=== PATIENT | male | born 1990 | race Caucasian/White ===

== ENCOUNTER → 2018-08-01 | Emergency (ER) | payer SELFPAY ==
[~2018-08-01] VITALS: Ht 182.9 cm; Wt 108.9 kg
[~2018-08-01] MED LIST: CEFD300C3 PO; FLUT9.9S NS; ONDA4TAB11 PO
--- OUTSIDE RECORDS SUMMARY | 2018-08-01 21:35 | XMS REPORT | Clinical Summary ---
Author Author Admin, COURTNEY Organization [employer] Address Unknown Phone Unavailable Allergies, Adverse Reactions, Alerts Allergy Name Reaction Description Start Date Severity Status Provider DILANTIN Moderate Active Sary Roland MD PHENOBARBITAL Critical Active Sary Roland MD AUGMENTIN Moderate Active Sary Roland MD TOPAMAX Critical Active Berta Sweeney ROSENDO Conditions or Problems Problem Name Problem Code Onset Date Status Entry Date Provider Comment Standard Description Annotate SEIZURE DISORDER 780.39 Resolved Nick Quiroz MD Other convulsions SEIZURES, HX OF V12.49 Resolved Nick Quiroz MD Personal history of other disorders of nervous system and sense organs FH SEIZURES V17.2 Resolved Nick Quiroz MD Family history of other neurological diseases SEIZURE DISORDER 780.39 Resolved Nick Quiroz MD Other convulsions GASTROENTERITIS, ACUTE 558.9 Resolved Nick Quiroz MD Other and unspecified noninfectious gastroenteritis and colitis DEHYDRATION 276.51 Resolved Nick Quiroz MD Dehydration SEIZURE DISORDER 780.39 Active Desmond Montgomery DO Other convulsions U R I 465.9 Resolved Nick Quiroz MD Acute upper respiratory infections of unspecified site SPASM, MUSCLE 728.85 Resolved Nick Quiroz MD Spasm of muscle INGROWN TOENAIL 703.0 Active Nick Quiroz MD Ingrowing nail LYMPHADENITIS-ACUTE 683 Resolved Nick Quiroz MD Acute lymphadenitis Preventive health care V70.0 Active Yvon Harrison MD Routine general medical examination at a health care facility Hyperlipidemia 272.4 Active Yvon Harrison MD Other and unspecified hyperlipidemia Hand pain, left 729.5 Active Berta Sweeney APRN Pain in limb Onychomycosis 110.1 Active Yvon Harrison MD Dermatophytosis of nail Viral warts 078.10 Active Yvon Harrison MD Viral warts, unspecified Diarrhea, chronic 787.91 Active Luis Miguel Sapp MD Diarrhea Body Mass Index 34.0-34.9 Adult Active Luis Miguel Sapp MD Body Mass Index 34.0-34.9, adult Other obesity due to excess calories 278.00 Active Luis Miguel Sapp MD Obesity, unspecified Generalized anxiety disorder 300.00 Active Luis Miguel Sapp MD Anxiety state, unspecified Worm in stool 128.9 Active Yvno Harrison MD Helminth infection, unspecified Diarrhea 787.91 Active Yvon Harrison MD Diarrhea Epididymitis, left 604.90 Active Yvon Harrison MD Orchitis and epididymitis, unspecified Dysuria 788.1 Active Yvon Harrison MD Dysuria Body Mass Index 33.0-33.9 Adult Resolved Sary Roland MD Body Mass Index 33.0-33.9, adult Obesity Class I (BMI 30-34.9) Active Sary Roland MD Obesity, unspecified Hydrocele, Other 603.8 Active Sary Roland MD Other specified types of hydrocele Influenza Vaccination for Prophylaxis V04.81 Inactive Yvon Harrison MD Need for prophylactic vaccination and inoculation against influenza Low back pain, acute 724.2 Active Yvon Harrison MD Lumbago SEIZURE DISORDER ICD-780.39 Inactive Nick Quiroz MD SEIZURES, HX OF ICD-V12.49 Inactive Nick Quiroz MD FH SEIZURES ICD-V17.2 Inactive Nick Quiroz MD SEIZURE DISORDER ICD-780.39 Inactive Nick Quiroz MD 2011 GASTROENTERITIS, ACUTE ICD-558.9 Inactive Nick Quiroz MD DEHYDRATION ICD-276.51 Inactive Nick Quiroz MD U R I ICD-465.9 Inactive Nick Quiroz MD SPASM, MUSCLE ICD-728.85 Inactive Nick Quiroz MD LYMPHADENITIS-ACUTE ICD-683 Inactive Nick Quiroz MD Body Mass Index 33.0-33.9 Adult Inactive Donna Elizondo LPN Influenza Vaccination for Prophylaxis ICD-V04.81 Inactive Yvon Harrison MD Medication List Medication Instructions Start Date Stop Date Generic Name NDC Status Provider Patient Instruction DEPAKOTE 500 MG ORAL TABLET DELAYED RELEASE 1 po BID for seizures DIVALPROEX SODIUM 46503685440 Active VIRAJ De La Paz Active HYDRALAZINE HCL 25 MG ORAL TABLET 1 TAB PO UP TO TID PER DAY PRN HYDRALAZINE HCL 70133332184 No Longer Active Magdalenakobe Braun Active HYDROXYZINE HCL 25 MG ORAL TABLET 1 tab po tid prn anxiety or insomnia 05/31 HYDROXYZINE HCL 61627219331 Active VIRAJ Guerra Active MELOXICAM 15 MG ORAL TABLET 1 po q day for pain with food MELOXICAM 25021597555 Active Yvon Harrison MD Active CELEXA 20 MG ORAL TABLET 1 tablet by mouth daily CITALOPRAM HYDROBROMIDE 41939022013 No Longer Active Yvon Harrison MD Active KEFLEX 500 MG ORAL CAPSULE 1 po TID x 10 days CEPHALEXIN 91311434677 No Longer Active Magdalenakobe Thorntonpaul Active CIPRO 500 MG ORAL TABLET 1 tablet by mouth twice daily CIPROFLOXACIN HCL 60524847085 No Longer Active Magdalena Braun Active BUSPIRONE HCL 7.5 MG ORAL TABLET 1 twice day for anxiety BUSPIRONE HCL 36368519575 No Longer Active Yvon Harrison MD Active DEPAKOTE 500 MG ORAL TABLET DELAYED RELEASE take 1 tab po BID for seizures. DIVALPROEX SODIUM 98466817383 No Longer Active Yvon Harrison MD Active SIMVASTATIN 20 MG ORAL TABLET 1 po at qhs SIMVASTATIN 41002023174 No Longer Active Yvon Harrison MD Active CARAFATE 1 GM ORAL TABLET 1 tab q4H SUCRALFATE 63297466563 No Longer Active Yvon Harrison MD Active PANTOPRAZOLE SODIUM 40 MG ORAL TABLET DELAYED RELEASE one tab once daily 2017 PANTOPRAZOLE SODIUM 59640211439 Active Luis Miguel Sapp MD Active PREDNISONE 20 MG ORAL TABLET 2 tabs daily for 3 days, 1 tab daily for 3 days, 1/2 tab daily for 2 days PREDNISONE 86909524344 No Longer Active Yvon Harrison MD Active TERBINAFINE HCL 250 MG ORAL TABLET 1 tab po qday for nail infection. TERBINAFINE HCL 60998203553 No Longer Active Yvon Harrison MD Active DIVALPROEX SODIUM 250 MG ORAL TABLET DELAYED RELEASE 1 po TID DIVALPROEX SODIUM 61186350765 No Longer Active Nick Quiroz MD Active KEFLEX 500 MG ORAL CAPSULE 1 po qid CEPHALEXIN 92029724672 No Longer Active Nick Quiroz MD Active KEFLEX 500 MG ORAL CAPSULE 1 po qid CEPHALEXIN 79767493821 No Longer Active Nick Quiroz MD Active KEFLEX 500 MG ORAL CAPSULE 1 po TID x 10 days CEPHALEXIN 99045502219 No Longer Active Nick Quiroz MD Active KEFLEX 500 MG ORAL CAPSULE 1 po TID x 10 days CEPHALEXIN 72530388410 No Longer Active Nick Quiroz MD Active IBUPROFEN 600 MG ORAL TABLET 1 tablet by mouth every 8 hours prn IBUPROFEN 29519493301 No Longer Active Desmond Montgomery DO Active FLONASE 50 MCG/ACT NASAL SUSPENSION 2 puffs in each nostril daily FLUTICASONE PROPIONATE 93918692672 No Longer Active Desmond Montgomery DO Active LORATADINE 10 MG ORAL TABLET 1 tablet by mouth daily PRN Congestion LORATADINE 76022191031 No Longer Active Desmond Montgomery DO Active LORATADINE 10 MG ORAL TABLET 1 tablet by mouth daily PRN Congestion LORATADINE 10 MG ORAL TABLET 760828 LORATADINE Inactive FLONASE 50 MCG/ACT NASAL SUSPENSION 2 puffs in each nostril daily FLONASE 50 MCG/ACT NASAL SUSPENSION FLUTICASONE PROPIONATE Inactive IBUPROFEN 600 MG ORAL TABLET 1 tablet by mouth every 8 hours prn IBUPROFEN 600 MG ORAL TABLET 831774 IBUPROFEN Inactive KEFLEX 500 MG ORAL CAPSULE 1 po TID x 10 days KEFLEX 500 MG ORAL CAPSULE 953021 CEPHALEXIN Inactive KEFLEX 500 MG ORAL CAPSULE 1 po qid KEFLEX 500 MG ORAL CAPSULE 164316 CEPHALEXIN Inactive KEFLEX 500 MG ORAL CAPSULE 1 po qid KEFLEX 500 MG ORAL CAPSULE 305327 CEPHALEXIN Inactive CARAFATE 1 GM ORAL TABLET 1 tab q4H CARAFATE 1 GM ORAL TABLET 740242 SUCRALFATE Inactive SIMVASTATIN 20 MG ORAL TABLET 1 po at qhs SIMVASTATIN 20 MG ORAL TABLET 746643 SIMVASTATIN Inactive DEPAKOTE 500 MG ORAL TABLET DELAYED RELEASE take 1 tab po BID for seizures. DEPAKOTE 500 MG ORAL TABLET DELAYED RELEASE 2403484 DIVALPROEX SODIUM Inactive BUSPIRONE HCL 7.5 MG ORAL TABLET 1 twice day for anxiety BUSPIRONE HCL 7.5 MG ORAL TABLET 590169 BUSPIRONE HCL Inactive CIPRO 500 MG ORAL TABLET 1 tablet by mouth twice daily CIPRO 500 MG ORAL TABLET 214937 CIPROFLOXACIN HCL Inactive CELEXA 20 MG ORAL TABLET 1 tablet by mouth daily CELEXA 20 MG ORAL TABLET 571765 CITALOPRAM HYDROBROMIDE Inactive HYDRALAZINE HCL 25 MG ORAL TABLET 1 TAB PO UP TO TID PER DAY PRN HYDRALAZINE HCL 25 MG ORAL TABLET 374684 HYDRALAZINE HCL Inactive KEFLEX 500 MG ORAL CAPSULE 1 po TID x 10 days KEFLEX 500 MG ORAL CAPSULE 640296 CEPHALEXIN Inactive DIVALPROEX SODIUM 250 MG ORAL TABLET DELAYED RELEASE 1 po TID DIVALPROEX SODIUM 250 MG ORAL TABLET DELAYED RELEASE 5965812 DIVALPROEX SODIUM Inactive TERBINAFINE HCL 250 MG ORAL TABLET 1 tab po qday for nail infection. TERBINAFINE HCL 250 MG ORAL TABLET 343136 TERBINAFINE HCL Inactive PREDNISONE 20 MG ORAL TABLET 2 tabs daily for 3 days, 1 tab daily for 3 days, 1/2 tab daily for 2 days PREDNISONE 20 MG ORAL TABLET 545175 PREDNISONE Inactive KEFLEX 500 MG ORAL CAPSULE 1 po TID x 10 days KEFLEX 500 MG ORAL CAPSULE 280691 CEPHALEXIN Inactive Vital Signs Date Name Value Unit Range Description blood pressure, diastolic 88 mm[Hg] BP caro blood pressure, systolic 139 mm[Hg] BP sys height E&M 71 [in_us] Bdy height pulse rate E&M 76 /min Heart rate temperature E&M 98.3 [degF] Body temperature weight E&M 248 [lb_av] Weight Measured blood pressure, diastolic 90 mm[Hg] BP caro blood pressure, systolic 136 mm[Hg] BP sys height E&M 71 [in_us] Bdy height pulse rate E&M 86 /min Heart rate temperature E&M 98.4 [degF] Body temperature weight E&M 243 [lb_av] Weight Measured blood pressure, diastolic 95 mm[Hg] BP caro blood pressure, systolic 150 mm[Hg] BP sys height E&M 71 [in_us] Bdy height pulse rate E&M 79 /min Heart rate temperature E&M 99.3 [degF] Body temperature weight E&M 236 [lb_av] Weight Measured blood pressure, diastolic 82 mm[Hg] BP caro blood pressure, systolic 135 mm[Hg] BP sys height E&M 71 [in_us] Bdy height pulse rate E&M 74 /min Heart rate temperature E&M 97.1 [degF] Body temperature weight E&M 241.31 [lb_av] Weight Measured blood pressure, diastolic, repeated by physician 80 BP caro blood pressure, diastolic 80 mm[Hg] BP caro blood pressure, systolic, repeated by physician 128 BP sys blood pressure, systolic 128 mm[Hg] BP sys height E&M 71 [in_us] Bdy height pulse rate E&M 73 /min Heart rate temperature E&M 98.2 [degF] Body temperature weight E&M 244 [lb_av] Weight Measured Diagnostic Results Date Name Value Unit Range Description Chart Maintenance: hemoccult added to flow sheet - Chemistry occult blood, stool (E&M) Negative Lab Report: UADIP W/MICRO, AUTO - Chemistry RBC, urine, dipstick Negative Negative protein, total urine random Negative mg/dL Negative Lab Report: UADIP W/MICRO, AUTO - Urinalysis glucose, urine, semiquantitative Negative Negative ketones, urine, by test strip Negative Negative bilirubin, urine Negative Negative urine color Dark yellow Colorless;Lightyellow;Straw;Yellow appearance, urine Clear Clear specific gravity, urine 1.025 1.000-1.030 pH, urine, semiquantitative 7.0 5.0-8.5 urobilinogen, urine, semiquantitative (dipstick) 1.0 E.U./dL Normal leukocyte esterase, urine, by dipstick Negative Negative nitrite, urine, semiquantitative Negative Negative Encounters Code Encounter Date Provider Facility CPT-06484 [id number] Vst-Est Level III 20:06:18 ENT CONSULTANT Yvon Harrison MD [facility] CPT-48758 Level 3 New Patient 08:58:45 ENT CONSULTANT Sary Roland MD [facility] CPT-35376 Level 3 Est. Patient 11:31:14 CDT Yvon Harrison MD [facility] CPT-10166 [id number] Vst-Est Level III 13:15:10 CDT Yvon Harrison MD [facility] CPT-47338 [id number] Vst-Est Level III 15:15:09 CDT Luis Miguel Sapp MD [facility] CPT-70435 Level 4 Est. Patient 11:00:57 CDT Yvon Harrison MD [facility] CPT-19322 Level 4 Est. Patient 15:53:40 CDT Yvon Harrison MD [facility] CPT-29173 Level 4 Est. Patient 15:42:18 CDT Yvon Harrison MD [facility] CPT-05723 Level 3 Est. Patient 17:08:18 CDT Berta Sweeney ROSENDO [facility] CPT-07035 Level 4 Est. Patient 16:35:02 ENT CONSULTANT Yvon Harrison MD [facility] CPT-52299 Level 4 Est. Patient 15:11:02 ENT CONSULTANT Yvon Harrison MD [facility] CPT-42606 Level 4 Est. Patient 13:18:47 CDT Yvon Harrison MD [facility] CPT-56267 Level 4 Est. Patient 09:51:29 CDT Yvon Harrison MD [facility] CPT-16285 Level 3 Est. Patient 11:40:53 ENT CONSULTANT Nick Quiroz MD [facility] CPT-84561 Level 3 Est. Patient 09:05:46 CDT Nick Quiroz MD [facility] CPT-99135 Level 3 Est. Patient 10:56:05 CDT Nick Quiroz MD [facility] CPT-53059 Level 3 Est. Patient 05:39:31 CDT Desmond Montgomery DO [facility] CPT-63566 Level 3 Est. Patient 16:18:28 ENT CONSULTANT Nick Quiroz MD [facility] CPT-00627 Level 3 Est. Patient 16:50:04 ENT CONSULTANT Nick Quiroz MD [facility] CPT-30118 Level 3 Est. Patient 22:12:55 ENT CONSULTANT Desmond Montgomery DO [facility] Procedures Code Procedure Name Date Entry Date Standard Description CPT-62830 Lipid - LAB USE ONLY 15:55:09 ENT CONSULTANT CPT-18578 CMP - LAB USE ONLY 15:55:09 ENT CONSULTANT CPT-06257 CBC - LAB USE ONLY 15:55:08 ENT CONSULTANT CPT-43642 Venipuncture Draw Fee 15:55:08 ENT CONSULTANT CPT-Cryo Cryotherapy 11:00:57 CDT CPT-93881 Hand comp min 3V 17:09:13 CDT CPT-86940 Hand comp min 3V 17:08:18 CDT CPT-74950 Fluzone Quadrivalent Intramuscular Suspension 0.5 ML 10: 17:16 CDT CPT-LR Lesion Removal 08:49:09 CDT CPT-66273 Nail Excision 08:49:52 CDT CPT-21917 Venipuncture Draw Fee 16:51:53 ENT CONSULTANT
--- OUTSIDE RECORDS SUMMARY | 2018-08-01 21:36 | XMS REPORT | Clinical Summary ---
Author Author Admin, COURTNEY Organization [employer] [facility] [employer] Address Unknown Phone Unavailable Allergies, Adverse Reactions, [...] state, unspecified Worm in stool 128.9 Active Yvon Harrison MD Helminth infection, unspecified Diarrhea 787.91 [...] 1 po BID for seizures DIVALPROEX SODIUM 15502897528 Active VIRAJ De La Paz Active HYDRALAZINE HCL 25 MG ORAL TABLET 1 TAB PO UP TO TID PER DAY PRN HYDRALAZINE HCL 00706686229 No Longer Active Magdalenakobe Braun Active HYDROXYZINE HCL 25 MG ORAL TABLET 1 tab po tid prn anxiety or insomnia 05/31 HYDROXYZINE HCL 95443681032 Active VIRAJ Guerra Active MELOXICAM 15 MG ORAL TABLET 1 po q day for pain with food MELOXICAM 54959310846 Active Yvon Harrison MD Active CELEXA 20 MG ORAL TABLET 1 tablet by mouth daily CITALOPRAM HYDROBROMIDE 89193861908 No Longer Active Yvon Harrison MD Active KEFLEX 500 MG ORAL CAPSULE 1 po TID x 10 days CEPHALEXIN 58362066171 No Longer Active Magdalenakobe Thorntonpaul Active CIPRO 500 MG ORAL TABLET 1 tablet by mouth twice daily CIPROFLOXACIN HCL 68705787528 No Longer Active Magdalena Braun Active BUSPIRONE HCL 7.5 MG ORAL TABLET 1 twice day for anxiety BUSPIRONE HCL 13016167737 No Longer Active Yvon Harrison MD Active DEPAKOTE 500 MG ORAL TABLET DELAYED RELEASE take 1 tab po BID for seizures. DIVALPROEX SODIUM 87760849121 No Longer Active Yvon Harrison MD Active SIMVASTATIN 20 MG ORAL TABLET 1 po at qhs SIMVASTATIN 43068452202 No Longer Active Yvon Harrison MD Active CARAFATE 1 GM ORAL TABLET 1 tab q4H SUCRALFATE 82334698023 No Longer Active Yvon Harrison MD Active PANTOPRAZOLE SODIUM 40 MG ORAL TABLET DELAYED RELEASE one tab once daily 2017 PANTOPRAZOLE SODIUM 10335524068 Active Luis Miguel Sapp MD Active PREDNISONE 20 MG ORAL TABLET 2 tabs daily for 3 days, 1 tab daily for 3 days, 1/2 tab daily for 2 days PREDNISONE 12990899505 No Longer Active Yvon Harrison MD Active TERBINAFINE HCL 250 MG ORAL TABLET 1 tab po qday for nail infection. TERBINAFINE HCL 58393435144 No Longer Active Yvon Harrison MD Active DIVALPROEX SODIUM 250 MG ORAL TABLET DELAYED RELEASE 1 po TID DIVALPROEX SODIUM 53240935674 No Longer Active Nick Quiroz MD Active KEFLEX 500 MG ORAL CAPSULE 1 po qid CEPHALEXIN 73576655544 No Longer Active Nick Quiroz MD Active KEFLEX 500 MG ORAL CAPSULE 1 po qid CEPHALEXIN 30938831779 No Longer Active Nick Quiroz MD Active KEFLEX 500 MG ORAL CAPSULE 1 po TID x 10 days CEPHALEXIN 61043151317 No Longer Active Nick Quiroz MD Active KEFLEX 500 MG ORAL CAPSULE 1 po TID x 10 days CEPHALEXIN 61654043527 No Longer Active Nick Quiroz MD Active IBUPROFEN 600 MG ORAL TABLET 1 tablet by mouth every 8 hours prn IBUPROFEN 83672552724 No Longer Active Desmond Montgomery DO Active FLONASE 50 MCG/ACT NASAL SUSPENSION 2 puffs in each nostril daily FLUTICASONE PROPIONATE 11784733003 No Longer Active Desmond Montgomery DO Active LORATADINE 10 MG ORAL TABLET 1 tablet by mouth daily PRN Congestion LORATADINE 16849729779 No Longer Active Desmond Montgomery DO Active LORATADINE 10 MG ORAL TABLET 1 tablet by mouth daily PRN Congestion LORATADINE 10 MG ORAL TABLET 831364 LORATADINE Inactive FLONASE 50 MCG/ACT NASAL SUSPENSION 2 puffs in each nostril daily FLONASE 50 MCG/ACT NASAL SUSPENSION FLUTICASONE PROPIONATE Inactive IBUPROFEN 600 MG ORAL TABLET 1 tablet by mouth every 8 hours prn IBUPROFEN 600 MG ORAL TABLET 761001 IBUPROFEN Inactive KEFLEX 500 MG ORAL CAPSULE 1 po TID x 10 days KEFLEX 500 MG ORAL CAPSULE 096094 CEPHALEXIN Inactive KEFLEX 500 MG ORAL CAPSULE 1 po qid KEFLEX 500 MG ORAL CAPSULE 869624 CEPHALEXIN Inactive KEFLEX 500 MG ORAL CAPSULE 1 po qid KEFLEX 500 MG ORAL CAPSULE 073601 CEPHALEXIN Inactive CARAFATE 1 GM ORAL TABLET 1 tab q4H CARAFATE 1 GM ORAL TABLET 242555 SUCRALFATE Inactive SIMVASTATIN 20 MG ORAL TABLET 1 po at qhs SIMVASTATIN 20 MG ORAL TABLET 377581 SIMVASTATIN Inactive DEPAKOTE 500 MG ORAL TABLET DELAYED RELEASE take 1 tab po BID for seizures. DEPAKOTE 500 MG ORAL TABLET DELAYED RELEASE 3629672 DIVALPROEX SODIUM Inactive BUSPIRONE HCL 7.5 MG ORAL TABLET 1 twice day for anxiety BUSPIRONE HCL 7.5 MG ORAL TABLET 126249 BUSPIRONE HCL Inactive CIPRO 500 MG ORAL TABLET 1 tablet by mouth twice daily CIPRO 500 MG ORAL TABLET 388708 CIPROFLOXACIN HCL Inactive CELEXA 20 MG ORAL TABLET 1 tablet by mouth daily CELEXA 20 MG ORAL TABLET 501452 CITALOPRAM HYDROBROMIDE Inactive HYDRALAZINE HCL 25 MG ORAL TABLET 1 TAB PO UP TO TID PER DAY PRN HYDRALAZINE HCL 25 MG ORAL TABLET 936109 HYDRALAZINE HCL Inactive KEFLEX 500 MG ORAL CAPSULE 1 po TID x 10 days KEFLEX 500 MG ORAL CAPSULE 405634 CEPHALEXIN Inactive DIVALPROEX SODIUM 250 MG ORAL TABLET DELAYED RELEASE 1 po TID DIVALPROEX SODIUM 250 MG ORAL TABLET DELAYED RELEASE 6229048 DIVALPROEX SODIUM Inactive TERBINAFINE HCL 250 MG ORAL TABLET 1 tab po qday for nail infection. TERBINAFINE HCL 250 MG ORAL TABLET 493293 TERBINAFINE HCL Inactive PREDNISONE 20 MG ORAL TABLET 2 tabs daily for 3 days, 1 tab daily for 3 days, 1/2 tab daily for 2 days PREDNISONE 20 MG ORAL TABLET 650348 PREDNISONE Inactive KEFLEX 500 MG ORAL CAPSULE 1 po TID x 10 days KEFLEX 500 MG ORAL CAPSULE 773905 CEPHALEXIN Inactive Vital Signs Date Name Value [...] Negative Encounters Code Encounter Date Provider Facility CPT-05963 [id number] Vst-Est Level III 20:06:18 [employer] Yvon Harrison MD [facility] CPT-87666 Level 3 New Patient 08:58:45 [employer] Sary Roland MD [facility] CPT-34909 Level 3 Est. Patient 11:31:14 CDT Yvon Harrison MD [facility] CPT-64564 [id number] Vst-Est Level III 13:15:10 CDT Yvon Harrison MD [facility] CPT-43515 [id number] Vst-Est Level III 15:15:09 CDT Luis Miguel Sapp MD [facility] CPT-35846 Level 4 Est. Patient 11:00:57 CDT Yvon Harrison MD [facility] CPT-62855 Level 4 Est. Patient 15:53:40 CDT Yvon Harrison MD [facility] CPT-77812 Level 4 Est. Patient 15:42:18 CDT Yvon Harrison MD [facility] CPT-11960 Level 3 Est. Patient 17:08:18 CDT Berta Sweeney ROSENDO [facility] CPT-09770 Level 4 Est. Patient 16:35:02 [employer] Yvon Harrison MD [facility] CPT-39559 Level 4 Est. Patient 15:11:02 [employer] Yvon Harrison MD [facility] CPT-84433 Level 4 Est. Patient 13:18:47 CDT Yvon Harrison MD [facility] CPT-04648 Level 4 Est. Patient 09:51:29 CDT Yvon Harrison MD [facility] CPT-22542 Level 3 Est. Patient 11:40:53 [employer] Nick Quiroz MD [facility] CPT-50477 Level 3 Est. Patient 09:05:46 CDT Nick Quiroz MD [facility] CPT-01947 Level 3 Est. Patient 10:56:05 CDT Nick Quiroz MD [facility] CPT-56785 Level 3 Est. Patient 05:39:31 CDT Desmond Montgomery DO [facility] CPT-51166 Level 3 Est. Patient 16:18:28 [employer] Nick Quiroz MD [facility] CPT-89955 Level 3 Est. Patient 16:50:04 [employer] Nick Quiroz MD [facility] CPT-59575 Level 3 Est. Patient 22:12:55 [employer] Desmond Montgomery DO [facility] Procedures Code Procedure Name Date Entry Date Standard Description CPT-76407 Lipid - LAB USE ONLY 15:55:09 [employer] CPT-87193 CMP - LAB USE ONLY 15:55:09 [employer] CPT-55718 CBC - LAB USE ONLY 15:55:08 [employer] CPT-21348 Venipuncture Draw Fee 15:55:08 [employer] CPT-Cryo Cryotherapy 11:00:57 CDT CPT-99910 Hand comp min 3V 17:09:13 CDT CPT-21876 Hand comp min 3V 17:08:18 CDT CPT-73644 Fluzone Quadrivalent Intramuscular Suspension 0.5 ML 10: 17:16 CDT CPT-LR Lesion Removal 08:49:09 CDT CPT-41087 Nail Excision 08:49:52 CDT CPT-24404 Venipuncture Draw Fee 16:51:53 [employer]
--- OUTSIDE RECORDS SUMMARY | 2018-08-01 21:36 | XMS REPORT | Clinical Summary ---
Author Author Admin, COURTNEY Organization [employer] Address Unknown Phone Unavailable Allergies, Adverse Reactions, [...] Generic Name NDC Status Provider Patient Instruction HYDRALAZINE HCL 25 MG ORAL TABLET 1 TAB PO UP TO TID PER DAY PRN HYDRALAZINE HCL 57510129531 No Longer Active Magdalena Raida Active HYDROXYZINE HCL 25 MG ORAL TABLET 1 tab po tid prn anxiety or insomnia 05/31 HYDROXYZINE HCL 19169190509 Active VIRAJ Guerra Active MELOXICAM 15 MG ORAL TABLET 1 po q day for pain with food MELOXICAM 78770462611 Active Yvon Harrisno MD Active CELEXA 20 MG ORAL TABLET 1 tablet by mouth daily CITALOPRAM HYDROBROMIDE 89752376582 No Longer Active Yvon Harrison MD Active KEFLEX 500 MG ORAL CAPSULE 1 po TID x 10 days CEPHALEXIN 76899391980 No Longer Active Magdalena Braun Active CIPRO 500 MG ORAL TABLET 1 tablet by mouth twice daily CIPROFLOXACIN HCL 65775174286 No Longer Active Magdalena Braun Active BUSPIRONE HCL 7.5 MG ORAL TABLET 1 twice day for anxiety BUSPIRONE HCL 71944528733 No Longer Active Yvon Harrison MD Active DEPAKOTE 500 MG ORAL TABLET DELAYED RELEASE take 1 tab po BID for seizures. DIVALPROEX SODIUM 92327634210 No Longer Active Yvon Harrison MD Active SIMVASTATIN 20 MG ORAL TABLET 1 po at qhs SIMVASTATIN 67133577121 No Longer Active Yvon Harrison MD Active CARAFATE 1 GM ORAL TABLET 1 tab q4H SUCRALFATE 81421432899 No Longer Active Yvon Harrison MD Active PANTOPRAZOLE SODIUM 40 MG ORAL TABLET DELAYED RELEASE one tab once daily 2017 PANTOPRAZOLE SODIUM 13514154710 Active Luis Miguel Sapp MD Active PREDNISONE 20 MG ORAL TABLET 2 tabs daily for 3 days, 1 tab daily for 3 days, 1/2 tab daily for 2 days PREDNISONE 66100021596 No Longer Active Yvon Harrison MD Active TERBINAFINE HCL 250 MG ORAL TABLET 1 tab po qday for nail infection. TERBINAFINE HCL 23892652523 No Longer Active Yvon Harrison MD Active DIVALPROEX SODIUM 250 MG ORAL TABLET DELAYED RELEASE 1 po TID DIVALPROEX SODIUM 40344012553 No Longer Active Nick Quiroz MD Active KEFLEX 500 MG ORAL CAPSULE 1 po qid CEPHALEXIN 98527964683 No Longer Active Nick Quiroz MD Active KEFLEX 500 MG ORAL CAPSULE 1 po qid CEPHALEXIN 74601770913 No Longer Active Nick Quiroz MD Active KEFLEX 500 MG ORAL CAPSULE 1 po TID x 10 days CEPHALEXIN 54128831262 No Longer Active Nick Quiroz MD Active KEFLEX 500 MG ORAL CAPSULE 1 po TID x 10 days CEPHALEXIN 31597713157 No Longer Active Nick Quiroz MD Active IBUPROFEN 600 MG ORAL TABLET 1 tablet by mouth every 8 hours prn IBUPROFEN 00666266763 No Longer Active Desmond Montgomery DO Active FLONASE 50 MCG/ACT NASAL SUSPENSION 2 puffs in each nostril daily FLUTICASONE PROPIONATE 22171964919 No Longer Active Desmond Montgomery DO Active LORATADINE 10 MG ORAL TABLET 1 tablet by mouth daily PRN Congestion LORATADINE 25200324368 No Longer Active Desmond Montgomery DO Active LORATADINE 10 MG ORAL TABLET 1 tablet by mouth daily PRN Congestion LORATADINE 10 MG ORAL TABLET 661850 LORATADINE Inactive FLONASE 50 MCG/ACT NASAL SUSPENSION 2 puffs in each nostril daily FLONASE 50 MCG/ACT NASAL SUSPENSION FLUTICASONE PROPIONATE Inactive IBUPROFEN 600 MG ORAL TABLET 1 tablet by mouth every 8 hours prn IBUPROFEN 600 MG ORAL TABLET 135655 IBUPROFEN Inactive KEFLEX 500 MG ORAL CAPSULE 1 po TID x 10 days KEFLEX 500 MG ORAL CAPSULE 687974 CEPHALEXIN Inactive KEFLEX 500 MG ORAL CAPSULE 1 po qid KEFLEX 500 MG ORAL CAPSULE 438165 CEPHALEXIN Inactive KEFLEX 500 MG ORAL CAPSULE 1 po qid KEFLEX 500 MG ORAL CAPSULE 464918 CEPHALEXIN Inactive CARAFATE 1 GM ORAL TABLET 1 tab q4H CARAFATE 1 GM ORAL TABLET 877107 SUCRALFATE Inactive SIMVASTATIN 20 MG ORAL TABLET 1 po at qhs SIMVASTATIN 20 MG ORAL TABLET 547853 SIMVASTATIN Inactive DEPAKOTE 500 MG ORAL TABLET DELAYED RELEASE take 1 tab po BID for seizures. DEPAKOTE 500 MG ORAL TABLET DELAYED RELEASE 1818138 DIVALPROEX SODIUM Inactive BUSPIRONE HCL 7.5 MG ORAL TABLET 1 twice day for anxiety BUSPIRONE HCL 7.5 MG ORAL TABLET 843109 BUSPIRONE HCL Inactive CIPRO 500 MG ORAL TABLET 1 tablet by mouth twice daily CIPRO 500 MG ORAL TABLET 942560 CIPROFLOXACIN HCL Inactive CELEXA 20 MG ORAL TABLET 1 tablet by mouth daily CELEXA 20 MG ORAL TABLET 194819 CITALOPRAM HYDROBROMIDE Inactive HYDRALAZINE HCL 25 MG ORAL TABLET 1 TAB PO UP TO TID PER DAY PRN HYDRALAZINE HCL 25 MG ORAL TABLET 688878 HYDRALAZINE HCL Inactive KEFLEX 500 MG ORAL CAPSULE 1 po TID x 10 days KEFLEX 500 MG ORAL CAPSULE 182406 CEPHALEXIN Inactive DIVALPROEX SODIUM 250 MG ORAL TABLET DELAYED RELEASE 1 po TID DIVALPROEX SODIUM 250 MG ORAL TABLET DELAYED RELEASE 3537354 DIVALPROEX SODIUM Inactive TERBINAFINE HCL 250 MG ORAL TABLET 1 tab po qday for nail infection. TERBINAFINE HCL 250 MG ORAL TABLET 624601 TERBINAFINE HCL Inactive PREDNISONE 20 MG ORAL TABLET 2 tabs daily for 3 days, 1 tab daily for 3 days, 1/2 tab daily for 2 days PREDNISONE 20 MG ORAL TABLET 537779 PREDNISONE Inactive KEFLEX 500 MG ORAL CAPSULE 1 po TID x 10 days KEFLEX 500 MG ORAL CAPSULE 846314 CEPHALEXIN Inactive Vital Signs Date Name Value [...] Negative Encounters Code Encounter Date Provider Facility CPT-04742 [id number] Vst-Est Level III 20:06:18 [employer]IST Yvon Harrison MD [facility] CPT-40093 Level 3 New Patient 08:58:45 [employer]WORK SPECIALIST Sary Roland MD [facility] CPT-87521 Level 3 Est. Patient 11:31:14 CDT Yvon Harrison MD [facility] CPT-29504 [id number] Vst-Est Level III 13:15:10 CDT Yvon Harrison MD [facility] CPT-68096 [id number]-Mma Vst-Est Level III 15:15:09 CDT Luis Miguel Sapp MD [facility] CPT-87598 Level 4 Est. Patient 11:00:57 CDT Yvon Harrison MD [facility] CPT-39187 Level 4 Est. Patient 15:53:40 CDT Yvon Harrison MD [facility] CPT-84395 Level 4 Est. Patient 15:42:18 CDT Yvon Harrison MD [facility] CPT-63016 Level 3 Est. Patient 17:08:18 CDT Berta Sweeney ROSENDO [facility] CPT-27791 Level 4 Est. Patient 16:35:02 [employer]AL [employer]WORK SPECIALIST Yvon Harrison MD [facility] CPT-90270 Level 4 Est. Patient 15:11:02 [employer]RECTIONAL CASEWORK SPECIALIST Yvon Harrison MD [facility] CPT-89809 Level 4 Est. Patient 13:18:47 CDT Yvon Harrison MD [facility] CPT-97584 Level 4 Est. Patient 09:51:29 CDT Yvon Harrison MD [facility] CPT-67779 Level 3 Est. Patient 11:40:53 [employer]AL [employer]WORK SPECIALIST Nick Quiroz MD [facility] CPT-46788 Level 3 Est. Patient 09:05:46 CDT Nick Quiroz MD [facility] CPT-18044 Level 3 Est. Patient 10:56:05 CDT Nick Quiroz MD [facility] CPT-84234 Level 3 Est. Patient 05:39:31 CDT Desmond Montgomery DO [facility] CPT-06697 Level 3 Est. Patient 16:18:28 [employer]AL CASEWORK SPECIALIST Nick Quiroz MD [facility] CPT-87767 Level 3 Est. Patient 16:50:04 CORRECTIONAL CASEWORK SPECIALIST Nick Quiroz MD [facility] CPT-75637 Level 3 Est. Patient 22:12:55 [employer]AL CASEWORK SPECIALIST Desmond Montgomery DO [facility] Procedures Code Procedure Name Date Entry Date Standard Description CPT-91991 Lipid - LAB USE ONLY 15:55:09 [employer]IST CPT-09368 CMP - LAB USE ONLY 15:55:09 [employer]IST CPT-26059 CBC - LAB USE ONLY 15:55:08 [employer]IST CPT-81158 Venipuncture Draw Fee 15:55:08 [employer]IST CPT-Cryo Cryotherapy 11:00:57 CDT CPT-36230 Hand comp min 3V 17:09:13 CDT CPT-93261 Hand comp min 3V 17:08:18 CDT CPT-50536 Fluzone Quadrivalent Intramuscular Suspension 0.5 ML 10: 17:16 CDT CPT-LR Lesion Removal 08:49:09 CDT CPT-97189 Nail Excision 08:49:52 CDT CPT-92701 Venipuncture Draw Fee 16:51:53 [employer]AL CASEWORK SPECIALIST
--- OUTSIDE RECORDS SUMMARY | 2018-08-01 21:37 | XMS REPORT | Clinical Summary ---
Author Author Admin, COURTNEY Organization [employer] Address Unknown Phone Unavailable Allergies, Adverse Reactions, Alerts Allergy Name Reaction Description Start Date Severity Status Provider DILANTIN Moderate Active Sary Roland MD PHENOBARBITAL Critical Active Sary Roland MD AUGMENTIN Moderate Active Sary Roland MD TOPAMAX Critical Active Bertadaksha Sweeney ROSENDO Conditions or Problems Problem Name [...] Generic Name NDC Status Provider Patient Instruction HYDROXYZINE HCL 25 MG ORAL TABLET 1 tab po tid prn anxiety or insomnia 05/31 HYDROXYZINE HCL 54643562353 Active VIRAJ Guerra Active MELOXICAM 15 MG ORAL TABLET 1 po q day for pain with food MELOXICAM 94013838285 Active Yvon Harrison MD Active HYDRALAZINE HCL 25 MG ORAL TABLET 1 TAB PO UP TO TID PER DAY PRN HYDRALAZINE HCL 63841481794 Active Yvon Harrison MD Active CELEXA 20 MG ORAL TABLET 1 tablet by mouth daily CITALOPRAM HYDROBROMIDE 88446581952 No Longer Active Yvon Harrison MD Active KEFLEX 500 MG ORAL CAPSULE 1 po TID x 10 days CEPHALEXIN 71184042848 No Longer Active Magdalenakobe Braun Active CIPRO 500 MG ORAL TABLET 1 tablet by mouth twice daily CIPROFLOXACIN HCL 44718771857 No Longer Active Magdalena Braun Active BUSPIRONE HCL 7.5 MG ORAL TABLET 1 twice day for anxiety BUSPIRONE HCL 24109371032 No Longer Active Yvon Harrison MD Active DEPAKOTE 500 MG ORAL TABLET DELAYED RELEASE take 1 tab po BID for seizures. DIVALPROEX SODIUM 63087200515 No Longer Active Yvon Harrison MD Active SIMVASTATIN 20 MG ORAL TABLET 1 po at qhs SIMVASTATIN 28869620031 No Longer Active Yvon Harrison MD Active CARAFATE 1 GM ORAL TABLET 1 tab q4H SUCRALFATE 55070102450 No Longer Active Yvon Harrison MD Active PANTOPRAZOLE SODIUM 40 MG ORAL TABLET DELAYED RELEASE one tab once daily 2017 PANTOPRAZOLE SODIUM 55431494452 Active Luis Miguel Sapp MD Active PREDNISONE 20 MG ORAL TABLET 2 tabs daily for 3 days, 1 tab daily for 3 days, 1/2 tab daily for 2 days PREDNISONE 15525304281 No Longer Active Yvon Harrison MD Active TERBINAFINE HCL 250 MG ORAL TABLET 1 tab po qday for nail infection. TERBINAFINE HCL 52693851888 No Longer Active Yvon Harrison MD Active DIVALPROEX SODIUM 250 MG ORAL TABLET DELAYED RELEASE 1 po TID DIVALPROEX SODIUM 66047534873 No Longer Active Nick Quiroz MD Active KEFLEX 500 MG ORAL CAPSULE 1 po qid CEPHALEXIN 56547456438 No Longer Active Nick Quiroz MD Active KEFLEX 500 MG ORAL CAPSULE 1 po qid CEPHALEXIN 60163301658 No Longer Active Nick Quiroz MD Active KEFLEX 500 MG ORAL CAPSULE 1 po TID x 10 days CEPHALEXIN 74972922771 No Longer Active Nick Quiroz MD Active KEFLEX 500 MG ORAL CAPSULE 1 po TID x 10 days CEPHALEXIN 36532171231 No Longer Active Nick Quiroz MD Active IBUPROFEN 600 MG ORAL TABLET 1 tablet by mouth every 8 hours prn IBUPROFEN 76203983885 No Longer Active Desmond Montgomery DO Active FLONASE 50 MCG/ACT NASAL SUSPENSION 2 puffs in each nostril daily FLUTICASONE PROPIONATE 54292519010 No Longer Active Desmond Montgomery DO Active LORATADINE 10 MG ORAL TABLET 1 tablet by mouth daily PRN Congestion LORATADINE 33495539689 No Longer Active Desmond Montgomery DO Active LORATADINE 10 MG ORAL TABLET 1 tablet by mouth daily PRN Congestion LORATADINE 10 MG ORAL TABLET 964599 LORATADINE Inactive FLONASE 50 MCG/ACT NASAL SUSPENSION 2 puffs in each nostril daily FLONASE 50 MCG/ACT NASAL SUSPENSION 7261790 FLUTICASONE PROPIONATE Inactive IBUPROFEN 600 MG ORAL TABLET 1 tablet by mouth every 8 hours prn IBUPROFEN 600 MG ORAL TABLET 331495 IBUPROFEN Inactive KEFLEX 500 MG ORAL CAPSULE 1 po TID x 10 days KEFLEX 500 MG ORAL CAPSULE 298148 CEPHALEXIN Inactive KEFLEX 500 MG ORAL CAPSULE 1 po qid KEFLEX 500 MG ORAL CAPSULE 787638 CEPHALEXIN Inactive KEFLEX 500 MG ORAL CAPSULE 1 po qid KEFLEX 500 MG ORAL CAPSULE 472947 CEPHALEXIN Inactive CARAFATE 1 GM ORAL TABLET 1 tab q4H CARAFATE 1 GM ORAL TABLET 404892 SUCRALFATE Inactive SIMVASTATIN 20 MG ORAL TABLET 1 po at qhs SIMVASTATIN 20 MG ORAL TABLET 501547 SIMVASTATIN Inactive DEPAKOTE 500 MG ORAL TABLET DELAYED RELEASE take 1 tab po BID for seizures. DEPAKOTE 500 MG ORAL TABLET DELAYED RELEASE 8049966 DIVALPROEX SODIUM Inactive BUSPIRONE HCL 7.5 MG ORAL TABLET 1 twice day for anxiety BUSPIRONE HCL 7.5 MG ORAL TABLET 733120 BUSPIRONE HCL Inactive CIPRO 500 MG ORAL TABLET 1 tablet by mouth twice daily CIPRO 500 MG ORAL TABLET 332127 CIPROFLOXACIN HCL Inactive CELEXA 20 MG ORAL TABLET 1 tablet by mouth daily CELEXA 20 MG ORAL TABLET 434995 CITALOPRAM HYDROBROMIDE Inactive KEFLEX 500 MG ORAL CAPSULE 1 po TID x 10 days KEFLEX 500 MG ORAL CAPSULE 578296 CEPHALEXIN Inactive DIVALPROEX SODIUM 250 MG ORAL TABLET DELAYED RELEASE 1 po TID DIVALPROEX SODIUM 250 MG ORAL TABLET DELAYED RELEASE 4190437 DIVALPROEX SODIUM Inactive TERBINAFINE HCL 250 MG ORAL TABLET 1 tab po qday for nail infection. TERBINAFINE HCL 250 MG ORAL TABLET 004732 TERBINAFINE HCL Inactive PREDNISONE 20 MG ORAL TABLET 2 tabs daily for 3 days, 1 tab daily for 3 days, 1/2 tab daily for 2 days PREDNISONE 20 MG ORAL TABLET 071616 PREDNISONE Inactive KEFLEX 500 MG ORAL CAPSULE 1 po TID x 10 days KEFLEX 500 MG ORAL CAPSULE 861835 CEPHALEXIN Inactive Vital Signs Date Name Value [...] Negative Encounters Code Encounter Date Provider Facility [facility]-41004 [id number] Vst-Est Level III 20:06:18 CUSTOMER SOLUTIONS TEAMMATE Yvon Harrison MD [facility] CPT-19890 Level 3 New Patient 08:58:45 C[employer]OMER SOLUTIONS TEAMMATE Sary Roland MD [facility]-15633 Level 3 Est. Patient 11:31:14 CDT Yvon Harrison MD [facility]-94162 76244-Bcg Vst-Est Level III 13:15:10 CDT Yvon Harrison MD [facility]-57736 40218-Xbm Vst-Est Level III 15:15:09 CDT Luis Miguel Sapp MD [facility]-47781 Level 4 Est. Patient 11:00:57 CDT Yvon Harrison MD [facility] CPT-42927 Level 4 Est. Patient 15:53:40 CDT Yvon Harrison MD [facility] CPT-50811 Level 4 Est. Patient 15:42:18 CDT Yvon Harrison MD [facility] CPT-80926 Level 3 Est. Patient 17:08:18 CDT Berta Sweeney APRN [facility] CPT-74888 Level 4 Est. Patient 16:35:02 C[employer]OMER SOLUTIONS TEAMMATE Yvon Harrison MD [facility] CPT-80236 Level 4 Est. Patient 15:11:02 CUSTOMER SOLUTIONS TEAMMATE Yvon Harrison MD [facility] CPT-44314 Level 4 Est. Patient 13:18:47 CDT Yvon Harrison MD [facility] CPT-00861 Level 4 Est. Patient 09:51:29 CDT Yvon Harrison MD [facility] CPT-23536 Level 3 Est. Patient 11:40:53 C[employer]OMER SOLUTIONS TEAMMATE Nick Quiroz MD [facility] CPT-40250 Level 3 Est. Patient 09:05:46 CDT Nick Quiroz MD [facility] CPT-03483 Level 3 Est. Patient 10:56:05 CDT Nick Quiroz MD [facility] CPT-06296 Level 3 Est. Patient 05:39:31 CDT Desmodn Montgomery DO [facility] CPT-69805 Level 3 Est. Patient 16:18:28 C[employer]OMER SOLUTIONS TEAMMATE Nick Quiroz MD [facility] CPT-66019 Level 3 Est. Patient 16:50:04 C[employer]OMER SOLUTIONS TEAMMATE Nick Quiroz MD [facility] CPT-00713 Level 3 Est. Patient 22:12:55 C[employer]OMER SOLUTIONS TEAMMATE Desmond Montgomery DO [facility] Procedures Code Procedure Name Date Entry Date Standard Description CPT-77010 Lipid - LAB USE ONLY 15:55:09 C[employer]ER [employer] TEAM[employer]ATE CPT-30424 CMP - LAB USE ONLY 15:55:09 C[employer]ER [employer] TEAM[employer]ATE CPT-62927 CBC - LAB USE ONLY 15:55:08 C[employer] TEAM[employer]ATE CPT-42350 Venipuncture Draw Fee 15:55:08 C[employer] TEAM[employer]ATE CPT-Cryo Cryotherapy 11:00:57 CDT CPT-34266 Hand comp min 3V 17:09:13 CDT CPT-22900 Hand comp min 3V 17:08:18 CDT CPT-74066 Fluzone Quadrivalent Intramuscular Suspension 0.5 ML 10: 17:16 CDT CPT-LR Lesion Removal 08:49:09 CDT CPT-93430 Nail Excision 08:49:52 CDT CPT-85014 Venipuncture Draw Fee 16:51:53 C[employer]OMER SOLUTIONS TEAMMATE
--- OUTSIDE RECORDS SUMMARY | 2018-08-01 21:38 | XMS REPORT | Clinical Summary ---
Author Author Admin, COURTNEY Organization [email or web address] Address Unknown Phone Unavailable Allergies, Adverse Reactions, [...] Pain in limb Onychomycosis 110.1 Active Yvon aHrrison MD Dermatophytosis of nail Viral warts 078.10 [...] prn anxiety or insomnia 05/31 HYDROXYZINE HCL 68489270596 Active VIRAJ Guerra Active MELOXICAM 15 MG ORAL TABLET 1 po q day for pain with food MELOXICAM 64973213884 Active Yvon Harrison MD Active HYDRALAZINE HCL 25 MG ORAL TABLET 1 TAB PO UP TO TID PER DAY PRN HYDRALAZINE HCL 82606235167 Active Yvon Harrison MD Active CELEXA 20 MG ORAL TABLET 1 tablet by mouth daily CITALOPRAM HYDROBROMIDE 24040365438 No Longer Active Yvon Harrison MD Active KEFLEX 500 MG ORAL CAPSULE 1 po TID x 10 days CEPHALEXIN 92818051869 No Longer Active Magdalenakobe Braun Active CIPRO 500 MG ORAL TABLET 1 tablet by mouth twice daily CIPROFLOXACIN HCL 63108843931 No Longer Active Magdalena Braun Active BUSPIRONE HCL 7.5 MG ORAL TABLET 1 twice day for anxiety BUSPIRONE HCL 64851591184 No Longer Active Yvon Harrison MD Active DEPAKOTE 500 MG ORAL TABLET DELAYED RELEASE take 1 tab po BID for seizures. DIVALPROEX SODIUM 46291074765 No Longer Active Yvno Harrison MD Active SIMVASTATIN 20 MG ORAL TABLET 1 po at qhs SIMVASTATIN 72147123398 No Longer Active Yvon Harrison MD Active CARAFATE 1 GM ORAL TABLET 1 tab q4H SUCRALFATE 52505781556 No Longer Active Yvon Harrison MD Active PANTOPRAZOLE SODIUM 40 MG ORAL TABLET DELAYED RELEASE one tab once daily 2017 PANTOPRAZOLE SODIUM 68433645690 Active Luis Miguel Sapp MD Active PREDNISONE 20 MG ORAL TABLET 2 tabs daily for 3 days, 1 tab daily for 3 days, 1/2 tab daily for 2 days PREDNISONE 39614170256 No Longer Active Yvon Harrison MD Active TERBINAFINE HCL 250 MG ORAL TABLET 1 tab po qday for nail infection. TERBINAFINE HCL 39486295080 No Longer Active Yvon Harrison MD Active DIVALPROEX SODIUM 250 MG ORAL TABLET DELAYED RELEASE 1 po TID DIVALPROEX SODIUM 43910352180 No Longer Active Nick Quiroz MD Active KEFLEX 500 MG ORAL CAPSULE 1 po qid CEPHALEXIN 15007592114 No Longer Active Nick Quiroz MD Active KEFLEX 500 MG ORAL CAPSULE 1 po qid CEPHALEXIN 79697927972 No Longer Active Nick Quiroz MD Active KEFLEX 500 MG ORAL CAPSULE 1 po TID x 10 days CEPHALEXIN 33852849931 No Longer Active Nick Quiroz MD Active KEFLEX 500 MG ORAL CAPSULE 1 po TID x 10 days CEPHALEXIN 23317835574 No Longer Active Nick Quiroz MD Active IBUPROFEN 600 MG ORAL TABLET 1 tablet by mouth every 8 hours prn IBUPROFEN 11134902388 No Longer Active Desmond Montgomery DO Active FLONASE 50 MCG/ACT NASAL SUSPENSION 2 puffs in each nostril daily FLUTICASONE PROPIONATE 39433802978 No Longer Active Desmond Montgomery DO Active LORATADINE 10 MG ORAL TABLET 1 tablet by mouth daily PRN Congestion LORATADINE 73034435847 No Longer Active Desmond Montgomery DO Active LORATADINE 10 MG ORAL TABLET 1 tablet by mouth daily PRN Congestion LORATADINE 10 MG ORAL TABLET 948614 LORATADINE Inactive FLONASE 50 MCG/ACT NASAL SUSPENSION 2 puffs in each nostril daily FLONASE 50 MCG/ACT NASAL SUSPENSION 7563362 FLUTICASONE PROPIONATE Inactive IBUPROFEN 600 MG ORAL TABLET 1 tablet by mouth every 8 hours prn IBUPROFEN 600 MG ORAL TABLET 832140 IBUPROFEN Inactive KEFLEX 500 MG ORAL CAPSULE 1 po TID x 10 days KEFLEX 500 MG ORAL CAPSULE 321608 CEPHALEXIN Inactive KEFLEX 500 MG ORAL CAPSULE 1 po qid KEFLEX 500 MG ORAL CAPSULE 655009 CEPHALEXIN Inactive KEFLEX 500 MG ORAL CAPSULE 1 po qid KEFLEX 500 MG ORAL CAPSULE 635176 CEPHALEXIN Inactive CARAFATE 1 GM ORAL TABLET 1 tab q4H CARAFATE 1 GM ORAL TABLET 214263 SUCRALFATE Inactive SIMVASTATIN 20 MG ORAL TABLET 1 po at qhs SIMVASTATIN 20 MG ORAL TABLET 523760 SIMVASTATIN Inactive DEPAKOTE 500 MG ORAL TABLET DELAYED RELEASE take 1 tab po BID for seizures. DEPAKOTE 500 MG ORAL TABLET DELAYED RELEASE 9702678 DIVALPROEX SODIUM Inactive BUSPIRONE HCL 7.5 MG ORAL TABLET 1 twice day for anxiety BUSPIRONE HCL 7.5 MG ORAL TABLET 678161 BUSPIRONE HCL Inactive CIPRO 500 MG ORAL TABLET 1 tablet by mouth twice daily CIPRO 500 MG ORAL TABLET 089460 CIPROFLOXACIN HCL Inactive CELEXA 20 MG ORAL TABLET 1 tablet by mouth daily CELEXA 20 MG ORAL TABLET 938887 CITALOPRAM HYDROBROMIDE Inactive KEFLEX 500 MG ORAL CAPSULE 1 po TID x 10 days KEFLEX 500 MG ORAL CAPSULE 938877 CEPHALEXIN Inactive DIVALPROEX SODIUM 250 MG ORAL TABLET DELAYED RELEASE 1 po TID DIVALPROEX SODIUM 250 MG ORAL TABLET DELAYED RELEASE 0976319 DIVALPROEX SODIUM Inactive TERBINAFINE HCL 250 MG ORAL TABLET 1 tab po qday for nail infection. TERBINAFINE HCL 250 MG ORAL TABLET 259799 TERBINAFINE HCL Inactive PREDNISONE 20 MG ORAL TABLET 2 tabs daily for 3 days, 1 tab daily for 3 days, 1/2 tab daily for 2 days PREDNISONE 20 MG ORAL TABLET 753365 PREDNISONE Inactive KEFLEX 500 MG ORAL CAPSULE 1 po TID x 10 days KEFLEX 500 MG ORAL CAPSULE 690409 CEPHALEXIN Inactive Vital Signs Date Name Value [...] Lab Report: UADIP W/MICRO, AUTO - Urinalysis pH, urine, semiquantitative 7.0 5.0-8.5 specific gravity, urine 1.025 1.000-1.030 appearance, urine Clear Clear urine color Dark yellow Colorless;Lightyellow;Straw;Yellow urobilinogen, urine, semiquantitative (dipstick) 1.0 E.U./dL Normal leukocyte esterase, urine, by dipstick Negative Negative nitrite, urine, semiquantitative Negative Negative glucose, urine, semiquantitative Negative Negative ketones, urine, by test strip Negative Negative bilirubin, urine Negative Negative Encounters Code Encounter Date Provider Facility [facility]-28305 [id number] Vst-Est Level III 20:06:18 [employer] Yvon Harrison MD [facility] CPT-42301 Level 3 New Patient 08:58:45 [employer] Sary Roland MD [facility]-58941 Level 3 Est. Patient 11:31:14 CDT Yvon Harrison MD [facility]-89694 87233-Xnn Vst-Est Level III 13:15:10 CDT Yvon Harrison MD [facility]-68633 96653-Ixt Vst-Est Level III 15:15:09 CDT Luis Miguel Sapp MD [facility]-52731 Level 4 Est. Patient 11:00:57 CDT Yvon Harrison MD [facility]-36356 Level 4 Est. Patient 15:53:40 CDT Yvon Harrison MD [facility] CPT-58578 Level 4 Est. Patient 15:42:18 CDT Yvon Harrison MD [facility] CPT-71512 Level 3 Est. Patient 17:08:18 CDT Berta Sweeney APRN [facility] CPT-98585 Level 4 Est. Patient 16:35:02 [employer] Yvon Harrison MD [facility] CPT-43515 Level 4 Est. Patient 15:11:02 [employer] Yvon Harrison MD [facility] CPT-81002 Level 4 Est. Patient 13:18:47 CDT Yvon Harrison MD [facility] CPT-87908 Level 4 Est. Patient 09:51:29 CDT Yvon Harrison MD [facility] CPT-11524 Level 3 Est. Patient 11:40:53 [employer] Nick Quiroz MD [facility] CPT-32853 Level 3 Est. Patient 09:05:46 CDT Nick Quiroz MD [facility] CPT-29235 Level 3 Est. Patient 10:56:05 CDT Nick Quiroz MD [facility] CPT-47283 Level 3 Est. Patient 05:39:31 CDT Desmond Montgomery DO [facility] CPT-94770 Level 3 Est. Patient 16:18:28 [employer] Nick Quiroz MD [facility] CPT-10052 Level 3 Est. Patient 16:50:04 [employer] Nick Quiroz MD [facility] CPT-26874 Level 3 Est. Patient 22:12:55 [employer] Desmond Montgomery DO [facility] Procedures Code Procedure Name Date Entry Date Standard Description CPT-08562 Lipid - LAB USE ONLY 15:55:09 [employer] CPT-41131 CMP - LAB USE ONLY 15:55:09 [employer] CPT-34045 CBC - LAB USE ONLY 15:55:08 [employer] CPT-10778 Venipuncture Draw Fee 15:55:08 [employer] CPT-Cryo Cryotherapy 11:00:57 CDT CPT-74160 Hand comp min 3V 17:09:13 CDT CPT-58379 Hand comp min 3V 17:08:18 CDT CPT-17228 Fluzone Quadrivalent Intramuscular Suspension 0.5 ML 10: 17:16 CDT CPT-LR Lesion Removal 08:49:09 CDT CPT-01414 Nail Excision 08:49:52 CDT CPT-38953 Venipuncture Draw Fee 16:51:53 [employer]
--- OUTSIDE RECORDS SUMMARY | 2018-08-01 21:38 | XMS REPORT | Clinical Summary ---
Author Author Admin, COURTNEY Organization [employer] Address Unknown Phone Unavailable Allergies, Adverse Reactions, [...] prn anxiety or insomnia 05/31 HYDROXYZINE HCL 80393412758 Active VIRAJ Guerra Active MELOXICAM 15 MG ORAL TABLET 1 po q day for pain with food MELOXICAM 47551222582 Active Yvon Harrison MD Active HYDRALAZINE HCL 25 MG ORAL TABLET 1 TAB PO UP TO TID PER DAY PRN HYDRALAZINE HCL 93041351064 Active Yvon Harrison MD Active CELEXA 20 MG ORAL TABLET 1 tablet by mouth daily CITALOPRAM HYDROBROMIDE 00460092417 No Longer Active Yvon Harrison MD Active KEFLEX 500 MG ORAL CAPSULE 1 po TID x 10 days CEPHALEXIN 54360447484 No Longer Active Magdalenakobe Braun Active CIPRO 500 MG ORAL TABLET 1 tablet by mouth twice daily CIPROFLOXACIN HCL 50836264603 No Longer Active Magdalena Braun Active BUSPIRONE HCL 7.5 MG ORAL TABLET 1 twice day for anxiety BUSPIRONE HCL 82096498038 No Longer Active Yvon Harrison MD Active DEPAKOTE 500 MG ORAL TABLET DELAYED RELEASE take 1 tab po BID for seizures. DIVALPROEX SODIUM 68737483364 No Longer Active Yvon Harrison MD Active SIMVASTATIN 20 MG ORAL TABLET 1 po at qhs SIMVASTATIN 98636189709 No Longer Active Yvon Harrison MD Active CARAFATE 1 GM ORAL TABLET 1 tab q4H SUCRALFATE 56364232704 No Longer Active Yvon Harrison MD Active PANTOPRAZOLE SODIUM 40 MG ORAL TABLET DELAYED RELEASE one tab once daily 2017 PANTOPRAZOLE SODIUM 15415768700 Active Luis Miguel Sapp MD Active PREDNISONE 20 MG ORAL TABLET 2 tabs daily for 3 days, 1 tab daily for 3 days, 1/2 tab daily for 2 days PREDNISONE 75026059394 No Longer Active Yvon Harrison MD Active TERBINAFINE HCL 250 MG ORAL TABLET 1 tab po qday for nail infection. TERBINAFINE HCL 53781689107 No Longer Active Yvon Harrison MD Active DIVALPROEX SODIUM 250 MG ORAL TABLET DELAYED RELEASE 1 po TID DIVALPROEX SODIUM 31371592731 No Longer Active Nick Quiroz MD Active KEFLEX 500 MG ORAL CAPSULE 1 po qid CEPHALEXIN 49601195929 No Longer Active Nick Quiroz MD Active KEFLEX 500 MG ORAL CAPSULE 1 po qid CEPHALEXIN 38037231173 No Longer Active Nick Quiroz MD Active KEFLEX 500 MG ORAL CAPSULE 1 po TID x 10 days CEPHALEXIN 07697268511 No Longer Active Nick Quiroz MD Active KEFLEX 500 MG ORAL CAPSULE 1 po TID x 10 days CEPHALEXIN 60182356317 No Longer Active Nick Quiroz MD Active IBUPROFEN 600 MG ORAL TABLET 1 tablet by mouth every 8 hours prn IBUPROFEN 94224811679 No Longer Active Desmond Montgomery DO Active FLONASE 50 MCG/ACT NASAL SUSPENSION 2 puffs in each nostril daily FLUTICASONE PROPIONATE 79681844360 No Longer Active Desmond Montgomery DO Active LORATADINE 10 MG ORAL TABLET 1 tablet by mouth daily PRN Congestion LORATADINE 78842148085 No Longer Active Desmond Montgomery DO Active LORATADINE 10 MG ORAL TABLET 1 tablet by mouth daily PRN Congestion LORATADINE 10 MG ORAL TABLET 271663 LORATADINE Inactive FLONASE 50 MCG/ACT NASAL SUSPENSION 2 puffs in each nostril daily FLONASE 50 MCG/ACT NASAL SUSPENSION 8542628 FLUTICASONE PROPIONATE Inactive IBUPROFEN 600 MG ORAL TABLET 1 tablet by mouth every 8 hours prn IBUPROFEN 600 MG ORAL TABLET 440707 IBUPROFEN Inactive KEFLEX 500 MG ORAL CAPSULE 1 po TID x 10 days KEFLEX 500 MG ORAL CAPSULE 926162 CEPHALEXIN Inactive KEFLEX 500 MG ORAL CAPSULE 1 po qid KEFLEX 500 MG ORAL CAPSULE 673571 CEPHALEXIN Inactive KEFLEX 500 MG ORAL CAPSULE 1 po qid KEFLEX 500 MG ORAL CAPSULE 304355 CEPHALEXIN Inactive CARAFATE 1 GM ORAL TABLET 1 tab q4H CARAFATE 1 GM ORAL TABLET 922875 SUCRALFATE Inactive SIMVASTATIN 20 MG ORAL TABLET 1 po at qhs SIMVASTATIN 20 MG ORAL TABLET 049779 SIMVASTATIN Inactive DEPAKOTE 500 MG ORAL TABLET DELAYED RELEASE take 1 tab po BID for seizures. DEPAKOTE 500 MG ORAL TABLET DELAYED RELEASE 0517523 DIVALPROEX SODIUM Inactive BUSPIRONE HCL 7.5 MG ORAL TABLET 1 twice day for anxiety BUSPIRONE HCL 7.5 MG ORAL TABLET 122349 BUSPIRONE HCL Inactive CIPRO 500 MG ORAL TABLET 1 tablet by mouth twice daily CIPRO 500 MG ORAL TABLET 062862 CIPROFLOXACIN HCL Inactive CELEXA 20 MG ORAL TABLET 1 tablet by mouth daily CELEXA 20 MG ORAL TABLET 331209 CITALOPRAM HYDROBROMIDE Inactive KEFLEX 500 MG ORAL CAPSULE 1 po TID x 10 days KEFLEX 500 MG ORAL CAPSULE 597131 CEPHALEXIN Inactive DIVALPROEX SODIUM 250 MG ORAL TABLET DELAYED RELEASE 1 po TID DIVALPROEX SODIUM 250 MG ORAL TABLET DELAYED RELEASE 3577271 DIVALPROEX SODIUM Inactive TERBINAFINE HCL 250 MG ORAL TABLET 1 tab po qday for nail infection. TERBINAFINE HCL 250 MG ORAL TABLET 362674 TERBINAFINE HCL Inactive PREDNISONE 20 MG ORAL TABLET 2 tabs daily for 3 days, 1 tab daily for 3 days, 1/2 tab daily for 2 days PREDNISONE 20 MG ORAL TABLET 104039 PREDNISONE Inactive KEFLEX 500 MG ORAL CAPSULE 1 po TID x 10 days KEFLEX 500 MG ORAL CAPSULE 756971 CEPHALEXIN Inactive Vital Signs Date Name Value [...] Lab Report: UADIP W/MICRO, AUTO - Chemistry protein, total urine random Negative mg/dL Negative RBC, urine, dipstick Negative Negative Lab Report: UADIP W/MICRO, AUTO - Urinalysis bilirubin, urine Negative Negative ketones, urine, by test strip Negative Negative glucose, urine, semiquantitative Negative Negative pH, urine, semiquantitative 7.0 5.0-8.5 specific gravity, urine 1.025 1.000-1.030 appearance, urine Clear Clear urine color Dark yellow Colorless;Lightyellow;Straw;Yellow urobilinogen, urine, semiquantitative (dipstick) 1.0 E.U./dL Normal leukocyte esterase, urine, by dipstick Negative Negative nitrite, urine, semiquantitative Negative Negative Encounters Code Encounter Date Provider Facility [facility]-94610 [id number] Vst-Est Level III 20:06:18 TRANSFORMER SHOP SUPERVISOR Yvon Harrison MD [facility] CPT-15599 Level 3 New Patient 08:58:45 TRANSFORMER SHOP SUPERVISOR Sary Roland MD [facility]-05179 Level 3 Est. Patient 11:31:14 CDT Yvon Harrison MD [facility]-49249 02016-Kjf Vst-Est Level III 13:15:10 CDT Yvon Harrison MD [facility]-70461 31771-Zsg Vst-Est Level III 15:15:09 CDT Luis Miguel Sapp MD [facility]-57673 Level 4 Est. Patient 11:00:57 CDT Yvon Harrison MD [facility] CPT-84126 Level 4 Est. Patient 15:53:40 CDT Yvon Harrison MD [facility] CPT-83170 Level 4 Est. Patient 15:42:18 CDT Yvon Harrison MD [facility] CPT-36869 Level 3 Est. Patient 17:08:18 CDT Berta Sweeney APRN [facility] CPT-45623 Level 4 Est. Patient 16:35:02 TRANSFORMER SHOP SUPERVISOR Yvon Harrison MD [facility] CPT-96859 Level 4 Est. Patient 15:11:02 TRANSFORMER SHOP SUPERVISOR Yvon Harrison MD [facility] CPT-17078 Level 4 Est. Patient 13:18:47 CDT Yvon Harrison MD [facility] CPT-60558 Level 4 Est. Patient 09:51:29 CDT Yvon Harrison MD [facility] CPT-55046 Level 3 Est. Patient 11:40:53 TRANSFORMER SHOP SUPERVISOR Nick Quiroz MD [facility] CPT-20770 Level 3 Est. Patient 09:05:46 CDT Nick Quiroz MD [facility] CPT-31430 Level 3 Est. Patient 10:56:05 CDT Nick Quiroz MD [facility] CPT-55837 Level 3 Est. Patient 05:39:31 CDT Desmond Montgomery DO [facility] CPT-79916 Level 3 Est. Patient 16:18:28 TRANSFORMER SHOP SUPERVISOR Nick Quiroz MD [facility] CPT-13522 Level 3 Est. Patient 16:50:04 TRANSFORMER SHOP SUPERVISOR Nick Quiroz MD [facility] CPT-11510 Level 3 Est. Patient 22:12:55 TRANSFORMER SHOP SUPERVISOR Desmond Montgomery DO [facility] Procedures Code Procedure Name Date Entry Date Standard Description CPT-86066 Lipid - LAB USE ONLY 15:55:09 TRANSFORMER [employer]OP SUPERVISOR CPT-14818 CMP - LAB USE ONLY 15:55:09 TRANSFORMER SHOP SUPERVISOR CPT-20091 CBC - LAB USE ONLY 15:55:08 TRANSFORMER [employer]OP SUPERVISOR CPT-99301 Venipuncture Draw Fee 15:55:08 TRANSFORMER [employer]OP SUPERVISOR CPT-Cryo Cryotherapy 11:00:57 CDT CPT-36762 Hand comp min 3V 17:09:13 CDT CPT-95497 Hand comp min 3V 17:08:18 CDT CPT-84198 Fluzone Quadrivalent Intramuscular Suspension 0.5 ML 10: 17:16 CDT CPT-LR Lesion Removal 08:49:09 CDT CPT-85721 Nail Excision 08:49:52 CDT CPT-44054 Venipuncture Draw Fee 16:51:53 TRANSFORMER SHOP SUPERVISOR
--- OUTSIDE RECORDS SUMMARY | 2018-08-01 21:39 | XMS REPORT | Clinical Summary ---
Author Author Admin, COURTNEY Organization [employer] Address Unknown Phone Unavailable Allergies, Adverse Reactions, [...] Generic Name NDC Status Provider Patient Instruction MELOXICAM 15 MG ORAL TABLET 1 po q day for pain with food MELOXICAM 22554213928 Active Yvon Harrison MD Active HYDRALAZINE HCL 25 MG ORAL TABLET 1 TAB PO UP TO TID PER DAY PRN HYDRALAZINE HCL 23256657246 Active Yvon Harrison MD Active CELEXA 20 MG ORAL TABLET 1 tablet by mouth daily CITALOPRAM HYDROBROMIDE 02545828649 No Longer Active Yvon Harrison MD Active KEFLEX 500 MG ORAL CAPSULE 1 po TID x 10 days CEPHALEXIN 01651311774 No Longer Active Magdalena Braun Active CIPRO 500 MG ORAL TABLET 1 tablet by mouth twice daily CIPROFLOXACIN HCL 76883836349 No Longer Active Magdalena Braun Active BUSPIRONE HCL 7.5 MG ORAL TABLET 1 twice day for anxiety BUSPIRONE HCL 71541793680 No Longer Active Yvon Harrison MD Active DEPAKOTE 500 MG ORAL TABLET DELAYED RELEASE take 1 tab po BID for seizures. DIVALPROEX SODIUM 34043237952 No Longer Active Yvon Harrison MD Active SIMVASTATIN 20 MG ORAL TABLET 1 po at qhs SIMVASTATIN 22907239554 No Longer Active Yvon Harrison MD Active CARAFATE 1 GM ORAL TABLET 1 tab q4H SUCRALFATE 80952007601 No Longer Active Yvon Harrison MD Active PANTOPRAZOLE SODIUM 40 MG ORAL TABLET DELAYED RELEASE one tab once daily 2017 PANTOPRAZOLE SODIUM 25855698468 Active Luis Miguel Sapp MD Active PREDNISONE 20 MG ORAL TABLET 2 tabs daily for 3 days, 1 tab daily for 3 days, 1/2 tab daily for 2 days PREDNISONE 92950191744 No Longer Active Yvon Harrison MD Active TERBINAFINE HCL 250 MG ORAL TABLET 1 tab po qday for nail infection. TERBINAFINE HCL 98608635449 No Longer Active Yvon Harrison MD Active DIVALPROEX SODIUM 250 MG ORAL TABLET DELAYED RELEASE 1 po TID DIVALPROEX SODIUM 51680303156 No Longer Active Nick Quiroz MD Active KEFLEX 500 MG ORAL CAPSULE 1 po qid CEPHALEXIN 93575221405 No Longer Active Nick Quiroz MD Active KEFLEX 500 MG ORAL CAPSULE 1 po qid CEPHALEXIN 77222639522 No Longer Active Nick Quiroz MD Active KEFLEX 500 MG ORAL CAPSULE 1 po TID x 10 days CEPHALEXIN 62091509124 No Longer Active Nick Quiroz MD Active KEFLEX 500 MG ORAL CAPSULE 1 po TID x 10 days CEPHALEXIN 32316609736 No Longer Active Nick Quiroz MD Active IBUPROFEN 600 MG ORAL TABLET 1 tablet by mouth every 8 hours prn IBUPROFEN 47209270317 No Longer Active Desmond Montgomery DO Active FLONASE 50 MCG/ACT NASAL SUSPENSION 2 puffs in each nostril daily FLUTICASONE PROPIONATE 50122808284 No Longer Active Desmond Montgomery DO Active LORATADINE 10 MG ORAL TABLET 1 tablet by mouth daily PRN Congestion LORATADINE 28769205630 No Longer Active Desmond Montgomery DO Active LORATADINE 10 MG ORAL TABLET 1 tablet by mouth daily PRN Congestion LORATADINE 10 MG ORAL TABLET 415173 LORATADINE Inactive FLONASE 50 MCG/ACT NASAL SUSPENSION 2 puffs in each nostril daily FLONASE 50 MCG/ACT NASAL SUSPENSION 4463096 FLUTICASONE PROPIONATE Inactive IBUPROFEN 600 MG ORAL TABLET 1 tablet by mouth every 8 hours prn IBUPROFEN 600 MG ORAL TABLET 442341 IBUPROFEN Inactive KEFLEX 500 MG ORAL CAPSULE 1 po TID x 10 days KEFLEX 500 MG ORAL CAPSULE 968570 CEPHALEXIN Inactive KEFLEX 500 MG ORAL CAPSULE 1 po qid KEFLEX 500 MG ORAL CAPSULE 874521 CEPHALEXIN Inactive KEFLEX 500 MG ORAL CAPSULE 1 po qid KEFLEX 500 MG ORAL CAPSULE 926843 CEPHALEXIN Inactive CARAFATE 1 GM ORAL TABLET 1 tab q4H CARAFATE 1 GM ORAL TABLET 264411 SUCRALFATE Inactive SIMVASTATIN 20 MG ORAL TABLET 1 po at qhs SIMVASTATIN 20 MG ORAL TABLET 742064 SIMVASTATIN Inactive DEPAKOTE 500 MG ORAL TABLET DELAYED RELEASE take 1 tab po BID for seizures. DEPAKOTE 500 MG ORAL TABLET DELAYED RELEASE 4537267 DIVALPROEX SODIUM Inactive BUSPIRONE HCL 7.5 MG ORAL TABLET 1 twice day for anxiety BUSPIRONE HCL 7.5 MG ORAL TABLET 465677 BUSPIRONE HCL Inactive CIPRO 500 MG ORAL TABLET 1 tablet by mouth twice daily CIPRO 500 MG ORAL TABLET 605915 CIPROFLOXACIN HCL Inactive CELEXA 20 MG ORAL TABLET 1 tablet by mouth daily CELEXA 20 MG ORAL TABLET 590907 CITALOPRAM HYDROBROMIDE Inactive KEFLEX 500 MG ORAL CAPSULE 1 po TID x 10 days KEFLEX 500 MG ORAL CAPSULE 816532 CEPHALEXIN Inactive DIVALPROEX SODIUM 250 MG ORAL TABLET DELAYED RELEASE 1 po TID DIVALPROEX SODIUM 250 MG ORAL TABLET DELAYED RELEASE 0394422 DIVALPROEX SODIUM Inactive TERBINAFINE HCL 250 MG ORAL TABLET 1 tab po qday for nail infection. TERBINAFINE HCL 250 MG ORAL TABLET 781131 TERBINAFINE HCL Inactive PREDNISONE 20 MG ORAL TABLET 2 tabs daily for 3 days, 1 tab daily for 3 days, 1/2 tab daily for 2 days PREDNISONE 20 MG ORAL TABLET 864086 PREDNISONE Inactive KEFLEX 500 MG ORAL CAPSULE 1 po TID x 10 days KEFLEX 500 MG ORAL CAPSULE 424037 CEPHALEXIN Inactive Vital Signs Date Name Value [...] Negative Encounters Code Encounter Date Provider Facility CPT-97417 [id number] Vst-Est Level III 20:06:18 CLINICAL AUDIOLOGIST Yvon Harrison MD [facility] CPT-43605 Level 3 New Patient 08:58:45 CLINICAL AUDIOLOGIST Sary Roland MD [facility]-27687 Level 3 Est. Patient 11:31:14 CDT Yvon Harrison MD [facility]-96645 [id number] Vst-Est Level III 13:15:10 CDT Yvon Harrison MD [facility]-33397 78822-Vuy Vst-Est Level III 15:15:09 CDT Luis Miguel Sapp MD [facility]-21279 Level 4 Est. Patient 11:00:57 CDT Yvon Harrison MD [facility]-27806 Level 4 Est. Patient 15:53:40 CDT Yvon Harrison MD [facility] CPT-32679 Level 4 Est. Patient 15:42:18 CDT Yvon Harrison MD [facility] CPT-96271 Level 3 Est. Patient 17:08:18 CDT Berta Sweeney APRN [facility] CPT-45297 Level 4 Est. Patient 16:35:02 CLINICAL AUDIOLOGIST Yvon Harrison MD [facility] CPT-55976 Level 4 Est. Patient 15:11:02 CLINICAL AUDIOLOGIST Yvon Harrison MD [facility] CPT-67837 Level 4 Est. Patient 13:18:47 CDT Yvon Harrison MD [facility] CPT-26201 Level 4 Est. Patient 09:51:29 CDT Yvon Harrison MD [facility] CPT-61356 Level 3 Est. Patient 11:40:53 CLINICAL AUDIOLOGIST Nick Quiroz MD [facility] CPT-13770 Level 3 Est. Patient 09:05:46 CDT Nick Quiroz MD [facility] CPT-65830 Level 3 Est. Patient 10:56:05 CDT Nick Quiroz MD [facility] CPT-13274 Level 3 Est. Patient 05:39:31 CDT Desmond Montgomery [facility] CPT-71432 Level 3 Est. Patient 16:18:28 CLINICAL AUDIOLOGIST Nick Quiroz MD [facility] CPT-31473 Level 3 Est. Patient 16:50:04 CLINICAL AUDIOLOGIST Nick Quiroz MD [facility] CPT-67411 Level 3 Est. Patient 22:12:55 CLINICAL AUDIOLOGIST Desmond Montgomery [facility] Procedures Code Procedure Name Date Entry Date Standard Description CPT-87265 Lipid - LAB USE ONLY 15:55:09 CLINICAL AUDIOLOGIST CPT-12645 CMP - LAB USE ONLY 15:55:09 CLINICAL AUDIOLOGIST CPT-87624 CBC - LAB USE ONLY 15:55:08 CLINICAL AUDIOLOGIST CPT-43431 Venipuncture Draw Fee 15:55:08 CLINICAL AUDIOLOGIST CPT-Cryo Cryotherapy 11:00:57 CDT CPT-09908 Hand comp min 3V 17:09:13 CDT CPT-19756 Hand comp min 3V 17:08:18 CDT CPT-13001 Fluzone Quadrivalent Intramuscular Suspension 0.5 ML 10: 17:16 CDT CPT-LR Lesion Removal 08:49:09 CDT CPT-32852 Nail Excision 08:49:52 CDT CPT-83252 Venipuncture Draw Fee 16:51:53 CLINICAL AUDIOLOGIST
--- OUTSIDE RECORDS SUMMARY | 2018-08-01 21:39 | XMS REPORT | Clinical Summary ---
Author Author Admin, COURTNEY Organization [employer] Address Unknown Phone Unavailable Allergies, Adverse Reactions, [...] q day for pain with food MELOXICAM 02982493618 Active Yvon Harrison MD Active HYDRALAZINE HCL 25 MG ORAL TABLET 1 TAB PO UP TO TID PER DAY PRN HYDRALAZINE HCL 26080437303 Active Yvon Harrison MD Active CELEXA 20 MG ORAL TABLET 1 tablet by mouth daily CITALOPRAM HYDROBROMIDE 25017951809 No Longer Active Yvon Harrison MD Active KEFLEX 500 MG ORAL CAPSULE 1 po TID x 10 days CEPHALEXIN 15996282360 No Longer Active Magdalena Braun Active CIPRO 500 MG ORAL TABLET 1 tablet by mouth twice daily CIPROFLOXACIN HCL 22796632858 No Longer Active Magdalena Braun Active BUSPIRONE HCL 7.5 MG ORAL TABLET 1 twice day for anxiety BUSPIRONE HCL 32889210970 No Longer Active Yvon Harrison MD Active DEPAKOTE 500 MG ORAL TABLET DELAYED RELEASE take 1 tab po BID for seizures. DIVALPROEX SODIUM 10674105325 No Longer Active Yvon Harrison MD Active SIMVASTATIN 20 MG ORAL TABLET 1 po at qhs SIMVASTATIN 98187522066 No Longer Active Yvon Harrison MD Active CARAFATE 1 GM ORAL TABLET 1 tab q4H SUCRALFATE 46585352401 No Longer Active Yvon Harrison MD Active PANTOPRAZOLE SODIUM 40 MG ORAL TABLET DELAYED RELEASE one tab once daily 2017 PANTOPRAZOLE SODIUM 19460702388 Active Luis Miguel Sapp MD Active PREDNISONE 20 MG ORAL TABLET 2 tabs daily for 3 days, 1 tab daily for 3 days, 1/2 tab daily for 2 days PREDNISONE 98904119538 No Longer Active Yvon Harrison MD Active TERBINAFINE HCL 250 MG ORAL TABLET 1 tab po qday for nail infection. TERBINAFINE HCL 29698465706 No Longer Active Yvon Harrison MD Active DIVALPROEX SODIUM 250 MG ORAL TABLET DELAYED RELEASE 1 po TID DIVALPROEX SODIUM 48941055576 No Longer Active Nick Quiroz MD Active KEFLEX 500 MG ORAL CAPSULE 1 po qid CEPHALEXIN 57779818980 No Longer Active Nick Quiroz MD Active KEFLEX 500 MG ORAL CAPSULE 1 po qid CEPHALEXIN 06875255127 No Longer Active Nick Quiroz MD Active KEFLEX 500 MG ORAL CAPSULE 1 po TID x 10 days CEPHALEXIN 75705129913 No Longer Active Nick Quiroz MD Active KEFLEX 500 MG ORAL CAPSULE 1 po TID x 10 days CEPHALEXIN 26230921377 No Longer Active Nick Quiroz MD Active IBUPROFEN 600 MG ORAL TABLET 1 tablet by mouth every 8 hours prn IBUPROFEN 52332658937 No Longer Active Desmond Montgomery DO Active FLONASE 50 MCG/ACT NASAL SUSPENSION 2 puffs in each nostril daily FLUTICASONE PROPIONATE 34387226124 No Longer Active Desmond Montgomery DO Active LORATADINE 10 MG ORAL TABLET 1 tablet by mouth daily PRN Congestion LORATADINE 64281113964 No Longer Active Desmond Montgomery DO Active LORATADINE 10 MG ORAL TABLET 1 tablet by mouth daily PRN Congestion LORATADINE 10 MG ORAL TABLET 693065 LORATADINE Inactive FLONASE 50 MCG/ACT NASAL SUSPENSION 2 puffs in each nostril daily FLONASE 50 MCG/ACT NASAL SUSPENSION 0881534 FLUTICASONE PROPIONATE Inactive IBUPROFEN 600 MG ORAL TABLET 1 tablet by mouth every 8 hours prn IBUPROFEN 600 MG ORAL TABLET 479746 IBUPROFEN Inactive KEFLEX 500 MG ORAL CAPSULE 1 po TID x 10 days KEFLEX 500 MG ORAL CAPSULE 293362 CEPHALEXIN Inactive KEFLEX 500 MG ORAL CAPSULE 1 po qid KEFLEX 500 MG ORAL CAPSULE 365272 CEPHALEXIN Inactive KEFLEX 500 MG ORAL CAPSULE 1 po qid KEFLEX 500 MG ORAL CAPSULE 805805 CEPHALEXIN Inactive CARAFATE 1 GM ORAL TABLET 1 tab q4H CARAFATE 1 GM ORAL TABLET 251558 SUCRALFATE Inactive SIMVASTATIN 20 MG ORAL TABLET 1 po at qhs SIMVASTATIN 20 MG ORAL TABLET 985630 SIMVASTATIN Inactive DEPAKOTE 500 MG ORAL TABLET DELAYED RELEASE take 1 tab po BID for seizures. DEPAKOTE 500 MG ORAL TABLET DELAYED RELEASE 9571716 DIVALPROEX SODIUM Inactive BUSPIRONE HCL 7.5 MG ORAL TABLET 1 twice day for anxiety BUSPIRONE HCL 7.5 MG ORAL TABLET 714903 BUSPIRONE HCL Inactive CIPRO 500 MG ORAL TABLET 1 tablet by mouth twice daily CIPRO 500 MG ORAL TABLET 525540 CIPROFLOXACIN HCL Inactive CELEXA 20 MG ORAL TABLET 1 tablet by mouth daily CELEXA 20 MG ORAL TABLET 774557 CITALOPRAM HYDROBROMIDE Inactive KEFLEX 500 MG ORAL CAPSULE 1 po TID x 10 days KEFLEX 500 MG ORAL CAPSULE 558549 CEPHALEXIN Inactive DIVALPROEX SODIUM 250 MG ORAL TABLET DELAYED RELEASE 1 po TID DIVALPROEX SODIUM 250 MG ORAL TABLET DELAYED RELEASE 3109876 DIVALPROEX SODIUM Inactive TERBINAFINE HCL 250 MG ORAL TABLET 1 tab po qday for nail infection. TERBINAFINE HCL 250 MG ORAL TABLET 037125 TERBINAFINE HCL Inactive PREDNISONE 20 MG ORAL TABLET 2 tabs daily for 3 days, 1 tab daily for 3 days, 1/2 tab daily for 2 days PREDNISONE 20 MG ORAL TABLET 635344 PREDNISONE Inactive KEFLEX 500 MG ORAL CAPSULE 1 po TID x 10 days KEFLEX 500 MG ORAL CAPSULE 436418 CEPHALEXIN Inactive Vital Signs Date Name Value [...] Negative Encounters Code Encounter Date Provider Facility CPT-04242 [id number] Vst-Est Level III 20:06:18 METABOLIC SPECIALIST Yvon Harrison MD [facility] CPT-79787 Level 3 New Patient 08:58:45 METABOLIC SPECIALIST Sary Roland MD [facility]-21456 Level 3 Est. Patient 11:31:14 CDT Yvon Harrison MD [facility]-65754 89670-Xnl Vst-Est Level III 13:15:10 CDT Yvon Harrison MD [facility]-76340 92278-Cab Vst-Est Level III 15:15:09 CDT Luis Miguel Sapp MD [facility]-34952 Level 4 Est. Patient 11:00:57 CDT Yvon Harrison MD [facility]-35082 Level 4 Est. Patient 15:53:40 CDT Yvon Harrison MD [facility] CPT-98127 Level 4 Est. Patient 15:42:18 CDT Yvon Harrison MD [facility] CPT-75889 Level 3 Est. Patient 17:08:18 CDT Berta Sweeney APRN [facility] CPT-09409 Level 4 Est. Patient 16:35:02 METABOLIC SPECIALIST Yvon Harrison MD [facility] CPT-62276 Level 4 Est. Patient 15:11:02 METABOLIC SPECIALIST Yvon Harrison MD [facility] CPT-38288 Level 4 Est. Patient 13:18:47 CDT Yvon Harrison MD [facility] CPT-84047 Level 4 Est. Patient 09:51:29 CDT Yvon Harrison MD [facility] CPT-15697 Level 3 Est. Patient 11:40:53 METABOLIC SPECIALIST Nick Quiroz MD [facility] CPT-59249 Level 3 Est. Patient 09:05:46 CDT Nick Quiroz MD [facility] CPT-87741 Level 3 Est. Patient 10:56:05 CDT Nick Quiroz MD [facility] CPT-00392 Level 3 Est. Patient 05:39:[address] [facility] CPT-83511 Level 3 Est. Patient 16:18:28 METABOLIC SPECIALIST Nick Quiroz MD [facility] CPT-71960 Level 3 Est. Patient 16:50:04 METABOLIC SPECIALIST Nick Quiroz MD [facility] CPT-48396 Level 3 Est. Patient 22:12:55 METABOLIC SPECIALIST Desmond Montgomery [facility] Procedures Code Procedure Name Date Entry Date Standard Description CPT-15401 Lipid - LAB USE ONLY 15:55:09 METABOLIC SPECIALIST CPT-61641 CMP - LAB USE ONLY 15:55:09 METABOLIC SPECIALIST CPT-34477 CBC - LAB USE ONLY 15:55:08 METABOLIC SPECIALIST CPT-52439 Venipuncture Draw Fee 15:55:08 METABOLIC SPECIALIST CPT-Cryo Cryotherapy 11:00:57 CDT CPT-62959 Hand comp min 3V 17:09:13 CDT CPT-83709 Hand comp min 3V 17:08:18 CDT CPT-54750 Fluzone Quadrivalent Intramuscular Suspension 0.5 ML 10: 17:16 CDT CPT-LR Lesion Removal 08:49:09 CDT CPT-42118 Nail Excision 08:49:52 CDT CPT-01177 Venipuncture Draw Fee 16:51:53 METABOLIC SPECIALIST
--- OUTSIDE RECORDS SUMMARY | 2018-08-01 21:40 | XMS REPORT | Clinical Summary ---
Author Author Admin, COURTNEY Organization [employer] Address Unknown Phone Unavailable Allergies, Adverse Reactions, [...] Other convulsions GASTROENTERITIS, ACUTE 558.9 Resolved Nick Quirzo MD Other and unspecified noninfectious gastroenteritis and [...] Roland MD Other specified types of hydrocele SEIZURE DISORDER ICD-780.39 Inactive Nick Quiroz MD [...] Index 33.0-33.9 Adult Inactive Donna Elizondo LPN Medication List Medication Instructions Start Date Stop Date Generic Name NDC Status Provider Patient Instruction KEFLEX 500 MG ORAL CAPSULE 1 po TID x 10 days CEPHALEXIN 89913434283 No Longer Active Magdalenakobe Braun Active CIPRO 500 MG ORAL TABLET 1 tablet by mouth twice daily CIPROFLOXACIN HCL 79079808228 No Longer Active Magdalena Rapaul Active CELEXA 20 MG ORAL TABLET 1 tablet by mouth daily CITALOPRAM HYDROBROMIDE 70416223440 Active Magdalenakobe Braun Active BUSPIRONE HCL 7.5 MG ORAL TABLET 1 twice day for anxiety BUSPIRONE HCL 28971165202 No Longer Active Yvon Harrison MD Active DEPAKOTE 500 MG ORAL TABLET DELAYED RELEASE take 1 tab po BID for seizures. DIVALPROEX SODIUM 01595831903 No Longer Active Yvon Harrison MD Active SIMVASTATIN 20 MG ORAL TABLET 1 po at qhs SIMVASTATIN 06702083077 No Longer Active Yvon Harrison MD Active CARAFATE 1 GM ORAL TABLET 1 tab q4H SUCRALFATE 30481960170 No Longer Active Yvon Harrison MD Active PANTOPRAZOLE SODIUM 40 MG ORAL TABLET DELAYED RELEASE one tab once daily 2017 PANTOPRAZOLE SODIUM 51571386685 Active Luis Miguel Sapp MD Active PREDNISONE 20 MG ORAL TABLET 2 tabs daily for 3 days, 1 tab daily for 3 days, 1/2 tab daily for 2 days PREDNISONE 27449608685 No Longer Active Yvon Harrison MD Active TERBINAFINE HCL 250 MG ORAL TABLET 1 tab po qday for nail infection. TERBINAFINE HCL 79618839884 No Longer Active Yvon Harrison MD Active DIVALPROEX SODIUM 250 MG ORAL TABLET DELAYED RELEASE 1 po TID DIVALPROEX SODIUM 23247132132 No Longer Active Nick Quiroz MD Active KEFLEX 500 MG ORAL CAPSULE 1 po qid CEPHALEXIN 05891156478 No Longer Active Nick Quiroz MD Active KEFLEX 500 MG ORAL CAPSULE 1 po qid CEPHALEXIN 37081167086 No Longer Active Nick Quiroz MD Active KEFLEX 500 MG ORAL CAPSULE 1 po TID x 10 days CEPHALEXIN 18371216310 No Longer Active Nick Quiroz MD Active KEFLEX 500 MG ORAL CAPSULE 1 po TID x 10 days CEPHALEXIN 72663308350 No Longer Active Nick Quiroz MD Active IBUPROFEN 600 MG ORAL TABLET 1 tablet by mouth every 8 hours prn IBUPROFEN 56044595334 No Longer Active Desmond Montgomery DO Active FLONASE 50 MCG/ACT NASAL SUSPENSION 2 puffs in each nostril daily FLUTICASONE PROPIONATE 67575781361 No Longer Active Desmond Montgomery DO Active LORATADINE 10 MG ORAL TABLET 1 tablet by mouth daily PRN Congestion LORATADINE 78294891051 No Longer Active Desmond Montgomery DO Active CARAFATE 1 GM ORAL TABLET 1 tab q4H CARAFATE 1 GM ORAL TABLET 970330 SUCRALFATE Inactive CIPRO 500 MG ORAL TABLET 1 tablet by mouth twice daily CIPRO 500 MG ORAL TABLET 878459 CIPROFLOXACIN HCL Inactive DEPAKOTE 500 MG ORAL TABLET DELAYED RELEASE take 1 tab po BID for seizures. DEPAKOTE 500 MG ORAL TABLET DELAYED RELEASE 5622608 DIVALPROEX SODIUM Inactive DIVALPROEX SODIUM 250 MG ORAL TABLET DELAYED RELEASE 1 po TID DIVALPROEX SODIUM 250 MG ORAL TABLET DELAYED RELEASE 6169734 DIVALPROEX SODIUM Inactive IBUPROFEN 600 MG ORAL TABLET 1 tablet by mouth every 8 hours prn IBUPROFEN 600 MG ORAL TABLET 177573 IBUPROFEN Inactive KEFLEX 500 MG ORAL CAPSULE 1 po TID x 10 days KEFLEX 500 MG ORAL CAPSULE 316101 CEPHALEXIN Inactive KEFLEX 500 MG ORAL CAPSULE 1 po qid KEFLEX 500 MG ORAL CAPSULE 432159 CEPHALEXIN Inactive KEFLEX 500 MG ORAL CAPSULE 1 po qid KEFLEX 500 MG ORAL CAPSULE 771101 CEPHALEXIN Inactive KEFLEX 500 MG ORAL CAPSULE 1 po TID x 10 days KEFLEX 500 MG ORAL CAPSULE 325142 CEPHALEXIN Inactive KEFLEX 500 MG ORAL CAPSULE 1 po TID x 10 days KEFLEX 500 MG ORAL CAPSULE 205577 CEPHALEXIN Inactive PREDNISONE 20 MG ORAL TABLET 2 tabs daily for 3 days, 1 tab daily for 3 days, 1/2 tab daily for 2 days PREDNISONE 20 MG ORAL TABLET 573626 PREDNISONE Inactive LORATADINE 10 MG ORAL TABLET 1 tablet by mouth daily PRN Congestion LORATADINE 10 MG ORAL TABLET 544556 LORATADINE Inactive SIMVASTATIN 20 MG ORAL TABLET 1 po at [facility] SIMVASTATIN 20 MG ORAL TABLET 481451 SIMVASTATIN Inactive TERBINAFINE HCL 250 MG ORAL TABLET 1 tab po qday for nail infection. TERBINAFINE HCL 250 MG ORAL TABLET 791885 TERBINAFINE HCL Inactive BUSPIRONE HCL 7.5 MG ORAL TABLET 1 twice day for anxiety BUSPIRONE HCL 7.5 MG ORAL TABLET 206648 BUSPIRONE HCL Inactive FLONASE 50 MCG/ACT NASAL SUSPENSION 2 puffs in each nostril daily FLONASE 50 MCG/ACT NASAL SUSPENSION 5067897 FLUTICASONE PROPIONATE Inactive Vital Signs Date Name Value Unit Range Description blood pressure, diastolic 90 mm[Hg] BP caro [...] Negative Encounters Code Encounter Date Provider Facility CPT-67299 Level 3 New Patient 08:58:45 CARLOS A Roland MD [facility] CPT-66952 Level 3 Est. Patient 11:31:14 CDT Yvon Harrison MD [facility] CPT-19773 [id number] Vst-Est Level III 13:15:10 CDT Yvon Harrison MD [facility] CPT-76539 08209-Ogk Vst-Est Level III 15:15:09 CDT Luis Miguel Sapp MD [facility] CPT-96098 Level 4 Est. Patient 11:00:57 CDT Yvon Harrison MD [facility] CPT-68121 Level 4 Est. Patient 15:53:40 CDT Yvon Harrison MD [facility] CPT-41261 Level 4 Est. Patient 15:42:18 CDT Yvon Harrison MD [facility] CPT-98577 Level 3 Est. Patient 17:08:18 CDT Berta Sweeney ROSENDO [facility] CPT-87973 Level 4 Est. Patient 16:35:02 CONCESSION MANAGER Yvon Harrison MD [facility] CPT-55816 Level 4 Est. Patient 15:11:02 CONCESSION MANAGER Yvon Harrison MD [facility] CPT-80186 Level 4 Est. Patient 13:18:47 CDT Yvon Harrison MD [facility] CPT-67176 Level 4 Est. Patient 09:51:29 CDT Yvon Harrison MD [facility] CPT-68104 Level 3 Est. Patient 11:40:53 CONCESSION MANAGER Nick Quiroz MD [facility] CPT-68150 Level 3 Est. Patient 09:05:46 CDT Nick Quiroz MD [facility] CPT-77736 Level 3 Est. Patient 10:56:05 CDT Nick Quiroz MD [facility] CPT-86530 Level 3 Est. Patient 05:39:31 CDT Desmond Montgomery DO [facility] CPT-32675 Level 3 Est. Patient 16:18:28 CONCESSION MANAGER Nick Quiroz MD [facility] CPT-12769 Level 3 Est. Patient 16:50:04 CONCESSION MANAGER Nick Quiroz MD [facility] CPT-83228 Level 3 Est. Patient 22:12:55 CONCESSION MANAGER Desmond Montgomery DO [facility] Procedures Code Procedure Name Date Entry Date Standard Description CPT-21522 Lipid - LAB USE ONLY 15:55:09 CONCESSION MANAGER CPT-04775 CMP - LAB USE ONLY 15:55:09 CONCESSION MANAGER CPT-84075 CBC - LAB USE ONLY 15:55:08 CONCESSION MANAGER CPT-27537 Venipuncture Draw Fee 15:55:08 CONCESSION MANAGER CPT-Cryo Cryotherapy 11:00:57 CDT CPT-81447 Hand comp min 3V 17:09:13 CDT CPT-42968 Hand comp min 3V 17:08:18 CDT CPT-43282 Fluzone Quadrivalent Intramuscular Suspension 0.5 ML 10: 17:16 CDT CPT-LR Lesion Removal 08:49:09 CDT CPT-57537 Nail Excision 08:49:52 CDT CPT-05514 Venipuncture Draw Fee 16:51:53 CONCESSION MANAGER
--- OUTSIDE RECORDS SUMMARY | 2018-08-01 21:40 | XMS REPORT | Clinical Summary ---
Author Author Admin, COURTNEY Organization [employer] Address Unknown Phone Unavailable Allergies, Adverse Reactions, [...] of hydrocele Influenza Vaccination for Prophylaxis V04.81 Active Yvon Harrison MD Need for prophylactic vaccination and inoculation against influenza Low back pain, acute 724.2 Active Yvon Harrison MD Lumbago SEIZURE DISORDER ICD-780.39 Inactive Nick Quiroz MD SEIZURES, HX OF ICD-V12.49 Inactive Nick Quiroz MD FH SEIZURES ICD-V17.2 Inactive Nick Quiroz MD SEIZURE DISORDER ICD-780.39 Inactive iNck Quiroz MD 2011 GASTROENTERITIS, ACUTE ICD-558.9 Inactive Nick Quiroz MD DEHYDRATION ICD-276.51 Inactive Nick Quiroz MD U R I ICD-465.9 Inactive Nick Quiroz MD SPASM, MUSCLE ICD-728.85 Inactive Nick Quiroz MD LYMPHADENITIS-ACUTE ICD-683 Inactive Nick Quiroz MD Body Mass Index 33.0-33.9 Adult Inactive Donna 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 Medication List Medication Instructions Start Date Stop Date Generic Name NDC Status Provider Patient Instruction MELOXICAM 15 MG ORAL TABLET 1 po q day for pain with food MELOXICAM 20860293291 Active Yvon Harrison MD Active HYDRALAZINE HCL 25 MG ORAL TABLET 1 TAB PO UP TO TID PER DAY PRN HYDRALAZINE HCL 00693612175 Active Yvon Harrison MD Active CELEXA 20 MG ORAL TABLET 1 tablet by mouth daily CITALOPRAM HYDROBROMIDE 33768439644 No Longer Active Yvon Harrison MD Active KEFLEX 500 MG ORAL CAPSULE 1 po TID x 10 days CEPHALEXIN 59874527223 No Longer Active Magdalena Braun Active CIPRO 500 MG ORAL TABLET 1 tablet by mouth twice daily CIPROFLOXACIN HCL 25045800048 No Longer Active Magdalena Braun Active BUSPIRONE HCL 7.5 MG ORAL TABLET 1 twice day for anxiety BUSPIRONE HCL 83347332645 No Longer Active Yvon Harrison MD Active DEPAKOTE 500 MG ORAL TABLET DELAYED RELEASE take 1 tab po BID for seizures. DIVALPROEX SODIUM 87612313580 No Longer Active Yvon Harrison MD Active SIMVASTATIN 20 MG ORAL TABLET 1 po at qhs SIMVASTATIN 14106841887 No Longer Active Yvon Harrison MD Active CARAFATE 1 GM ORAL TABLET 1 tab q4H SUCRALFATE 26311762591 No Longer Active Yvon Harrison MD Active PANTOPRAZOLE SODIUM 40 MG ORAL TABLET DELAYED RELEASE one tab once daily 2017 PANTOPRAZOLE SODIUM 75736534270 Active Luis Miguel Sapp MD Active PREDNISONE 20 MG ORAL TABLET 2 tabs daily for 3 days, 1 tab daily for 3 days, 1/2 tab daily for 2 days PREDNISONE 06195459530 No Longer Active Yvon Harrison MD Active TERBINAFINE HCL 250 MG ORAL TABLET 1 tab po qday for nail infection. TERBINAFINE HCL 87673151822 No Longer Active Yvon Harrison MD Active DIVALPROEX SODIUM 250 MG ORAL TABLET DELAYED RELEASE 1 po TID DIVALPROEX SODIUM 51664996511 No Longer Active Nick Quiroz MD Active KEFLEX 500 MG ORAL CAPSULE 1 po qid CEPHALEXIN 78148347986 No Longer Active Nick Quiroz MD Active KEFLEX 500 MG ORAL CAPSULE 1 po qid CEPHALEXIN 41117723448 No Longer Active Nick Quiroz MD Active KEFLEX 500 MG ORAL CAPSULE 1 po TID x 10 days CEPHALEXIN 57009741678 No Longer Active Nick Quiroz MD Active KEFLEX 500 MG ORAL CAPSULE 1 po TID x 10 days CEPHALEXIN 63241638206 No Longer Active Nick Quiroz MD Active IBUPROFEN 600 MG ORAL TABLET 1 tablet by mouth every 8 hours prn IBUPROFEN 84958626296 No Longer Active Desmond Montgomery DO Active FLONASE 50 MCG/ACT NASAL SUSPENSION 2 puffs in each nostril daily FLUTICASONE PROPIONATE 13403374317 No Longer Active Desmond Montgomery DO Active LORATADINE 10 MG ORAL TABLET 1 tablet by mouth daily PRN Congestion LORATADINE 52449479452 No Longer Active Desmond Montgomery DO Active CARAFATE 1 GM ORAL TABLET 1 tab q4H CARAFATE 1 GM ORAL TABLET 945044 SUCRALFATE Inactive CIPRO 500 MG ORAL TABLET 1 tablet by mouth twice daily CIPRO 500 MG ORAL TABLET 454041 CIPROFLOXACIN HCL Inactive DEPAKOTE 500 MG ORAL TABLET DELAYED RELEASE take 1 tab po BID for seizures. DEPAKOTE 500 MG ORAL TABLET DELAYED RELEASE 0546520 DIVALPROEX SODIUM Inactive DIVALPROEX SODIUM 250 MG ORAL TABLET DELAYED RELEASE 1 po TID DIVALPROEX SODIUM 250 MG ORAL TABLET DELAYED RELEASE 3747882 DIVALPROEX SODIUM Inactive IBUPROFEN 600 MG ORAL TABLET 1 tablet by mouth every 8 hours prn IBUPROFEN 600 MG ORAL TABLET 667951 IBUPROFEN Inactive KEFLEX 500 MG ORAL CAPSULE 1 po TID x 10 days KEFLEX 500 MG ORAL CAPSULE 751524 CEPHALEXIN Inactive KEFLEX 500 MG ORAL CAPSULE 1 po qid KEFLEX 500 MG ORAL CAPSULE 248130 CEPHALEXIN Inactive KEFLEX 500 MG ORAL CAPSULE 1 po qid KEFLEX 500 MG ORAL CAPSULE 271979 CEPHALEXIN Inactive KEFLEX 500 MG ORAL CAPSULE 1 po TID x 10 days KEFLEX 500 MG ORAL CAPSULE 403856 CEPHALEXIN Inactive KEFLEX 500 MG ORAL CAPSULE 1 po TID x 10 days KEFLEX 500 MG ORAL CAPSULE 016349 CEPHALEXIN Inactive PREDNISONE 20 MG ORAL TABLET 2 tabs daily for 3 days, 1 tab daily for 3 days, 1/2 tab daily for 2 days PREDNISONE 20 MG ORAL TABLET 273310 PREDNISONE Inactive LORATADINE 10 MG ORAL TABLET 1 tablet by mouth daily PRN Congestion LORATADINE 10 MG ORAL TABLET 705220 LORATADINE Inactive SIMVASTATIN 20 MG ORAL TABLET 1 po at qhs SIMVASTATIN 20 MG ORAL TABLET 537822 SIMVASTATIN Inactive TERBINAFINE HCL 250 MG ORAL TABLET 1 tab po qday for nail infection. TERBINAFINE HCL 250 MG ORAL TABLET 264100 TERBINAFINE HCL Inactive CELEXA 20 MG ORAL TABLET 1 tablet by mouth daily CELEXA 20 MG ORAL TABLET 287866 CITALOPRAM HYDROBROMIDE Inactive BUSPIRONE HCL 7.5 MG ORAL TABLET 1 twice day for anxiety BUSPIRONE HCL 7.5 MG ORAL TABLET 991015 BUSPIRONE HCL Inactive FLONASE 50 MCG/ACT NASAL SUSPENSION 2 puffs in each nostril daily FLONASE 50 MCG/ACT NASAL SUSPENSION 3989796 FLUTICASONE PROPIONATE Inactive Vital Signs Date Name [...] Negative Encounters Code Encounter Date Provider Facility [facility]-28603 [id number] Vst-Est Level III 20:06:18 TEXTILE SCRAP SALVAGER Yvon Harrison MD [facility] CPT-55499 Level 3 New Patient 08:58:45 TEXTILE SCRAP SALVAGER Sary Roland MD [facility]-17040 Level 3 Est. Patient 11:31:14 CDT Yvon Harrison MD [facility]-15695 71988-Hty Vst-Est Level III 13:15:10 CDT Yvon Harrison MD [facility]-45663 02061-Olh Vst-Est Level III 15:15:09 CDT Luis Miguel Sapp MD [facility] CPT-42801 Level 4 Est. Patient 11:00:57 CDT Yvon Harrison MD [facility]-17228 Level 4 Est. Patient 15:53:40 CDT Yvon Harrison MD [facility] CPT-45670 Level 4 Est. Patient 15:42:18 CDT Yvon Harrison MD [facility] CPT-41503 Level 3 Est. Patient 17:08:18 CDT Berta Sweeney APRN [facility] CPT-02459 Level 4 Est. Patient 16:35:02 TEXTILE SCRAP SALVAGER Yvon Harrison MD [facility] CPT-80778 Level 4 Est. Patient 15:11:02 TEXTILE SCRAP SALVAGER Yvon Harrison MD [facility] CPT-10055 Level 4 Est. Patient 13:18:47 CDT Yvon Harrison MD [facility]-88198 Level 4 Est. Patient 09:51:29 CDT Yvon Harrison MD [facility] CPT-34163 Level 3 Est. Patient 11:40:53 TEXTILE SCRAP SALVAGER Nick Quiroz MD [facility] CPT-13546 Level 3 Est. Patient 09:05:46 CDT Nick Quiroz MD [facility] CPT-88634 Level 3 Est. Patient 10:56:05 CDT Nick Quiroz MD [facility] CPT-99708 Level 3 Est. Patient 05:39:31 CDT Desmond Montgomery [facility] CPT-30868 Level 3 Est. Patient 16:18:28 TEXTILE SCRAP SALVAGER Nick Quiroz MD [facility] CPT-84709 Level 3 Est. Patient 16:50:04 TEXTILE SCRAP SALVAGER Nick Quiroz MD [facility] CPT-78960 Level 3 Est. Patient 22:12:55 TEXTILE SCRAP SALVAGER Desmond Montgomery [facility] Procedures Code Procedure Name Date Entry Date Standard Description CPT-40014 Lipid - LAB USE ONLY 15:55:09 TEXTILE SCRAP SALVAGER CPT-98777 CMP - LAB USE ONLY 15:55:09 TEXTILE SCRAP SALVAGER CPT-18888 CBC - LAB USE ONLY 15:55:08 TEXTILE SCRAP SALVAGER CPT-05225 Venipuncture Draw Fee 15:55:08 TEXTILE SCRAP SALVAGER CPT-Cryo Cryotherapy 11:00:57 CDT CPT-43253 Hand comp min 3V 17:09:13 CDT CPT-80694 Hand comp min 3V 17:08:18 CDT CPT-03948 Fluzone Quadrivalent Intramuscular Suspension 0.5 ML 10: 17:16 CDT CPT-LR Lesion Removal 08:49:09 CDT CPT-25464 Nail Excision 08:49:52 CDT CPT-93373 Venipuncture Draw Fee 16:51:53 TEXTILE SCRAP SALVAGER
--- OUTSIDE RECORDS SUMMARY | 2018-08-01 21:41 | XMS REPORT | Clinical Summary ---
Author Author Admin, COURTNEY Organization [employer] Address Unknown Phone Unavailable Allergies, Adverse Reactions, [...] 1 po TID x 10 days CEPHALEXIN 28867234110 No Longer Active Magdalenakobe Braun Active CIPRO 500 MG ORAL TABLET 1 tablet by mouth twice daily CIPROFLOXACIN HCL 13705955378 No Longer Active Magdalena Rapaul Active CELEXA 20 MG ORAL TABLET 1 tablet by mouth daily CITALOPRAM HYDROBROMIDE 92705816031 Active Magdalenakobe Braun Active BUSPIRONE HCL 7.5 MG ORAL TABLET 1 twice day for anxiety BUSPIRONE HCL 83947549972 No Longer Active Yvon Harrison MD Active DEPAKOTE 500 MG ORAL TABLET DELAYED RELEASE take 1 tab po BID for seizures. DIVALPROEX SODIUM 04484807789 No Longer Active Yvon Harrison MD Active SIMVASTATIN 20 MG ORAL TABLET 1 po at qhs SIMVASTATIN 25356863078 No Longer Active Yvon Harrison MD Active CARAFATE 1 GM ORAL TABLET 1 tab q4H SUCRALFATE 23743600874 No Longer Active Yvon Harrison MD Active PANTOPRAZOLE SODIUM 40 MG ORAL TABLET DELAYED RELEASE one tab once daily 2017 PANTOPRAZOLE SODIUM 77156646891 Active Luis Miguel Sapp MD Active PREDNISONE 20 MG ORAL TABLET 2 tabs daily for 3 days, 1 tab daily for 3 days, 1/2 tab daily for 2 days PREDNISONE 83618998578 No Longer Active Yvon Harrison MD Active TERBINAFINE HCL 250 MG ORAL TABLET 1 tab po qday for nail infection. TERBINAFINE HCL 41155535375 No Longer Active Yvon Harrison MD Active DIVALPROEX SODIUM 250 MG ORAL TABLET DELAYED RELEASE 1 po TID DIVALPROEX SODIUM 72934801438 No Longer Active Nick Quiroz MD Active KEFLEX 500 MG ORAL CAPSULE 1 po qid CEPHALEXIN 98399789110 No Longer Active Nick Quiroz MD Active KEFLEX 500 MG ORAL CAPSULE 1 po qid CEPHALEXIN 72202805695 No Longer Active Nick Quiroz MD Active KEFLEX 500 MG ORAL CAPSULE 1 po TID x 10 days CEPHALEXIN 00168877918 No Longer Active Nick Quiroz MD Active KEFLEX 500 MG ORAL CAPSULE 1 po TID x 10 days CEPHALEXIN 31533351682 No Longer Active Nick Quiroz MD Active IBUPROFEN 600 MG ORAL TABLET 1 tablet by mouth every 8 hours prn IBUPROFEN 87978302767 No Longer Active Desmond Montgomery DO Active FLONASE 50 MCG/ACT NASAL SUSPENSION 2 puffs in each nostril daily FLUTICASONE PROPIONATE 96879443687 No Longer Active Desmond Montgomery DO Active LORATADINE 10 MG ORAL TABLET 1 tablet by mouth daily PRN Congestion LORATADINE 52528349496 No Longer Active Desmond Montgomery DO Active LORATADINE 10 MG ORAL TABLET 1 tablet by mouth daily PRN Congestion LORATADINE 10 MG ORAL TABLET 955632 LORATADINE Inactive FLONASE 50 MCG/ACT NASAL SUSPENSION 2 puffs in each nostril daily FLONASE 50 MCG/ACT NASAL SUSPENSION 7040605 FLUTICASONE PROPIONATE Inactive IBUPROFEN 600 MG ORAL TABLET 1 tablet by mouth every 8 hours prn IBUPROFEN 600 MG ORAL TABLET 398227 IBUPROFEN Inactive KEFLEX 500 MG ORAL CAPSULE 1 po TID x 10 days KEFLEX 500 MG ORAL CAPSULE 011984 CEPHALEXIN Inactive KEFLEX 500 MG ORAL CAPSULE 1 po qid KEFLEX 500 MG ORAL CAPSULE 411643 CEPHALEXIN Inactive KEFLEX 500 MG ORAL CAPSULE 1 po qid KEFLEX 500 MG ORAL CAPSULE 517361 CEPHALEXIN Inactive CARAFATE 1 GM ORAL TABLET 1 tab q4H CARAFATE 1 GM ORAL TABLET 473887 SUCRALFATE Inactive SIMVASTATIN 20 MG ORAL TABLET 1 po at qhs SIMVASTATIN 20 MG ORAL TABLET 685953 SIMVASTATIN Inactive DEPAKOTE 500 MG ORAL TABLET DELAYED RELEASE take 1 tab po BID for seizures. DEPAKOTE 500 MG ORAL TABLET DELAYED RELEASE 7404150 DIVALPROEX SODIUM Inactive BUSPIRONE HCL 7.5 MG ORAL TABLET 1 twice day for anxiety BUSPIRONE HCL 7.5 MG ORAL TABLET 749413 BUSPIRONE HCL Inactive CIPRO 500 MG ORAL TABLET 1 tablet by mouth twice daily CIPRO 500 MG ORAL TABLET 428875 CIPROFLOXACIN HCL Inactive KEFLEX 500 MG ORAL CAPSULE 1 po TID x 10 days KEFLEX 500 MG ORAL CAPSULE 482374 CEPHALEXIN Inactive DIVALPROEX SODIUM 250 MG ORAL TABLET DELAYED RELEASE 1 po TID DIVALPROEX SODIUM 250 MG ORAL TABLET DELAYED RELEASE 1899530 DIVALPROEX SODIUM Inactive TERBINAFINE HCL 250 MG ORAL TABLET 1 tab po qday for nail infection. TERBINAFINE HCL 250 MG ORAL TABLET 769518 TERBINAFINE HCL Inactive PREDNISONE 20 MG ORAL TABLET 2 tabs daily for 3 days, 1 tab daily for 3 days, 1/2 tab daily for 2 days PREDNISONE 20 MG ORAL TABLET 997188 PREDNISONE Inactive KEFLEX 500 MG ORAL CAPSULE 1 po TID x 10 days KEFLEX 500 MG ORAL CAPSULE 722587 CEPHALEXIN Inactive Vital Signs Date Name Value [...] Negative Encounters Code Encounter Date Provider Facility CPT-59358 Level 3 New Patient 08:58:45 CARLOS A Roland MD [facility] CPT-07729 Level 3 Est. Patient 11:31:14 CDT Yvon Harrison MD [facility] CPT-61011 [id number] Vst-Est Level III 13:15:10 CDT Yvon Harrison MD [facility] CPT-95846 [id number] Vst-Est Level III 15:15:09 CDT Luis Miguel Sapp MD [facility] CPT-47020 Level 4 Est. Patient 11:00:57 CDT Yvon Harrison MD [facility] CPT-68859 Level 4 Est. Patient 15:53:40 CDT Yvon Harrison MD [facility] CPT-61410 Level 4 Est. Patient 15:42:18 CDT Yvon Harrison MD [facility] CPT-29165 Level 3 Est. Patient 17:08:18 CDT Berta Sweeney ROSENDO [facility] CPT-52719 Level 4 Est. Patient 16:35:02 TABLE TENDER SLUDGE Yvon Harrison MD [facility] CPT-65090 Level 4 Est. Patient 15:11:02 TABLE TENDER SLUDGE Yvon Harrison MD [facility] CPT-54655 Level 4 Est. Patient 13:18:47 CDT Yvon Harrison MD [facility] CPT-34677 Level 4 Est. Patient 09:51:29 CDT Yvon Harrison MD [facility] CPT-39254 Level 3 Est. Patient 11:40:53 TABLE TENDER SLUDGE Nick Quiroz MD [facility] CPT-56507 Level 3 Est. Patient 09:05:46 CDT Nick Quiroz MD [facility] CPT-76210 Level 3 Est. Patient 10:56:05 CDT Nick Quiroz MD [facility] CPT-22780 Level 3 Est. Patient 05:39:31 CDT Desmond Montgomery DO [facility] CPT-08667 Level 3 Est. Patient 16:18:28 TABLE TENDER SLUDGE Nick Quiroz MD [facility] CPT-77060 Level 3 Est. Patient 16:50:04 TABLE TENDER SLUDGE Nick Quiroz MD [facility] CPT-34383 Level 3 Est. Patient 22:12:55 TABLE TENDER SLUDGE Desmond Montgomery DO [facility] Procedures Code Procedure Name Date Entry Date Standard Description CPT-23501 Lipid - LAB USE ONLY 15:55:09 TABLE TENDER SLUDGE CPT-06610 CMP - LAB USE ONLY 15:55:09 TABLE TENDER SLUDGE CPT-16984 CBC - LAB USE ONLY 15:55:08 TABLE TENDER SLUDGE CPT-66618 Venipuncture Draw Fee 15:55:08 TABLE TENDER SLUDGE CPT-Cryo Cryotherapy 11:00:57 CDT CPT-00467 Hand comp min 3V 17:09:13 CDT CPT-37662 Hand comp min 3V 17:08:18 CDT CPT-82472 Fluzone Quadrivalent Intramuscular Suspension 0.5 ML 10: 17:16 CDT CPT-LR Lesion Removal 08:49:09 CDT CPT-38998 Nail Excision 08:49:52 CDT CPT-97670 Venipuncture Draw Fee 16:51:53 TABLE TENDER SLUDGE
--- OUTSIDE RECORDS SUMMARY | 2018-08-01 21:41 | XMS REPORT | Clinical Summary ---
Author Author Admin, COURTNEY Organization [employer] Address Unknown Phone Unavailable Allergies, Adverse Reactions, [...] 1 po TID x 10 days CEPHALEXIN [id number] No Longer Active Magdalenakobe Braun Active CIPRO 500 MG ORAL TABLET 1 tablet by mouth twice daily CIPROFLOXACIN HCL 74054173744 No Longer Active Magdalena Rapaul Active CELEXA 20 MG ORAL TABLET 1 tablet by mouth daily CITALOPRAM HYDROBROMIDE 73370514600 Active Magdalenakobe Braun Active BUSPIRONE HCL 7.5 MG ORAL TABLET 1 twice day for anxiety BUSPIRONE HCL 57134120053 No Longer Active Yvon Harrison MD Active DEPAKOTE 500 MG ORAL TABLET DELAYED RELEASE take 1 tab po BID for seizures. DIVALPROEX SODIUM 83818907933 No Longer Active Yvon Harrison MD Active SIMVASTATIN 20 MG ORAL TABLET 1 po at qhs SIMVASTATIN 94963521174 No Longer Active Yvon Harrison MD Active CARAFATE 1 GM ORAL TABLET 1 tab q4H SUCRALFATE 70289967310 No Longer Active Yvon Harrison MD Active PANTOPRAZOLE SODIUM 40 MG ORAL TABLET DELAYED RELEASE one tab once daily 2017 PANTOPRAZOLE SODIUM 17503517913 Active Luis Miguel Sapp MD Active PREDNISONE 20 MG ORAL TABLET 2 tabs daily for 3 days, 1 tab daily for 3 days, 1/2 tab daily for 2 days PREDNISONE 96096440213 No Longer Active Yvon Harrison MD Active TERBINAFINE HCL 250 MG ORAL TABLET 1 tab po qday for nail infection. TERBINAFINE HCL 34982068608 No Longer Active Yvon Harrison MD Active DIVALPROEX SODIUM 250 MG ORAL TABLET DELAYED RELEASE 1 po TID DIVALPROEX SODIUM 37738659877 No Longer Active Nick Quiroz MD Active KEFLEX 500 MG ORAL CAPSULE 1 po qid CEPHALEXIN 03387656949 No Longer Active Nick Quiroz MD Active KEFLEX 500 MG ORAL CAPSULE 1 po qid CEPHALEXIN 81090557057 No Longer Active Nick Quiroz MD Active KEFLEX 500 MG ORAL CAPSULE 1 po TID x 10 days CEPHALEXIN 95992999907 No Longer Active Nick Quiroz MD Active KEFLEX 500 MG ORAL CAPSULE 1 po TID x 10 days CEPHALEXIN 26954920371 No Longer Active Nick Quiroz MD Active IBUPROFEN 600 MG ORAL TABLET 1 tablet by mouth every 8 hours prn IBUPROFEN 06072247964 No Longer Active Desmond Montgomery DO Active FLONASE 50 MCG/ACT NASAL SUSPENSION 2 puffs in each nostril daily FLUTICASONE PROPIONATE 40450073753 No Longer Active Desmond Montgomery DO Active LORATADINE 10 MG ORAL TABLET 1 tablet by mouth daily PRN Congestion LORATADINE 01681444190 No Longer Active Desmond Montgomery DO Active LORATADINE 10 MG ORAL TABLET 1 tablet by mouth daily PRN Congestion LORATADINE 10 MG ORAL TABLET 031984 LORATADINE Inactive FLONASE 50 MCG/ACT NASAL SUSPENSION 2 puffs in each nostril daily FLONASE 50 MCG/ACT NASAL SUSPENSION 6621008 FLUTICASONE PROPIONATE Inactive IBUPROFEN 600 MG ORAL TABLET 1 tablet by mouth every 8 hours prn IBUPROFEN 600 MG ORAL TABLET 751247 IBUPROFEN Inactive KEFLEX 500 MG ORAL CAPSULE 1 po TID x 10 days KEFLEX 500 MG ORAL CAPSULE 181798 CEPHALEXIN Inactive KEFLEX 500 MG ORAL CAPSULE 1 po qid KEFLEX 500 MG ORAL CAPSULE 810017 CEPHALEXIN Inactive KEFLEX 500 MG ORAL CAPSULE 1 po qid KEFLEX 500 MG ORAL CAPSULE 220016 CEPHALEXIN Inactive CARAFATE 1 GM ORAL TABLET 1 tab q4H CARAFATE 1 GM ORAL TABLET 391990 SUCRALFATE Inactive SIMVASTATIN 20 MG ORAL TABLET 1 po at qhs SIMVASTATIN 20 MG ORAL TABLET 265565 SIMVASTATIN Inactive DEPAKOTE 500 MG ORAL TABLET DELAYED RELEASE take 1 tab po BID for seizures. DEPAKOTE 500 MG ORAL TABLET DELAYED RELEASE 8119858 DIVALPROEX SODIUM Inactive BUSPIRONE HCL 7.5 MG ORAL TABLET 1 twice day for anxiety BUSPIRONE HCL 7.5 MG ORAL TABLET 370306 BUSPIRONE HCL Inactive CIPRO 500 MG ORAL TABLET 1 tablet by mouth twice daily CIPRO 500 MG ORAL TABLET 587612 CIPROFLOXACIN HCL Inactive KEFLEX 500 MG ORAL CAPSULE 1 po TID x 10 days KEFLEX 500 MG ORAL CAPSULE 210466 CEPHALEXIN Inactive DIVALPROEX SODIUM 250 MG ORAL TABLET DELAYED RELEASE 1 po TID DIVALPROEX SODIUM 250 MG ORAL TABLET DELAYED RELEASE 0569083 DIVALPROEX SODIUM Inactive TERBINAFINE HCL 250 MG ORAL TABLET 1 tab po qday for nail infection. TERBINAFINE HCL 250 MG ORAL TABLET 416580 TERBINAFINE HCL Inactive PREDNISONE 20 MG ORAL TABLET 2 tabs daily for 3 days, 1 tab daily for 3 days, 1/2 tab daily for 2 days PREDNISONE 20 MG ORAL TABLET 465601 PREDNISONE Inactive KEFLEX 500 MG ORAL CAPSULE 1 po TID x 10 days KEFLEX 500 MG ORAL CAPSULE 423510 CEPHALEXIN Inactive Vital Signs Date Name Value [...] Negative Encounters Code Encounter Date Provider Facility CPT-52532 Level 3 New Patient 08:58:45 CARLOS A Roland MD [facility] CPT-20337 Level 3 Est. Patient 11:31:14 CDT Yvon Harrison MD [facility] CPT-93220 [id number] Vst-Est Level III 13:15:10 CDT Yvon Harrison MD [facility] CPT-89478 [id number] Vst-Est Level III 15:15:09 CDT Luis Miguel Sapp MD [facility] CPT-73924 Level 4 Est. Patient 11:00:57 CDT Yvon Harrison MD [facility] CPT-92021 Level 4 Est. Patient 15:53:40 CDT Yvon Harrison MD [facility] CPT-34351 Level 4 Est. Patient 15:42:18 CDT Yvon Harrison MD [facility] CPT-06552 Level 3 Est. Patient 17:08:18 CDT Berta Sweeney ROSENDO [facility] CPT-65373 Level 4 Est. Patient 16:35:02 TIE INSPECTOR Yvon Harrison MD [facility] CPT-44570 Level 4 Est. Patient 15:11:02 TIE INSPECTOR Yvon Harrison MD [facility] CPT-62498 Level 4 Est. Patient 13:18:47 CDT Yvon Harrison MD [facility] CPT-49138 Level 4 Est. Patient 09:51:29 CDT Yvon Harrison MD [facility] CPT-98457 Level 3 Est. Patient 11:40:53 TIE INSPECTOR Nick Quiroz MD [facility] CPT-71368 Level 3 Est. Patient 09:05:46 CDT Nick Quiroz MD [facility] CPT-03251 Level 3 Est. Patient 10:56:05 CDT Nick Quiroz MD [facility] CPT-14328 Level 3 Est. Patient 05:39:31 CDT Desmond Montgomery DO [facility] CPT-97044 Level 3 Est. Patient 16:18:28 TIE INSPECTOR Nick Quiroz MD [facility] CPT-64520 Level 3 Est. Patient 16:50:04 TIE INSPECTOR Nick Quiroz MD [facility] CPT-98800 Level 3 Est. Patient 22:12:55 TIE INSPECTOR Desmond Montgomery DO [facility] Procedures Code Procedure Name Date Entry Date Standard Description CPT-43228 Lipid - LAB USE ONLY 15:55:09 TIE INSPECTOR CPT-76074 CMP - LAB USE ONLY 15:55:09 TIE INSPECTOR CPT-53232 CBC - LAB USE ONLY 15:55:08 TIE INSPECTOR CPT-66513 Venipuncture Draw Fee 15:55:08 TIE INSPECTOR CPT-Cryo Cryotherapy 11:00:57 CDT CPT-16400 Hand comp min 3V 17:09:13 CDT CPT-70648 Hand comp min 3V 17:08:18 CDT CPT-68203 Fluzone Quadrivalent Intramuscular Suspension 0.5 ML 10: 17:16 CDT CPT-LR Lesion Removal 08:49:09 CDT CPT-09073 Nail Excision 08:49:52 CDT CPT-73702 Venipuncture Draw Fee 16:51:53 TIE INSPECTOR
--- OUTSIDE RECORDS SUMMARY | 2018-08-01 21:42 | XMS REPORT | Clinical Summary ---
Author Author Admin, COURTNEY Organization [employer] Address Unknown Phone Unavailable Allergies, Adverse Reactions, Alerts Allergy Name Reaction Description Start Date Severity Status Provider TOPAMAX Critical Active Berta Sweeney APRN Conditions or Problems Problem Name Problem Code [...] MD Dysuria Body Mass Index 33.0-33.9 Adult Active Yvon Harrison MD Body Mass Index 33.0-33.9, adult SEIZURE DISORDER ICD-780.39 Inactive Nick Quiroz MD SEIZURES, HX OF ICD-V12.49 Inactive Nick Quiroz MD FH SEIZURES ICD-V17.2 Inactive Nick Quiroz MD SEIZURE DISORDER ICD-780.39 Quincy Quiroz MD 2011 GASTROENTERITIS, ACUTE ICD-558.9 Inactive Nick Quiroz MD DEHYDRATION ICD-276.51 Inactive Nick Quiroz MD U R I ICD-465.9 Inactive Nick Quiroz MD SPASM, MUSCLE ICD-728.85 Inactive Nick Quiroz MD LYMPHADENITIS-ACUTE ICD-683 Inactive Nick Quiroz MD Medication List Medication Instructions Start Date Stop Date Generic Name NDC Status Provider Patient Instruction KEFLEX 500 MG ORAL CAPSULE 1 po TID x 10 days CEPHALEXIN 49506975326 Active Magdalena Raida Active CIPRO 500 MG ORAL TABLET 1 tablet by mouth twice daily CIPROFLOXACIN HCL 87886238076 No Longer Active Magdalenakobe Thorntonida Active CELEXA 20 MG ORAL TABLET 1 tablet by mouth daily CITALOPRAM HYDROBROMIDE 97270020323 Active Magdalena Thorntonpaul Active BUSPIRONE HCL 7.5 MG ORAL TABLET 1 twice day for anxiety BUSPIRONE HCL 32556808252 No Longer Active Yvon Harrison MD Active DEPAKOTE 500 MG ORAL TABLET DELAYED RELEASE take 1 tab po BID for seizures. DIVALPROEX SODIUM 20411351093 No Longer Active Yvon Harrison MD Active SIMVASTATIN 20 MG ORAL TABLET 1 po at qhs SIMVASTATIN 79934068052 No Longer Active Yvon Harrison MD Active CARAFATE 1 GM ORAL TABLET 1 tab q4H SUCRALFATE 88393908878 No Longer Active Yvon Harrison MD Active PANTOPRAZOLE SODIUM 40 MG ORAL TABLET DELAYED RELEASE one tab once daily 2017 PANTOPRAZOLE SODIUM 72384632423 Active Luis Miguel Sapp MD Active PREDNISONE 20 MG ORAL TABLET 2 tabs daily for 3 days, 1 tab daily for 3 days, 1/2 tab daily for 2 days PREDNISONE 02269335642 No Longer Active Yvon Harrison MD Active TERBINAFINE HCL 250 MG ORAL TABLET 1 tab po qday for nail infection. TERBINAFINE HCL 26390247458 No Longer Active Yvon Harrison MD Active DIVALPROEX SODIUM 250 MG ORAL TABLET DELAYED RELEASE 1 po TID DIVALPROEX SODIUM 42610650460 No Longer Active Nick Quiroz MD Active KEFLEX 500 MG ORAL CAPSULE 1 po qid CEPHALEXIN 33184698374 No Longer Active Nick Quiroz MD Active KEFLEX 500 MG ORAL CAPSULE 1 po qid CEPHALEXIN 81957547651 No Longer Active Nick Quiroz MD Active KEFLEX 500 MG ORAL CAPSULE 1 po TID x 10 days CEPHALEXIN 94409938289 No Longer Active Nick Quiroz MD Active KEFLEX 500 MG ORAL CAPSULE 1 po TID x 10 days CEPHALEXIN 97640205647 No Longer Active Nick Quiroz MD Active IBUPROFEN 600 MG ORAL TABLET 1 tablet by mouth every 8 hours prn IBUPROFEN 51309198086 No Longer Active Desmond Montgomery DO Active FLONASE 50 MCG/ACT NASAL SUSPENSION 2 puffs in each nostril daily FLUTICASONE PROPIONATE 14531579576 No Longer Active Desmond Montgomery DO Active LORATADINE 10 MG ORAL TABLET 1 tablet by mouth daily PRN Congestion LORATADINE 24692118823 No Longer Active Desmond Montgomery DO Active LORATADINE 10 MG ORAL TABLET 1 tablet by mouth daily PRN Congestion LORATADINE 10 MG ORAL TABLET 028116 LORATADINE Inactive FLONASE 50 MCG/ACT NASAL SUSPENSION 2 puffs in each nostril daily FLONASE 50 MCG/ACT NASAL SUSPENSION 8138411 FLUTICASONE PROPIONATE Inactive IBUPROFEN 600 MG ORAL TABLET 1 tablet by mouth every 8 hours prn IBUPROFEN 600 MG ORAL TABLET 148073 IBUPROFEN Inactive KEFLEX 500 MG ORAL CAPSULE 1 po TID x 10 days KEFLEX 500 MG ORAL CAPSULE 720332 CEPHALEXIN Inactive KEFLEX 500 MG ORAL CAPSULE 1 po qid KEFLEX 500 MG ORAL CAPSULE 560353 CEPHALEXIN Inactive KEFLEX 500 MG ORAL CAPSULE 1 po qid KEFLEX 500 MG ORAL CAPSULE 107485 CEPHALEXIN Inactive CARAFATE 1 GM ORAL TABLET 1 tab q4H CARAFATE 1 GM ORAL TABLET 633405 SUCRALFATE Inactive SIMVASTATIN 20 MG ORAL TABLET 1 po at qhs SIMVASTATIN 20 MG ORAL TABLET 727694 SIMVASTATIN Inactive DEPAKOTE 500 MG ORAL TABLET DELAYED RELEASE take 1 tab po BID for seizures. DEPAKOTE 500 MG ORAL TABLET DELAYED RELEASE 9272696 DIVALPROEX SODIUM Inactive BUSPIRONE HCL 7.5 MG ORAL TABLET 1 twice day for anxiety BUSPIRONE HCL 7.5 MG ORAL TABLET 417796 BUSPIRONE HCL Inactive CIPRO 500 MG ORAL TABLET 1 tablet by mouth twice daily CIPRO 500 MG ORAL TABLET 100634 CIPROFLOXACIN HCL Inactive KEFLEX 500 MG ORAL CAPSULE 1 po TID x 10 days KEFLEX 500 MG ORAL CAPSULE 574064 CEPHALEXIN Inactive DIVALPROEX SODIUM 250 MG ORAL TABLET DELAYED RELEASE 1 po TID DIVALPROEX SODIUM 250 MG ORAL TABLET DELAYED RELEASE 4572026 DIVALPROEX SODIUM Inactive TERBINAFINE HCL 250 MG ORAL TABLET 1 tab po qday for nail infection. TERBINAFINE HCL 250 MG ORAL TABLET 195114 TERBINAFINE HCL Inactive PREDNISONE 20 MG ORAL TABLET 2 tabs daily for 3 days, 1 tab daily for 3 days, 1/2 tab daily for 2 days PREDNISONE 20 MG ORAL TABLET 492844 PREDNISONE Inactive Vital Signs Date Name Value Unit Range Description blood pressure, diastolic 95 mm[Hg] BP caro [...] Negative Encounters Code Encounter Date Provider Facility CPT-17238 Level 3 Est. Patient 11:31:14 CDT Yvon Harrison MD [facility] CPT-49033 [id number] Vst-Est Level III 13:15:10 CDT Yvon Harrison MD [facility] CPT-83081 [id number] Vst-Est Level III 15:15:09 CDT Luis Miguel Sapp MD [facility] CPT-52047 Level 4 Est. Patient 11:00:57 CDT Yvon Harrison MD [facility] CPT-01627 Level 4 Est. Patient 15:53:40 CDT Yvon Harrison MD [facility] CPT-35374 Level 4 Est. Patient 15:42:18 CDT vYon Harrison MD [facility] CPT-70443 Level 3 Est. Patient 17:08:18 CDT Bertadaksha Sweeney APRN [facility] CPT-81630 Level 4 Est. Patient 16:35:02 TAX ADVISOR Yvon Harrison MD [facility] CPT-55955 Level 4 Est. Patient 15:11:02 TAX ADVISOR Yvon Harrison MD [facility] CPT-62390 Level 4 Est. Patient 13:18:47 CDT Yvon Harrison MD [facility] CPT-38859 Level 4 Est. Patient 09:51:29 CDT Yvon Harrison MD [facility] CPT-70069 Level 3 Est. Patient 11:40:53 TAX ADVISOR Nick Quiroz MD [facility] CPT-86408 Level 3 Est. Patient 09:05:46 CDT Nick Quiroz MD [facility] CPT-32647 Level 3 Est. Patient 10:56:05 CDT Nick Quiroz MD [facility] CPT-14508 Level 3 Est. Patient 05:39:31 CDT Desmond Montgomery DO [facility] CPT-47708 Level 3 Est. Patient 16:18:28 TAX ADVISOR Nick Quiroz MD [facility] CPT-21606 Level 3 Est. Patient 16:50:04 TAX ADVISOR Nick Quiroz MD [facility] CPT-98567 Level 3 Est. Patient 22:12:55 TAX ADVISOR Desmond Montgomery [facility] Procedures Code Procedure Name Date Entry Date Standard Description CPT-80722 Lipid - LAB USE ONLY 15:55:09 TAX ADVISOR CPT-24312 CMP - LAB USE ONLY 15:55:09 TAX ADVISOR CPT-90268 CBC - LAB USE ONLY 15:55:08 TAX ADVISOR CPT-88478 Venipuncture Draw Fee 15:55:08 TAX ADVISOR CPT-Cryo Cryotherapy 11:00:57 CDT CPT-93710 Hand comp min 3V 17:09:13 CDT CPT-57897 Hand comp min 3V 17:08:18 CDT CPT-72728 Fluzone Quadrivalent Intramuscular Suspension 0.5 ML 10: 17:16 CDT CPT-LR Lesion Removal 08:49:09 CDT CPT-73101 Nail Excision 08:49:52 CDT CPT-49018 Venipuncture Draw Fee 16:51:53 TAX ADVISOR
--- OUTSIDE RECORDS SUMMARY | 2018-08-01 21:42 | XMS REPORT | Clinical Summary ---
Author Author Admin, COURTNEY Organization [employer] Address Unknown Phone Unavailable Allergies, Adverse Reactions, [...] SPASM, MUSCLE ICD-728.85 Inactive Nick Quiroz MD Body Mass Index 33.0-33.9 Adult Inactive Donna Elizondo LPN LYMPHADENITIS-ACUTE ICD-683 Inactive Nick Quiroz MD Medication List Medication Instructions Start Date Stop Date Generic Name NDC Status Provider Patient Instruction KEFLEX 500 MG ORAL CAPSULE 1 po TID x 10 days CEPHALEXIN 63136140772 No Longer Active Magdalenakobe Braun Active CIPRO 500 MG ORAL TABLET 1 tablet by mouth twice daily CIPROFLOXACIN HCL 56900067285 No Longer Active Magdalena Rapaul Active CELEXA 20 MG ORAL TABLET 1 tablet by mouth daily CITALOPRAM HYDROBROMIDE 55780872254 Active Magdalenakobe Braun Active BUSPIRONE HCL 7.5 MG ORAL TABLET 1 twice day for anxiety BUSPIRONE HCL 42457887395 No Longer Active Yvon Harrsion MD Active DEPAKOTE 500 MG ORAL TABLET DELAYED RELEASE take 1 tab po BID for seizures. DIVALPROEX SODIUM 23263181733 No Longer Active Yvon Harrison MD Active SIMVASTATIN 20 MG ORAL TABLET 1 po at qhs SIMVASTATIN 33361536180 No Longer Active Yvon Harrison MD Active CARAFATE 1 GM ORAL TABLET 1 tab q4H SUCRALFATE 00220763928 No Longer Active Yvon Harrison MD Active PANTOPRAZOLE SODIUM 40 MG ORAL TABLET DELAYED RELEASE one tab once daily 2017 PANTOPRAZOLE SODIUM 61975768632 Active Luis Miguel Sapp MD Active PREDNISONE 20 MG ORAL TABLET 2 tabs daily for 3 days, 1 tab daily for 3 days, 1/2 tab daily for 2 days PREDNISONE 94886985667 No Longer Active Yvon Harrison MD Active TERBINAFINE HCL 250 MG ORAL TABLET 1 tab po qday for nail infection. TERBINAFINE HCL 28972776874 No Longer Active Yvon Harrison MD Active DIVALPROEX SODIUM 250 MG ORAL TABLET DELAYED RELEASE 1 po TID DIVALPROEX SODIUM 63962479458 No Longer Active Nick Quiroz MD Active KEFLEX 500 MG ORAL CAPSULE 1 po qid CEPHALEXIN 10994442954 No Longer Active Nick Quiroz MD Active KEFLEX 500 MG ORAL CAPSULE 1 po qid CEPHALEXIN 17869676357 No Longer Active Nick Quiroz MD Active KEFLEX 500 MG ORAL CAPSULE 1 po TID x 10 days CEPHALEXIN 93069036233 No Longer Active Nick Quiroz MD Active KEFLEX 500 MG ORAL CAPSULE 1 po TID x 10 days CEPHALEXIN 54224112776 No Longer Active Nick Quiroz MD Active IBUPROFEN 600 MG ORAL TABLET 1 tablet by mouth every 8 hours prn IBUPROFEN 49773382604 No Longer Active Desmond Montgomery DO Active FLONASE 50 MCG/ACT NASAL SUSPENSION 2 puffs in each nostril daily FLUTICASONE PROPIONATE 48545412548 No Longer Active Desmond Montgomery DO Active LORATADINE 10 MG ORAL TABLET 1 tablet by mouth daily PRN Congestion LORATADINE 99695822345 No Longer Active Desmond Montgomery DO Active LORATADINE 10 MG ORAL TABLET 1 tablet by mouth daily PRN Congestion LORATADINE 10 MG ORAL TABLET 553573 LORATADINE Inactive FLONASE 50 MCG/ACT NASAL SUSPENSION 2 puffs in each nostril daily FLONASE 50 MCG/ACT NASAL SUSPENSION 9557585 FLUTICASONE PROPIONATE Inactive IBUPROFEN 600 MG ORAL TABLET 1 tablet by mouth every 8 hours prn IBUPROFEN 600 MG ORAL TABLET 818005 IBUPROFEN Inactive KEFLEX 500 MG ORAL CAPSULE 1 po TID x 10 days KEFLEX 500 MG ORAL CAPSULE 297139 CEPHALEXIN Inactive KEFLEX 500 MG ORAL CAPSULE 1 po qid KEFLEX 500 MG ORAL CAPSULE 943048 CEPHALEXIN Inactive KEFLEX 500 MG ORAL CAPSULE 1 po qid KEFLEX 500 MG ORAL CAPSULE 635545 CEPHALEXIN Inactive CARAFATE 1 GM ORAL TABLET 1 tab q4H CARAFATE 1 GM ORAL TABLET 976653 SUCRALFATE Inactive SIMVASTATIN 20 MG ORAL TABLET 1 po at qhs SIMVASTATIN 20 MG ORAL TABLET 716248 SIMVASTATIN Inactive DEPAKOTE 500 MG ORAL TABLET DELAYED RELEASE take 1 tab po BID for seizures. DEPAKOTE 500 MG ORAL TABLET DELAYED RELEASE 4931613 DIVALPROEX SODIUM Inactive BUSPIRONE HCL 7.5 MG ORAL TABLET 1 twice day for anxiety BUSPIRONE HCL 7.5 MG ORAL TABLET 833110 BUSPIRONE HCL Inactive CIPRO 500 MG ORAL TABLET 1 tablet by mouth twice daily CIPRO 500 MG ORAL TABLET 809918 CIPROFLOXACIN HCL Inactive KEFLEX 500 MG ORAL CAPSULE 1 po TID x 10 days KEFLEX 500 MG ORAL CAPSULE 522354 CEPHALEXIN Inactive DIVALPROEX SODIUM 250 MG ORAL TABLET DELAYED RELEASE 1 po TID DIVALPROEX SODIUM 250 MG ORAL TABLET DELAYED RELEASE 3150883 DIVALPROEX SODIUM Inactive TERBINAFINE HCL 250 MG ORAL TABLET 1 tab po qday for nail infection. TERBINAFINE HCL 250 MG ORAL TABLET 332938 TERBINAFINE HCL Inactive PREDNISONE 20 MG ORAL TABLET 2 tabs daily for 3 days, 1 tab daily for 3 days, 1/2 tab daily for 2 days PREDNISONE 20 MG ORAL TABLET 413486 PREDNISONE Inactive KEFLEX 500 MG ORAL CAPSULE 1 po TID x 10 days KEFLEX 500 MG ORAL CAPSULE 291048 CEPHALEXIN Inactive Vital Signs Date Name Value [...] Negative Encounters Code Encounter Date Provider Facility CPT-92079 Level 3 New Patient 08:58:45 CARLOS A Roland MD [facility] CPT-73812 Level 3 Est. Patient 11:31:14 CDT Yvon Harrison MD [facility] CPT-70820 [id number] Vst-Est Level III 13:15:10 CDT Yvon Harrison MD [facility] CPT-81373 29265-Dya Vst-Est Level III 15:15:09 CDT Luis Miguel Sapp MD [facility] CPT-90124 Level 4 Est. Patient 11:00:57 CDT Yvon Harrison MD [facility] CPT-69808 Level 4 Est. Patient 15:53:40 CDT Yvon Harrison MD [facility] CPT-09032 Level 4 Est. Patient 15:42:18 CDT Yvon Harrison MD [facility] CPT-07724 Level 3 Est. Patient 17:08:18 CDT Berta Sweeney ROSENDO [facility] CPT-17807 Level 4 Est. Patient 16:35:02 HOT KNIFE FOXING CUTTER Yvon Harrison MD [facility] CPT-07083 Level 4 Est. Patient 15:11:02 HOT KNIFE FOXING CUTTER Yvon Harrison MD [facility] CPT-15574 Level 4 Est. Patient 13:18:47 CDT Yvon Harrison MD [facility] CPT-09889 Level 4 Est. Patient 09:51:29 CDT Yvon Harrison MD [facility] CPT-19717 Level 3 Est. Patient 11:40:53 HOT KNIFE FOXING CUTTER Nick Quiroz MD [facility] CPT-26547 Level 3 Est. Patient 09:05:46 CDT Nick Quiroz MD [facility] CPT-74724 Level 3 Est. Patient 10:56:05 CDT Nick Quiroz MD [facility] CPT-12944 Level 3 Est. Patient 05:39:31 CDT Desmond Montgomery DO [facility] CPT-14498 Level 3 Est. Patient 16:18:28 HOT KNIFE FOXING CUTTER Nick Quiroz MD [facility] CPT-52214 Level 3 Est. Patient 16:50:04 HOT KNIFE FOXING CUTTER Nick Quiroz MD [facility] CPT-24491 Level 3 Est. Patient 22:12:55 HOT KNIFE FOXING CUTTER Desmond Montgomery DO [facility] Procedures Code Procedure Name Date Entry Date Standard Description CPT-57257 Lipid - LAB USE ONLY 15:55:09 HOT KNIFE FOXING CUTTER CPT-47203 CMP - LAB USE ONLY 15:55:09 HOT KNIFE FOXING CUTTER CPT-19640 CBC - LAB USE ONLY 15:55:08 HOT KNIFE FOXING CUTTER CPT-54496 Venipuncture Draw Fee 15:55:08 HOT KNIFE FOXING CUTTER CPT-Cryo Cryotherapy 11:00:57 CDT CPT-20931 Hand comp min 3V 17:09:13 CDT CPT-59431 Hand comp min 3V 17:08:18 CDT CPT-20766 Fluzone Quadrivalent Intramuscular Suspension 0.5 ML 10: 17:16 CDT CPT-LR Lesion Removal 08:49:09 CDT CPT-65488 Nail Excision 08:49:52 CDT CPT-53139 Venipuncture Draw Fee 16:51:53 HOT KNIFE FOXING CUTTER
--- OUTSIDE RECORDS SUMMARY | 2018-08-01 21:43 | XMS REPORT | Clinical Summary ---
Author Author Admin, COURTNEY Organization [facility] Address Unknown Phone Unavailable Allergies, Adverse Reactions, [...] 1 po TID x 10 days CEPHALEXIN 64732644854 Active Magdalena Raida Active CIPRO 500 MG ORAL TABLET 1 tablet by mouth twice daily CIPROFLOXACIN HCL 20469972664 No Longer Active Magdalenakobe Thorntonida Active CELEXA 20 MG ORAL TABLET 1 tablet by mouth daily CITALOPRAM HYDROBROMIDE 08963032047 Active Magdalena Thorntonpaul Active BUSPIRONE HCL 7.5 MG ORAL TABLET 1 twice day for anxiety BUSPIRONE HCL 39092151737 No Longer Active Yvon Harrison MD Active DEPAKOTE 500 MG ORAL TABLET DELAYED RELEASE take 1 tab po BID for seizures. DIVALPROEX SODIUM 00248896916 No Longer Active Yvon Harrison MD Active SIMVASTATIN 20 MG ORAL TABLET 1 po at qhs SIMVASTATIN 52393235555 No Longer Active Yvon Harrison MD Active CARAFATE 1 GM ORAL TABLET 1 tab q4H SUCRALFATE 59918051957 No Longer Active Yvon Harrison MD Active PANTOPRAZOLE SODIUM 40 MG ORAL TABLET DELAYED RELEASE one tab once daily 2017 PANTOPRAZOLE SODIUM 53864931625 Active Luis Miguel Sapp MD Active PREDNISONE 20 MG ORAL TABLET 2 tabs daily for 3 days, 1 tab daily for 3 days, 1/2 tab daily for 2 days PREDNISONE 60844966909 No Longer Active Yvon Harrison MD Active TERBINAFINE HCL 250 MG ORAL TABLET 1 tab po qday for nail infection. TERBINAFINE HCL 34762800819 No Longer Active Yvon Harrison MD Active DIVALPROEX SODIUM 250 MG ORAL TABLET DELAYED RELEASE 1 po TID DIVALPROEX SODIUM 52191752085 No Longer Active Nick Quiroz MD Active KEFLEX 500 MG ORAL CAPSULE 1 po qid CEPHALEXIN 75971029494 No Longer Active Nick Quiroz MD Active KEFLEX 500 MG ORAL CAPSULE 1 po qid CEPHALEXIN 89654660608 No Longer Active Nick Quiroz MD Active KEFLEX 500 MG ORAL CAPSULE 1 po TID x 10 days CEPHALEXIN 10119737215 No Longer Active Nick Quiroz MD Active KEFLEX 500 MG ORAL CAPSULE 1 po TID x 10 days CEPHALEXIN 71166407953 No Longer Active Nick Quiroz MD Active IBUPROFEN 600 MG ORAL TABLET 1 tablet by mouth every 8 hours prn IBUPROFEN 55114075372 No Longer Active Desmond Montgomery DO Active FLONASE 50 MCG/ACT NASAL SUSPENSION 2 puffs in each nostril daily FLUTICASONE PROPIONATE 89342673772 No Longer Active Desmond Montgomery DO Active LORATADINE 10 MG ORAL TABLET 1 tablet by mouth daily PRN Congestion LORATADINE 63607035995 No Longer Active Desmond Montgomery DO Active LORATADINE 10 MG ORAL TABLET 1 tablet by mouth daily PRN Congestion LORATADINE 10 MG ORAL TABLET 135253 LORATADINE Inactive FLONASE 50 MCG/ACT NASAL SUSPENSION 2 puffs in each nostril daily FLONASE 50 MCG/ACT NASAL SUSPENSION 0501576 FLUTICASONE PROPIONATE Inactive IBUPROFEN 600 MG ORAL TABLET 1 tablet by mouth every 8 hours prn IBUPROFEN 600 MG ORAL TABLET 875986 IBUPROFEN Inactive KEFLEX 500 MG ORAL CAPSULE 1 po TID x 10 days KEFLEX 500 MG ORAL CAPSULE 573693 CEPHALEXIN Inactive KEFLEX 500 MG ORAL CAPSULE 1 po qid KEFLEX 500 MG ORAL CAPSULE 869948 CEPHALEXIN Inactive KEFLEX 500 MG ORAL CAPSULE 1 po qid KEFLEX 500 MG ORAL CAPSULE 708409 CEPHALEXIN Inactive CARAFATE 1 GM ORAL TABLET 1 tab q4H CARAFATE 1 GM ORAL TABLET 870720 SUCRALFATE Inactive SIMVASTATIN 20 MG ORAL TABLET 1 po at qhs SIMVASTATIN 20 MG ORAL TABLET 850425 SIMVASTATIN Inactive DEPAKOTE 500 MG ORAL TABLET DELAYED RELEASE take 1 tab po BID for seizures. DEPAKOTE 500 MG ORAL TABLET DELAYED RELEASE 5550186 DIVALPROEX SODIUM Inactive BUSPIRONE HCL 7.5 MG ORAL TABLET 1 twice day for anxiety BUSPIRONE HCL 7.5 MG ORAL TABLET 690426 BUSPIRONE HCL Inactive CIPRO 500 MG ORAL TABLET 1 tablet by mouth twice daily CIPRO 500 MG ORAL TABLET 195062 CIPROFLOXACIN HCL Inactive KEFLEX 500 MG ORAL CAPSULE 1 po TID x 10 days KEFLEX 500 MG ORAL CAPSULE 698248 CEPHALEXIN Inactive DIVALPROEX SODIUM 250 MG ORAL TABLET DELAYED RELEASE 1 po TID DIVALPROEX SODIUM 250 MG ORAL TABLET DELAYED RELEASE 5333025 DIVALPROEX SODIUM Inactive TERBINAFINE HCL 250 MG ORAL TABLET 1 tab po qday for nail infection. TERBINAFINE HCL 250 MG ORAL TABLET 447781 TERBINAFINE HCL Inactive PREDNISONE 20 MG ORAL TABLET 2 tabs daily for 3 days, 1 tab daily for 3 days, 1/2 tab daily for 2 days PREDNISONE 20 MG ORAL TABLET 385190 PREDNISONE Inactive Vital Signs Date Name Value [...] Negative Encounters Code Encounter Date Provider Facility CPT-76181 Level 3 Est. Patient 11:31:14 CDT Yvon Harrison MD [facility] CPT-47850 [id number] Vst-Est Level III 13:15:10 CDT Yvon Harrison MD [facility] CPT-10541 [id number] Vst-Est Level III 15:15:09 CDT Luis Miguel Sapp MD [facility] CPT-40959 Level 4 Est. Patient 11:00:57 CDT Yvon Harrison MD [facility] CPT-33745 Level 4 Est. Patient 15:53:40 CDT Yvon Harrison MD [facility] CPT-42747 Level 4 Est. Patient 15:42:18 CDT Yvon Harrison MD [facility] CPT-34188 Level 3 Est. Patient 17:08:18 CDT Bertadaksha Sweeney APRN [facility] CPT-00678 Level 4 Est. Patient 16:35:02 FUTURES TRADER Yvon Harrison MD [facility] CPT-31013 Level 4 Est. Patient 15:11:02 FUTURES TRADER Yvon Harrison MD [facility] CPT-87034 Level 4 Est. Patient 13:18:47 CDT Yvon Harrison MD [facility] CPT-26337 Level 4 Est. Patient 09:51:29 CDT Yvon Harrison MD [facility] CPT-59573 Level 3 Est. Patient 11:40:53 FUTURES TRADER Nick Quiroz MD [facility] CPT-71791 Level 3 Est. Patient 09:05:46 CDT Nick Quiroz MD [facility] CPT-70140 Level 3 Est. Patient 10:56:05 CDT Nick Quiroz MD [facility] CPT-77000 Level 3 Est. Patient 05:39:31 CDT Desmond Montgomery DO [facility] CPT-58310 Level 3 Est. Patient 16:18:28 FUTURES TRADER Nick Quiroz MD [facility] CPT-12800 Level 3 Est. Patient 16:50:04 FUTURES TRADER Nick Quiroz MD [facility] CPT-09731 Level 3 Est. Patient 22:12:55 FUTURES TRADER Desmond Montgomery [facility] Procedures Code Procedure Name Date Entry Date Standard Description CPT-34218 Lipid - LAB USE ONLY 15:55:09 FUTURES TRADER CPT-82719 CMP - LAB USE ONLY 15:55:09 FUTURES TRADER CPT-76913 CBC - LAB USE ONLY 15:55:08 FUTURES TRADER CPT-50203 Venipuncture Draw Fee 15:55:08 FUTURES TRADER CPT-Cryo Cryotherapy 11:00:57 CDT CPT-73488 Hand comp min 3V 17:09:13 CDT CPT-02895 Hand comp min 3V 17:08:18 CDT CPT-80811 Fluzone Quadrivalent Intramuscular Suspension 0.5 ML 10: 17:16 CDT CPT-LR Lesion Removal 08:49:09 CDT CPT-51532 Nail Excision 08:49:52 CDT CPT-00280 Venipuncture Draw Fee 16:51:53 FUTURES TRADER
--- OUTSIDE RECORDS SUMMARY | 2018-08-01 21:43 | XMS REPORT | Clinical Summary ---
Author Author Admin, COURTNEY Organization [employer] Address Unknown Phone Unavailable Allergies, Adverse Reactions, [...] Generic Name NDC Status Provider Patient Instruction CELEXA 20 MG ORAL TABLET 1 tablet by mouth daily CITALOPRAM HYDROBROMIDE 87217359491 Active Magdalenakobe Thorntonida Active CIPRO 500 MG ORAL TABLET 1 tablet by mouth twice daily CIPROFLOXACIN HCL 58527312971 Active Anabela Lees Active BUSPIRONE HCL 7.5 MG ORAL TABLET 1 twice day for anxiety BUSPIRONE HCL 84711572042 No Longer Active Yvon Harrison MD Active DEPAKOTE 500 MG ORAL TABLET DELAYED RELEASE take 1 tab po BID for seizures. DIVALPROEX SODIUM 48742934078 No Longer Active Yvon Harrison MD Active SIMVASTATIN 20 MG ORAL TABLET 1 po at qhs SIMVASTATIN 56123577403 No Longer Active Yvon Harrison MD Active CARAFATE 1 GM ORAL TABLET 1 tab q4H SUCRALFATE 20444240581 No Longer Active Yvon Harrison MD Active PANTOPRAZOLE SODIUM 40 MG ORAL TABLET DELAYED RELEASE one tab once daily 2017 PANTOPRAZOLE SODIUM 39908036447 Active Luis Miguel Sapp MD Active PREDNISONE 20 MG ORAL TABLET 2 tabs daily for 3 days, 1 tab daily for 3 days, 1/2 tab daily for 2 days PREDNISONE 16984515497 No Longer Active Yvon Harrison MD Active TERBINAFINE HCL 250 MG ORAL TABLET 1 tab po qday for nail infection. TERBINAFINE HCL 00072809167 No Longer Active Yvon Harrison MD Active DIVALPROEX SODIUM 250 MG ORAL TABLET DELAYED RELEASE 1 po TID DIVALPROEX SODIUM 40826848752 No Longer Active Nick Quiroz MD Active KEFLEX 500 MG ORAL CAPSULE 1 po qid CEPHALEXIN 19398035812 No Longer Active Nick Quiroz MD Active KEFLEX 500 MG ORAL CAPSULE 1 po qid CEPHALEXIN 32365692568 No Longer Active Nick Quiroz MD Active KEFLEX 500 MG ORAL CAPSULE 1 po TID x 10 days CEPHALEXIN 82161641793 No Longer Active Nick Quiroz MD Active KEFLEX 500 MG ORAL CAPSULE 1 po TID x 10 days CEPHALEXIN 27171345245 No Longer Active Nick Quiroz MD Active IBUPROFEN 600 MG ORAL TABLET 1 tablet by mouth every 8 hours prn IBUPROFEN 02228168270 No Longer Active Desmond Montgomery DO Active FLONASE 50 MCG/ACT NASAL SUSPENSION 2 puffs in each nostril daily FLUTICASONE PROPIONATE 62070029674 No Longer Active Desmond Montgomery DO Active LORATADINE 10 MG ORAL TABLET 1 tablet by mouth daily PRN Congestion LORATADINE 39114936556 No Longer Active Desmond Montgomery DO Active LORATADINE 10 MG ORAL TABLET 1 tablet by mouth daily PRN Congestion LORATADINE 10 MG ORAL TABLET 033644 LORATADINE Inactive FLONASE 50 MCG/ACT NASAL SUSPENSION 2 puffs in each nostril daily FLONASE 50 MCG/ACT NASAL SUSPENSION 6717285 FLUTICASONE PROPIONATE Inactive IBUPROFEN 600 MG ORAL TABLET 1 tablet by mouth every 8 hours prn IBUPROFEN 600 MG ORAL TABLET 418228 IBUPROFEN Inactive KEFLEX 500 MG ORAL CAPSULE 1 po TID x 10 days KEFLEX 500 MG ORAL CAPSULE 950248 CEPHALEXIN Inactive KEFLEX 500 MG ORAL CAPSULE 1 po qid KEFLEX 500 MG ORAL CAPSULE 990471 CEPHALEXIN Inactive KEFLEX 500 MG ORAL CAPSULE 1 po qid KEFLEX 500 MG ORAL CAPSULE 031679 CEPHALEXIN Inactive CARAFATE 1 GM ORAL TABLET 1 tab q4H CARAFATE 1 GM ORAL TABLET 473693 SUCRALFATE Inactive SIMVASTATIN 20 MG ORAL TABLET 1 po at qhs SIMVASTATIN 20 MG ORAL TABLET 049835 SIMVASTATIN Inactive DEPAKOTE 500 MG ORAL TABLET DELAYED RELEASE take 1 tab po BID for seizures. DEPAKOTE 500 MG ORAL TABLET DELAYED RELEASE 6387915 DIVALPROEX SODIUM Inactive BUSPIRONE HCL 7.5 MG ORAL TABLET 1 twice day for anxiety BUSPIRONE HCL 7.5 MG ORAL TABLET 135362 BUSPIRONE HCL Inactive KEFLEX 500 MG ORAL CAPSULE 1 po TID x 10 days KEFLEX 500 MG ORAL CAPSULE 469413 CEPHALEXIN Inactive DIVALPROEX SODIUM 250 MG ORAL TABLET DELAYED RELEASE 1 po TID DIVALPROEX SODIUM 250 MG ORAL TABLET DELAYED RELEASE 7699865 DIVALPROEX SODIUM Inactive TERBINAFINE HCL 250 MG ORAL TABLET 1 tab po qday for nail infection. TERBINAFINE HCL 250 MG ORAL TABLET 641005 TERBINAFINE HCL Inactive PREDNISONE 20 MG ORAL TABLET 2 tabs daily for 3 days, 1 tab daily for 3 days, 1/2 tab daily for 2 days PREDNISONE 20 MG ORAL TABLET 615476 PREDNISONE Inactive Vital Signs Date Name Value [...] Negative Encounters Code Encounter Date Provider Facility CPT-51153 Level 3 Est. Patient 11:31:14 CDT Yvon Harrison MD [facility] CPT-36479 [id number] Vst-Est Level III 13:15:10 CDT Yvon Harrison MD [facility]-53942 78348-Vkz Vst-Est Level III 15:15:09 CDT Luis Miguel Sapp MD [facility] CPT-69150 Level 4 Est. Patient 11:00:57 CDT Yvon Harrison MD [facility] CPT-72455 Level 4 Est. Patient 15:53:40 CDT Yvon Harrison MD [facility] CPT-14524 Level 4 Est. Patient 15:42:18 CDT Yvon Harrison MD [facility] CPT-32373 Level 3 Est. Patient 17:08:18 CDT Berta Sweeney ROSENDO [facility] CPT-14854 Level 4 Est. Patient 16:35:02 AQUATIC CENTRE MANAGER Yvon Harrison MD [facility] CPT-01585 Level 4 Est. Patient 15:11:02 AQUATIC CENTRE MANAGER Yvon Harrison MD [facility] CPT-28636 Level 4 Est. Patient 13:18:47 CDT Yvon Harrison MD [facility] CPT-38772 Level 4 Est. Patient 09:51:29 CDT Yvon Harrison MD [facility] CPT-38124 Level 3 Est. Patient 11:40:53 AQUATIC CENTRE MANAGER Nick Quiroz MD [facility] CPT-60042 Level 3 Est. Patient 09:05:46 CDT Nick Quiroz MD [facility] CPT-32434 Level 3 Est. Patient 10:56:05 CDT Nick Quiroz MD [facility] CPT-82288 Level 3 Est. Patient 05:39:31 CDT Desmond Montgomery DO [facility] CPT-26068 Level 3 Est. Patient 16:18:28 AQUATIC CENTRE MANAGER Nick Quiroz MD [facility] CPT-80623 Level 3 Est. Patient 16:50:04 AQUATIC CENTRE MANAGER Nick Quiroz MD [facility] CPT-03884 Level 3 Est. Patient 22:12:55 AQUATIC CENTRE MANAGER Desmond Montgomery DO [facility] Procedures Code Procedure Name Date Entry Date Standard Description CPT-75299 Lipid - LAB USE ONLY 15:55:09 AQUATIC CENTRE MANAGER CPT-86134 CMP - LAB USE ONLY 15:55:09 AQUATIC CENTRE MANAGER CPT-11111 CBC - LAB USE ONLY 15:55:08 AQUATIC CENTRE MANAGER CPT-29139 Venipuncture Draw Fee 15:55:08 AQUATIC CENTRE MANAGER CPT-Cryo Cryotherapy 11:00:57 CDT CPT-91082 Hand comp min 3V 17:09:13 CDT CPT-24010 Hand comp min 3V 17:08:18 CDT CPT-26335 Fluzone Quadrivalent Intramuscular Suspension 0.5 ML 10: 17:16 CDT CPT-LR Lesion Removal 08:49:09 CDT CPT-08594 Nail Excision 08:49:52 CDT CPT-14391 Venipuncture Draw Fee 16:51:53 AQUATIC CENTRE MANAGER
--- OUTSIDE RECORDS SUMMARY | 2018-08-01 21:44 | XMS REPORT | Clinical Summary ---
Author Author Admin, COURTNEY Organization [employer] Address Unknown Phone Unavailable Allergies, Adverse Reactions, [...] 1 tablet by mouth daily CITALOPRAM HYDROBROMIDE 93129275516 Active Magdalenakobe Thorntonida Active CIPRO 500 MG ORAL TABLET 1 tablet by mouth twice daily CIPROFLOXACIN HCL 41078686406 Active Anabela Lees Active BUSPIRONE HCL 7.5 MG ORAL TABLET 1 twice day for anxiety BUSPIRONE HCL 17085572706 No Longer Active Yvon Harrison MD Active DEPAKOTE 500 MG ORAL TABLET DELAYED RELEASE take 1 tab po BID for seizures. DIVALPROEX SODIUM 03867634785 No Longer Active Yvon Harrison MD Active SIMVASTATIN 20 MG ORAL TABLET 1 po at qhs SIMVASTATIN 14192578984 No Longer Active Yvon Harrison MD Active CARAFATE 1 GM ORAL TABLET 1 tab q4H SUCRALFATE 56916179691 No Longer Active Yvon Harrison MD Active PANTOPRAZOLE SODIUM 40 MG ORAL TABLET DELAYED RELEASE one tab once daily 2017 PANTOPRAZOLE SODIUM 86452685059 Active Luis Miguel Sapp MD Active PREDNISONE 20 MG ORAL TABLET 2 tabs daily for 3 days, 1 tab daily for 3 days, 1/2 tab daily for 2 days PREDNISONE 36066044410 No Longer Active Yvon Harrison MD Active TERBINAFINE HCL 250 MG ORAL TABLET 1 tab po qday for nail infection. TERBINAFINE HCL 24659745830 No Longer Active Yvon Harrison MD Active DIVALPROEX SODIUM 250 MG ORAL TABLET DELAYED RELEASE 1 po TID DIVALPROEX SODIUM 77718566912 No Longer Active Nick Quiroz MD Active KEFLEX 500 MG ORAL CAPSULE 1 po qid CEPHALEXIN 44835697980 No Longer Active Nick Quiroz MD Active KEFLEX 500 MG ORAL CAPSULE 1 po qid CEPHALEXIN 81604536392 No Longer Active Nick Quiroz MD Active KEFLEX 500 MG ORAL CAPSULE 1 po TID x 10 days CEPHALEXIN 39320568121 No Longer Active Nick Quiroz MD Active KEFLEX 500 MG ORAL CAPSULE 1 po TID x 10 days CEPHALEXIN 80783911383 No Longer Active Nick Quiroz MD Active IBUPROFEN 600 MG ORAL TABLET 1 tablet by mouth every 8 hours prn IBUPROFEN 97533706573 No Longer Active Desmond Montgomery DO Active FLONASE 50 MCG/ACT NASAL SUSPENSION 2 puffs in each nostril daily FLUTICASONE PROPIONATE 75755537431 No Longer Active Desmond Montgomery DO Active LORATADINE 10 MG ORAL TABLET 1 tablet by mouth daily PRN Congestion LORATADINE 15757544979 No Longer Active Desmond Montgomery DO Active LORATADINE 10 MG ORAL TABLET 1 tablet by mouth daily PRN Congestion LORATADINE 10 MG ORAL TABLET 022220 LORATADINE Inactive FLONASE 50 MCG/ACT NASAL SUSPENSION 2 puffs in each nostril daily FLONASE 50 MCG/ACT NASAL SUSPENSION 7605439 FLUTICASONE PROPIONATE Inactive IBUPROFEN 600 MG ORAL TABLET 1 tablet by mouth every 8 hours prn IBUPROFEN 600 MG ORAL TABLET 514518 IBUPROFEN Inactive KEFLEX 500 MG ORAL CAPSULE 1 po TID x 10 days KEFLEX 500 MG ORAL CAPSULE 832728 CEPHALEXIN Inactive KEFLEX 500 MG ORAL CAPSULE 1 po qid KEFLEX 500 MG ORAL CAPSULE 250845 CEPHALEXIN Inactive KEFLEX 500 MG ORAL CAPSULE 1 po qid KEFLEX 500 MG ORAL CAPSULE 134723 CEPHALEXIN Inactive CARAFATE 1 GM ORAL TABLET 1 tab q4H CARAFATE 1 GM ORAL TABLET 585697 SUCRALFATE Inactive SIMVASTATIN 20 MG ORAL TABLET 1 po at qhs SIMVASTATIN 20 MG ORAL TABLET 885840 SIMVASTATIN Inactive DEPAKOTE 500 MG ORAL TABLET DELAYED RELEASE take 1 tab po BID for seizures. DEPAKOTE 500 MG ORAL TABLET DELAYED RELEASE 6121594 DIVALPROEX SODIUM Inactive BUSPIRONE HCL 7.5 MG ORAL TABLET 1 twice day for anxiety BUSPIRONE HCL 7.5 MG ORAL TABLET 373815 BUSPIRONE HCL Inactive KEFLEX 500 MG ORAL CAPSULE 1 po TID x 10 days KEFLEX 500 MG ORAL CAPSULE 204225 CEPHALEXIN Inactive DIVALPROEX SODIUM 250 MG ORAL TABLET DELAYED RELEASE 1 po TID DIVALPROEX SODIUM 250 MG ORAL TABLET DELAYED RELEASE 2042015 DIVALPROEX SODIUM Inactive TERBINAFINE HCL 250 MG ORAL TABLET 1 tab po qday for nail infection. TERBINAFINE HCL 250 MG ORAL TABLET 289222 TERBINAFINE HCL Inactive PREDNISONE 20 MG ORAL TABLET 2 tabs daily for 3 days, 1 tab daily for 3 days, 1/2 tab daily for 2 days PREDNISONE 20 MG ORAL TABLET 363897 PREDNISONE Inactive Vital Signs Date Name Value [...] Negative Encounters Code Encounter Date Provider Facility CPT-68288 Level 3 Est. Patient 11:31:14 CDT Yvon Harrison MD [facility] CPT-45794 [id number] Vst-Est Level III 13:15:10 CDT Yvon Harrison MD -89908 [id number] Vst-Est Level III 15:15:09 CDT Luis Miguel Sapp MD [facility] CPT-91568 Level 4 Est. Patient 11:00:57 CDT Yvon Harrison MD [facility] CPT-38312 Level 4 Est. Patient 15:53:40 CDT Yvon Harrison MD [facility] CPT-31105 Level 4 Est. Patient 15:42:18 CDT Yvon Harrison MD [facility] CPT-89931 Level 3 Est. Patient 17:08:18 CDT Berta Sweeney ROSENDO [facility] CPT-22117 Level 4 Est. Patient 16:35:02 LAND ECONOMIST Yvon Harrison MD [facility] CPT-96508 Level 4 Est. Patient 15:11:02 LAND ECONOMIST Yvon Harrison MD [facility] CPT-64225 Level 4 Est. Patient 13:18:47 CDT Yvon Harrison MD [facility] CPT-80141 Level 4 Est. Patient 09:51:29 CDT Yvon Harrison MD [facility] CPT-51734 Level 3 Est. Patient 11:40:53 LAND ECONOMIST Nick Quiroz MD [facility] CPT-62454 Level 3 Est. Patient 09:05:46 CDT Nick Quiroz MD [facility] CPT-86558 Level 3 Est. Patient 10:56:05 CDT Nick Quiroz MD [facility] CPT-08852 Level 3 Est. Patient 05:39:31 CDT Desmond Montgomery DO [facility] CPT-01015 Level 3 Est. Patient 16:18:28 LAND ECONOMIST Nick Quiroz MD [facility] CPT-92514 Level 3 Est. Patient 16:50:04 LAND ECONOMIST Nick Quiroz MD [facility] CPT-83812 Level 3 Est. Patient 22:12:55 LAND ECONOMIST Desmond Montgomery DO [facility] Procedures Code Procedure Name Date Entry Date Standard Description CPT-89036 Lipid - LAB USE ONLY 15:55:09 LAND ECONOMIST CPT-35990 CMP - LAB USE ONLY 15:55:09 LAND ECONOMIST CPT-85057 CBC - LAB USE ONLY 15:55:08 LAND ECONOMIST CPT-48762 Venipuncture Draw Fee 15:55:08 LAND ECONOMIST CPT-Cryo Cryotherapy 11:00:57 CDT CPT-02927 Hand comp min 3V 17:09:13 CDT CPT-59160 Hand comp min 3V 17:08:18 CDT CPT-59371 Fluzone Quadrivalent Intramuscular Suspension 0.5 ML 10: 17:16 CDT CPT-LR Lesion Removal 08:49:09 CDT CPT-72439 Nail Excision 08:49:52 CDT CPT-43891 Venipuncture Draw Fee 16:51:53 LAND ECONOMIST
--- OUTSIDE RECORDS SUMMARY | 2018-08-01 21:44 | XMS REPORT | Clinical Summary ---
Author Author Admin, COURTNEY Organization [employer] Address Unknown Phone Unavailable Allergies, Adverse Reactions, [...] Harrison MD Body Mass Index 33.0-33.9, adult SEIZURES, HX OF ICD-V12.49 Inactive Nick Quiroz MD FH SEIZURES ICD-V17.2 Inactive Nick Quiroz MD SEIZURE DISORDER ICD-780.39 Inactive Nick Quiroz MD 2011 GASTROENTERITIS, ACUTE ICD-558.9 Inactive Nick Quiroz MD DEHYDRATION ICD-276.51 Inactive Nick Quiroz MD U R I ICD-465.9 Inactive Nick Quiroz MD SPASM, MUSCLE ICD-728.85 Inactive Nick Quiroz MD SEIZURE DISORDER ICD-780.39 Inactive Nick Quiroz MD LYMPHADENITIS-ACUTE ICD-683 Inactive Nick Quiroz MD Medication List Medication Instructions Start Date Stop Date Generic Name NDC Status Provider Patient Instruction CELEXA 20 MG ORAL TABLET 1 tablet by mouth daily CITALOPRAM HYDROBROMIDE 21353280993 Active Magdalenakobe Thorntonida Active CIPRO 500 MG ORAL TABLET 1 tablet by mouth twice daily CIPROFLOXACIN HCL 63436184722 Active Anabela Lees Active BUSPIRONE HCL 7.5 MG ORAL TABLET 1 twice day for anxiety BUSPIRONE HCL 47944407083 No Longer Active Yvon Harrison MD Active DEPAKOTE 500 MG ORAL TABLET DELAYED RELEASE take 1 tab po BID for seizures. DIVALPROEX SODIUM 41193027042 No Longer Active Yvon Harrison MD Active SIMVASTATIN 20 MG ORAL TABLET 1 po at qhs SIMVASTATIN 80231305653 No Longer Active Yvon Harrison MD Active CARAFATE 1 GM ORAL TABLET 1 tab q4H SUCRALFATE 88651634386 No Longer Active Yvon Harrison MD Active PANTOPRAZOLE SODIUM 40 MG ORAL TABLET DELAYED RELEASE one tab once daily 2017 PANTOPRAZOLE SODIUM 30431550515 Active Luis Miguel Sapp MD Active PREDNISONE 20 MG ORAL TABLET 2 tabs daily for 3 days, 1 tab daily for 3 days, 1/2 tab daily for 2 days PREDNISONE 32790203874 No Longer Active Yvon Harrison MD Active TERBINAFINE HCL 250 MG ORAL TABLET 1 tab po qday for nail infection. TERBINAFINE HCL 60465441895 No Longer Active Yvon Harrison MD Active DIVALPROEX SODIUM 250 MG ORAL TABLET DELAYED RELEASE 1 po TID DIVALPROEX SODIUM 53719513205 No Longer Active Nick Quiroz MD Active KEFLEX 500 MG ORAL CAPSULE 1 po qid CEPHALEXIN 35960572465 No Longer Active Nick Quiroz MD Active KEFLEX 500 MG ORAL CAPSULE 1 po qid CEPHALEXIN 88614700404 No Longer Active Nick Quiroz MD Active KEFLEX 500 MG ORAL CAPSULE 1 po TID x 10 days CEPHALEXIN 56341857950 No Longer Active Nick Quiroz MD Active KEFLEX 500 MG ORAL CAPSULE 1 po TID x 10 days CEPHALEXIN 64750827406 No Longer Active Nick Quiroz MD Active IBUPROFEN 600 MG ORAL TABLET 1 tablet by mouth every 8 hours prn IBUPROFEN 44856057923 No Longer Active Desmond Montgomery DO Active FLONASE 50 MCG/ACT NASAL SUSPENSION 2 puffs in each nostril daily FLUTICASONE PROPIONATE 27300840141 No Longer Active Desmond Montgomery DO Active LORATADINE 10 MG ORAL TABLET 1 tablet by mouth daily PRN Congestion LORATADINE 08523932000 No Longer Active Desmond Montgomery DO Active LORATADINE 10 MG ORAL TABLET 1 tablet by mouth daily PRN Congestion LORATADINE 10 MG ORAL TABLET 560171 LORATADINE Inactive FLONASE 50 MCG/ACT NASAL SUSPENSION 2 puffs in each nostril daily FLONASE 50 MCG/ACT NASAL SUSPENSION 3790148 FLUTICASONE PROPIONATE Inactive IBUPROFEN 600 MG ORAL TABLET 1 tablet by mouth every 8 hours prn IBUPROFEN 600 MG ORAL TABLET 105777 IBUPROFEN Inactive KEFLEX 500 MG ORAL CAPSULE 1 po TID x 10 days KEFLEX 500 MG ORAL CAPSULE 968005 CEPHALEXIN Inactive KEFLEX 500 MG ORAL CAPSULE 1 po qid KEFLEX 500 MG ORAL CAPSULE 015319 CEPHALEXIN Inactive KEFLEX 500 MG ORAL CAPSULE 1 po qid KEFLEX 500 MG ORAL CAPSULE 743500 CEPHALEXIN Inactive CARAFATE 1 GM ORAL TABLET 1 tab q4H CARAFATE 1 GM ORAL TABLET 506663 SUCRALFATE Inactive SIMVASTATIN 20 MG ORAL TABLET 1 po at qhs SIMVASTATIN 20 MG ORAL TABLET 280900 SIMVASTATIN Inactive DEPAKOTE 500 MG ORAL TABLET DELAYED RELEASE take 1 tab po BID for seizures. DEPAKOTE 500 MG ORAL TABLET DELAYED RELEASE 2399669 DIVALPROEX SODIUM Inactive BUSPIRONE HCL 7.5 MG ORAL TABLET 1 twice day for anxiety BUSPIRONE HCL 7.5 MG ORAL TABLET 633075 BUSPIRONE HCL Inactive KEFLEX 500 MG ORAL CAPSULE 1 po TID x 10 days KEFLEX 500 MG ORAL CAPSULE 591230 CEPHALEXIN Inactive DIVALPROEX SODIUM 250 MG ORAL TABLET DELAYED RELEASE 1 po TID DIVALPROEX SODIUM 250 MG ORAL TABLET DELAYED RELEASE 7657792 DIVALPROEX SODIUM Inactive TERBINAFINE HCL 250 MG ORAL TABLET 1 tab po qday for nail infection. TERBINAFINE HCL 250 MG ORAL TABLET 527608 TERBINAFINE HCL Inactive PREDNISONE 20 MG ORAL TABLET 2 tabs daily for 3 days, 1 tab daily for 3 days, 1/2 tab daily for 2 days PREDNISONE 20 MG ORAL TABLET 388733 PREDNISONE Inactive Vital Signs Date Name Value [...] Negative Encounters Code Encounter Date Provider Facility CPT-07362 Level 3 Est. Patient 11:31:14 CDT Yvon Harrison MD [facility] CPT-54548 [id number] Vst-Est Level III 13:15:10 CDT Yvon Harrison MD [facility]-01694 92165-Ule Vst-Est Level III 15:15:09 CDT Luis Miguel Sapp MD [facility] CPT-10722 Level 4 Est. Patient 11:00:57 CDT Yvon Harrison MD [facility] CPT-80585 Level 4 Est. Patient 15:53:40 CDT Yvon Harrison MD [facility] CPT-04577 Level 4 Est. Patient 15:42:18 CDT Yvon Harrison MD [facility] CPT-91213 Level 3 Est. Patient 17:08:18 CDT Berta Sweeney ROSENDO [facility] CPT-53539 Level 4 Est. Patient 16:35:02 LAUNDRY WASHER Yvon Harrison MD [facility] CPT-50279 Level 4 Est. Patient 15:11:02 LAUNDRY WASHER Yvon Harrison MD [facility] CPT-79890 Level 4 Est. Patient 13:18:47 CDT Yvon Harrison MD [facility] CPT-51340 Level 4 Est. Patient 09:51:29 CDT Yvon Harrison MD [facility] CPT-30128 Level 3 Est. Patient 11:40:53 LAUNDRY WASHER Nick Quiroz MD [facility] CPT-84441 Level 3 Est. Patient 09:05:46 CDT Nick Quiroz MD [facility] CPT-99339 Level 3 Est. Patient 10:56:05 CDT Nick Quiroz MD [facility] CPT-34127 Level 3 Est. Patient 05:39:31 CDT Desmond Montgomery DO [facility] CPT-70413 Level 3 Est. Patient 16:18:28 LAUNDRY WASHER Nick Quiroz MD [facility] CPT-01721 Level 3 Est. Patient 16:50:04 LAUNDRY WASHER Nick Quiroz MD [facility] CPT-56487 Level 3 Est. Patient 22:12:55 LAUNDRY WASHER Desmond Montgomery DO [facility] Procedures Code Procedure Name Date Entry Date Standard Description CPT-04779 Lipid - LAB USE ONLY 15:55:09 LAUNDRY WASHER CPT-14433 CMP - LAB USE ONLY 15:55:09 LAUNDRY WASHER CPT-61015 CBC - LAB USE ONLY 15:55:08 LAUNDRY WASHER CPT-25853 Venipuncture Draw Fee 15:55:08 LAUNDRY WASHER CPT-Cryo Cryotherapy 11:00:57 CDT CPT-14011 Hand comp min 3V 17:09:13 CDT CPT-61222 Hand comp min 3V 17:08:18 CDT CPT-25617 Fluzone Quadrivalent Intramuscular Suspension 0.5 ML 10: 17:16 CDT CPT-LR Lesion Removal 08:49:09 CDT CPT-06976 Nail Excision 08:49:52 CDT CPT-59282 Venipuncture Draw Fee 16:51:53 LAUNDRY WASHER
--- OUTSIDE RECORDS SUMMARY | 2018-08-01 21:45 | XMS REPORT | Clinical Summary ---
Author Author Admin, COURTNEY Organization [employer] Address Unknown Phone Unavailable Allergies, Adverse Reactions, [...] Generic Name NDC Status Provider Patient Instruction CIPRO 500 MG ORAL TABLET 1 tablet by mouth twice daily CIPROFLOXACIN HCL 31432079174 Active Anabela Lees Active BUSPIRONE HCL 7.5 MG ORAL TABLET 1 twice day for anxiety BUSPIRONE HCL 78219271532 No Longer Active Yvon Harrison MD Active DEPAKOTE 500 MG ORAL TABLET DELAYED RELEASE take 1 tab po BID for seizures. DIVALPROEX SODIUM 48947630453 No Longer Active Yvon Harrison MD Active SIMVASTATIN 20 MG ORAL TABLET 1 po at qhs SIMVASTATIN 55228242011 No Longer Active Yvon Harrison MD Active CARAFATE 1 GM ORAL TABLET 1 tab q4H SUCRALFATE 54839354072 No Longer Active Yvon Harrison MD Active PANTOPRAZOLE SODIUM 40 MG ORAL TABLET DELAYED RELEASE one tab once daily 2017 PANTOPRAZOLE SODIUM 28063909352 Active Luis Miguel Sapp MD Active PREDNISONE 20 MG ORAL TABLET 2 tabs daily for 3 days, 1 tab daily for 3 days, 1/2 tab daily for 2 days PREDNISONE 05776444279 No Longer Active Yvon Harrison MD Active TERBINAFINE HCL 250 MG ORAL TABLET 1 tab po qday for nail infection. TERBINAFINE HCL 25271414483 No Longer Active Yvon Harrison MD Active DIVALPROEX SODIUM 250 MG ORAL TABLET DELAYED RELEASE 1 po TID DIVALPROEX SODIUM 52546430307 No Longer Active Nick Quiroz MD Active KEFLEX 500 MG ORAL CAPSULE 1 po qid CEPHALEXIN 00567857138 No Longer Active Nick Quiroz MD Active KEFLEX 500 MG ORAL CAPSULE 1 po qid CEPHALEXIN 29742251707 No Longer Active Nick Quiroz MD Active KEFLEX 500 MG ORAL CAPSULE 1 po TID x 10 days CEPHALEXIN 23962249206 No Longer Active Nick Quiroz MD Active KEFLEX 500 MG ORAL CAPSULE 1 po TID x 10 days CEPHALEXIN 21188860046 No Longer Active Nick Quiroz MD Active IBUPROFEN 600 MG ORAL TABLET 1 tablet by mouth every 8 hours prn IBUPROFEN 03386244056 No Longer Active Desmond Montgomery DO Active FLONASE 50 MCG/ACT NASAL SUSPENSION 2 puffs in each nostril daily FLUTICASONE PROPIONATE 14748702633 No Longer Active Desmond Montgomery DO Active LORATADINE 10 MG ORAL TABLET 1 tablet by mouth daily PRN Congestion LORATADINE 60164079115 No Longer Active Desmond Montgomery DO Active LORATADINE 10 MG ORAL TABLET 1 tablet by mouth daily PRN Congestion LORATADINE 10 MG ORAL TABLET 180989 LORATADINE Inactive FLONASE 50 MCG/ACT NASAL SUSPENSION 2 puffs in each nostril daily FLONASE 50 MCG/ACT NASAL SUSPENSION 5122670 FLUTICASONE PROPIONATE Inactive IBUPROFEN 600 MG ORAL TABLET 1 tablet by mouth every 8 hours prn IBUPROFEN 600 MG ORAL TABLET 109573 IBUPROFEN Inactive KEFLEX 500 MG ORAL CAPSULE 1 po TID x 10 days KEFLEX 500 MG ORAL CAPSULE 677453 CEPHALEXIN Inactive KEFLEX 500 MG ORAL CAPSULE 1 po qid KEFLEX 500 MG ORAL CAPSULE 219245 CEPHALEXIN Inactive KEFLEX 500 MG ORAL CAPSULE 1 po qid KEFLEX 500 MG ORAL CAPSULE 992344 CEPHALEXIN Inactive CARAFATE 1 GM ORAL TABLET 1 tab q4H CARAFATE 1 GM ORAL TABLET 306893 SUCRALFATE Inactive SIMVASTATIN 20 MG ORAL TABLET 1 po at [facility] SIMVASTATIN 20 MG ORAL TABLET 386248 SIMVASTATIN Inactive DEPAKOTE 500 MG ORAL TABLET DELAYED RELEASE take 1 tab po BID for seizures. DEPAKOTE 500 MG ORAL TABLET DELAYED RELEASE 0868683 DIVALPROEX SODIUM Inactive BUSPIRONE HCL 7.5 MG ORAL TABLET 1 twice day for anxiety BUSPIRONE HCL 7.5 MG ORAL TABLET 560477 BUSPIRONE HCL Inactive KEFLEX 500 MG ORAL CAPSULE 1 po TID x 10 days KEFLEX 500 MG ORAL CAPSULE 511166 CEPHALEXIN Inactive DIVALPROEX SODIUM 250 MG ORAL TABLET DELAYED RELEASE 1 po TID DIVALPROEX SODIUM 250 MG ORAL TABLET DELAYED RELEASE 3684576 DIVALPROEX SODIUM Inactive TERBINAFINE HCL 250 MG ORAL TABLET 1 tab po qday for nail infection. TERBINAFINE HCL 250 MG ORAL TABLET 275403 TERBINAFINE HCL Inactive PREDNISONE 20 MG ORAL TABLET 2 tabs daily for 3 days, 1 tab daily for 3 days, 1/2 tab daily for 2 days PREDNISONE 20 MG ORAL TABLET 719659 PREDNISONE Inactive Vital Signs Date Name Value [...] Negative Encounters Code Encounter Date Provider Facility CPT-54254 Level 3 Est. Patient 11:31:14 CDT Yvon Harrison MD [facility] CPT-06952 [id number] Vst-Est Level III 13:15:10 CDT Yvon Harrison MD [facility] CPT-65885 [id number] Vst-Est Level III 15:15:09 CDT Luis Miguel Sapp MD -44003 Level 4 Est. Patient 11:00:57 CDT Yvon Harrison MD -01178 Level 4 Est. Patient 15:53:40 CDT Yvon Harrison MD [facility] CPT-40576 Level 4 Est. Patient 15:42:18 CDT Yvon Harrison MD [facility] CPT-39338 Level 3 Est. Patient 17:08:18 CDT Berta Weberbree ROBBINS [facility] CPT-89544 Level 4 Est. Patient 16:35:02 EMPLOYEE BENEFITS COORDINATOR Yvon Harrison MD [facility] CPT-33992 Level 4 Est. Patient 15:11:02 EMPLOYEE BENEFITS COORDINATOR Yvon Harrison MD [facility] CPT-77563 Level 4 Est. Patient 13:18:47 CDT Yvon Harrison MD [facility] CPT-07325 Level 4 Est. Patient 09:51:29 CDT Yvon Harrison MD [facility] CPT-03387 Level 3 Est. Patient 11:40:53 EMPLOYEE BENEFITS COORDINATOR Nick Quiroz MD [facility] CPT-87622 Level 3 Est. Patient 09:05:46 CDT Nick Quiroz MD [facility] CPT-33765 Level 3 Est. Patient 10:56:05 CDT Nick Quiroz MD [facility] CPT-71137 Level 3 Est. Patient 05:39:31 CDT Desmond Montgomery DO [facility] CPT-43894 Level 3 Est. Patient 16:18:28 EMPLOYEE BENEFITS COORDINATOR Nick Quiroz MD [facility] CPT-74072 Level 3 Est. Patient 16:50:04 EMPLOYEE BENEFITS COORDINATOR Nick Quiroz MD [facility] CPT-22662 Level 3 Est. Patient 22:12:55 EMPLOYEE BENEFITS COORDINATOR Desmond Jimenes Ulises OFX [facility] Procedures Code Procedure Name Date Entry Date Standard Description CPT-91245 Lipid - LAB USE ONLY 15:55:09 EMPLOYEE BENEFITS COORDINATOR CPT-52601 CMP - LAB USE ONLY 15:55:09 EMPLOYEE BENEFITS COORDINATOR CPT-32468 CBC - LAB USE ONLY 15:55:08 EMPLOYEE BENEFITS COORDINATOR CPT-74396 Venipuncture Draw Fee 15:55:08 EMPLOYEE BENEFITS COORDINATOR CPT-Cryo Cryotherapy 11:00:57 CDT CPT-35795 Hand comp min 3V 17:09:13 CDT CPT-51709 Hand comp min 3V 17:08:18 CDT CPT-98427 Fluzone Quadrivalent Intramuscular Suspension 0.5 ML 10: 17:16 CDT CPT-LR Lesion Removal 08:49:09 CDT CPT-89891 Nail Excision 08:49:52 CDT CPT-89883 Venipuncture Draw Fee 16:51:53 EMPLOYEE BENEFITS COORDINATOR
--- OUTSIDE RECORDS SUMMARY | 2018-08-01 21:45 | XMS REPORT | Clinical Summary ---
Author Author Admin, COURTNEY Organization [employer] Address Unknown Phone Unavailable Allergies, Adverse [...] 33.0-33.9, adult SEIZURE DISORDER ICD-780.39 Inactive Nick Quirzo MD SEIZURES, HX OF ICD-V12.49 Inactive Nick [...] 1 tablet by mouth daily CITALOPRAM HYDROBROMIDE 49290254183 Active Magdalenakobe Thorntonida Active CIPRO 500 MG ORAL TABLET 1 tablet by mouth twice daily CIPROFLOXACIN HCL 33328505959 Active Anabela Lees Active BUSPIRONE HCL 7.5 MG ORAL TABLET 1 twice day for anxiety BUSPIRONE HCL 40010651159 No Longer Active Yvon Harrison MD Active DEPAKOTE 500 MG ORAL TABLET DELAYED RELEASE take 1 tab po BID for seizures. DIVALPROEX SODIUM 93566960894 No Longer Active Yvon Harrison MD Active SIMVASTATIN 20 MG ORAL TABLET 1 po at qhs SIMVASTATIN 43994069931 No Longer Active Yvon Harrison MD Active CARAFATE 1 GM ORAL TABLET 1 tab q4H SUCRALFATE 68875747852 No Longer Active Yvon Harrison MD Active PANTOPRAZOLE SODIUM 40 MG ORAL TABLET DELAYED RELEASE one tab once daily 2017 PANTOPRAZOLE SODIUM 86535506156 Active Luis Miguel Sapp MD Active PREDNISONE 20 MG ORAL TABLET 2 tabs daily for 3 days, 1 tab daily for 3 days, 1/2 tab daily for 2 days PREDNISONE 35154324640 No Longer Active Yvon Harrison MD Active TERBINAFINE HCL 250 MG ORAL TABLET 1 tab po qday for nail infection. TERBINAFINE HCL 99860666955 No Longer Active Yvon Harrison MD Active DIVALPROEX SODIUM 250 MG ORAL TABLET DELAYED RELEASE 1 po TID DIVALPROEX SODIUM 98561784143 No Longer Active Nick Quiroz MD Active KEFLEX 500 MG ORAL CAPSULE 1 po qid CEPHALEXIN 02722659140 No Longer Active Nick Quiroz MD Active KEFLEX 500 MG ORAL CAPSULE 1 po qid CEPHALEXIN 68399405231 No Longer Active Nick Quiorz MD Active KEFLEX 500 MG ORAL CAPSULE 1 po TID x 10 days CEPHALEXIN 45554370059 No Longer Active Nick Quiroz MD Active KEFLEX 500 MG ORAL CAPSULE 1 po TID x 10 days CEPHALEXIN 72956198348 No Longer Active Nick Quiroz MD Active IBUPROFEN 600 MG ORAL TABLET 1 tablet by mouth every 8 hours prn IBUPROFEN 36011775508 No Longer Active Desmond Montgomery DO Active FLONASE 50 MCG/ACT NASAL SUSPENSION 2 puffs in each nostril daily FLUTICASONE PROPIONATE 03959611312 No Longer Active Desmond Montgomery DO Active LORATADINE 10 MG ORAL TABLET 1 tablet by mouth daily PRN Congestion LORATADINE 60332952793 No Longer Active Desmond Montgomery DO Active LORATADINE 10 MG ORAL TABLET 1 tablet by mouth daily PRN Congestion LORATADINE 10 MG ORAL TABLET 570330 LORATADINE Inactive FLONASE 50 MCG/ACT NASAL SUSPENSION 2 puffs in each nostril daily FLONASE 50 MCG/ACT NASAL SUSPENSION 9659137 FLUTICASONE PROPIONATE Inactive IBUPROFEN 600 MG ORAL TABLET 1 tablet by mouth every 8 hours prn IBUPROFEN 600 MG ORAL TABLET 727983 IBUPROFEN Inactive KEFLEX 500 MG ORAL CAPSULE 1 po TID x 10 days KEFLEX 500 MG ORAL CAPSULE 848626 CEPHALEXIN Inactive KEFLEX 500 MG ORAL CAPSULE 1 po qid KEFLEX 500 MG ORAL CAPSULE 083491 CEPHALEXIN Inactive KEFLEX 500 MG ORAL CAPSULE 1 po qid KEFLEX 500 MG ORAL CAPSULE 092208 CEPHALEXIN Inactive CARAFATE 1 GM ORAL TABLET 1 tab q4H CARAFATE 1 GM ORAL TABLET 290012 SUCRALFATE Inactive SIMVASTATIN 20 MG ORAL TABLET 1 po at qhs SIMVASTATIN 20 MG ORAL TABLET 990213 SIMVASTATIN Inactive DEPAKOTE 500 MG ORAL TABLET DELAYED RELEASE take 1 tab po BID for seizures. DEPAKOTE 500 MG ORAL TABLET DELAYED RELEASE 5545691 DIVALPROEX SODIUM Inactive BUSPIRONE HCL 7.5 MG ORAL TABLET 1 twice day for anxiety BUSPIRONE HCL 7.5 MG ORAL TABLET 994655 BUSPIRONE HCL Inactive KEFLEX 500 MG ORAL CAPSULE 1 po TID x 10 days KEFLEX 500 MG ORAL CAPSULE 941407 CEPHALEXIN Inactive DIVALPROEX SODIUM 250 MG ORAL TABLET DELAYED RELEASE 1 po TID DIVALPROEX SODIUM 250 MG ORAL TABLET DELAYED RELEASE 9859672 DIVALPROEX SODIUM Inactive TERBINAFINE HCL 250 MG ORAL TABLET 1 tab po qday for nail infection. TERBINAFINE HCL 250 MG ORAL TABLET 405224 TERBINAFINE HCL Inactive PREDNISONE 20 MG ORAL TABLET 2 tabs daily for 3 days, 1 tab daily for 3 days, 1/2 tab daily for 2 days PREDNISONE 20 MG ORAL TABLET 265096 PREDNISONE Inactive Vital Signs Date Name Value [...] Negative Encounters Code Encounter Date Provider Facility CPT-15262 Level 3 Est. Patient 11:31:14 CDT Yvon Harrison MD [facility] CPT-83087 68276-Ocx Vst-Est Level III 13:15:10 CDT Yvon Harrison MD [facility]-09574 66496-Mgq Vst-Est Level III 15:15:09 CDT Luis Miguel Sapp MD [facility] CPT-88634 Level 4 Est. Patient 11:00:57 CDT Yvon Harrison MD [facility] CPT-16725 Level 4 Est. Patient 15:53:40 CDT Yvon Harrison MD [facility] CPT-33242 Level 4 Est. Patient 15:42:18 CDT Yvon Harrison MD [facility] CPT-92810 Level 3 Est. Patient 17:08:18 CDT Berta Sweeney ROSENDO [facility] CPT-85677 Level 4 Est. Patient 16:35:02 SALES SERVICE REPRESENTATIVE Yvon Harrison MD [facility] CPT-86600 Level 4 Est. Patient 15:11:02 SALES SERVICE REPRESENTATIVE Yvon Harrison MD [facility] CPT-96287 Level 4 Est. Patient 13:18:47 CDT Yvon Harrison MD [facility] CPT-83887 Level 4 Est. Patient 09:51:29 CDT Yvon Harrison MD [facility] CPT-57280 Level 3 Est. Patient 11:40:53 SALES SERVICE REPRESENTATIVE Nick Quiroz MD [facility] CPT-76554 Level 3 Est. Patient 09:05:46 CDT Nick Quiroz MD [facility] CPT-46325 Level 3 Est. Patient 10:56:05 CDT Nick Quiroz MD [facility] CPT-88802 Level 3 Est. Patient 05:39:31 CDT Desmond Montgomery DO [facility] CPT-20888 Level 3 Est. Patient 16:18:28 SALES SERVICE REPRESENTATIVE Nick Quiroz MD [facility] CPT-76158 Level 3 Est. Patient 16:50:04 SALES SERVICE REPRESENTATIVE Nick Quiroz MD [facility] CPT-99041 Level 3 Est. Patient 22:12:55 SALES SERVICE REPRESENTATIVE Desmond Montgomery DO [facility] Procedures Code Procedure Name Date Entry Date Standard Description CPT-60620 Lipid - LAB USE ONLY 15:55:09 SALES SERVICE REPRESENTATIVE CPT-29116 CMP - LAB USE ONLY 15:55:09 SALES SERVICE REPRESENTATIVE CPT-26116 CBC - LAB USE ONLY 15:55:08 SALES SERVICE REPRESENTATIVE CPT-94532 Venipuncture Draw Fee 15:55:08 SALES SERVICE REPRESENTATIVE CPT-Cryo Cryotherapy 11:00:57 CDT CPT-44294 Hand comp min 3V 17:09:13 CDT CPT-29066 Hand comp min 3V 17:08:18 CDT CPT-08679 Fluzone Quadrivalent Intramuscular Suspension 0.5 ML 10: 17:16 CDT CPT-LR Lesion Removal 08:49:09 CDT CPT-77297 Nail Excision 08:49:52 CDT CPT-33703 Venipuncture Draw Fee 16:51:53 SALES SERVICE REPRESENTATIVE
--- OUTSIDE RECORDS SUMMARY | 2018-08-01 21:46 | XMS REPORT | Clinical Summary ---
Author Author Admin, COURTNEY Organization [employer] Address Unknown Phone Unavailable Allergies, Adverse Reactions, [...] tablet by mouth twice daily CIPROFLOXACIN HCL 29342967025 Active Anabela Lees Active BUSPIRONE HCL 7.5 MG ORAL TABLET 1 twice day for anxiety BUSPIRONE HCL 29522339326 No Longer Active Yvon Harrison MD Active DEPAKOTE 500 MG ORAL TABLET DELAYED RELEASE take 1 tab po BID for seizures. DIVALPROEX SODIUM 93268158060 No Longer Active Yvon Harrison MD Active SIMVASTATIN 20 MG ORAL TABLET 1 po at qhs SIMVASTATIN 85064136555 No Longer Active Yvon Harrison MD Active CARAFATE 1 GM ORAL TABLET 1 tab q4H SUCRALFATE 98186008171 No Longer Active Yvon Harrison MD Active PANTOPRAZOLE SODIUM 40 MG ORAL TABLET DELAYED RELEASE one tab once daily 2017 PANTOPRAZOLE SODIUM 63156498462 Active Luis Miguel Sapp MD Active PREDNISONE 20 MG ORAL TABLET 2 tabs daily for 3 days, 1 tab daily for 3 days, 1/2 tab daily for 2 days PREDNISONE 96473663781 No Longer Active Yvon Harrison MD Active TERBINAFINE HCL 250 MG ORAL TABLET 1 tab po qday for nail infection. TERBINAFINE HCL 79416215813 No Longer Active Yvon Harrison MD Active DIVALPROEX SODIUM 250 MG ORAL TABLET DELAYED RELEASE 1 po TID DIVALPROEX SODIUM 84743228567 No Longer Active Nick Quiroz MD Active KEFLEX 500 MG ORAL CAPSULE 1 po qid CEPHALEXIN 01999487004 No Longer Active Nick Quiroz MD Active KEFLEX 500 MG ORAL CAPSULE 1 po qid CEPHALEXIN 72422474758 No Longer Active Nick Quiroz MD Active KEFLEX 500 MG ORAL CAPSULE 1 po TID x 10 days CEPHALEXIN 82917506954 No Longer Active Nick Quiroz MD Active KEFLEX 500 MG ORAL CAPSULE 1 po TID x 10 days CEPHALEXIN 29719014896 No Longer Active Nick Quiroz MD Active IBUPROFEN 600 MG ORAL TABLET 1 tablet by mouth every 8 hours prn IBUPROFEN 54799520200 No Longer Active Desmond Montgomery DO Active FLONASE 50 MCG/ACT NASAL SUSPENSION 2 puffs in each nostril daily FLUTICASONE PROPIONATE 98464095689 No Longer Active Desmond Montgomery DO Active LORATADINE 10 MG ORAL TABLET 1 tablet by mouth daily PRN Congestion LORATADINE 73596583090 No Longer Active Desmond Montgomery DO Active LORATADINE 10 MG ORAL TABLET 1 tablet by mouth daily PRN Congestion LORATADINE 10 MG ORAL TABLET 712123 LORATADINE Inactive FLONASE 50 MCG/ACT NASAL SUSPENSION 2 puffs in each nostril daily FLONASE 50 MCG/ACT NASAL SUSPENSION 1594201 FLUTICASONE PROPIONATE Inactive IBUPROFEN 600 MG ORAL TABLET 1 tablet by mouth every 8 hours prn IBUPROFEN 600 MG ORAL TABLET 056201 IBUPROFEN Inactive KEFLEX 500 MG ORAL CAPSULE 1 po TID x 10 days KEFLEX 500 MG ORAL CAPSULE 288939 CEPHALEXIN Inactive KEFLEX 500 MG ORAL CAPSULE 1 po qid KEFLEX 500 MG ORAL CAPSULE 621531 CEPHALEXIN Inactive KEFLEX 500 MG ORAL CAPSULE 1 po qid KEFLEX 500 MG ORAL CAPSULE 105199 CEPHALEXIN Inactive CARAFATE 1 GM ORAL TABLET 1 tab q4H CARAFATE 1 GM ORAL TABLET 676256 SUCRALFATE Inactive SIMVASTATIN 20 MG ORAL TABLET 1 po at [facility] SIMVASTATIN 20 MG ORAL TABLET 519459 SIMVASTATIN Inactive DEPAKOTE 500 MG ORAL TABLET DELAYED RELEASE take 1 tab po BID for seizures. DEPAKOTE 500 MG ORAL TABLET DELAYED RELEASE 6438508 DIVALPROEX SODIUM Inactive BUSPIRONE HCL 7.5 MG ORAL TABLET 1 twice day for anxiety BUSPIRONE HCL 7.5 MG ORAL TABLET 587178 BUSPIRONE HCL Inactive KEFLEX 500 MG ORAL CAPSULE 1 po TID x 10 days KEFLEX 500 MG ORAL CAPSULE 918738 CEPHALEXIN Inactive DIVALPROEX SODIUM 250 MG ORAL TABLET DELAYED RELEASE 1 po TID DIVALPROEX SODIUM 250 MG ORAL TABLET DELAYED RELEASE 2231936 DIVALPROEX SODIUM Inactive TERBINAFINE HCL 250 MG ORAL TABLET 1 tab po qday for nail infection. TERBINAFINE HCL 250 MG ORAL TABLET 304595 TERBINAFINE HCL Inactive PREDNISONE 20 MG ORAL TABLET 2 tabs daily for 3 days, 1 tab daily for 3 days, 1/2 tab daily for 2 days PREDNISONE 20 MG ORAL TABLET 221951 PREDNISONE Inactive Vital Signs Date Name Value [...] Negative Encounters Code Encounter Date Provider Facility CPT-20506 Level 3 Est. Patient 11:31:14 CDT Yvon Harrison MD [facility] CPT-52523 [id number] Vst-Est Level III 13:15:10 CDT Yvon Harrison MD [facility] CPT-44857 [id number] Vst-Est Level III 15:15:09 CDT Luis Miguel Sapp MD [facility]-78909 Level 4 Est. Patient 11:00:57 CDT Yvon Harrison MD [facility]-93325 Level 4 Est. Patient 15:53:40 CDT Yvon Harrison MD [facility] CPT-33343 Level 4 Est. Patient 15:42:18 CDT Yvon Harrison MD [facility] CPT-91480 Level 3 Est. Patient 17:08:18 CDT Berta Weberbree ROBBINS [facility] CPT-56890 Level 4 Est. Patient 16:35:02 COUNTER TOP ASSEMBLER Yvon Harrison MD [facility] CPT-87726 Level 4 Est. Patient 15:11:02 COUNTER TOP ASSEMBLER Yvon Harrison MD [facility] CPT-97216 Level 4 Est. Patient 13:18:47 CDT Yvon Harrison MD [facility] CPT-88089 Level 4 Est. Patient 09:51:29 CDT Yvon Harrison MD [facility] CPT-65880 Level 3 Est. Patient 11:40:53 COUNTER TOP ASSEMBLER Nick Quiroz MD [facility] CPT-43869 Level 3 Est. Patient 09:05:46 CDT Nick Quiroz MD [facility] CPT-44682 Level 3 Est. Patient 10:56:05 CDT Nick Quiroz MD [facility] CPT-67870 Level 3 Est. Patient 05:39:31 CDT Desmond Montgomery DO [facility] CPT-61901 Level 3 Est. Patient 16:18:28 COUNTER TOP ASSEMBLER Nick Quiroz MD [facility] CPT-25483 Level 3 Est. Patient 16:50:04 COUNTER TOP ASSEMBLER Nick Quiroz MD [facility] CPT-08584 Level 3 Est. Patient 22:12:55 COUNTER TOP ASSEMBLER Desmond Jimenes Ulises FOX [facility] Procedures Code Procedure Name Date Entry Date Standard Description CPT-17426 Lipid - LAB USE ONLY 15:55:09 COUNTER TOP ASSEMBLER CPT-05629 CMP - LAB USE ONLY 15:55:09 COUNTER TOP ASSEMBLER CPT-83814 CBC - LAB USE ONLY 15:55:08 COUNTER TOP ASSEMBLER CPT-42276 Venipuncture Draw Fee 15:55:08 COUNTER TOP ASSEMBLER CPT-Cryo Cryotherapy 11:00:57 CDT CPT-69103 Hand comp min 3V 17:09:13 CDT CPT-71077 Hand comp min 3V 17:08:18 CDT CPT-94465 Fluzone Quadrivalent Intramuscular Suspension 0.5 ML 10: 17:16 CDT CPT-LR Lesion Removal 08:49:09 CDT CPT-54787 Nail Excision 08:49:52 CDT CPT-69081 Venipuncture Draw Fee 16:51:53 COUNTER TOP ASSEMBLER
--- OUTSIDE RECORDS SUMMARY | 2018-08-01 21:46 | XMS REPORT | Clinical Summary ---
Author Author Admin, COURTNEY Organization [employer] Address Unknown Phone Unavailable Allergies, Adverse Reactions, [...] tablet by mouth twice daily CIPROFLOXACIN HCL 15962157129 Active Anabela Lees Active BUSPIRONE HCL 7.5 MG ORAL TABLET 1 twice day for anxiety BUSPIRONE HCL 58488798451 No Longer Active Yvon Harrison MD Active DEPAKOTE 500 MG ORAL TABLET DELAYED RELEASE take 1 tab po BID for seizures. DIVALPROEX SODIUM 70338722627 No Longer Active Yvon Harrison MD Active SIMVASTATIN 20 MG ORAL TABLET 1 po at qhs SIMVASTATIN 68774052799 No Longer Active Yvon Harrison MD Active CARAFATE 1 GM ORAL TABLET 1 tab q4H SUCRALFATE 79494018853 No Longer Active Yvon Harrison MD Active PANTOPRAZOLE SODIUM 40 MG ORAL TABLET DELAYED RELEASE one tab once daily 2017 PANTOPRAZOLE SODIUM 93236359291 Active Luis Miguel Sapp MD Active PREDNISONE 20 MG ORAL TABLET 2 tabs daily for 3 days, 1 tab daily for 3 days, 1/2 tab daily for 2 days PREDNISONE 61450019815 No Longer Active Yvon Harrison MD Active TERBINAFINE HCL 250 MG ORAL TABLET 1 tab po qday for nail infection. TERBINAFINE HCL 23573251313 No Longer Active Yvon Harrison MD Active DIVALPROEX SODIUM 250 MG ORAL TABLET DELAYED RELEASE 1 po TID DIVALPROEX SODIUM 24978404976 No Longer Active Nick Quiroz MD Active KEFLEX 500 MG ORAL CAPSULE 1 po qid CEPHALEXIN 77108849184 No Longer Active Nick Quiroz MD Active KEFLEX 500 MG ORAL CAPSULE 1 po qid CEPHALEXIN 19783757320 No Longer Active Nick Quiroz MD Active KEFLEX 500 MG ORAL CAPSULE 1 po TID x 10 days CEPHALEXIN 46768574078 No Longer Active Nick Quiroz MD Active KEFLEX 500 MG ORAL CAPSULE 1 po TID x 10 days CEPHALEXIN 57741565504 No Longer Active Nick Quiroz MD Active IBUPROFEN 600 MG ORAL TABLET 1 tablet by mouth every 8 hours prn IBUPROFEN 02521601327 No Longer Active Desmond Montgomery DO Active FLONASE 50 MCG/ACT NASAL SUSPENSION 2 puffs in each nostril daily FLUTICASONE PROPIONATE 76644419517 No Longer Active Desmond Montgomery DO Active LORATADINE 10 MG ORAL TABLET 1 tablet by mouth daily PRN Congestion LORATADINE 09663248247 No Longer Active Desmond Montgomery DO Active LORATADINE 10 MG ORAL TABLET 1 tablet by mouth daily PRN Congestion LORATADINE 10 MG ORAL TABLET 726898 LORATADINE Inactive FLONASE 50 MCG/ACT NASAL SUSPENSION 2 puffs in each nostril daily FLONASE 50 MCG/ACT NASAL SUSPENSION 8445223 FLUTICASONE PROPIONATE Inactive IBUPROFEN 600 MG ORAL TABLET 1 tablet by mouth every 8 hours prn IBUPROFEN 600 MG ORAL TABLET 920147 IBUPROFEN Inactive KEFLEX 500 MG ORAL CAPSULE 1 po TID x 10 days KEFLEX 500 MG ORAL CAPSULE 873893 CEPHALEXIN Inactive KEFLEX 500 MG ORAL CAPSULE 1 po qid KEFLEX 500 MG ORAL CAPSULE 225450 CEPHALEXIN Inactive KEFLEX 500 MG ORAL CAPSULE 1 po qid KEFLEX 500 MG ORAL CAPSULE 080022 CEPHALEXIN Inactive CARAFATE 1 GM ORAL TABLET 1 tab q4H CARAFATE 1 GM ORAL TABLET 840760 SUCRALFATE Inactive SIMVASTATIN 20 MG ORAL TABLET 1 po at [facility] SIMVASTATIN 20 MG ORAL TABLET 436048 SIMVASTATIN Inactive DEPAKOTE 500 MG ORAL TABLET DELAYED RELEASE take 1 tab po BID for seizures. DEPAKOTE 500 MG ORAL TABLET DELAYED RELEASE 6837880 DIVALPROEX SODIUM Inactive BUSPIRONE HCL 7.5 MG ORAL TABLET 1 twice day for anxiety BUSPIRONE HCL 7.5 MG ORAL TABLET 835394 BUSPIRONE HCL Inactive KEFLEX 500 MG ORAL CAPSULE 1 po TID x 10 days KEFLEX 500 MG ORAL CAPSULE 318930 CEPHALEXIN Inactive DIVALPROEX SODIUM 250 MG ORAL TABLET DELAYED RELEASE 1 po TID DIVALPROEX SODIUM 250 MG ORAL TABLET DELAYED RELEASE 8819114 DIVALPROEX SODIUM Inactive TERBINAFINE HCL 250 MG ORAL TABLET 1 tab po qday for nail infection. TERBINAFINE HCL 250 MG ORAL TABLET 009854 TERBINAFINE HCL Inactive PREDNISONE 20 MG ORAL TABLET 2 tabs daily for 3 days, 1 tab daily for 3 days, 1/2 tab daily for 2 days PREDNISONE 20 MG ORAL TABLET 644716 PREDNISONE Inactive Vital Signs Date Name Value [...] Results Date Name Value Unit Range Description Lab Report: UADIP W/MICRO, AUTO - Chemistry protein, total urine random Negative mg/dL Negative RBC, urine, dipstick Negative Negative Lab Report: UADIP W/MICRO, AUTO - Urinalysis urobilinogen, urine, semiquantitative (dipstick) 1.0 E.U./dL Normal leukocyte esterase, urine, by dipstick Negative Negative nitrite, urine, semiquantitative Negative Negative glucose, urine, semiquantitative Negative Negative ketones, urine, by test strip Negative Negative bilirubin, urine Negative Negative urine color Dark yellow Colorless;Lightyellow;Straw;Yellow appearance, urine Clear Clear specific gravity, urine 1.025 1.000-1.030 pH, urine, semiquantitative 7.0 5.0-8.5 Encounters Code Encounter Date Provider Facility CPT-92548 Level 3 Est. Patient 11:31:14 CDT Yvon Harrison MD [facility] CPT-13713 [id number] Vst-Est Level III 13:15:10 CDT Yvon Harrison MD [facility] CPT-46244 [id number] Vst-Est Level III 15:15:09 CDT Luis Miguel Sapp MD [facility] CPT-47836 Level 4 Est. Patient 11:00:57 CDT Yvon Harrison MD [facility] CPT-55308 Level 4 Est. Patient 15:53:40 CDT Yvon Harrison MD [facility] CPT-18781 Level 4 Est. Patient 15:42:18 CDT Yvon Harrison MD [facility] CPT-81013 Level 3 Est. Patient 17:08:18 CDT Berta Sweeney ROSENDO [facility] CPT-01948 Level 4 Est. Patient 16:35:02 GAMING ASSOCIATE Yvon Harrison MD [facility] CPT-59388 Level 4 Est. Patient 15:11:02 GAMING ASSOCIATE Yvon Harrison MD [facility] CPT-15072 Level 4 Est. Patient 13:18:47 CDT Yvon Harrison MD [facility] CPT-03515 Level 4 Est. Patient 09:51:29 CDT Yvon Harrison MD [facility] CPT-45483 Level 3 Est. Patient 11:40:53 GAMING ASSOCIATE Nick Quiroz MD [facility] CPT-16061 Level 3 Est. Patient 09:05:46 CDT Nick Quiroz MD [facility] CPT-50634 Level 3 Est. Patient 10:56:05 CDT Nick Quiroz MD [facility] CPT-75442 Level 3 Est. Patient 05:39:31 CDT Desmond Montgomery DO [facility] CPT-89723 Level 3 Est. Patient 16:18:28 GAMING ASSOCIATE Nick Quiroz MD [facility] CPT-72342 Level 3 Est. Patient 16:50:04 GAMING ASSOCIATE Nick Quiroz MD [facility] CPT-64777 Level 3 Est. Patient 22:12:55 GAMING ASSOCIATE Desmond Montgomery DO [facility] Procedures Code Procedure Name Date Entry Date Standard Description CPT-08544 Lipid - LAB USE ONLY 15:55:09 GAMING ASSOCIATE CPT-64575 CMP - LAB USE ONLY 15:55:09 GAMING ASSOCIATE CPT-44122 CBC - LAB USE ONLY 15:55:08 GAMING ASSOCIATE CPT-93679 Venipuncture Draw Fee 15:55:08 GAMING ASSOCIATE CPT-Cryo Cryotherapy 11:00:57 CDT CPT-63820 Hand comp min 3V 17:09:13 CDT CPT-32884 Hand comp min 3V 17:08:18 CDT CPT-91688 Fluzone Quadrivalent Intramuscular Suspension 0.5 ML 10: 17:16 CDT CPT-LR Lesion Removal 08:49:09 CDT CPT-51746 Nail Excision 08:49:52 CDT CPT-96980 Venipuncture Draw Fee 16:51:53 GAMING ASSOCIATE
--- OUTSIDE RECORDS SUMMARY | 2018-08-01 21:47 | XMS REPORT | Clinical Summary ---
Author Author Admin, COURTNEY Organization [employer] Address Unknown Phone Unavailable Allergies, Adverse [...] tablet by mouth twice daily CIPROFLOXACIN HCL 85296764973 Active Anabela Lees Active BUSPIRONE HCL 7.5 MG ORAL TABLET 1 twice day for anxiety BUSPIRONE HCL 59884896913 No Longer Active Yvon Harrison MD Active DEPAKOTE 500 MG ORAL TABLET DELAYED RELEASE take 1 tab po BID for seizures. DIVALPROEX SODIUM 74310962269 No Longer Active Yvon Harrison MD Active SIMVASTATIN 20 MG ORAL TABLET 1 po at qhs SIMVASTATIN 35191960658 No Longer Active Yvon Harrison MD Active CARAFATE 1 GM ORAL TABLET 1 tab q4H SUCRALFATE 17178283610 No Longer Active Yvon Harrison MD Active PANTOPRAZOLE SODIUM 40 MG ORAL TABLET DELAYED RELEASE one tab once daily 2017 PANTOPRAZOLE SODIUM 01382507857 Active Luis Miguel Sapp MD Active PREDNISONE 20 MG ORAL TABLET 2 tabs daily for 3 days, 1 tab daily for 3 days, 1/2 tab daily for 2 days PREDNISONE 82313255645 No Longer Active Yvon Harrison MD Active TERBINAFINE HCL 250 MG ORAL TABLET 1 tab po qday for nail infection. TERBINAFINE HCL 19763769231 No Longer Active Yvon Harrison MD Active DIVALPROEX SODIUM 250 MG ORAL TABLET DELAYED RELEASE 1 po TID DIVALPROEX SODIUM 25798423624 No Longer Active Nick Quiroz MD Active KEFLEX 500 MG ORAL CAPSULE 1 po qid CEPHALEXIN 70468273217 No Longer Active Nick Quiroz MD Active KEFLEX 500 MG ORAL CAPSULE 1 po qid CEPHALEXIN 08384146858 No Longer Active Nick Quiroz MD Active KEFLEX 500 MG ORAL CAPSULE 1 po TID x 10 days CEPHALEXIN 28086538429 No Longer Active Nick Quiroz MD Active KEFLEX 500 MG ORAL CAPSULE 1 po TID x 10 days CEPHALEXIN 00863461373 No Longer Active Nick Quiroz MD Active IBUPROFEN 600 MG ORAL TABLET 1 tablet by mouth every 8 hours prn IBUPROFEN 66380773319 No Longer Active Desmond Montgomery DO Active FLONASE 50 MCG/ACT NASAL SUSPENSION 2 puffs in each nostril daily FLUTICASONE PROPIONATE 26429524962 No Longer Active Desmond Montgomery DO Active LORATADINE 10 MG ORAL TABLET 1 tablet by mouth daily PRN Congestion LORATADINE 78751725331 No Longer Active Desmond Montgomery DO Active LORATADINE 10 MG ORAL TABLET 1 tablet by mouth daily PRN Congestion LORATADINE 10 MG ORAL TABLET 467207 LORATADINE Inactive FLONASE 50 MCG/ACT NASAL SUSPENSION 2 puffs in each nostril daily FLONASE 50 MCG/ACT NASAL SUSPENSION 3992364 FLUTICASONE PROPIONATE Inactive IBUPROFEN 600 MG ORAL TABLET 1 tablet by mouth every 8 hours prn IBUPROFEN 600 MG ORAL TABLET 934635 IBUPROFEN Inactive KEFLEX 500 MG ORAL CAPSULE 1 po TID x 10 days KEFLEX 500 MG ORAL CAPSULE 619710 CEPHALEXIN Inactive KEFLEX 500 MG ORAL CAPSULE 1 po qid KEFLEX 500 MG ORAL CAPSULE 340797 CEPHALEXIN Inactive KEFLEX 500 MG ORAL CAPSULE 1 po qid KEFLEX 500 MG ORAL CAPSULE 368277 CEPHALEXIN Inactive CARAFATE 1 GM ORAL TABLET 1 tab q4H CARAFATE 1 GM ORAL TABLET 344012 SUCRALFATE Inactive SIMVASTATIN 20 MG ORAL TABLET 1 po at [facility] SIMVASTATIN 20 MG ORAL TABLET 770406 SIMVASTATIN Inactive DEPAKOTE 500 MG ORAL TABLET DELAYED RELEASE take 1 tab po BID for seizures. DEPAKOTE 500 MG ORAL TABLET DELAYED RELEASE 4993426 DIVALPROEX SODIUM Inactive BUSPIRONE HCL 7.5 MG ORAL TABLET 1 twice day for anxiety BUSPIRONE HCL 7.5 MG ORAL TABLET 238806 BUSPIRONE HCL Inactive KEFLEX 500 MG ORAL CAPSULE 1 po TID x 10 days KEFLEX 500 MG ORAL CAPSULE 297284 CEPHALEXIN Inactive DIVALPROEX SODIUM 250 MG ORAL TABLET DELAYED RELEASE 1 po TID DIVALPROEX SODIUM 250 MG ORAL TABLET DELAYED RELEASE 0260312 DIVALPROEX SODIUM Inactive TERBINAFINE HCL 250 MG ORAL TABLET 1 tab po qday for nail infection. TERBINAFINE HCL 250 MG ORAL TABLET 238411 TERBINAFINE HCL Inactive PREDNISONE 20 MG ORAL TABLET 2 tabs daily for 3 days, 1 tab daily for 3 days, 1/2 tab daily for 2 days PREDNISONE 20 MG ORAL TABLET 317016 PREDNISONE Inactive Vital Signs Date Name Value [...] 5.0-8.5 Encounters Code Encounter Date Provider Facility CPT-55479 Level 3 Est. Patient 11:31:14 CDT Yvon Harrison MD [facility] CPT-44836 [id number] Vst-Est Level III 13:15:10 CDT Yvon Harrison MD [facility] CPT-55890 40080-Qtq Vst-Est Level III 15:15:09 CDT Luis Miguel Sapp MD [facility] CPT-22542 Level 4 Est. Patient 11:00:57 CDT Yvon Harrison MD [facility] CPT-97471 Level 4 Est. Patient 15:53:40 CDT Yvon Harrison MD [facility] CPT-62259 Level 4 Est. Patient 15:42:18 CDT Yvon Harrison MD [facility] CPT-61115 Level 3 Est. Patient 17:08:18 CDT Berta Sweeney ROSENDO [facility] CPT-18701 Level 4 Est. Patient 16:35:02 SENIOR CONSULTING MANAGER Yvon Harrison MD [facility] CPT-75802 Level 4 Est. Patient 15:11:02 SENIOR CONSULTING MANAGER Yvon Harrison MD [facility] CPT-35512 Level 4 Est. Patient 13:18:47 CDT Yvon Harrison MD [facility] CPT-88500 Level 4 Est. Patient 09:51:29 CDT Yvon Harrison MD [facility] CPT-86320 Level 3 Est. Patient 11:40:53 SENIOR CONSULTING MANAGER Nick Quiroz MD [facility] CPT-59465 Level 3 Est. Patient 09:05:46 CDT Nick Quiroz MD [facility] CPT-09378 Level 3 Est. Patient 10:56:05 CDT Nick Quiroz MD [facility] CPT-70919 Level 3 Est. Patient 05:39:31 CDT Desmond Montgomery DO [facility] CPT-11691 Level 3 Est. Patient 16:18:28 SENIOR CONSULTING MANAGER Nick Quiroz MD [facility] CPT-33781 Level 3 Est. Patient 16:50:04 SENIOR CONSULTING MANAGER Nick Quiroz MD [facility] CPT-88391 Level 3 Est. Patient 22:12:55 SENIOR CONSULTING MANAGER Desmond Montgomery DO [facility] Procedures Code Procedure Name Date Entry Date Standard Description CPT-53197 Lipid - LAB USE ONLY 15:55:09 SENIOR CONSULTING MANAGER CPT-97679 CMP - LAB USE ONLY 15:55:09 SENIOR CONSULTING MANAGER CPT-73078 CBC - LAB USE ONLY 15:55:08 SENIOR CONSULTING MANAGER CPT-84036 Venipuncture Draw Fee 15:55:08 SENIOR CONSULTING MANAGER CPT-Cryo Cryotherapy 11:00:57 CDT CPT-99559 Hand comp min 3V 17:09:13 CDT CPT-70854 Hand comp min 3V 17:08:18 CDT CPT-90000 Fluzone Quadrivalent Intramuscular Suspension 0.5 ML 10: 17:16 CDT CPT-LR Lesion Removal 08:49:09 CDT CPT-00808 Nail Excision 08:49:52 CDT CPT-31729 Venipuncture Draw Fee 16:51:53 SENIOR CONSULTING MANAGER
--- OUTSIDE RECORDS SUMMARY | 2018-08-01 21:47 | XMS REPORT | Clinical Summary ---
Author Author Admin, COURTNEY Organization [employer] Address Unknown Phone Unavailable Allergies, Adverse Reactions, [...] convulsions U R I 465.9 Resolved Nick Qiuroz MD Acute upper respiratory infections of unspecified [...] Generic Name NDC Status Provider Patient Instruction BUSPIRONE HCL 7.5 MG ORAL TABLET 1 twice day for anxiety BUSPIRONE HCL 90203632228 No Longer Active Yvon Harrison MD Active DEPAKOTE 500 MG ORAL TABLET DELAYED RELEASE take 1 tab po BID for seizures. DIVALPROEX SODIUM 29776111899 No Longer Active Yvon Harrison MD Active SIMVASTATIN 20 MG ORAL TABLET 1 po at qhs SIMVASTATIN 05899593109 No Longer Active Yvon Harrison MD Active CARAFATE 1 GM ORAL TABLET 1 tab q4H SUCRALFATE 99469119117 No Longer Active Yvon Harrison MD Active PANTOPRAZOLE SODIUM 40 MG ORAL TABLET DELAYED RELEASE one tab once daily 2017 PANTOPRAZOLE SODIUM 25396389042 Active Luis Miguel Sapp MD Active PREDNISONE 20 MG ORAL TABLET 2 tabs daily for 3 days, 1 tab daily for 3 days, 1/2 tab daily for 2 days PREDNISONE 84318481655 No Longer Active Yvon Harrison MD Active TERBINAFINE HCL 250 MG ORAL TABLET 1 tab po qday for nail infection. TERBINAFINE HCL 90485438906 No Longer Active Yvon Harrison MD Active DIVALPROEX SODIUM 250 MG ORAL TABLET DELAYED RELEASE 1 po TID DIVALPROEX SODIUM 47468737925 No Longer Active Nick Quiroz MD Active KEFLEX 500 MG ORAL CAPSULE 1 po qid CEPHALEXIN 27533375781 No Longer Active Nick Quiroz MD Active KEFLEX 500 MG ORAL CAPSULE 1 po qid CEPHALEXIN 54370551866 No Longer Active Nick Quiroz MD Active KEFLEX 500 MG ORAL CAPSULE 1 po TID x 10 days CEPHALEXIN 89525113279 No Longer Active Nick Quiroz MD Active KEFLEX 500 MG ORAL CAPSULE 1 po TID x 10 days CEPHALEXIN 09023591153 No Longer Active Nick Quiroz MD Active IBUPROFEN 600 MG ORAL TABLET 1 tablet by mouth every 8 hours prn IBUPROFEN 48730264444 No Longer Active Desmond Montgomery DO Active FLONASE 50 MCG/ACT NASAL SUSPENSION 2 puffs in each nostril daily FLUTICASONE PROPIONATE 46762765235 No Longer Active Desmond Montgomery DO Active LORATADINE 10 MG ORAL TABLET 1 tablet by mouth daily PRN Congestion LORATADINE 46339456104 No Longer Active Desmond Montgomery DO Active LORATADINE 10 MG ORAL TABLET 1 tablet by mouth daily PRN Congestion LORATADINE 10 MG ORAL TABLET 955929 LORATADINE Inactive FLONASE 50 MCG/ACT NASAL SUSPENSION 2 puffs in each nostril daily FLONASE 50 MCG/ACT NASAL SUSPENSION 3671424 FLUTICASONE PROPIONATE Inactive IBUPROFEN 600 MG ORAL TABLET 1 tablet by mouth every 8 hours prn IBUPROFEN 600 MG ORAL TABLET 292773 IBUPROFEN Inactive KEFLEX 500 MG ORAL CAPSULE 1 po TID x 10 days KEFLEX 500 MG ORAL CAPSULE 136926 CEPHALEXIN Inactive KEFLEX 500 MG ORAL CAPSULE 1 po qid KEFLEX 500 MG ORAL CAPSULE 313023 CEPHALEXIN Inactive KEFLEX 500 MG ORAL CAPSULE 1 po qid KEFLEX 500 MG ORAL CAPSULE 752111 CEPHALEXIN Inactive CARAFATE 1 GM ORAL TABLET 1 tab q4H CARAFATE 1 GM ORAL TABLET 554530 SUCRALFATE Inactive SIMVASTATIN 20 MG ORAL TABLET 1 po at qhs SIMVASTATIN 20 MG ORAL TABLET 360215 SIMVASTATIN Inactive DEPAKOTE 500 MG ORAL TABLET DELAYED RELEASE take 1 tab po BID for seizures. DEPAKOTE 500 MG ORAL TABLET DELAYED RELEASE 5299286 DIVALPROEX SODIUM Inactive BUSPIRONE HCL 7.5 MG ORAL TABLET 1 twice day for anxiety BUSPIRONE HCL 7.5 MG ORAL TABLET 999023 BUSPIRONE HCL Inactive KEFLEX 500 MG ORAL CAPSULE 1 po TID x 10 days KEFLEX 500 MG ORAL CAPSULE 550311 CEPHALEXIN Inactive DIVALPROEX SODIUM 250 MG ORAL TABLET DELAYED RELEASE 1 po TID DIVALPROEX SODIUM 250 MG ORAL TABLET DELAYED RELEASE 5903609 DIVALPROEX SODIUM Inactive TERBINAFINE HCL 250 MG ORAL TABLET 1 tab po qday for nail infection. TERBINAFINE HCL 250 MG ORAL TABLET 276398 TERBINAFINE HCL Inactive PREDNISONE 20 MG ORAL TABLET 2 tabs daily for 3 days, 1 tab daily for 3 days, 1/2 tab daily for 2 days PREDNISONE 20 MG ORAL TABLET 506692 PREDNISONE Inactive Vital Signs Date Name Value [...] 5.0-8.5 Encounters Code Encounter Date Provider Facility CPT-05913 Level 3 Est. Patient 11:31:14 CDT Yvon Harrison MD [facility] CPT-47460 [id number] Vst-Est Level III 13:15:10 CDT Yvon Harrison MD [facility] CPT-60078 [id number] Vst-Est Level III 15:15:09 CDT Luis Miguel Sapp MD [facility] CPT-82106 Level 4 Est. Patient 11:00:57 CDT Yvon Harrison MD [facility] CPT-68895 Level 4 Est. Patient 15:53:40 CDT Yvon Harrison MD [facility] CPT-61407 Level 4 Est. Patient 15:42:18 CDT Yvon Harrison MD [facility] CPT-37136 Level 3 Est. Patient 17:08:18 CDT Berta Sweeney ROSENDO [facility] CPT-54144 Level 4 Est. Patient 16:35:02 TICKET MARKER Yvon Harrison MD [facility] CPT-85765 Level 4 Est. Patient 15:11:02 TICKET MARKER Yvon Harrison MD [facility] CPT-55632 Level 4 Est. Patient 13:18:47 CDT Yvon Harrison MD [facility] CPT-96493 Level 4 Est. Patient 09:51:29 CDT Yvon Harrison MD [facility] CPT-42787 Level 3 Est. Patient 11:40:53 TICKET MARKER Nick Quiroz MD [facility] CPT-52657 Level 3 Est. Patient 09:05:46 CDT Nick Quiroz MD [facility] CPT-25061 Level 3 Est. Patient 10:56:05 CDT Nick Quiroz MD [facility] CPT-80222 Level 3 Est. Patient 05:39:31 CDT Desmond Montgomery DO [facility] CPT-07929 Level 3 Est. Patient 16:18:28 TICKET MARKER Nick Quiroz MD [facility] CPT-72826 Level 3 Est. Patient 16:50:04 TICKET MARKER Nick Quiroz MD [facility] CPT-40077 Level 3 Est. Patient 22:12:55 TICKET MARKER Desmond Montgomery DO [facility] Procedures Code Procedure Name Date Entry Date Standard Description CPT-15829 Lipid - LAB USE ONLY 15:55:09 TICKET MARKER CPT-96686 CMP - LAB USE ONLY 15:55:09 TICKET MARKER CPT-94733 CBC - LAB USE ONLY 15:55:08 TICKET MARKER CPT-96394 Venipuncture Draw Fee 15:55:08 TICKET MARKER CPT-Cryo Cryotherapy 11:00:57 CDT CPT-93072 Hand comp min 3V 17:09:13 CDT CPT-80557 Hand comp min 3V 17:08:18 CDT CPT-55848 Fluzone Quadrivalent Intramuscular Suspension 0.5 ML 10: 17:16 CDT CPT-LR Lesion Removal 08:49:09 CDT CPT-81424 Nail Excision 08:49:52 CDT CPT-76182 Venipuncture Draw Fee 16:51:53 TICKET MARKER
--- OUTSIDE RECORDS SUMMARY | 2018-08-01 21:48 | XMS REPORT | Clinical Summary ---
Author Author Admin, COURTNEY Organization [employer] Address Unknown Phone Unavailable Allergies, Adverse Reactions, [...] 1 twice day for anxiety BUSPIRONE HCL 53214822816 No Longer Active Yvon Harrison MD Active DEPAKOTE 500 MG ORAL TABLET DELAYED RELEASE take 1 tab po BID for seizures. DIVALPROEX SODIUM 58162350614 No Longer Active Yvon Harrison MD Active SIMVASTATIN 20 MG ORAL TABLET 1 po at qhs SIMVASTATIN 25646559308 No Longer Active Yvon Harrison MD Active CARAFATE 1 GM ORAL TABLET 1 tab q4H SUCRALFATE 22601913221 No Longer Active Yvon Harrison MD Active PANTOPRAZOLE SODIUM 40 MG ORAL TABLET DELAYED RELEASE one tab once daily 2017 PANTOPRAZOLE SODIUM 24288535999 Active Luis Miguel Sapp MD Active PREDNISONE 20 MG ORAL TABLET 2 tabs daily for 3 days, 1 tab daily for 3 days, 1/2 tab daily for 2 days PREDNISONE 13989695706 No Longer Active Yvon Harrisno MD Active TERBINAFINE HCL 250 MG ORAL TABLET 1 tab po qday for nail infection. TERBINAFINE HCL 71331538942 No Longer Active Yvon Harrison MD Active DIVALPROEX SODIUM 250 MG ORAL TABLET DELAYED RELEASE 1 po TID DIVALPROEX SODIUM 58838311563 No Longer Active Nick Quiroz MD Active KEFLEX 500 MG ORAL CAPSULE 1 po qid CEPHALEXIN 78739669472 No Longer Active Nick Quiroz MD Active KEFLEX 500 MG ORAL CAPSULE 1 po qid CEPHALEXIN 95968282357 No Longer Active Nick Quiroz MD Active KEFLEX 500 MG ORAL CAPSULE 1 po TID x 10 days CEPHALEXIN 40505161154 No Longer Active Nick Quiroz MD Active KEFLEX 500 MG ORAL CAPSULE 1 po TID x 10 days CEPHALEXIN 70119267456 No Longer Active Nick Quiroz MD Active IBUPROFEN 600 MG ORAL TABLET 1 tablet by mouth every 8 hours prn IBUPROFEN 12238240606 No Longer Active Desmond Montgomery DO Active FLONASE 50 MCG/ACT NASAL SUSPENSION 2 puffs in each nostril daily FLUTICASONE PROPIONATE 65055469863 No Longer Active Desmond Montgomery DO Active LORATADINE 10 MG ORAL TABLET 1 tablet by mouth daily PRN Congestion LORATADINE 04094191356 No Longer Active Desmond Montgomery DO Active LORATADINE 10 MG ORAL TABLET 1 tablet by mouth daily PRN Congestion LORATADINE 10 MG ORAL TABLET 738081 LORATADINE Inactive FLONASE 50 MCG/ACT NASAL SUSPENSION 2 puffs in each nostril daily FLONASE 50 MCG/ACT NASAL SUSPENSION 9700511 FLUTICASONE PROPIONATE Inactive IBUPROFEN 600 MG ORAL TABLET 1 tablet by mouth every 8 hours prn IBUPROFEN 600 MG ORAL TABLET 270519 IBUPROFEN Inactive KEFLEX 500 MG ORAL CAPSULE 1 po TID x 10 days KEFLEX 500 MG ORAL CAPSULE 415064 CEPHALEXIN Inactive KEFLEX 500 MG ORAL CAPSULE 1 po qid KEFLEX 500 MG ORAL CAPSULE 289664 CEPHALEXIN Inactive KEFLEX 500 MG ORAL CAPSULE 1 po qid KEFLEX 500 MG ORAL CAPSULE 929255 CEPHALEXIN Inactive CARAFATE 1 GM ORAL TABLET 1 tab q4H CARAFATE 1 GM ORAL TABLET 532229 SUCRALFATE Inactive SIMVASTATIN 20 MG ORAL TABLET 1 po at qhs SIMVASTATIN 20 MG ORAL TABLET 141024 SIMVASTATIN Inactive DEPAKOTE 500 MG ORAL TABLET DELAYED RELEASE take 1 tab po BID for seizures. DEPAKOTE 500 MG ORAL TABLET DELAYED RELEASE 4376222 DIVALPROEX SODIUM Inactive BUSPIRONE HCL 7.5 MG ORAL TABLET 1 twice day for anxiety BUSPIRONE HCL 7.5 MG ORAL TABLET 796421 BUSPIRONE HCL Inactive KEFLEX 500 MG ORAL CAPSULE 1 po TID x 10 days KEFLEX 500 MG ORAL CAPSULE 738754 CEPHALEXIN Inactive DIVALPROEX SODIUM 250 MG ORAL TABLET DELAYED RELEASE 1 po TID DIVALPROEX SODIUM 250 MG ORAL TABLET DELAYED RELEASE 4164343 DIVALPROEX SODIUM Inactive TERBINAFINE HCL 250 MG ORAL TABLET 1 tab po qday for nail infection. TERBINAFINE HCL 250 MG ORAL TABLET 082083 TERBINAFINE HCL Inactive PREDNISONE 20 MG ORAL TABLET 2 tabs daily for 3 days, 1 tab daily for 3 days, 1/2 tab daily for 2 days PREDNISONE 20 MG ORAL TABLET 814074 PREDNISONE Inactive Vital Signs Date Name Value [...] temperature weight E&M 244 [lb_av] Weight Measured Encounters Code Encounter Date Provider Facility CPT-03785 Level 3 Est. Patient 11:31:14 CDT Yvon Harrison MD [facility] CPT-57969 [id number] Vst-Est Level III 13:15:10 CDT Yvon Harrison MD [facility]-83156 13228-Eku Vst-Est Level III 15:15:09 CDT Luis Miguel Sapp MD [facility] CPT-27478 Level 4 Est. Patient 11:00:57 CDT Yvon Harrison MD [facility] CPT-84865 Level 4 Est. Patient 15:53:40 CDT Yvon Harrison MD [facility] CPT-19774 Level 4 Est. Patient 15:42:18 CDT Yvon Harrison MD [facility] CPT-23978 Level 3 Est. Patient 17:08:18 CDT Berta Sweeney APRN [facility] CPT-92736 Level 4 Est. Patient 16:35:02 RN CHARGE Yvon Harrison MD [facility] CPT-02774 Level 4 Est. Patient 15:11:02 RN CHARGE Yvon Harrison MD [facility] CPT-56357 Level 4 Est. Patient 13:18:47 CDT Yvon Harrison MD [facility] CPT-95244 Level 4 Est. Patient 09:51:29 CDT Yvon Harrison MD [facility] CPT-03550 Level 3 Est. Patient 11:40:53 RN CHARGE Nick Quiroz MD [facility] CPT-67923 Level 3 Est. Patient 09:05:46 CDT Nick Quiroz MD [facility] CPT-25278 Level 3 Est. Patient 10:56:05 CDT Nick Quiroz MD [facility] CPT-94508 Level 3 Est. Patient 05:39:31 CDT Desmond Montgomery [facility] CPT-55527 Level 3 Est. Patient 16:18:28 RN CHARGE Nick Quiroz MD [facility] CPT-81941 Level 3 Est. Patient 16:50:04 RN CHARGE Nick Quiroz MD [facility] CPT-49790 Level 3 Est. Patient 22:12:55 RN CHARGE Desmond Montgomery [facility] Procedures Code Procedure Name Date Entry Date Standard Description CPT-64529 Lipid - LAB USE ONLY 15:55:09 RN CHARGE CPT-44108 CMP - LAB USE ONLY 15:55:09 RN CHARGE CPT-42039 CBC - LAB USE ONLY 15:55:08 RN CHARGE CPT-15760 Venipuncture Draw Fee 15:55:08 RN CHARGE CPT-Cryo Cryotherapy 11:00:57 CDT CPT-88110 Hand comp min 3V 17:09:13 CDT CPT-98001 Hand comp min 3V 17:08:18 CDT CPT-12628 Fluzone Quadrivalent Intramuscular Suspension 0.5 ML 10: 17:16 CDT CPT-LR Lesion Removal 08:49:09 CDT CPT-21930 Nail Excision 08:49:52 CDT CPT-47953 Venipuncture Draw Fee 16:51:53 RN CHARGE
--- OUTSIDE RECORDS SUMMARY | 2018-08-01 21:48 | XMS REPORT | Clinical Summary ---
Author Author Admin, COURTNEY Organization [employer] Address Unknown Phone Unavailable Allergies, Adverse Reactions, [...] 1 twice day for anxiety BUSPIRONE HCL 98505013426 No Longer Active Yvon Harrison MD Active DEPAKOTE 500 MG ORAL TABLET DELAYED RELEASE take 1 tab po BID for seizures. DIVALPROEX SODIUM 81091278722 No Longer Active Yvon Harrison MD Active SIMVASTATIN 20 MG ORAL TABLET 1 po at qhs SIMVASTATIN 09777451808 No Longer Active Yvon Harrison MD Active CARAFATE 1 GM ORAL TABLET 1 tab q4H SUCRALFATE 08955060757 No Longer Active Yvon Harrison MD Active PANTOPRAZOLE SODIUM 40 MG ORAL TABLET DELAYED RELEASE one tab once daily 2017 PANTOPRAZOLE SODIUM 17301273236 Active Luis Miguel Sapp MD Active PREDNISONE 20 MG ORAL TABLET 2 tabs daily for 3 days, 1 tab daily for 3 days, 1/2 tab daily for 2 days PREDNISONE 88089932788 No Longer Active Yvon Harrison MD Active TERBINAFINE HCL 250 MG ORAL TABLET 1 tab po qday for nail infection. TERBINAFINE HCL 67474716404 No Longer Active Yvon Harrison MD Active DIVALPROEX SODIUM 250 MG ORAL TABLET DELAYED RELEASE 1 po TID DIVALPROEX SODIUM 05018625667 No Longer Active Nick Quiroz MD Active KEFLEX 500 MG ORAL CAPSULE 1 po qid CEPHALEXIN 45145131189 No Longer Active Nick Quiroz MD Active KEFLEX 500 MG ORAL CAPSULE 1 po qid CEPHALEXIN 58293662872 No Longer Active Nick Quiroz MD Active KEFLEX 500 MG ORAL CAPSULE 1 po TID x 10 days CEPHALEXIN 26806556379 No Longer Active Nick Quiroz MD Active KEFLEX 500 MG ORAL CAPSULE 1 po TID x 10 days CEPHALEXIN 81350932375 No Longer Active Nick Quiroz MD Active IBUPROFEN 600 MG ORAL TABLET 1 tablet by mouth every 8 hours prn IBUPROFEN 67042403526 No Longer Active Desmond Montgomery DO Active FLONASE 50 MCG/ACT NASAL SUSPENSION 2 puffs in each nostril daily FLUTICASONE PROPIONATE 70426071121 No Longer Active Desmond Montgomery DO Active LORATADINE 10 MG ORAL TABLET 1 tablet by mouth daily PRN Congestion LORATADINE 53615982394 No Longer Active Desmond Montgomery DO Active LORATADINE 10 MG ORAL TABLET 1 tablet by mouth daily PRN Congestion LORATADINE 10 MG ORAL TABLET 451357 LORATADINE Inactive FLONASE 50 MCG/ACT NASAL SUSPENSION 2 puffs in each nostril daily FLONASE 50 MCG/ACT NASAL SUSPENSION 0412166 FLUTICASONE PROPIONATE Inactive IBUPROFEN 600 MG ORAL TABLET 1 tablet by mouth every 8 hours prn IBUPROFEN 600 MG ORAL TABLET 818472 IBUPROFEN Inactive KEFLEX 500 MG ORAL CAPSULE 1 po TID x 10 days KEFLEX 500 MG ORAL CAPSULE 216595 CEPHALEXIN Inactive KEFLEX 500 MG ORAL CAPSULE 1 po qid KEFLEX 500 MG ORAL CAPSULE 851087 CEPHALEXIN Inactive KEFLEX 500 MG ORAL CAPSULE 1 po qid KEFLEX 500 MG ORAL CAPSULE 261666 CEPHALEXIN Inactive CARAFATE 1 GM ORAL TABLET 1 tab q4H CARAFATE 1 GM ORAL TABLET 121870 SUCRALFATE Inactive SIMVASTATIN 20 MG ORAL TABLET 1 po at qhs SIMVASTATIN 20 MG ORAL TABLET 120912 SIMVASTATIN Inactive DEPAKOTE 500 MG ORAL TABLET DELAYED RELEASE take 1 tab po BID for seizures. DEPAKOTE 500 MG ORAL TABLET DELAYED RELEASE 0006007 DIVALPROEX SODIUM Inactive BUSPIRONE HCL 7.5 MG ORAL TABLET 1 twice day for anxiety BUSPIRONE HCL 7.5 MG ORAL TABLET 996036 BUSPIRONE HCL Inactive KEFLEX 500 MG ORAL CAPSULE 1 po TID x 10 days KEFLEX 500 MG ORAL CAPSULE 016657 CEPHALEXIN Inactive DIVALPROEX SODIUM 250 MG ORAL TABLET DELAYED RELEASE 1 po TID DIVALPROEX SODIUM 250 MG ORAL TABLET DELAYED RELEASE 2353410 DIVALPROEX SODIUM Inactive TERBINAFINE HCL 250 MG ORAL TABLET 1 tab po qday for nail infection. TERBINAFINE HCL 250 MG ORAL TABLET 514477 TERBINAFINE HCL Inactive PREDNISONE 20 MG ORAL TABLET 2 tabs daily for 3 days, 1 tab daily for 3 days, 1/2 tab daily for 2 days PREDNISONE 20 MG ORAL TABLET 427811 PREDNISONE Inactive Vital Signs Date Name Value [...] Measured Encounters Code Encounter Date Provider Facility CPT-27167 Level 3 Est. Patient 11:31:14 CDT Yvon Harrison MD [facility] CPT-05670 [id number] Vst-Est Level III 13:15:10 CDT Yvon Harrison MD [facility]-10532 55352-Rwe Vst-Est Level III 15:15:09 CDT Luis Miguel Sapp MD [facility] CPT-74995 Level 4 Est. Patient 11:00:57 CDT Yvon Harrison MD [facility] CPT-21238 Level 4 Est. Patient 15:53:40 CDT Yvon Harrison MD [facility] CPT-93778 Level 4 Est. Patient 15:42:18 CDT Yvon Harrison MD [facility] CPT-28867 Level 3 Est. Patient 17:08:18 CDT Berta Sweeney APRN [facility] CPT-81952 Level 4 Est. Patient 16:35:02 CAPONIZER Yvon Harrison MD [facility] CPT-43784 Level 4 Est. Patient 15:11:02 CAPONIZER Yvon Harrison MD [facility] CPT-57147 Level 4 Est. Patient 13:18:47 CDT Yvon Harrison MD [facility] CPT-91717 Level 4 Est. Patient 09:51:29 CDT Yvon Harrison MD [facility] CPT-43589 Level 3 Est. Patient 11:40:53 CAPONIZER Nick Quiroz MD [facility] CPT-46560 Level 3 Est. Patient 09:05:46 CDT Nick Quiroz MD [facility] CPT-46265 Level 3 Est. Patient 10:56:05 CDT Nick Quiroz MD [facility] CPT-51776 Level 3 Est. Patient 05:39:31 CDT Desmond Montgomery [facility] CPT-26878 Level 3 Est. Patient 16:18:28 CAPONIZER Nick Quiroz MD [facility] CPT-45568 Level 3 Est. Patient 16:50:04 CAPONIZER Nick Quiroz MD [facility] CPT-48876 Level 3 Est. Patient 22:12:55 CAPONIZER Desmond Montgomery [facility] Procedures Code Procedure Name Date Entry Date Standard Description CPT-65571 Lipid - LAB USE ONLY 15:55:09 CAPONIZER CPT-77388 CMP - LAB USE ONLY 15:55:09 CAPONIZER CPT-93461 CBC - LAB USE ONLY 15:55:08 CAPONIZER CPT-48479 Venipuncture Draw Fee 15:55:08 CAPONIZER CPT-Cryo Cryotherapy 11:00:57 CDT CPT-36487 Hand comp min 3V 17:09:13 CDT CPT-00082 Hand comp min 3V 17:08:18 CDT CPT-20550 Fluzone Quadrivalent Intramuscular Suspension 0.5 ML 10: 17:16 CDT CPT-LR Lesion Removal 08:49:09 CDT CPT-61057 Nail Excision 08:49:52 CDT CPT-92286 Venipuncture Draw Fee 16:51:53 CAPONIZER
--- OUTSIDE RECORDS SUMMARY | 2018-08-01 21:48 | XMS REPORT | Clinical Summary ---
Author Author Admin, COURTNEY Organization [employer] Address Unknown Phone Unavailable Allergies, Adverse Reactions, [...] to excess calories 278.00 Active Luis Miguel Spap MD Obesity, unspecified Generalized anxiety disorder 300.00 Active Luis Miguel Sapp MD Anxiety state, unspecified Worm in stool 128.9 Active Yvon Harrison MD Helminth infection, unspecified Diarrhea 787.91 Active Yvon Harrison MD Diarrhea SEIZURE DISORDER ICD-780.39 Inactive Nick Quiroz MD SEIZURES, HX OF ICD-V12.49 Inactive Nick Quiroz MD FH SEIZURES ICD-V17.2 Inactive Nick Quiroz MD SEIZURE DISORDER ICD-780.39 Quincy Quiroz MD 2011 GASTROENTERITIS, ACUTE ICD-558.9 Inactive Nick Quiroz MD DEHYDRATION ICD-276.51 Quincy Quiroz MD U R I ICD-465.9 Quincy Quiroz MD SPASM, MUSCLE ICD-728.85 Quincy Quiroz MD LYMPHADENITIS-ACUTE ICD-683 Quincy Quiroz MD Medication List Medication Instructions Start Date Stop Date Generic Name NDC Status Provider Patient Instruction BUSPIRONE HCL 7.5 MG ORAL TABLET 1 twice day for anxiety BUSPIRONE HCL 28648726725 Active Luis Miguel Sapp MD Active PANTOPRAZOLE SODIUM 40 MG ORAL TABLET DELAYED RELEASE one tab once daily 2017 PANTOPRAZOLE SODIUM 58562387885 Active Luis Miguel Sapp MD Active CARAFATE 1 GM ORAL TABLET 1 tab q4H SUCRALFATE 81490772344 Active Luis Miguel Sapp MD Active PREDNISONE 20 MG ORAL TABLET 2 tabs daily for 3 days, 1 tab daily for 3 days, 1/2 tab daily for 2 days PREDNISONE 61465435090 No Longer Active Yvon Harrison MD Active TERBINAFINE HCL 250 MG ORAL TABLET 1 tab po qday for nail infection. TERBINAFINE HCL 59477444545 No Longer Active Yvon Harrison MD Active SIMVASTATIN 20 MG ORAL TABLET 1 po at qhs SIMVASTATIN 18106866331 Active Yvon Harrison MD Active DEPAKOTE 500 MG ORAL TABLET DELAYED RELEASE take 1 tab po BID for seizures. DIVALPROEX SODIUM 81479751426 Active Yvon Harrison MD Active DIVALPROEX SODIUM 250 MG ORAL TABLET DELAYED RELEASE 1 po TID DIVALPROEX SODIUM 10916522828 No Longer Active Nick Quiroz MD Active KEFLEX 500 MG ORAL CAPSULE 1 po qid CEPHALEXIN 42805856193 No Longer Active Nick Quiroz MD Active KEFLEX 500 MG ORAL CAPSULE 1 po qid CEPHALEXIN 63834873209 No Longer Active Nick Quiroz MD Active KEFLEX 500 MG ORAL CAPSULE 1 po TID x 10 days CEPHALEXIN 44848250246 No Longer Active Nick Quiroz MD Active KEFLEX 500 MG ORAL CAPSULE 1 po TID x 10 days CEPHALEXIN 15423006715 No Longer Active Nick Quiroz MD Active IBUPROFEN 600 MG ORAL TABLET 1 tablet by mouth every 8 hours prn IBUPROFEN 11897289793 No Longer Active Desmond Montgomery DO Active FLONASE 50 MCG/ACT NASAL SUSPENSION 2 puffs in each nostril daily FLUTICASONE PROPIONATE 41882004664 No Longer Active Desmond Montgomery DO Active LORATADINE 10 MG ORAL TABLET 1 tablet by mouth daily PRN Congestion LORATADINE 32498952191 No Longer Active Desmond Montgomery DO Active LORATADINE 10 MG ORAL TABLET 1 tablet by mouth daily PRN Congestion LORATADINE 10 MG ORAL TABLET 707940 LORATADINE Inactive FLONASE 50 MCG/ACT NASAL SUSPENSION 2 puffs in each nostril daily FLONASE 50 MCG/ACT NASAL SUSPENSION 7695242 FLUTICASONE PROPIONATE Inactive IBUPROFEN 600 MG ORAL TABLET 1 tablet by mouth every 8 hours prn IBUPROFEN 600 MG ORAL TABLET 327045 IBUPROFEN Inactive KEFLEX 500 MG ORAL CAPSULE 1 po TID x 10 days KEFLEX 500 MG ORAL CAPSULE 715418 CEPHALEXIN Inactive KEFLEX 500 MG ORAL CAPSULE 1 po qid KEFLEX 500 MG ORAL CAPSULE 268853 CEPHALEXIN Inactive KEFLEX 500 MG ORAL CAPSULE 1 po qid KEFLEX 500 MG ORAL CAPSULE 108666 CEPHALEXIN Inactive KEFLEX 500 MG ORAL CAPSULE 1 po TID x 10 days KEFLEX 500 MG ORAL CAPSULE 722760 CEPHALEXIN Inactive DIVALPROEX SODIUM 250 MG ORAL TABLET DELAYED RELEASE 1 po TID DIVALPROEX SODIUM 250 MG ORAL TABLET DELAYED RELEASE 3347352 DIVALPROEX SODIUM Inactive TERBINAFINE HCL 250 MG ORAL TABLET 1 tab po qday for nail infection. TERBINAFINE HCL 250 MG ORAL TABLET 202262 TERBINAFINE HCL Inactive PREDNISONE 20 MG ORAL TABLET 2 tabs daily for 3 days, 1 tab daily for 3 days, 1/2 tab daily for 2 days PREDNISONE 20 MG ORAL TABLET 604270 PREDNISONE Inactive Vital Signs Date Name Value Unit Range Description blood pressure, diastolic 82 mm[Hg] BP caro [...] Measured Encounters Code Encounter Date Provider Facility CPT-42768 [id number] Vst-Est Level III 13:15:10 CDT Yvon Harrison MD [facility] CPT-21527 [id number] Vst-Est Level III 15:15:09 CDT Luis Miguel Sapp MD [facility] CPT-94231 Level 4 Est. Patient 11:00:57 CDT Yvon Harrison MD [facility] CPT-15328 Level 4 Est. Patient 15:53:40 CDT Yvon Harrison MD [facility] CPT-25530 Level 4 Est. Patient 15:42:18 CDT Yvon Harrison MD [facility] CPT-15125 Level 3 Est. Patient 17:08:18 CDT Berta Sweeney APRN [facility] CPT-93338 Level 4 Est. Patient 16:35:02 SLOT SHIFT SUPERVISOR Yvon Harrison MD [facility] CPT-43732 Level 4 Est. Patient 15:11:02 SLOT SHIFT SUPERVISOR Yvon Harrison MD [facility] CPT-44861 Level 4 Est. Patient 13:18:47 CDT Yvon Harrison MD [facility] CPT-36586 Level 4 Est. Patient 09:51:29 CDT Yvon Harrison MD [facility] CPT-69118 Level 3 Est. Patient 11:40:53 SLOT SHIFT SUPERVISOR Nick Quiroz MD [facility] CPT-79692 Level 3 Est. Patient 09:05:46 CDT Nick Quiroz MD [facility] CPT-67549 Level 3 Est. Patient 10:56:05 CDT Nick Quiroz MD [facility] CPT-26087 Level 3 Est. Patient 05:39:31 CDT Desmond Montgomery [facility] CPT-65657 Level 3 Est. Patient 16:18:28 SLOT SHIFT SUPERVISOR Nick Quiroz MD [facility] CPT-88085 Level 3 Est. Patient 16:50:04 SLOT SHIFT SUPERVISOR Nick Quiroz MD [facility] CPT-34887 Level 3 Est. Patient 22:12:55 SLOT SHIFT SUPERVISOR Desmond Montgomery DO [facility] Procedures Code Procedure Name Date Entry Date Standard Description CPT-38145 Lipid - LAB USE ONLY 15:55:09 SLOT SHIFT SUPERVISOR CPT-36692 CMP - LAB USE ONLY 15:55:09 SLOT SHIFT SUPERVISOR CPT-16722 CBC - LAB USE ONLY 15:55:08 SLOT SHIFT SUPERVISOR CPT-45985 Venipuncture Draw Fee 15:55:08 SLOT SHIFT SUPERVISOR CPT-Cryo Cryotherapy 11:00:57 CDT CPT-24948 Hand comp min 3V 17:09:13 CDT CPT-12955 Hand comp min 3V 17:08:18 CDT CPT-62827 Fluzone Quadrivalent Intramuscular Suspension 0.5 ML 10: 17:16 CDT CPT-LR Lesion Removal 08:49:09 CDT CPT-08346 Nail Excision 08:49:52 CDT CPT-37837 Venipuncture Draw Fee 16:51:53 SLOT SHIFT SUPERVISOR
--- OUTSIDE RECORDS SUMMARY | 2018-08-01 21:49 | XMS REPORT | Clinical Summary ---
Author Author Admin, COURTNEY Organization [employer] Address Unknown Phone Unavailable Allergies, Adverse [...] Diarrhea 787.91 Active Yvon Harrison MD Diarrhea SEIZURES, HX OF ICD-V12.49 Inactive Nick Quiroz MD FH SEIZURES ICD-V17.2 Inactive Nick Quiroz MD SEIZURE DISORDER ICD-780.39 Quincy Quiroz MD 2011 GASTROENTERITIS, ACUTE ICD-558.9 Inactive Nick Quiroz MD DEHYDRATION ICD-276.51 Inactive iNck Quiroz MD U R I ICD-465.9 Inactive Nick Quiroz MD SPASM, MUSCLE ICD-728.85 Inactive Nick Quiroz MD SEIZURE DISORDER ICD-780.39 Quincy Quiroz MD LYMPHADENITIS-ACUTE ICD-683 Inactive Nick Quiroz MD Medication List Medication Instructions Start Date Stop Date Generic Name NDC Status Provider Patient Instruction BUSPIRONE HCL 7.5 MG ORAL TABLET 1 twice day for anxiety BUSPIRONE HCL 63947136963 Active Luis Miguel Sapp MD Active PANTOPRAZOLE SODIUM 40 MG ORAL TABLET DELAYED RELEASE one tab once daily 2017 PANTOPRAZOLE SODIUM 46924204451 Active Luis Miguel Sapp MD Active CARAFATE 1 GM ORAL TABLET 1 tab q4H SUCRALFATE 49649666556 Active Luis Miguel Sapp MD Active PREDNISONE 20 MG ORAL TABLET 2 tabs daily for 3 days, 1 tab daily for 3 days, 1/2 tab daily for 2 days PREDNISONE 52328544388 No Longer Active Yvon Harrison MD Active TERBINAFINE HCL 250 MG ORAL TABLET 1 tab po qday for nail infection. TERBINAFINE HCL 01443445591 No Longer Active Yvon Harrison MD Active SIMVASTATIN 20 MG ORAL TABLET 1 po at qhs SIMVASTATIN 03504931287 Active Yvon Harrison MD Active DEPAKOTE 500 MG ORAL TABLET DELAYED RELEASE take 1 tab po BID for seizures. DIVALPROEX SODIUM 75102392574 Active Yvon Harrison MD Active DIVALPROEX SODIUM 250 MG ORAL TABLET DELAYED RELEASE 1 po TID DIVALPROEX SODIUM 24621278455 No Longer Active Nick Quiroz MD Active KEFLEX 500 MG ORAL CAPSULE 1 po qid CEPHALEXIN 81305698097 No Longer Active Nick Quiroz MD Active KEFLEX 500 MG ORAL CAPSULE 1 po qid CEPHALEXIN 16532359628 No Longer Active Nick Quiroz MD Active KEFLEX 500 MG ORAL CAPSULE 1 po TID x 10 days CEPHALEXIN 33156351352 No Longer Active Nick Quiroz MD Active KEFLEX 500 MG ORAL CAPSULE 1 po TID x 10 days CEPHALEXIN 12866497982 No Longer Active Nick Quiroz MD Active IBUPROFEN 600 MG ORAL TABLET 1 tablet by mouth every 8 hours prn IBUPROFEN 32171598706 No Longer Active Desmond Montgomery DO Active FLONASE 50 MCG/ACT NASAL SUSPENSION 2 puffs in each nostril daily FLUTICASONE PROPIONATE 58104061707 No Longer Active Desmond Montgomery DO Active LORATADINE 10 MG ORAL TABLET 1 tablet by mouth daily PRN Congestion LORATADINE 04612090072 No Longer Active eDsmond Montgomery DO Active LORATADINE 10 MG ORAL TABLET 1 tablet by mouth daily PRN Congestion LORATADINE 10 MG ORAL TABLET 133331 LORATADINE Inactive FLONASE 50 MCG/ACT NASAL SUSPENSION 2 puffs in each nostril daily FLONASE 50 MCG/ACT NASAL SUSPENSION 6046925 FLUTICASONE PROPIONATE Inactive IBUPROFEN 600 MG ORAL TABLET 1 tablet by mouth every 8 hours prn IBUPROFEN 600 MG ORAL TABLET 397888 IBUPROFEN Inactive KEFLEX 500 MG ORAL CAPSULE 1 po TID x 10 days KEFLEX 500 MG ORAL CAPSULE 966001 CEPHALEXIN Inactive KEFLEX 500 MG ORAL CAPSULE 1 po qid KEFLEX 500 MG ORAL CAPSULE 537291 CEPHALEXIN Inactive KEFLEX 500 MG ORAL CAPSULE 1 po qid KEFLEX 500 MG ORAL CAPSULE 407871 CEPHALEXIN Inactive KEFLEX 500 MG ORAL CAPSULE 1 po TID x 10 days KEFLEX 500 MG ORAL CAPSULE 888649 CEPHALEXIN Inactive DIVALPROEX SODIUM 250 MG ORAL TABLET DELAYED RELEASE 1 po TID DIVALPROEX SODIUM 250 MG ORAL TABLET DELAYED RELEASE 3594066 DIVALPROEX SODIUM Inactive TERBINAFINE HCL 250 MG ORAL TABLET 1 tab po qday for nail infection. TERBINAFINE HCL 250 MG ORAL TABLET 250631 TERBINAFINE HCL Inactive PREDNISONE 20 MG ORAL TABLET 2 tabs daily for 3 days, 1 tab daily for 3 days, 1/2 tab daily for 2 days PREDNISONE 20 MG ORAL TABLET 527593 PREDNISONE Inactive Vital Signs Date Name Value [...] Measured Encounters Code Encounter Date Provider Facility CPT-38277 [id number] Vst-Est Level III 13:15:10 CDT Yvon Harrison MD [facility] CPT-05107 [id number] Vst-Est Level III 15:15:09 CDT Luis Miguel Sapp MD [facility] CPT-97162 Level 4 Est. Patient 11:00:57 CDT Yvon Harrison MD [facility] CPT-57193 Level 4 Est. Patient 15:53:40 CDT Yvon Harrison MD [facility] CPT-18217 Level 4 Est. Patient 15:42:18 CDT Yvon Harrison MD [facility] CPT-75476 Level 3 Est. Patient 17:08:18 CDT Berta Sweeney APRN [facility] CPT-60376 Level 4 Est. Patient 16:35:02 FRONT OFFICE COORDINATOR Yvon Harrison MD [facility] CPT-77573 Level 4 Est. Patient 15:11:02 FRONT OFFICE COORDINATOR Yvon Harrison MD [facility] CPT-68349 Level 4 Est. Patient 13:18:47 CDT Yvon Harrison MD [facility] CPT-49124 Level 4 Est. Patient 09:51:29 CDT Yvon Harrison MD [facility] CPT-12862 Level 3 Est. Patient 11:40:53 FRONT OFFICE COORDINATOR Nick Quiroz MD [facility] CPT-33969 Level 3 Est. Patient 09:05:46 CDT Nick Quiroz MD [facility] CPT-54133 Level 3 Est. Patient 10:56:05 CDT Nick Quiroz MD [facility] CPT-55666 Level 3 Est. Patient 05:39:31 CDT Desmond Montgomery [facility] CPT-50241 Level 3 Est. Patient 16:18:28 FRONT OFFICE COORDINATOR Nick Quiroz MD [facility] CPT-71835 Level 3 Est. Patient 16:50:04 FRONT OFFICE COORDINATOR Nick Quiroz MD [facility] CPT-52744 Level 3 Est. Patient 22:12:55 FRONT OFFICE COORDINATOR Desmond Montgomery DO [facility] Procedures Code Procedure Name Date Entry Date Standard Description CPT-68298 Lipid - LAB USE ONLY 15:55:09 FRONT OFFICE COORDINATOR CPT-01531 CMP - LAB USE ONLY 15:55:09 FRONT OFFICE COORDINATOR CPT-82965 CBC - LAB USE ONLY 15:55:08 FRONT OFFICE COORDINATOR CPT-48839 Venipuncture Draw Fee 15:55:08 FRONT OFFICE COORDINATOR CPT-Cryo Cryotherapy 11:00:57 CDT CPT-98979 Hand comp min 3V 17:09:13 CDT CPT-27948 Hand comp min 3V 17:08:18 CDT CPT-81467 Fluzone Quadrivalent Intramuscular Suspension 0.5 ML 10: 17:16 CDT CPT-LR Lesion Removal 08:49:09 CDT CPT-50334 Nail Excision 08:49:52 CDT CPT-39991 Venipuncture Draw Fee 16:51:53 FRONT OFFICE COORDINATOR
--- OUTSIDE RECORDS SUMMARY | 2018-08-01 21:49 | XMS REPORT | Clinical Summary ---
Author Author Admin, COURTNEY Organization [employer] Address Unknown Phone Unavailable Allergies, Adverse Reactions, [...] 1 twice day for anxiety BUSPIRONE HCL 92580383860 Active Luis Miguel Sapp MD Active PANTOPRAZOLE SODIUM 40 MG ORAL TABLET DELAYED RELEASE one tab once daily 2017 PANTOPRAZOLE SODIUM 44360569634 Active Luis Miguel Sapp MD Active CARAFATE 1 GM ORAL TABLET 1 tab q4H SUCRALFATE 98101758000 Active Luis Miguel Sapp MD Active PREDNISONE 20 MG ORAL TABLET 2 tabs daily for 3 days, 1 tab daily for 3 days, 1/2 tab daily for 2 days PREDNISONE 58327708604 No Longer Active Yvon Harrison MD Active TERBINAFINE HCL 250 MG ORAL TABLET 1 tab po qday for nail infection. TERBINAFINE HCL 92828442853 No Longer Active Yvon Harrison MD Active SIMVASTATIN 20 MG ORAL TABLET 1 po at qhs SIMVASTATIN 13887278795 Active Yvon Harrison MD Active DEPAKOTE 500 MG ORAL TABLET DELAYED RELEASE take 1 tab po BID for seizures. DIVALPROEX SODIUM 82357543824 Active Yvon Harrison MD Active DIVALPROEX SODIUM 250 MG ORAL TABLET DELAYED RELEASE 1 po TID DIVALPROEX SODIUM 88999488142 No Longer Active Nick Quiroz MD Active KEFLEX 500 MG ORAL CAPSULE 1 po qid CEPHALEXIN 65977214614 No Longer Active Nick Quiroz MD Active KEFLEX 500 MG ORAL CAPSULE 1 po qid CEPHALEXIN 69450584520 No Longer Active Nick Quiroz MD Active KEFLEX 500 MG ORAL CAPSULE 1 po TID x 10 days CEPHALEXIN 84840708524 No Longer Active Nick Quiroz MD Active KEFLEX 500 MG ORAL CAPSULE 1 po TID x 10 days CEPHALEXIN 49026639831 No Longer Active Nick Quiroz MD Active IBUPROFEN 600 MG ORAL TABLET 1 tablet by mouth every 8 hours prn IBUPROFEN 31838257444 No Longer Active Desmond Montgomery DO Active FLONASE 50 MCG/ACT NASAL SUSPENSION 2 puffs in each nostril daily FLUTICASONE PROPIONATE 86441352267 No Longer Active Desmond Montgomery DO Active LORATADINE 10 MG ORAL TABLET 1 tablet by mouth daily PRN Congestion LORATADINE 54095070864 No Longer Active Desmond Montgomery DO Active LORATADINE 10 MG ORAL TABLET 1 tablet by mouth daily PRN Congestion LORATADINE 10 MG ORAL TABLET 810738 LORATADINE Inactive FLONASE 50 MCG/ACT NASAL SUSPENSION 2 puffs in each nostril daily FLONASE 50 MCG/ACT NASAL SUSPENSION 5260008 FLUTICASONE PROPIONATE Inactive IBUPROFEN 600 MG ORAL TABLET 1 tablet by mouth every 8 hours prn IBUPROFEN 600 MG ORAL TABLET 830683 IBUPROFEN Inactive KEFLEX 500 MG ORAL CAPSULE 1 po TID x 10 days KEFLEX 500 MG ORAL CAPSULE 911133 CEPHALEXIN Inactive KEFLEX 500 MG ORAL CAPSULE 1 po qid KEFLEX 500 MG ORAL CAPSULE 829549 CEPHALEXIN Inactive KEFLEX 500 MG ORAL CAPSULE 1 po qid KEFLEX 500 MG ORAL CAPSULE 693456 CEPHALEXIN Inactive KEFLEX 500 MG ORAL CAPSULE 1 po TID x 10 days KEFLEX 500 MG ORAL CAPSULE 767508 CEPHALEXIN Inactive DIVALPROEX SODIUM 250 MG ORAL TABLET DELAYED RELEASE 1 po TID DIVALPROEX SODIUM 250 MG ORAL TABLET DELAYED RELEASE 6001946 DIVALPROEX SODIUM Inactive TERBINAFINE HCL 250 MG ORAL TABLET 1 tab po qday for nail infection. TERBINAFINE HCL 250 MG ORAL TABLET 491531 TERBINAFINE HCL Inactive PREDNISONE 20 MG ORAL TABLET 2 tabs daily for 3 days, 1 tab daily for 3 days, 1/2 tab daily for 2 days PREDNISONE 20 MG ORAL TABLET 236450 PREDNISONE Inactive Vital Signs Date Name Value [...] Measured Encounters Code Encounter Date Provider Facility CPT-01818 [id number] Vst-Est Level III 13:15:10 CDT Yvon Harrison MD [facility] CPT-24703 [id number] Vst-Est Level III 15:15:09 CDT Luis Miguel Sapp MD [facility] CPT-14081 Level 4 Est. Patient 11:00:57 CDT Yvon Harrison MD [facility] CPT-79499 Level 4 Est. Patient 15:53:40 CDT Yvon Harrison MD [facility] CPT-15903 Level 4 Est. Patient 15:42:18 CDT Yvon Harrison MD [facility] CPT-96052 Level 3 Est. Patient 17:08:18 CDT Berta Sweeney APRN [facility] CPT-86394 Level 4 Est. Patient 16:35:02 CRISIS MANAGER Yvon Harrison MD [facility] CPT-41689 Level 4 Est. Patient 15:11:02 CRISIS MANAGER Yvon Harrison MD [facility] CPT-54907 Level 4 Est. Patient 13:18:47 CDT Yvon Harrison MD [facility] CPT-93274 Level 4 Est. Patient 09:51:29 CDT Yvon Harrison MD [facility] CPT-12766 Level 3 Est. Patient 11:40:53 CRISIS MANAGER Nick Quiroz MD [facility] CPT-30857 Level 3 Est. Patient 09:05:46 CDT Nick Quiroz MD [facility] CPT-48201 Level 3 Est. Patient 10:56:05 CDT Nick Quiroz MD [facility] CPT-05478 Level 3 Est. Patient 05:39:31 CDT Desmond Montgomery [facility] CPT-54769 Level 3 Est. Patient 16:18:28 CRISIS MANAGER Nick Quiroz MD [facility] CPT-09066 Level 3 Est. Patient 16:50:04 CRISIS MANAGER Nick Quiroz MD [facility] CPT-99509 Level 3 Est. Patient 22:12:55 CRISIS MANAGER Desmond Montgomery DO [facility] Procedures Code Procedure Name Date Entry Date Standard Description CPT-48926 Lipid - LAB USE ONLY 15:55:09 CRISIS MANAGER CPT-12141 CMP - LAB USE ONLY 15:55:09 CRISIS MANAGER CPT-54985 CBC - LAB USE ONLY 15:55:08 CRISIS MANAGER CPT-71922 Venipuncture Draw Fee 15:55:08 CRISIS MANAGER CPT-Cryo Cryotherapy 11:00:57 CDT CPT-01751 Hand comp min 3V 17:09:13 CDT CPT-09062 Hand comp min 3V 17:08:18 CDT CPT-46547 Fluzone Quadrivalent Intramuscular Suspension 0.5 ML 10: 17:16 CDT CPT-LR Lesion Removal 08:49:09 CDT CPT-39091 Nail Excision 08:49:52 CDT CPT-52976 Venipuncture Draw Fee 16:51:53 CRISIS MANAGER
--- OUTSIDE RECORDS SUMMARY | 2018-08-01 21:50 | XMS REPORT | Clinical Summary ---
Author Author Admin, COURTNEY Organization [employer] Address Unknown Phone Unavailable Allergies, Adverse Reactions, [...] 1 twice day for anxiety BUSPIRONE HCL 19838653090 Active Luis Miguel Sapp MD Active PANTOPRAZOLE SODIUM 40 MG ORAL TABLET DELAYED RELEASE one tab once daily 2017 PANTOPRAZOLE SODIUM 09758110603 Active Luis Miguel Sapp MD Active CARAFATE 1 GM ORAL TABLET 1 tab q4H SUCRALFATE 36206954850 Active Luis Miguel Sapp MD Active PREDNISONE 20 MG ORAL TABLET 2 tabs daily for 3 days, 1 tab daily for 3 days, 1/2 tab daily for 2 days PREDNISONE 29090386356 No Longer Active Yvon Harrison MD Active TERBINAFINE HCL 250 MG ORAL TABLET 1 tab po qday for nail infection. TERBINAFINE HCL 35507747471 No Longer Active Yvon Harrison MD Active SIMVASTATIN 20 MG ORAL TABLET 1 po at qhs SIMVASTATIN 68519106008 Active Yvon Harrison MD Active DEPAKOTE 500 MG ORAL TABLET DELAYED RELEASE take 1 tab po BID for seizures. DIVALPROEX SODIUM 62633331875 Active Yvon Harrison MD Active DIVALPROEX SODIUM 250 MG ORAL TABLET DELAYED RELEASE 1 po TID DIVALPROEX SODIUM 57977232484 No Longer Active Nick Quiroz MD Active KEFLEX 500 MG ORAL CAPSULE 1 po qid CEPHALEXIN 58127201764 No Longer Active Nick Quiroz MD Active KEFLEX 500 MG ORAL CAPSULE 1 po qid CEPHALEXIN 94802730564 No Longer Active Nick Quiroz MD Active KEFLEX 500 MG ORAL CAPSULE 1 po TID x 10 days CEPHALEXIN 67126758979 No Longer Active Nick Quiroz MD Active KEFLEX 500 MG ORAL CAPSULE 1 po TID x 10 days CEPHALEXIN 01810850887 No Longer Active Nick Quiroz MD Active IBUPROFEN 600 MG ORAL TABLET 1 tablet by mouth every 8 hours prn IBUPROFEN 87432393016 No Longer Active Desmond Montgomery DO Active FLONASE 50 MCG/ACT NASAL SUSPENSION 2 puffs in each nostril daily FLUTICASONE PROPIONATE 15764711481 No Longer Active Desmond Montgomery DO Active LORATADINE 10 MG ORAL TABLET 1 tablet by mouth daily PRN Congestion LORATADINE 23690384113 No Longer Active Desmond Montgomery DO Active LORATADINE 10 MG ORAL TABLET 1 tablet by mouth daily PRN Congestion LORATADINE 10 MG ORAL TABLET 532477 LORATADINE Inactive FLONASE 50 MCG/ACT NASAL SUSPENSION 2 puffs in each nostril daily FLONASE 50 MCG/ACT NASAL SUSPENSION 6247874 FLUTICASONE PROPIONATE Inactive IBUPROFEN 600 MG ORAL TABLET 1 tablet by mouth every 8 hours prn IBUPROFEN 600 MG ORAL TABLET 439316 IBUPROFEN Inactive KEFLEX 500 MG ORAL CAPSULE 1 po TID x 10 days KEFLEX 500 MG ORAL CAPSULE 157909 CEPHALEXIN Inactive KEFLEX 500 MG ORAL CAPSULE 1 po qid KEFLEX 500 MG ORAL CAPSULE 465858 CEPHALEXIN Inactive KEFLEX 500 MG ORAL CAPSULE 1 po qid KEFLEX 500 MG ORAL CAPSULE 715335 CEPHALEXIN Inactive KEFLEX 500 MG ORAL CAPSULE 1 po TID x 10 days KEFLEX 500 MG ORAL CAPSULE 234707 CEPHALEXIN Inactive DIVALPROEX SODIUM 250 MG ORAL TABLET DELAYED RELEASE 1 po TID DIVALPROEX SODIUM 250 MG ORAL TABLET DELAYED RELEASE 0830425 DIVALPROEX SODIUM Inactive TERBINAFINE HCL 250 MG ORAL TABLET 1 tab po qday for nail infection. TERBINAFINE HCL 250 MG ORAL TABLET 340456 TERBINAFINE HCL Inactive PREDNISONE 20 MG ORAL TABLET 2 tabs daily for 3 days, 1 tab daily for 3 days, 1/2 tab daily for 2 days PREDNISONE 20 MG ORAL TABLET 717297 PREDNISONE Inactive Vital Signs Date Name Value [...] Measured Encounters Code Encounter Date Provider Facility CPT-08786 [id number] Vst-Est Level III 13:15:10 CDT Yvon Harrison MD [facility] CPT-61251 [id number] Vst-Est Level III 15:15:09 CDT Luis Miguel Sapp MD [facility] CPT-87296 Level 4 Est. Patient 11:00:57 CDT Yvon Harrison MD [facility] CPT-85239 Level 4 Est. Patient 15:53:40 CDT Yvon Harrison MD [facility] CPT-68324 Level 4 Est. Patient 15:42:18 CDT Yvon Harrison MD [facility] CPT-24151 Level 3 Est. Patient 17:08:18 CDT Berta Sweeney APRN [facility] CPT-64144 Level 4 Est. Patient 16:35:02 INVESTMENT ACCOUNTANT Yvon Harrison MD [facility] CPT-98190 Level 4 Est. Patient 15:11:02 INVESTMENT ACCOUNTANT Yvon Harrison MD [facility] CPT-69351 Level 4 Est. Patient 13:18:47 CDT Yvon Harrison MD [facility] CPT-04434 Level 4 Est. Patient 09:51:29 CDT Yvon Harrison MD [facility] CPT-42096 Level 3 Est. Patient 11:40:53 INVESTMENT ACCOUNTANT Nick Quiroz MD [facility] CPT-58200 Level 3 Est. Patient 09:05:46 CDT Nick Quiroz MD [facility] CPT-43886 Level 3 Est. Patient 10:56:05 CDT Nick Quiroz MD [facility] CPT-69605 Level 3 Est. Patient 05:39:31 CDT Desmond Montgomery [facility] CPT-62074 Level 3 Est. Patient 16:18:28 INVESTMENT ACCOUNTANT Nick Quiroz MD [facility] CPT-43299 Level 3 Est. Patient 16:50:04 INVESTMENT ACCOUNTANT Nick Quiroz MD [facility] CPT-08092 Level 3 Est. Patient 22:12:55 INVESTMENT ACCOUNTANT Desmond Montgomery DO [facility] Procedures Code Procedure Name Date Entry Date Standard Description CPT-22177 Lipid - LAB USE ONLY 15:55:09 INVESTMENT ACCOUNTANT CPT-06106 CMP - LAB USE ONLY 15:55:09 INVESTMENT ACCOUNTANT CPT-58934 CBC - LAB USE ONLY 15:55:08 INVESTMENT ACCOUNTANT CPT-39915 Venipuncture Draw Fee 15:55:08 INVESTMENT ACCOUNTANT CPT-Cryo Cryotherapy 11:00:57 CDT CPT-52473 Hand comp min 3V 17:09:13 CDT CPT-40413 Hand comp min 3V 17:08:18 CDT CPT-98421 Fluzone Quadrivalent Intramuscular Suspension 0.5 ML 10: 17:16 CDT CPT-LR Lesion Removal 08:49:09 CDT CPT-42375 Nail Excision 08:49:52 CDT CPT-56108 Venipuncture Draw Fee 16:51:53 INVESTMENT ACCOUNTANT
--- OUTSIDE RECORDS SUMMARY | 2018-08-01 21:50 | XMS REPORT | Clinical Summary ---
Author Author Admin, COURTNEY Organization [employer] Address Unknown Phone Unavailable Allergies, Adverse Reactions, [...] 1 twice day for anxiety BUSPIRONE HCL 19517596570 Active Luis Miguel Sapp MD Active PANTOPRAZOLE SODIUM 40 MG ORAL TABLET DELAYED RELEASE one tab once daily 2017 PANTOPRAZOLE SODIUM 17271461787 Active Luis Miguel Sapp MD Active CARAFATE 1 GM ORAL TABLET 1 tab q4H SUCRALFATE 35085679390 Active Luis Miguel Sapp MD Active PREDNISONE 20 MG ORAL TABLET 2 tabs daily for 3 days, 1 tab daily for 3 days, 1/2 tab daily for 2 days PREDNISONE 24531872057 No Longer Active Yvon Harrison MD Active TERBINAFINE HCL 250 MG ORAL TABLET 1 tab po qday for nail infection. TERBINAFINE HCL 90402142159 No Longer Active Yvon Harrison MD Active SIMVASTATIN 20 MG ORAL TABLET 1 po at qhs SIMVASTATIN 40839862018 Active Yvon Harrison MD Active DEPAKOTE 500 MG ORAL TABLET DELAYED RELEASE take 1 tab po BID for seizures. DIVALPROEX SODIUM 11726975901 Active Yvon Harrison MD Active DIVALPROEX SODIUM 250 MG ORAL TABLET DELAYED RELEASE 1 po TID DIVALPROEX SODIUM 01226775831 No Longer Active Nick Quiroz MD Active KEFLEX 500 MG ORAL CAPSULE 1 po qid CEPHALEXIN 92678507729 No Longer Active Nick Quiroz MD Active KEFLEX 500 MG ORAL CAPSULE 1 po qid CEPHALEXIN 41305686027 No Longer Active Nick Quiroz MD Active KEFLEX 500 MG ORAL CAPSULE 1 po TID x 10 days CEPHALEXIN 33771462850 No Longer Active Nick Quiroz MD Active KEFLEX 500 MG ORAL CAPSULE 1 po TID x 10 days CEPHALEXIN 18635512101 No Longer Active Nick Quiroz MD Active IBUPROFEN 600 MG ORAL TABLET 1 tablet by mouth every 8 hours prn IBUPROFEN 33971832503 No Longer Active Desmond Montgomery DO Active FLONASE 50 MCG/ACT NASAL SUSPENSION 2 puffs in each nostril daily FLUTICASONE PROPIONATE 31198284683 No Longer Active Desmond Montgomery DO Active LORATADINE 10 MG ORAL TABLET 1 tablet by mouth daily PRN Congestion LORATADINE 21497759487 No Longer Active Desmond Montgomery DO Active LORATADINE 10 MG ORAL TABLET 1 tablet by mouth daily PRN Congestion LORATADINE 10 MG ORAL TABLET 276156 LORATADINE Inactive FLONASE 50 MCG/ACT NASAL SUSPENSION 2 puffs in each nostril daily FLONASE 50 MCG/ACT NASAL SUSPENSION 6640683 FLUTICASONE PROPIONATE Inactive IBUPROFEN 600 MG ORAL TABLET 1 tablet by mouth every 8 hours prn IBUPROFEN 600 MG ORAL TABLET 448577 IBUPROFEN Inactive KEFLEX 500 MG ORAL CAPSULE 1 po TID x 10 days KEFLEX 500 MG ORAL CAPSULE 666920 CEPHALEXIN Inactive KEFLEX 500 MG ORAL CAPSULE 1 po qid KEFLEX 500 MG ORAL CAPSULE 660969 CEPHALEXIN Inactive KEFLEX 500 MG ORAL CAPSULE 1 po qid KEFLEX 500 MG ORAL CAPSULE 792035 CEPHALEXIN Inactive KEFLEX 500 MG ORAL CAPSULE 1 po TID x 10 days KEFLEX 500 MG ORAL CAPSULE 546045 CEPHALEXIN Inactive DIVALPROEX SODIUM 250 MG ORAL TABLET DELAYED RELEASE 1 po TID DIVALPROEX SODIUM 250 MG ORAL TABLET DELAYED RELEASE 2364854 DIVALPROEX SODIUM Inactive TERBINAFINE HCL 250 MG ORAL TABLET 1 tab po qday for nail infection. TERBINAFINE HCL 250 MG ORAL TABLET 406569 TERBINAFINE HCL Inactive PREDNISONE 20 MG ORAL TABLET 2 tabs daily for 3 days, 1 tab daily for 3 days, 1/2 tab daily for 2 days PREDNISONE 20 MG ORAL TABLET 916705 PREDNISONE Inactive Vital Signs Date Name Value [...] Measured Encounters Code Encounter Date Provider Facility CPT-68379 52717-Lcd Vst-Est Level III 13:15:10 CDT Yvon Harrison MD [facility] CPT-21196 01029-Zas Vst-Est Level III 15:15:09 CDT Luis Miguel Sapp MD [facility] CPT-28963 Level 4 Est. Patient 11:00:57 CDT Yvon Harrison MD [facility] CPT-06650 Level 4 Est. Patient 15:53:40 CDT Yvon Harrison MD [facility] CPT-30973 Level 4 Est. Patient 15:42:18 CDT Yvon Harrison MD [facility] CPT-92711 Level 3 Est. Patient 17:08:18 CDT Berta Sweeney APRN [facility] CPT-89455 Level 4 Est. Patient 16:35:02 PATIENT SAFETY TECH Yvon Harrison MD [facility] CPT-54852 Level 4 Est. Patient 15:11:02 PATIENT SAFETY TECH Yvon Harrison MD [facility] CPT-33433 Level 4 Est. Patient 13:18:47 CDT Yvon Harrison MD [facility] CPT-72217 Level 4 Est. Patient 09:51:29 CDT Yvon Harrison MD [facility] CPT-11956 Level 3 Est. Patient 11:40:53 PATIENT SAFETY TECH Nick Quiroz MD [facility] CPT-57339 Level 3 Est. Patient 09:05:46 CDT Nick Quiroz MD [facility] CPT-89534 Level 3 Est. Patient 10:56:05 CDT Nick Quiroz MD [facility] CPT-43009 Level 3 Est. Patient 05:39:31 CDT Desmond Montgomery [facility] CPT-98535 Level 3 Est. Patient 16:18:28 PATIENT SAFETY TECH Nick Quiroz MD [facility] CPT-70298 Level 3 Est. Patient 16:50:04 PATIENT SAFETY TECH Nick Quiroz MD [facility] CPT-38975 Level 3 Est. Patient 22:12:55 PATIENT SAFETY TECH Desmond Montgomery DO [facility] Procedures Code Procedure Name Date Entry Date Standard Description CPT-90721 Lipid - LAB USE ONLY 15:55:09 PATIENT SAFETY TECH CPT-75677 CMP - LAB USE ONLY 15:55:09 PATIENT SAFETY TECH CPT-31307 CBC - LAB USE ONLY 15:55:08 PATIENT SAFETY TECH CPT-48672 Venipuncture Draw Fee 15:55:08 PATIENT SAFETY TECH CPT-Cryo Cryotherapy 11:00:57 CDT CPT-04229 Hand comp min 3V 17:09:13 CDT CPT-22478 Hand comp min 3V 17:08:18 CDT CPT-47857 Fluzone Quadrivalent Intramuscular Suspension 0.5 ML 10: 17:16 CDT CPT-LR Lesion Removal 08:49:09 CDT CPT-42083 Nail Excision 08:49:52 CDT CPT-61205 Venipuncture Draw Fee 16:51:53 PATIENT SAFETY TECH
--- OUTSIDE RECORDS SUMMARY | 2018-08-01 21:50 | XMS REPORT | Clinical Summary ---
Author Author Admin, COURTNEY Organization [employer] Address Unknown Phone Unavailable Allergies, Adverse Reactions, [...] 1 twice day for anxiety BUSPIRONE HCL 63476156156 Active Luis Miguel Sapp MD Active PANTOPRAZOLE SODIUM 40 MG ORAL TABLET DELAYED RELEASE one tab once daily 2017 PANTOPRAZOLE SODIUM 51088103182 Active Luis Miguel Sapp MD Active CARAFATE 1 GM ORAL TABLET 1 tab q4H SUCRALFATE 06035588655 Active Luis Miguel Sapp MD Active PREDNISONE 20 MG ORAL TABLET 2 tabs daily for 3 days, 1 tab daily for 3 days, 1/2 tab daily for 2 days PREDNISONE 26309250348 No Longer Active Yvon Harrison MD Active TERBINAFINE HCL 250 MG ORAL TABLET 1 tab po qday for nail infection. TERBINAFINE HCL 41747632433 No Longer Active Yvon Harrison MD Active SIMVASTATIN 20 MG ORAL TABLET 1 po at qhs SIMVASTATIN 13928573134 Active Yvon Harrison MD Active DEPAKOTE 500 MG ORAL TABLET DELAYED RELEASE take 1 tab po BID for seizures. DIVALPROEX SODIUM 69254524330 Active Yvon Harrison MD Active DIVALPROEX SODIUM 250 MG ORAL TABLET DELAYED RELEASE 1 po TID DIVALPROEX SODIUM 43060488113 No Longer Active Nick Quiroz MD Active KEFLEX 500 MG ORAL CAPSULE 1 po qid CEPHALEXIN 92551176272 No Longer Active Nick Quiroz MD Active KEFLEX 500 MG ORAL CAPSULE 1 po qid CEPHALEXIN 25122311445 No Longer Active Nick Quiroz MD Active KEFLEX 500 MG ORAL CAPSULE 1 po TID x 10 days CEPHALEXIN 40558921272 No Longer Active Nick Quiroz MD Active KEFLEX 500 MG ORAL CAPSULE 1 po TID x 10 days CEPHALEXIN 45007608285 No Longer Active Nick Quiroz MD Active IBUPROFEN 600 MG ORAL TABLET 1 tablet by mouth every 8 hours prn IBUPROFEN 84100407010 No Longer Active Desmond Montgomery DO Active FLONASE 50 MCG/ACT NASAL SUSPENSION 2 puffs in each nostril daily FLUTICASONE PROPIONATE 43535522316 No Longer Active Desmond Montgomery DO Active LORATADINE 10 MG ORAL TABLET 1 tablet by mouth daily PRN Congestion LORATADINE 70260059684 No Longer Active Desmond Montgomery DO Active LORATADINE 10 MG ORAL TABLET 1 tablet by mouth daily PRN Congestion LORATADINE 10 MG ORAL TABLET 705649 LORATADINE Inactive FLONASE 50 MCG/ACT NASAL SUSPENSION 2 puffs in each nostril daily FLONASE 50 MCG/ACT NASAL SUSPENSION 1669121 FLUTICASONE PROPIONATE Inactive IBUPROFEN 600 MG ORAL TABLET 1 tablet by mouth every 8 hours prn IBUPROFEN 600 MG ORAL TABLET 938711 IBUPROFEN Inactive KEFLEX 500 MG ORAL CAPSULE 1 po TID x 10 days KEFLEX 500 MG ORAL CAPSULE 728721 CEPHALEXIN Inactive KEFLEX 500 MG ORAL CAPSULE 1 po qid KEFLEX 500 MG ORAL CAPSULE 340826 CEPHALEXIN Inactive KEFLEX 500 MG ORAL CAPSULE 1 po qid KEFLEX 500 MG ORAL CAPSULE 606387 CEPHALEXIN Inactive KEFLEX 500 MG ORAL CAPSULE 1 po TID x 10 days KEFLEX 500 MG ORAL CAPSULE 577407 CEPHALEXIN Inactive DIVALPROEX SODIUM 250 MG ORAL TABLET DELAYED RELEASE 1 po TID DIVALPROEX SODIUM 250 MG ORAL TABLET DELAYED RELEASE 0755141 DIVALPROEX SODIUM Inactive TERBINAFINE HCL 250 MG ORAL TABLET 1 tab po qday for nail infection. TERBINAFINE HCL 250 MG ORAL TABLET 702555 TERBINAFINE HCL Inactive PREDNISONE 20 MG ORAL TABLET 2 tabs daily for 3 days, 1 tab daily for 3 days, 1/2 tab daily for 2 days PREDNISONE 20 MG ORAL TABLET 285321 PREDNISONE Inactive Vital Signs Date Name Value [...] Measured Encounters Code Encounter Date Provider Facility CPT-98862 27749-Mcf Vst-Est Level III 13:15:10 CDT Yvon Harrison MD [facility] CPT-84088 86286-Hml Vst-Est Level III 15:15:09 CDT Luis Miguel Sapp MD [facility] CPT-54899 Level 4 Est. Patient 11:00:57 CDT Yvon Harrison MD [facility] CPT-05762 Level 4 Est. Patient 15:53:40 CDT Yvon Harrison MD [facility] CPT-08911 Level 4 Est. Patient 15:42:18 CDT Yvon Harrison MD [facility] CPT-28542 Level 3 Est. Patient 17:08:18 CDT Berta Sweeney APRN [facility] CPT-09527 Level 4 Est. Patient 16:35:02 BELT BRANDER Yvon Harrison MD [facility] CPT-31961 Level 4 Est. Patient 15:11:02 BELT BRANDER Yvon Harrison MD [facility] CPT-69630 Level 4 Est. Patient 13:18:47 CDT Yvon Harrison MD [facility] CPT-51486 Level 4 Est. Patient 09:51:29 CDT Yvon Harrison MD [facility] CPT-12546 Level 3 Est. Patient 11:40:53 BELT BRANDER Nick Quiroz MD [facility] CPT-99408 Level 3 Est. Patient 09:05:46 CDT Nick Quiroz MD [facility] CPT-78647 Level 3 Est. Patient 10:56:05 CDT Nick Quiroz MD [facility] CPT-89242 Level 3 Est. Patient 05:39:31 CDT Desmond Montgomery [facility] CPT-19778 Level 3 Est. Patient 16:18:28 BELT BRANDER Nick Qiuroz MD [facility] CPT-98210 Level 3 Est. Patient 16:50:04 BELT BRANDER Nick Quiroz MD [facility] CPT-99021 Level 3 Est. Patient 22:12:55 BELT BRANDER Desmond Montgomery DO [facility] Procedures Code Procedure Name Date Entry Date Standard Description CPT-49207 Lipid - LAB USE ONLY 15:55:09 BELT BRANDER CPT-86630 CMP - LAB USE ONLY 15:55:09 BELT BRANDER CPT-93313 CBC - LAB USE ONLY 15:55:08 BELT BRANDER CPT-56535 Venipuncture Draw Fee 15:55:08 BELT BRANDER CPT-Cryo Cryotherapy 11:00:57 CDT CPT-35335 Hand comp min 3V 17:09:13 CDT CPT-94144 Hand comp min 3V 17:08:18 CDT CPT-84977 Fluzone Quadrivalent Intramuscular Suspension 0.5 ML 10: 17:16 CDT CPT-LR Lesion Removal 08:49:09 CDT CPT-95172 Nail Excision 08:49:52 CDT CPT-52765 Venipuncture Draw Fee 16:51:53 BELT BRANDER
--- OUTSIDE RECORDS SUMMARY | 2018-08-01 21:51 | XMS REPORT | Clinical Summary ---
Author Author Admin, COURTNEY Organization [employer] Address Unknown Phone Unavailable Allergies, Adverse Reactions, [...] Spasm of muscle INGROWN TOENAIL 703.0 Active Nikc Quiroz MD Ingrowing nail LYMPHADENITIS-ACUTE 683 Resolved [...] 1 twice day for anxiety BUSPIRONE HCL 99632009963 Active Luis Miguel Sapp MD Active PANTOPRAZOLE SODIUM 40 MG ORAL TABLET DELAYED RELEASE one tab once daily 2017 PANTOPRAZOLE SODIUM 58966411334 Active Luis Miguel Sapp MD Active CARAFATE 1 GM ORAL TABLET 1 tab q4H SUCRALFATE 12176417072 Active Luis Miguel Sapp MD Active PREDNISONE 20 MG ORAL TABLET 2 tabs daily for 3 days, 1 tab daily for 3 days, 1/2 tab daily for 2 days PREDNISONE 64431296290 No Longer Active Yvon Harrison MD Active TERBINAFINE HCL 250 MG ORAL TABLET 1 tab po qday for nail infection. TERBINAFINE HCL 75764889313 No Longer Active Yvon Harrison MD Active SIMVASTATIN 20 MG ORAL TABLET 1 po at qhs SIMVASTATIN 34382045992 Active Yvon Harrison MD Active DEPAKOTE 500 MG ORAL TABLET DELAYED RELEASE take 1 tab po BID for seizures. DIVALPROEX SODIUM 46034939454 Active Yvon Harrison MD Active DIVALPROEX SODIUM 250 MG ORAL TABLET DELAYED RELEASE 1 po TID DIVALPROEX SODIUM 11281966071 No Longer Active Nick Quiroz MD Active KEFLEX 500 MG ORAL CAPSULE 1 po qid CEPHALEXIN 64577301845 No Longer Active Nick Quiroz MD Active KEFLEX 500 MG ORAL CAPSULE 1 po qid CEPHALEXIN 80332357155 No Longer Active Nick Quiroz MD Active KEFLEX 500 MG ORAL CAPSULE 1 po TID x 10 days CEPHALEXIN 45489628971 No Longer Active Nick Quiroz MD Active KEFLEX 500 MG ORAL CAPSULE 1 po TID x 10 days CEPHALEXIN 01570473631 No Longer Active Nick Quiroz MD Active IBUPROFEN 600 MG ORAL TABLET 1 tablet by mouth every 8 hours prn IBUPROFEN 34980226632 No Longer Active Desmond Montgomery DO Active FLONASE 50 MCG/ACT NASAL SUSPENSION 2 puffs in each nostril daily FLUTICASONE PROPIONATE 22368311729 No Longer Active Desmond Montgomery DO Active LORATADINE 10 MG ORAL TABLET 1 tablet by mouth daily PRN Congestion LORATADINE 11539241572 No Longer Active Desmond Montgomery DO Active LORATADINE 10 MG ORAL TABLET 1 tablet by mouth daily PRN Congestion LORATADINE 10 MG ORAL TABLET 017006 LORATADINE Inactive FLONASE 50 MCG/ACT NASAL SUSPENSION 2 puffs in each nostril daily FLONASE 50 MCG/ACT NASAL SUSPENSION 2783481 FLUTICASONE PROPIONATE Inactive IBUPROFEN 600 MG ORAL TABLET 1 tablet by mouth every 8 hours prn IBUPROFEN 600 MG ORAL TABLET 706512 IBUPROFEN Inactive KEFLEX 500 MG ORAL CAPSULE 1 po TID x 10 days KEFLEX 500 MG ORAL CAPSULE 598014 CEPHALEXIN Inactive KEFLEX 500 MG ORAL CAPSULE 1 po qid KEFLEX 500 MG ORAL CAPSULE 031876 CEPHALEXIN Inactive KEFLEX 500 MG ORAL CAPSULE 1 po qid KEFLEX 500 MG ORAL CAPSULE 697765 CEPHALEXIN Inactive KEFLEX 500 MG ORAL CAPSULE 1 po TID x 10 days KEFLEX 500 MG ORAL CAPSULE 922302 CEPHALEXIN Inactive DIVALPROEX SODIUM 250 MG ORAL TABLET DELAYED RELEASE 1 po TID DIVALPROEX SODIUM 250 MG ORAL TABLET DELAYED RELEASE 5457571 DIVALPROEX SODIUM Inactive TERBINAFINE HCL 250 MG ORAL TABLET 1 tab po qday for nail infection. TERBINAFINE HCL 250 MG ORAL TABLET 636647 TERBINAFINE HCL Inactive PREDNISONE 20 MG ORAL TABLET 2 tabs daily for 3 days, 1 tab daily for 3 days, 1/2 tab daily for 2 days PREDNISONE 20 MG ORAL TABLET 011859 PREDNISONE Inactive Vital Signs Date Name Value Unit Range Description blood pressure, diastolic, repeated by physician 80 BP caro blood pressure, diastolic 80 mm[Hg] BP caro blood pressure, systolic, repeated by physician 128 BP sys blood pressure, systolic 128 mm[Hg] BP sys height E&M 71 [in_us] Bdy height pulse rate E&M 73 /min Heart rate temperature E&M 98.2 [degF] Body temperature weight E&M 244 [lb_av] Weight Measured Encounters Code Encounter Date Provider Facility CPT-21949 75145-Nti Vst-Est Level III 15:15:09 CDT Luis Miguel Sapp MD [facility]-24218 Level 4 Est. Patient 11:00:57 CDT Yvon Harrison MD [facility]-98179 Level 4 Est. Patient 15:53:40 CDT Yvon Harrison MD [facility] CPT-38180 Level 4 Est. Patient 15:42:18 CDT Yvon Harrison MD [facility] CPT-94897 Level 3 Est. Patient 17:08:18 CDT Berta Sweeney APRN [facility] CPT-24357 Level 4 Est. Patient 16:35:02 ODD PIECE CHECKER Yvon Harrison MD [facility] CPT-66647 Level 4 Est. Patient 15:11:02 ODD PIECE CHECKER Yvon Harrison MD [facility] CPT-27737 Level 4 Est. Patient 13:18:47 CDT Yvon Harrison MD [facility]-90610 Level 4 Est. Patient 09:51:29 CDT Yvon Harrison MD [facility]-04778 Level 3 Est. Patient 11:40:53 ODD PIECE CHECKER Nick Quiroz MD [facility]-60676 Level 3 Est. Patient 09:05:46 CDT Nick Quiroz MD [facility] CPT-87229 Level 3 Est. Patient 10:56:05 CDT Nick Quiroz MD [facility] CPT-86906 Level 3 Est. Patient 05:39:31 CDT Desmond Montgomery DO [facility] CPT-63622 Level 3 Est. Patient 16:18:28 ODD PIECE CHECKER Nick Quiroz MD [facility] CPT-90960 Level 3 Est. Patient 16:50:04 ODD PIECE CHECKER Nick Quiroz MD [facility] CPT-38780 Level 3 Est. Patient 22:12:55 ODD PIECE CHECKER Desmond Montgomery [facility] Procedures Code Procedure Name Date Entry Date Standard Description CPT-58950 Lipid - LAB USE ONLY 15:55:09 ODD PIECE CHECKER CPT-03828 CMP - LAB USE ONLY 15:55:09 ODD PIECE CHECKER CPT-48792 CBC - LAB USE ONLY 15:55:08 ODD PIECE CHECKER CPT-89658 Venipuncture Draw Fee 15:55:08 ODD PIECE CHECKER CPT-Cryo Cryotherapy 11:00:57 CDT CPT-91189 Hand comp min 3V 17:09:13 CDT CPT-18878 Hand comp min 3V 17:08:18 CDT CPT-68887 Fluzone Quadrivalent Intramuscular Suspension 0.5 ML 10: 17:16 CDT CPT-LR Lesion Removal 08:49:09 CDT CPT-84070 Nail Excision 08:49:52 CDT CPT-34011 Venipuncture Draw Fee 16:51:53 ODD PIECE CHECKER
--- OUTSIDE RECORDS SUMMARY | 2018-08-01 21:51 | XMS REPORT | Clinical Summary ---
Author Author Admin, COURTNEY Organization [employer] Address Unknown Phone Unavailable Allergies, Adverse Reactions, [...] 1 twice day for anxiety BUSPIRONE HCL 08813220180 Active Luis Miguel Sapp MD Active PANTOPRAZOLE SODIUM 40 MG ORAL TABLET DELAYED RELEASE one tab once daily 2017 PANTOPRAZOLE SODIUM 06995901443 Active Luis Miguel Sapp MD Active CARAFATE 1 GM ORAL TABLET 1 tab q4H SUCRALFATE 28186671651 Active Luis Miguel Sapp MD Active PREDNISONE 20 MG ORAL TABLET 2 tabs daily for 3 days, 1 tab daily for 3 days, 1/2 tab daily for 2 days PREDNISONE 43398818373 No Longer Active Yvon Harrison MD Active TERBINAFINE HCL 250 MG ORAL TABLET 1 tab po qday for nail infection. TERBINAFINE HCL 82565388244 No Longer Active Yvon Harrison MD Active SIMVASTATIN 20 MG ORAL TABLET 1 po at qhs SIMVASTATIN 55370159406 Active Yvon Harrison MD Active DEPAKOTE 500 MG ORAL TABLET DELAYED RELEASE take 1 tab po BID for seizures. DIVALPROEX SODIUM 11528798187 Active Yvon Harrison MD Active DIVALPROEX SODIUM 250 MG ORAL TABLET DELAYED RELEASE 1 po TID DIVALPROEX SODIUM 43322047714 No Longer Active Nick Quiroz MD Active KEFLEX 500 MG ORAL CAPSULE 1 po qid CEPHALEXIN 89033384802 No Longer Active Nick Quiroz MD Active KEFLEX 500 MG ORAL CAPSULE 1 po qid CEPHALEXIN 28183036221 No Longer Active Nick Quiroz MD Active KEFLEX 500 MG ORAL CAPSULE 1 po TID x 10 days CEPHALEXIN 23641441553 No Longer Active Nick Quiroz MD Active KEFLEX 500 MG ORAL CAPSULE 1 po TID x 10 days CEPHALEXIN 24705627765 No Longer Active Nick Quiroz MD Active IBUPROFEN 600 MG ORAL TABLET 1 tablet by mouth every 8 hours prn IBUPROFEN 40461499449 No Longer Active Desmond Montgomery DO Active FLONASE 50 MCG/ACT NASAL SUSPENSION 2 puffs in each nostril daily FLUTICASONE PROPIONATE 88542280869 No Longer Active Desmond Montgomery DO Active LORATADINE 10 MG ORAL TABLET 1 tablet by mouth daily PRN Congestion LORATADINE 41609439647 No Longer Active Desmond Montgomery DO Active LORATADINE 10 MG ORAL TABLET 1 tablet by mouth daily PRN Congestion LORATADINE 10 MG ORAL TABLET 882839 LORATADINE Inactive FLONASE 50 MCG/ACT NASAL SUSPENSION 2 puffs in each nostril daily FLONASE 50 MCG/ACT NASAL SUSPENSION 6583390 FLUTICASONE PROPIONATE Inactive IBUPROFEN 600 MG ORAL TABLET 1 tablet by mouth every 8 hours prn IBUPROFEN 600 MG ORAL TABLET 481646 IBUPROFEN Inactive KEFLEX 500 MG ORAL CAPSULE 1 po TID x 10 days KEFLEX 500 MG ORAL CAPSULE 960693 CEPHALEXIN Inactive KEFLEX 500 MG ORAL CAPSULE 1 po qid KEFLEX 500 MG ORAL CAPSULE 976654 CEPHALEXIN Inactive KEFLEX 500 MG ORAL CAPSULE 1 po qid KEFLEX 500 MG ORAL CAPSULE 693390 CEPHALEXIN Inactive KEFLEX 500 MG ORAL CAPSULE 1 po TID x 10 days KEFLEX 500 MG ORAL CAPSULE 323676 CEPHALEXIN Inactive DIVALPROEX SODIUM 250 MG ORAL TABLET DELAYED RELEASE 1 po TID DIVALPROEX SODIUM 250 MG ORAL TABLET DELAYED RELEASE 5385554 DIVALPROEX SODIUM Inactive TERBINAFINE HCL 250 MG ORAL TABLET 1 tab po qday for nail infection. TERBINAFINE HCL 250 MG ORAL TABLET 488623 TERBINAFINE HCL Inactive PREDNISONE 20 MG ORAL TABLET 2 tabs daily for 3 days, 1 tab daily for 3 days, 1/2 tab daily for 2 days PREDNISONE 20 MG ORAL TABLET 408328 PREDNISONE Inactive Vital Signs Date Name Value [...] Measured Encounters Code Encounter Date Provider Facility CPT-07067 68642-Efk Vst-Est Level III 13:15:10 CDT Yvon Harrison MD [facility] CPT-87682 48241-Isi Vst-Est Level III 15:15:09 CDT Luis Miguel Sapp MD [facility] CPT-38607 Level 4 Est. Patient 11:00:57 CDT Yvon Harrison MD [facility] CPT-44829 Level 4 Est. Patient 15:53:40 CDT Yvon Harrison MD [facility] CPT-71086 Level 4 Est. Patient 15:42:18 CDT Yvon Harrison MD [facility] CPT-83033 Level 3 Est. Patient 17:08:18 CDT Berta Sweeney APRN [facility] CPT-68290 Level 4 Est. Patient 16:35:02 ELECTRIC POWERLINE EXAMINER Yvon Harrison MD [facility] CPT-71154 Level 4 Est. Patient 15:11:02 ELECTRIC POWERLINE EXAMINER Yvon Harrison MD [facility] CPT-82475 Level 4 Est. Patient 13:18:47 CDT Yvon Harrison MD [facility] CPT-34774 Level 4 Est. Patient 09:51:29 CDT Yvon Harrison MD [facility] CPT-80789 Level 3 Est. Patient 11:40:53 ELECTRIC POWERLINE EXAMINER Nick Quiroz MD [facility] CPT-08163 Level 3 Est. Patient 09:05:46 CDT Nick Quiroz MD [facility] CPT-08729 Level 3 Est. Patient 10:56:05 CDT Nick Quiroz MD [facility] CPT-26524 Level 3 Est. Patient 05:39:31 CDT Desmond Montgomery [facility] CPT-77253 Level 3 Est. Patient 16:18:28 ELECTRIC POWERLINE EXAMINER Nick Quiroz MD [facility] CPT-27797 Level 3 Est. Patient 16:50:04 ELECTRIC POWERLINE EXAMINER Nick Quiroz MD [facility] CPT-77525 Level 3 Est. Patient 22:12:55 ELECTRIC POWERLINE EXAMINER Desmond Montgomery DO [facility] Procedures Code Procedure Name Date Entry Date Standard Description CPT-71402 Lipid - LAB USE ONLY 15:55:09 ELECTRIC POWERLINE EXAMINER CPT-92702 CMP - LAB USE ONLY 15:55:09 ELECTRIC POWERLINE EXAMINER CPT-40733 CBC - LAB USE ONLY 15:55:08 ELECTRIC POWERLINE EXAMINER CPT-30665 Venipuncture Draw Fee 15:55:08 ELECTRIC POWERLINE EXAMINER CPT-Cryo Cryotherapy 11:00:57 CDT CPT-45051 Hand comp min 3V 17:09:13 CDT CPT-82056 Hand comp min 3V 17:08:18 CDT CPT-87312 Fluzone Quadrivalent Intramuscular Suspension 0.5 ML 10: 17:16 CDT CPT-LR Lesion Removal 08:49:09 CDT CPT-27553 Nail Excision 08:49:52 CDT CPT-22796 Venipuncture Draw Fee 16:51:53 ELECTRIC POWERLINE EXAMINER
--- OUTSIDE RECORDS SUMMARY | 2018-08-01 21:52 | XMS REPORT | Clinical Summary ---
Author Author Admin, COURTNEY Organization [employer] Address Unknown Phone Unavailable Allergies, Adverse Reactions, [...] Luis Miguel Sapp MD Anxiety state, unspecified SEIZURE DISORDER ICD-780.39 Inactive Nick Quiroz MD [...] 1 twice day for anxiety BUSPIRONE HCL 07217678572 Active Luis Miguel Sapp MD Active PANTOPRAZOLE SODIUM 40 MG ORAL TABLET DELAYED RELEASE one tab once daily 2017 PANTOPRAZOLE SODIUM 51800514690 Active Luis Miguel Sapp MD Active CARAFATE 1 GM ORAL TABLET 1 tab q4H SUCRALFATE 66366423323 Active Luis Miguel Sapp MD Active PREDNISONE 20 MG ORAL TABLET 2 tabs daily for 3 days, 1 tab daily for 3 days, 1/2 tab daily for 2 days PREDNISONE 97877535841 No Longer Active Yvon Harrison MD Active TERBINAFINE HCL 250 MG ORAL TABLET 1 tab po qday for nail infection. TERBINAFINE HCL 73179997401 No Longer Active Yvon Harrison MD Active SIMVASTATIN 20 MG ORAL TABLET 1 po at qhs SIMVASTATIN 59048260465 Active Yvon Harrison MD Active DEPAKOTE 500 MG ORAL TABLET DELAYED RELEASE take 1 tab po BID for seizures. DIVALPROEX SODIUM 98678153810 Active Yvon Harrison MD Active DIVALPROEX SODIUM 250 MG ORAL TABLET DELAYED RELEASE 1 po TID DIVALPROEX SODIUM 74857171717 No Longer Active Nick Quiroz MD Active KEFLEX 500 MG ORAL CAPSULE 1 po qid CEPHALEXIN 31514235171 No Longer Active Nick Quiroz MD Active KEFLEX 500 MG ORAL CAPSULE 1 po qid CEPHALEXIN 32898920196 No Longer Active Nick Quiroz MD Active KEFLEX 500 MG ORAL CAPSULE 1 po TID x 10 days CEPHALEXIN 04002563128 No Longer Active Nick Quiroz MD Active KEFLEX 500 MG ORAL CAPSULE 1 po TID x 10 days CEPHALEXIN 99777502063 No Longer Active Nick Quiroz MD Active IBUPROFEN 600 MG ORAL TABLET 1 tablet by mouth every 8 hours prn IBUPROFEN 36667736425 No Longer Active Desmond Montgomery DO Active FLONASE 50 MCG/ACT NASAL SUSPENSION 2 puffs in each nostril daily FLUTICASONE PROPIONATE 36937428532 No Longer Active Desmond Montgomery DO Active LORATADINE 10 MG ORAL TABLET 1 tablet by mouth daily PRN Congestion LORATADINE 26464855777 No Longer Active Desmodn Montgomery DO Active LORATADINE 10 MG ORAL TABLET 1 tablet by mouth daily PRN Congestion LORATADINE 10 MG ORAL TABLET 438063 LORATADINE Inactive FLONASE 50 MCG/ACT NASAL SUSPENSION 2 puffs in each nostril daily FLONASE 50 MCG/ACT NASAL SUSPENSION 1347225 FLUTICASONE PROPIONATE Inactive IBUPROFEN 600 MG ORAL TABLET 1 tablet by mouth every 8 hours prn IBUPROFEN 600 MG ORAL TABLET 960800 IBUPROFEN Inactive KEFLEX 500 MG ORAL CAPSULE 1 po TID x 10 days KEFLEX 500 MG ORAL CAPSULE 969067 CEPHALEXIN Inactive KEFLEX 500 MG ORAL CAPSULE 1 po qid KEFLEX 500 MG ORAL CAPSULE 670959 CEPHALEXIN Inactive KEFLEX 500 MG ORAL CAPSULE 1 po qid KEFLEX 500 MG ORAL CAPSULE 673937 CEPHALEXIN Inactive KEFLEX 500 MG ORAL CAPSULE 1 po TID x 10 days KEFLEX 500 MG ORAL CAPSULE 314615 CEPHALEXIN Inactive DIVALPROEX SODIUM 250 MG ORAL TABLET DELAYED RELEASE 1 po TID DIVALPROEX SODIUM 250 MG ORAL TABLET DELAYED RELEASE 9560237 DIVALPROEX SODIUM Inactive TERBINAFINE HCL 250 MG ORAL TABLET 1 tab po qday for nail infection. TERBINAFINE HCL 250 MG ORAL TABLET 065671 TERBINAFINE HCL Inactive PREDNISONE 20 MG ORAL TABLET 2 tabs daily for 3 days, 1 tab daily for 3 days, 1/2 tab daily for 2 days PREDNISONE 20 MG ORAL TABLET 856704 PREDNISONE Inactive Vital Signs Date Name Value [...] Measured Encounters Code Encounter Date Provider Facility CPT-17566 [id number] Vst-Est Level III 15:15:09 CDT Luis Miguel Sapp MD [facility]-51779 Level 4 Est. Patient 11:00:57 CDT Yvon Harrison MD [facility]-59654 Level 4 Est. Patient 15:53:40 CDT Yvon Harrison MD [facility]-26603 Level 4 Est. Patient 15:42:18 CDT Yvon Harrison MD [facility]-76029 Level 3 Est. Patient 17:08:18 CDT Berta Sweeney ROSENDO [facility]-35898 Level 4 Est. Patient 16:35:02 TIN POURER Yvon Harrison MD [facility]-40792 Level 4 Est. Patient 15:11:02 TIN POURER Yvon Harrison MD [facility]-79117 Level 4 Est. Patient 13:18:47 CDT Yvon Harrison MD [facility]-48015 Level 4 Est. Patient 09:51:29 CDT Yvon Harrison MD [facility]-55462 Level 3 Est. Patient 11:40:53 TIN POURER Nick Quiroz MD [facility]-14240 Level 3 Est. Patient 09:05:46 CDT Nick Quiroz MD [facility]-87041 Level 3 Est. Patient 10:56:05 CDT Nick Quiroz MD [facility]-49023 Level 3 Est. Patient 05:39:31 CDT Desmond Jimenes [facility] CPT-26568 Level 3 Est. Patient 16:18:28 TIN POURER Nick Quiroz MD [facility] CPT-81544 Level 3 Est. Patient 16:50:04 TIN POURER Nick Quiroz MD [facility] CPT-55771 Level 3 Est. Patient 22:12:55 TIN POURER Desmond Montgomery [facility] Procedures Code Procedure Name Date Entry Date Standard Description CPT-12344 Lipid - LAB USE ONLY 15:55:09 TIN POURER CPT-23325 CMP - LAB USE ONLY 15:55:09 TIN POURER CPT-19230 CBC - LAB USE ONLY 15:55:08 TIN POURER CPT-23930 Venipuncture Draw Fee 15:55:08 TIN POURER CPT-Cryo Cryotherapy 11:00:57 CDT CPT-90211 Hand comp min 3V 17:09:13 CDT CPT-10052 Hand comp min 3V 17:08:18 CDT CPT-73029 Fluzone Quadrivalent Intramuscular Suspension 0.5 ML 10: 17:16 CDT CPT-LR Lesion Removal 08:49:09 CDT CPT-55627 Nail Excision 08:49:52 CDT CPT-89726 Venipuncture Draw Fee 16:51:53 TIN POURER
--- OUTSIDE RECORDS SUMMARY | 2018-08-01 21:52 | XMS REPORT | Clinical Summary ---
Author Author Admin, COURTNEY Organization [employer] Address Unknown Phone Unavailable Allergies, Adverse Reactions, [...] Luis Miguel Sapp MD Anxiety state, unspecified SEIZURES, HX OF ICD-V12.49 Inactive Nick Quiroz MD FH SEIZURES ICD-V17.2 Inactive Nick Quiroz MD SEIZURE DISORDER ICD-780.39 Inactive Nick Quiroz MD 2011 GASTROENTERITIS, ACUTE ICD-558.9 Inactive Nick Quiroz MD DEHYDRATION ICD-276.51 Quincy Quiroz MD U R I ICD-465.9 Inactive Nick Quiroz MD SPASM, MUSCLE ICD-728.85 Inactive Nick Quiroz MD SEIZURE DISORDER ICD-780.39 Quincy Quiroz MD LYMPHADENITIS-ACUTE ICD-683 Inactive Nick Quiroz MD Medication List Medication Instructions Start Date Stop Date Generic Name NDC Status Provider Patient Instruction BUSPIRONE HCL 7.5 MG ORAL TABLET 1 twice day for anxiety BUSPIRONE HCL 13020632601 Active Luis Miguel Sapp MD Active PANTOPRAZOLE SODIUM 40 MG ORAL TABLET DELAYED RELEASE one tab once daily 2017 PANTOPRAZOLE SODIUM 71813897907 Active Luis Miguel Sapp MD Active CARAFATE 1 GM ORAL TABLET 1 tab q4H SUCRALFATE 93044913771 Active Luis Miguel Sapp MD Active PREDNISONE 20 MG ORAL TABLET 2 tabs daily for 3 days, 1 tab daily for 3 days, 1/2 tab daily for 2 days PREDNISONE 45689241179 No Longer Active Yvon Harrison MD Active TERBINAFINE HCL 250 MG ORAL TABLET 1 tab po qday for nail infection. TERBINAFINE HCL 09172012549 No Longer Active vYon Harrison MD Active SIMVASTATIN 20 MG ORAL TABLET 1 po at qhs SIMVASTATIN 43152591323 Active Yvon Harrison MD Active DEPAKOTE 500 MG ORAL TABLET DELAYED RELEASE take 1 tab po BID for seizures. DIVALPROEX SODIUM 19944698111 Active Yvon Harrison MD Active DIVALPROEX SODIUM 250 MG ORAL TABLET DELAYED RELEASE 1 po TID DIVALPROEX SODIUM 97595882942 No Longer Active Nick Quiroz MD Active KEFLEX 500 MG ORAL CAPSULE 1 po qid CEPHALEXIN 63871907883 No Longer Active Nick Quiroz MD Active KEFLEX 500 MG ORAL CAPSULE 1 po qid CEPHALEXIN 40867785631 No Longer Active Nick Quiroz MD Active KEFLEX 500 MG ORAL CAPSULE 1 po TID x 10 days CEPHALEXIN 43991592062 No Longer Active Nick Quiroz MD Active KEFLEX 500 MG ORAL CAPSULE 1 po TID x 10 days CEPHALEXIN 81482920936 No Longer Active Nick Quiroz MD Active IBUPROFEN 600 MG ORAL TABLET 1 tablet by mouth every 8 hours prn IBUPROFEN 14769132054 No Longer Active Desmond Montgomery DO Active FLONASE 50 MCG/ACT NASAL SUSPENSION 2 puffs in each nostril daily FLUTICASONE PROPIONATE 05532796198 No Longer Active Desmond Montgomery DO Active LORATADINE 10 MG ORAL TABLET 1 tablet by mouth daily PRN Congestion LORATADINE 39245010186 No Longer Active Desmond Montgomery DO Active LORATADINE 10 MG ORAL TABLET 1 tablet by mouth daily PRN Congestion LORATADINE 10 MG ORAL TABLET 877565 LORATADINE Inactive FLONASE 50 MCG/ACT NASAL SUSPENSION 2 puffs in each nostril daily FLONASE 50 MCG/ACT NASAL SUSPENSION 4984823 FLUTICASONE PROPIONATE Inactive IBUPROFEN 600 MG ORAL TABLET 1 tablet by mouth every 8 hours prn IBUPROFEN 600 MG ORAL TABLET 734430 IBUPROFEN Inactive KEFLEX 500 MG ORAL CAPSULE 1 po TID x 10 days KEFLEX 500 MG ORAL CAPSULE 670145 CEPHALEXIN Inactive KEFLEX 500 MG ORAL CAPSULE 1 po qid KEFLEX 500 MG ORAL CAPSULE 887550 CEPHALEXIN Inactive KEFLEX 500 MG ORAL CAPSULE 1 po qid KEFLEX 500 MG ORAL CAPSULE 793704 CEPHALEXIN Inactive KEFLEX 500 MG ORAL CAPSULE 1 po TID x 10 days KEFLEX 500 MG ORAL CAPSULE 095159 CEPHALEXIN Inactive DIVALPROEX SODIUM 250 MG ORAL TABLET DELAYED RELEASE 1 po TID DIVALPROEX SODIUM 250 MG ORAL TABLET DELAYED RELEASE 4699038 DIVALPROEX SODIUM Inactive TERBINAFINE HCL 250 MG ORAL TABLET 1 tab po qday for nail infection. TERBINAFINE HCL 250 MG ORAL TABLET 792187 TERBINAFINE HCL Inactive PREDNISONE 20 MG ORAL TABLET 2 tabs daily for 3 days, 1 tab daily for 3 days, 1/2 tab daily for 2 days PREDNISONE 20 MG ORAL TABLET 259159 PREDNISONE Inactive Vital Signs Date Name Value [...] Measured Encounters Code Encounter Date Provider Facility CPT-13495 [id number] Vst-Est Level III 15:15:09 CDT Luis Miguel Sapp MD [facility]-97765 Level 4 Est. Patient 11:00:57 CDT Yvon Harrison MD [facility]-42481 Level 4 Est. Patient 15:53:40 CDT Yvon Harrison MD [facility]-61018 Level 4 Est. Patient 15:42:18 CDT Yvon Harrison MD [facility]-94479 Level 3 Est. Patient 17:08:18 CDT Berta Sweeney ROSENDO [facility]-39976 Level 4 Est. Patient 16:35:02 AGRICULTURE INSTRUCTOR Yvon Harrison MD [facility]-64431 Level 4 Est. Patient 15:11:02 AGRICULTURE INSTRUCTOR Yvon Harrison MD [facility]-39176 Level 4 Est. Patient 13:18:47 CDT Yvon Harrison MD [facility]-31738 Level 4 Est. Patient 09:51:29 CDT Yvon Harrison MD [facility]-69402 Level 3 Est. Patient 11:40:53 AGRICULTURE INSTRUCTOR Nick Quiroz MD [facility]-23453 Level 3 Est. Patient 09:05:46 CDT Nick Quiroz MD [facility]-52221 Level 3 Est. Patient 10:56:05 CDT Nick Quiroz MD [facility]-96497 Level 3 Est. Patient 05:39:31 CDT Desmond Jimenes [facility] CPT-00690 Level 3 Est. Patient 16:18:28 AGRICULTURE INSTRUCTOR Nick Quiroz MD [facility] CPT-87725 Level 3 Est. Patient 16:50:04 AGRICULTURE INSTRUCTOR Nick Quiroz MD [facility] CPT-98279 Level 3 Est. Patient 22:12:55 AGRICULTURE INSTRUCTOR Desmond Montgomery [facility] Procedures Code Procedure Name Date Entry Date Standard Description CPT-64259 Lipid - LAB USE ONLY 15:55:09 AGRICULTURE INSTRUCTOR CPT-00183 CMP - LAB USE ONLY 15:55:09 AGRICULTURE INSTRUCTOR CPT-66235 CBC - LAB USE ONLY 15:55:08 AGRICULTURE INSTRUCTOR CPT-10881 Venipuncture Draw Fee 15:55:08 AGRICULTURE INSTRUCTOR CPT-Cryo Cryotherapy 11:00:57 CDT CPT-26402 Hand comp min 3V 17:09:13 CDT CPT-12159 Hand comp min 3V 17:08:18 CDT CPT-80035 Fluzone Quadrivalent Intramuscular Suspension 0.5 ML 10: 17:16 CDT CPT-LR Lesion Removal 08:49:09 CDT CPT-99565 Nail Excision 08:49:52 CDT CPT-21882 Venipuncture Draw Fee 16:51:53 AGRICULTURE INSTRUCTOR
--- OUTSIDE RECORDS SUMMARY | 2018-08-01 21:53 | XMS REPORT | Clinical Summary ---
Author Author Admin, COURTNEY Organization [employer] Address Unknown Phone Unavailable Allergies, Adverse Reactions, [...] Nick Quiroz MD FH SEIZURES ICD-V17.2 Inactive Nikc Quiroz MD SEIZURE DISORDER ICD-780.39 Quincy Quiroz [...] 1 twice day for anxiety BUSPIRONE HCL 12693491683 Active Luis Miguel Sapp MD Active PANTOPRAZOLE SODIUM 40 MG ORAL TABLET DELAYED RELEASE one tab once daily 2017 PANTOPRAZOLE SODIUM 40220353954 Active Luis Miguel Sapp MD Active CARAFATE 1 GM ORAL TABLET 1 tab q4H SUCRALFATE 82879860553 Active Luis Miguel Sapp MD Active PREDNISONE 20 MG ORAL TABLET 2 tabs daily for 3 days, 1 tab daily for 3 days, 1/2 tab daily for 2 days PREDNISONE 53308941496 No Longer Active Yvon Harrison MD Active TERBINAFINE HCL 250 MG ORAL TABLET 1 tab po qday for nail infection. TERBINAFINE HCL 73187213238 No Longer Active Yvon Harrison MD Active SIMVASTATIN 20 MG ORAL TABLET 1 po at qhs SIMVASTATIN 86589388610 Active Yvon Harrison MD Active DEPAKOTE 500 MG ORAL TABLET DELAYED RELEASE take 1 tab po BID for seizures. DIVALPROEX SODIUM 07176700805 Active Yvon Harrison MD Active DIVALPROEX SODIUM 250 MG ORAL TABLET DELAYED RELEASE 1 po TID DIVALPROEX SODIUM 65506081220 No Longer Active Nick Quiroz MD Active KEFLEX 500 MG ORAL CAPSULE 1 po qid CEPHALEXIN 66493912339 No Longer Active Nick Quiroz MD Active KEFLEX 500 MG ORAL CAPSULE 1 po qid CEPHALEXIN 02048354201 No Longer Active Nick Quiroz MD Active KEFLEX 500 MG ORAL CAPSULE 1 po TID x 10 days CEPHALEXIN 90055884769 No Longer Active Nick Quiroz MD Active KEFLEX 500 MG ORAL CAPSULE 1 po TID x 10 days CEPHALEXIN 99123231821 No Longer Active Nick Quiroz MD Active IBUPROFEN 600 MG ORAL TABLET 1 tablet by mouth every 8 hours prn IBUPROFEN 12830195920 No Longer Active Desmond Montgomery DO Active FLONASE 50 MCG/ACT NASAL SUSPENSION 2 puffs in each nostril daily FLUTICASONE PROPIONATE 84057850413 No Longer Active Desmond Montgomery DO Active LORATADINE 10 MG ORAL TABLET 1 tablet by mouth daily PRN Congestion LORATADINE 10601405043 No Longer Active Desmond Montgomery DO Active LORATADINE 10 MG ORAL TABLET 1 tablet by mouth daily PRN Congestion LORATADINE 10 MG ORAL TABLET 862356 LORATADINE Inactive FLONASE 50 MCG/ACT NASAL SUSPENSION 2 puffs in each nostril daily FLONASE 50 MCG/ACT NASAL SUSPENSION 9324832 FLUTICASONE PROPIONATE Inactive IBUPROFEN 600 MG ORAL TABLET 1 tablet by mouth every 8 hours prn IBUPROFEN 600 MG ORAL TABLET 388544 IBUPROFEN Inactive KEFLEX 500 MG ORAL CAPSULE 1 po TID x 10 days KEFLEX 500 MG ORAL CAPSULE 017730 CEPHALEXIN Inactive KEFLEX 500 MG ORAL CAPSULE 1 po qid KEFLEX 500 MG ORAL CAPSULE 998455 CEPHALEXIN Inactive KEFLEX 500 MG ORAL CAPSULE 1 po qid KEFLEX 500 MG ORAL CAPSULE 629631 CEPHALEXIN Inactive KEFLEX 500 MG ORAL CAPSULE 1 po TID x 10 days KEFLEX 500 MG ORAL CAPSULE 641962 CEPHALEXIN Inactive DIVALPROEX SODIUM 250 MG ORAL TABLET DELAYED RELEASE 1 po TID DIVALPROEX SODIUM 250 MG ORAL TABLET DELAYED RELEASE 7898712 DIVALPROEX SODIUM Inactive TERBINAFINE HCL 250 MG ORAL TABLET 1 tab po qday for nail infection. TERBINAFINE HCL 250 MG ORAL TABLET 453875 TERBINAFINE HCL Inactive PREDNISONE 20 MG ORAL TABLET 2 tabs daily for 3 days, 1 tab daily for 3 days, 1/2 tab daily for 2 days PREDNISONE 20 MG ORAL TABLET 171295 PREDNISONE Inactive Vital Signs Date Name Value [...] Measured Encounters Code Encounter Date Provider Facility CPT-72873 [id number] Vst-Est Level III 15:15:09 CDT Luis Miguel Sapp MD -12168 Level 4 Est. Patient 11:00:57 CDT Yvon Harrison MD -85936 Level 4 Est. Patient 15:53:40 CDT Yvon Harrison MD [facility]-58142 Level 4 Est. Patient 15:42:18 CDT Yvon Harrison MD [facility]-93163 Level 3 Est. Patient 17:08:18 CDT Berta Sweeney ROSENDO [facility]-97827 Level 4 Est. Patient 16:35:02 MATERIAL CUTTER Yvon Harrison MD [facility]-79035 Level 4 Est. Patient 15:11:02 MATERIAL CUTTER Yvon Harrison MD [facility]-08837 Level 4 Est. Patient 13:18:47 CDT Yvon Harrison MD -02933 Level 4 Est. Patient 09:51:29 CDT Yvon Harrison MD -32371 Level 3 Est. Patient 11:40:53 MATERIAL CUTTER Nick Quiroz MD [facility]-80450 Level 3 Est. Patient 09:05:46 CDT Nick Quiroz MD [facility]-77553 Level 3 Est. Patient 10:56:05 CDT Nick Quiroz MD [facility]-35678 Level 3 Est. Patient 05:39:31 CDT Desmond Jimenes [facility] CPT-70494 Level 3 Est. Patient 16:18:28 MATERIAL CUTTER Nick Quiroz MD [facility] CPT-89168 Level 3 Est. Patient 16:50:04 MATERIAL CUTTER Nick Quiroz MD [facility] CPT-47321 Level 3 Est. Patient 22:12:55 MATERIAL CUTTER Desmond Montgomery [facility] Procedures Code Procedure Name Date Entry Date Standard Description CPT-53280 Lipid - LAB USE ONLY 15:55:09 MATERIAL CUTTER CPT-99489 CMP - LAB USE ONLY 15:55:09 MATERIAL CUTTER CPT-08673 CBC - LAB USE ONLY 15:55:08 MATERIAL CUTTER CPT-52310 Venipuncture Draw Fee 15:55:08 MATERIAL CUTTER CPT-Cryo Cryotherapy 11:00:57 CDT CPT-02875 Hand comp min 3V 17:09:13 CDT CPT-21843 Hand comp min 3V 17:08:18 CDT CPT-17680 Fluzone Quadrivalent Intramuscular Suspension 0.5 ML 10: 17:16 CDT CPT-LR Lesion Removal 08:49:09 CDT CPT-33323 Nail Excision 08:49:52 CDT CPT-00678 Venipuncture Draw Fee 16:51:53 MATERIAL CUTTER
--- OUTSIDE RECORDS SUMMARY | 2018-08-01 21:53 | XMS REPORT | Clinical Summary ---
Author Author Admin, COURTNEY Organization [employer] Address Unknown Phone Unavailable Allergies, Adverse Reactions, [...] Viral warts, unspecified Diarrhea, chronic 787.91 Active Lusi Miguel Sapp MD Diarrhea Body Mass Index [...] 1 twice day for anxiety BUSPIRONE HCL 60404987730 Active Luis Mgiuel Sapp MD Active PANTOPRAZOLE SODIUM 40 MG ORAL TABLET DELAYED RELEASE one tab once daily 2017 PANTOPRAZOLE SODIUM 37984517735 Active Luis Miguel Sapp MD Active CARAFATE 1 GM ORAL TABLET 1 tab q4H SUCRALFATE 22381610384 Active Luis Miguel Sapp MD Active PREDNISONE 20 MG ORAL TABLET 2 tabs daily for 3 days, 1 tab daily for 3 days, 1/2 tab daily for 2 days PREDNISONE 48966621994 No Longer Active Yvon Harrison MD Active TERBINAFINE HCL 250 MG ORAL TABLET 1 tab po qday for nail infection. TERBINAFINE HCL 28834619380 No Longer Active Yvon Harrison MD Active SIMVASTATIN 20 MG ORAL TABLET 1 po at qhs SIMVASTATIN 25460852834 Active Yvon Harrison MD Active DEPAKOTE 500 MG ORAL TABLET DELAYED RELEASE take 1 tab po BID for seizures. DIVALPROEX SODIUM 43483859317 Active Yvon Harrison MD Active DIVALPROEX SODIUM 250 MG ORAL TABLET DELAYED RELEASE 1 po TID DIVALPROEX SODIUM 85104429680 No Longer Active Nick Quiroz MD Active KEFLEX 500 MG ORAL CAPSULE 1 po qid CEPHALEXIN 13582259803 No Longer Active Nick Quiroz MD Active KEFLEX 500 MG ORAL CAPSULE 1 po qid CEPHALEXIN 49346219442 No Longer Active Nick Quiroz MD Active KEFLEX 500 MG ORAL CAPSULE 1 po TID x 10 days CEPHALEXIN 10126917852 No Longer Active Nick Quiroz MD Active KEFLEX 500 MG ORAL CAPSULE 1 po TID x 10 days CEPHALEXIN 51611048886 No Longer Active Nick Quiroz MD Active IBUPROFEN 600 MG ORAL TABLET 1 tablet by mouth every 8 hours prn IBUPROFEN 70898373475 No Longer Active Desmond Montgomery DO Active FLONASE 50 MCG/ACT NASAL SUSPENSION 2 puffs in each nostril daily FLUTICASONE PROPIONATE 49721204205 No Longer Active Desmond Montgomery DO Active LORATADINE 10 MG ORAL TABLET 1 tablet by mouth daily PRN Congestion LORATADINE 56600395321 No Longer Active Desmond Montgomery DO Active LORATADINE 10 MG ORAL TABLET 1 tablet by mouth daily PRN Congestion LORATADINE 10 MG ORAL TABLET 299707 LORATADINE Inactive FLONASE 50 MCG/ACT NASAL SUSPENSION 2 puffs in each nostril daily FLONASE 50 MCG/ACT NASAL SUSPENSION 7496936 FLUTICASONE PROPIONATE Inactive IBUPROFEN 600 MG ORAL TABLET 1 tablet by mouth every 8 hours prn IBUPROFEN 600 MG ORAL TABLET 308462 IBUPROFEN Inactive KEFLEX 500 MG ORAL CAPSULE 1 po TID x 10 days KEFLEX 500 MG ORAL CAPSULE 458832 CEPHALEXIN Inactive KEFLEX 500 MG ORAL CAPSULE 1 po qid KEFLEX 500 MG ORAL CAPSULE 843886 CEPHALEXIN Inactive KEFLEX 500 MG ORAL CAPSULE 1 po qid KEFLEX 500 MG ORAL CAPSULE 102958 CEPHALEXIN Inactive KEFLEX 500 MG ORAL CAPSULE 1 po TID x 10 days KEFLEX 500 MG ORAL CAPSULE 362871 CEPHALEXIN Inactive DIVALPROEX SODIUM 250 MG ORAL TABLET DELAYED RELEASE 1 po TID DIVALPROEX SODIUM 250 MG ORAL TABLET DELAYED RELEASE 9469678 DIVALPROEX SODIUM Inactive TERBINAFINE HCL 250 MG ORAL TABLET 1 tab po qday for nail infection. TERBINAFINE HCL 250 MG ORAL TABLET 196274 TERBINAFINE HCL Inactive PREDNISONE 20 MG ORAL TABLET 2 tabs daily for 3 days, 1 tab daily for 3 days, 1/2 tab daily for 2 days PREDNISONE 20 MG ORAL TABLET 087736 PREDNISONE Inactive Vital Signs Date Name Value [...] Measured Encounters Code Encounter Date Provider Facility CPT-81074 45834-Yky Vst-Est Level III 15:15:09 CDT Luis Miguel Sapp MD [facility]-52806 Level 4 Est. Patient 11:00:57 CDT Yvon Harrison MD [facility]-18781 Level 4 Est. Patient 15:53:40 CDT Yvon Harrison MD [facility]-87802 Level 4 Est. Patient 15:42:18 CDT Yvon Harrison MD [facility]-79847 Level 3 Est. Patient 17:08:18 CDT Berta Sweeney ROSENDO [facility]-80877 Level 4 Est. Patient 16:35:02 RADIO ENGINEER Yvon Harrison MD [facility]-88479 Level 4 Est. Patient 15:11:02 RADIO ENGINEER Yvon Harrison MD [facility]-09262 Level 4 Est. Patient 13:18:47 CDT Yvon Harrison MD [facility]-21861 Level 4 Est. Patient 09:51:29 CDT Yvon Harrison MD [facility]-31217 Level 3 Est. Patient 11:40:53 RADIO ENGINEER Nick Quiroz MD [facility]-88184 Level 3 Est. Patient 09:05:46 CDT Nick Quiroz MD [facility]-94650 Level 3 Est. Patient 10:56:05 CDT Nick Quiroz MD [facility]-97724 Level 3 Est. Patient 05:39:31 CDT Desmond Jimenes [facility] CPT-17981 Level 3 Est. Patient 16:18:28 RADIO ENGINEER Nick Quiroz MD [facility] CPT-75188 Level 3 Est. Patient 16:50:04 RADIO ENGINEER Nick Quiroz MD [facility] CPT-68533 Level 3 Est. Patient 22:12:55 RADIO ENGINEER Desmond Montgomery [facility] Procedures Code Procedure Name Date Entry Date Standard Description CPT-77359 Lipid - LAB USE ONLY 15:55:09 RADIO ENGINEER CPT-97510 CMP - LAB USE ONLY 15:55:09 RADIO ENGINEER CPT-63474 CBC - LAB USE ONLY 15:55:08 RADIO ENGINEER CPT-74081 Venipuncture Draw Fee 15:55:08 RADIO ENGINEER CPT-Cryo Cryotherapy 11:00:57 CDT CPT-52042 Hand comp min 3V 17:09:13 CDT CPT-04738 Hand comp min 3V 17:08:18 CDT CPT-53367 Fluzone Quadrivalent Intramuscular Suspension 0.5 ML 10: 17:16 CDT CPT-LR Lesion Removal 08:49:09 CDT CPT-70727 Nail Excision 08:49:52 CDT CPT-77693 Venipuncture Draw Fee 16:51:53 RADIO ENGINEER
--- OUTSIDE RECORDS SUMMARY | 2018-08-01 21:54 | XMS REPORT | Clinical Summary ---
Author Author Admin, COURTNEY Organization [employer] Address Unknown Phone Unavailable Allergies, Adverse Reactions, [...] 1 twice day for anxiety BUSPIRONE HCL 86665204538 Active Luis Miguel Sapp MD Active PANTOPRAZOLE SODIUM 40 MG ORAL TABLET DELAYED RELEASE one tab once daily 2017 PANTOPRAZOLE SODIUM 09736732587 Active Luis Miguel Sapp MD Active CARAFATE 1 GM ORAL TABLET 1 tab q4H SUCRALFATE 28100243236 Active Luis Miguel Sapp MD Active PREDNISONE 20 MG ORAL TABLET 2 tabs daily for 3 days, 1 tab daily for 3 days, 1/2 tab daily for 2 days PREDNISONE 02652513347 No Longer Active Yvon Harrison MD Active TERBINAFINE HCL 250 MG ORAL TABLET 1 tab po qday for nail infection. TERBINAFINE HCL 63814141636 No Longer Active Yvon Harrison MD Active SIMVASTATIN 20 MG ORAL TABLET 1 po at qhs SIMVASTATIN 37775657865 Active Yvon Harrison MD Active DEPAKOTE 500 MG ORAL TABLET DELAYED RELEASE take 1 tab po BID for seizures. DIVALPROEX SODIUM 73492417478 Active Yvon Harrison MD Active DIVALPROEX SODIUM 250 MG ORAL TABLET DELAYED RELEASE 1 po TID DIVALPROEX SODIUM 19132097086 No Longer Active Nick Quiroz MD Active KEFLEX 500 MG ORAL CAPSULE 1 po qid CEPHALEXIN 76006274144 No Longer Active Nick Quiroz MD Active KEFLEX 500 MG ORAL CAPSULE 1 po qid CEPHALEXIN 88103745666 No Longer Active Nick Quiroz MD Active KEFLEX 500 MG ORAL CAPSULE 1 po TID x 10 days CEPHALEXIN 76059563596 No Longer Active Nick Quiroz MD Active KEFLEX 500 MG ORAL CAPSULE 1 po TID x 10 days CEPHALEXIN 01590176495 No Longer Active Nick Quiroz MD Active IBUPROFEN 600 MG ORAL TABLET 1 tablet by mouth every 8 hours prn IBUPROFEN 15220518852 No Longer Active Desmond Montgomery DO Active FLONASE 50 MCG/ACT NASAL SUSPENSION 2 puffs in each nostril daily FLUTICASONE PROPIONATE 84660878223 No Longer Active Desmond Montgomery DO Active LORATADINE 10 MG ORAL TABLET 1 tablet by mouth daily PRN Congestion LORATADINE 95375714087 No Longer Active Desmond Montgomery DO Active LORATADINE 10 MG ORAL TABLET 1 tablet by mouth daily PRN Congestion LORATADINE 10 MG ORAL TABLET 953671 LORATADINE Inactive FLONASE 50 MCG/ACT NASAL SUSPENSION 2 puffs in each nostril daily FLONASE 50 MCG/ACT NASAL SUSPENSION 6336296 FLUTICASONE PROPIONATE Inactive IBUPROFEN 600 MG ORAL TABLET 1 tablet by mouth every 8 hours prn IBUPROFEN 600 MG ORAL TABLET 387835 IBUPROFEN Inactive KEFLEX 500 MG ORAL CAPSULE 1 po TID x 10 days KEFLEX 500 MG ORAL CAPSULE 407124 CEPHALEXIN Inactive KEFLEX 500 MG ORAL CAPSULE 1 po qid KEFLEX 500 MG ORAL CAPSULE 988511 CEPHALEXIN Inactive KEFLEX 500 MG ORAL CAPSULE 1 po qid KEFLEX 500 MG ORAL CAPSULE 923216 CEPHALEXIN Inactive KEFLEX 500 MG ORAL CAPSULE 1 po TID x 10 days KEFLEX 500 MG ORAL CAPSULE 046199 CEPHALEXIN Inactive DIVALPROEX SODIUM 250 MG ORAL TABLET DELAYED RELEASE 1 po TID DIVALPROEX SODIUM 250 MG ORAL TABLET DELAYED RELEASE 2759813 DIVALPROEX SODIUM Inactive TERBINAFINE HCL 250 MG ORAL TABLET 1 tab po qday for nail infection. TERBINAFINE HCL 250 MG ORAL TABLET 264775 TERBINAFINE HCL Inactive PREDNISONE 20 MG ORAL TABLET 2 tabs daily for 3 days, 1 tab daily for 3 days, 1/2 tab daily for 2 days PREDNISONE 20 MG ORAL TABLET 386362 PREDNISONE Inactive Vital Signs Date Name Value [...] Measured Encounters Code Encounter Date Provider Facility CPT-95497 52619-Bis Vst-Est Level III 15:15:09 CDT Luis Miguel Sapp MD [facility]-97514 Level 4 Est. Patient 11:00:57 CDT Yvon Harrison MD [facility]-85751 Level 4 Est. Patient 15:53:40 CDT Yvon Harrison MD [facility]-47084 Level 4 Est. Patient 15:42:18 CDT Yvon Harrison MD [facility]-12228 Level 3 Est. Patient 17:08:18 CDT Berta Sweeney ROSENDO [facility]-87250 Level 4 Est. Patient 16:35:02 RN SCHOOL Yvon Harrison MD [facility]-21470 Level 4 Est. Patient 15:11:02 RN SCHOOL Yvon Harrison MD [facility]-90305 Level 4 Est. Patient 13:18:47 CDT Yvon Harrison MD [facility]-92936 Level 4 Est. Patient 09:51:29 CDT Yvon Harrison MD [facility]-23485 Level 3 Est. Patient 11:40:53 RN SCHOOL Nick Quiroz MD [facility]-02997 Level 3 Est. Patient 09:05:46 CDT Nick Quiroz MD [facility]-88467 Level 3 Est. Patient 10:56:05 CDT Nick Quiroz MD [facility]-15150 Level 3 Est. Patient 05:39:31 CDT Desmond Jimenes [facility] CPT-33917 Level 3 Est. Patient 16:18:28 RN SCHOOL Nick Quiroz MD [facility] CPT-47301 Level 3 Est. Patient 16:50:04 RN SCHOOL Nick Quiroz MD [facility] CPT-55829 Level 3 Est. Patient 22:12:55 RN SCHOOL Desmond Montgomery [facility] Procedures Code Procedure Name Date Entry Date Standard Description CPT-82749 Lipid - LAB USE ONLY 15:55:09 RN SCHOOL CPT-98079 CMP - LAB USE ONLY 15:55:09 RN SCHOOL CPT-09489 CBC - LAB USE ONLY 15:55:08 RN SCHOOL CPT-85046 Venipuncture Draw Fee 15:55:08 RN SCHOOL CPT-Cryo Cryotherapy 11:00:57 CDT CPT-10233 Hand comp min 3V 17:09:13 CDT CPT-13606 Hand comp min 3V 17:08:18 CDT CPT-67792 Fluzone Quadrivalent Intramuscular Suspension 0.5 ML 10: 17:16 CDT CPT-LR Lesion Removal 08:49:09 CDT CPT-65670 Nail Excision 08:49:52 CDT CPT-88361 Venipuncture Draw Fee 16:51:53 RN SCHOOL
--- OUTSIDE RECORDS SUMMARY | 2018-08-01 21:54 | XMS REPORT | Clinical Summary ---
Author Author Admin, COURTNEY Organization [employer] Address Unknown Phone Unavailable Allergies, Adverse Reactions, [...] 1 twice day for anxiety BUSPIRONE HCL 36394815617 Active Luis Miguel Sapp MD Active PANTOPRAZOLE SODIUM 40 MG ORAL TABLET DELAYED RELEASE one tab once daily 2017 PANTOPRAZOLE SODIUM 49215691513 Active Luis Miguel Sapp MD Active CARAFATE 1 GM ORAL TABLET 1 tab q4H SUCRALFATE 05088486784 Active Luis Miguel Sapp MD Active PREDNISONE 20 MG ORAL TABLET 2 tabs daily for 3 days, 1 tab daily for 3 days, 1/2 tab daily for 2 days PREDNISONE 31229823485 No Longer Active Yvon Harrison MD Active TERBINAFINE HCL 250 MG ORAL TABLET 1 tab po qday for nail infection. TERBINAFINE HCL 93250822766 No Longer Active Yvon Harrison MD Active SIMVASTATIN 20 MG ORAL TABLET 1 po at qhs SIMVASTATIN 45062335831 Active Yvon Harrison MD Active DEPAKOTE 500 MG ORAL TABLET DELAYED RELEASE take 1 tab po BID for seizures. DIVALPROEX SODIUM 46905799459 Active Yvon Harrison MD Active DIVALPROEX SODIUM 250 MG ORAL TABLET DELAYED RELEASE 1 po TID DIVALPROEX SODIUM 29453157346 No Longer Active Nick Quiroz MD Active KEFLEX 500 MG ORAL CAPSULE 1 po qid CEPHALEXIN 86129022790 No Longer Active Nick Quiroz MD Active KEFLEX 500 MG ORAL CAPSULE 1 po qid CEPHALEXIN 12965604901 No Longer Active Nick Quiroz MD Active KEFLEX 500 MG ORAL CAPSULE 1 po TID x 10 days CEPHALEXIN 36893997101 No Longer Active Nick Quiroz MD Active KEFLEX 500 MG ORAL CAPSULE 1 po TID x 10 days CEPHALEXIN 12613170862 No Longer Active Nick Quiroz MD Active IBUPROFEN 600 MG ORAL TABLET 1 tablet by mouth every 8 hours prn IBUPROFEN 91798037865 No Longer Active Desmond Montgomery DO Active FLONASE 50 MCG/ACT NASAL SUSPENSION 2 puffs in each nostril daily FLUTICASONE PROPIONATE 94975747690 No Longer Active Desmond Montgomery DO Active LORATADINE 10 MG ORAL TABLET 1 tablet by mouth daily PRN Congestion LORATADINE 89035113825 No Longer Active Desmond Montgomery DO Active LORATADINE 10 MG ORAL TABLET 1 tablet by mouth daily PRN Congestion LORATADINE 10 MG ORAL TABLET 987402 LORATADINE Inactive FLONASE 50 MCG/ACT NASAL SUSPENSION 2 puffs in each nostril daily FLONASE 50 MCG/ACT NASAL SUSPENSION 4040950 FLUTICASONE PROPIONATE Inactive IBUPROFEN 600 MG ORAL TABLET 1 tablet by mouth every 8 hours prn IBUPROFEN 600 MG ORAL TABLET 986753 IBUPROFEN Inactive KEFLEX 500 MG ORAL CAPSULE 1 po TID x 10 days KEFLEX 500 MG ORAL CAPSULE 111311 CEPHALEXIN Inactive KEFLEX 500 MG ORAL CAPSULE 1 po qid KEFLEX 500 MG ORAL CAPSULE 812936 CEPHALEXIN Inactive KEFLEX 500 MG ORAL CAPSULE 1 po qid KEFLEX 500 MG ORAL CAPSULE 972035 CEPHALEXIN Inactive KEFLEX 500 MG ORAL CAPSULE 1 po TID x 10 days KEFLEX 500 MG ORAL CAPSULE 480580 CEPHALEXIN Inactive DIVALPROEX SODIUM 250 MG ORAL TABLET DELAYED RELEASE 1 po TID DIVALPROEX SODIUM 250 MG ORAL TABLET DELAYED RELEASE 0678741 DIVALPROEX SODIUM Inactive TERBINAFINE HCL 250 MG ORAL TABLET 1 tab po qday for nail infection. TERBINAFINE HCL 250 MG ORAL TABLET 363084 TERBINAFINE HCL Inactive PREDNISONE 20 MG ORAL TABLET 2 tabs daily for 3 days, 1 tab daily for 3 days, 1/2 tab daily for 2 days PREDNISONE 20 MG ORAL TABLET 935448 PREDNISONE Inactive Vital Signs Date Name Value [...] Measured Encounters Code Encounter Date Provider Facility CPT-66406 49966-Exy Vst-Est Level III 15:15:09 CDT Luis Miguel Sapp MD [facility]-64706 Level 4 Est. Patient 11:00:57 CDT Yvon Harrison MD [facility]-46318 Level 4 Est. Patient 15:53:40 CDT Yvon Harrison MD [facility]-88688 Level 4 Est. Patient 15:42:18 CDT Yvon Harrison MD [facility]-75861 Level 3 Est. Patient 17:08:18 CDT Berta Sweeney ROSENDO [facility]-88160 Level 4 Est. 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 Patient 13:18:47 CDT Yvon Harrison MD [facility]-34977 Level 4 Est. Patient 09:51:29 CDT Yvon Harrison MD [facility]-22732 Level 3 Est. 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 Patient 09:05:46 CDT Nick Quiroz MD [facility]-68921 Level 3 Est. Patient 10:56:05 CDT Nick Quiroz MD [facility]-81269 Level 3 Est. Patient 05:39:31 CDT Desmodn Jimenes [facility] CPT-76184 Level 3 Est. 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 Patient 16:50:04 PROFESSOR OF FLORICULTURE Nick Quiroz MD [facility] CPT-44718 Level 3 Est. 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 Desmond Montgomery [facility] Procedures Code Procedure Name Date Entry Date Standard Description CPT-63975 Lipid - LAB USE ONLY 15:55:09 PROFESSOR OF FL[employer] CPT-18385 CMP - LAB USE ONLY 15:55:09 PROFESSOR OF [employer] CPT-19307 CBC - LAB USE ONLY 15:55:08 PROF[employer]OR OF [employer] CPT-23357 Venipuncture Draw Fee 15:55:08 PROFESSOR OF [employer] CPT-Cryo Cryotherapy 11:00:57 CDT CPT-09545 Hand comp min 3V 17:09:13 CDT CPT-50191 Hand comp min 3V 17:08:18 CDT CPT-01948 Fluzone Quadrivalent Intramuscular Suspension 0.5 ML 10: 17:16 CDT CPT-LR Lesion Removal 08:49:09 CDT CPT-77527 Nail Excision 08:49:52 CDT CPT-88933 Venipuncture Draw Fee 16:51:53 PROFESSOR OF FLORIC[employer]
--- OUTSIDE RECORDS SUMMARY | 2018-08-01 21:54 | XMS REPORT | Clinical Summary ---
Author Author Admin, COURTNEY Organization [employer] Address Unknown Phone Unavailable Allergies, Adverse [...] 1 twice day for anxiety BUSPIRONE HCL 55921079513 Active Luis Miguel Sapp MD Active PANTOPRAZOLE SODIUM 40 MG ORAL TABLET DELAYED RELEASE one tab once daily 2017 PANTOPRAZOLE SODIUM 87834043501 Active Luis Miguel Sapp MD Active CARAFATE 1 GM ORAL TABLET 1 tab q4H SUCRALFATE 66969480106 Active Luis Miguel Sapp MD Active PREDNISONE 20 MG ORAL TABLET 2 tabs daily for 3 days, 1 tab daily for 3 days, 1/2 tab daily for 2 days PREDNISONE 01315814806 No Longer Active Yvon Harrison MD Active TERBINAFINE HCL 250 MG ORAL TABLET 1 tab po qday for nail infection. TERBINAFINE HCL 71922722227 No Longer Active Yvon Harrison MD Active SIMVASTATIN 20 MG ORAL TABLET 1 po at qhs SIMVASTATIN 51802674272 Active Yvon Harrison MD Active DEPAKOTE 500 MG ORAL TABLET DELAYED RELEASE take 1 tab po BID for seizures. DIVALPROEX SODIUM 52654757183 Active Yvon Harrison MD Active DIVALPROEX SODIUM 250 MG ORAL TABLET DELAYED RELEASE 1 po TID DIVALPROEX SODIUM 52696211158 No Longer Active Nick Quiroz MD Active KEFLEX 500 MG ORAL CAPSULE 1 po qid CEPHALEXIN 25376664476 No Longer Active Nick Quiroz MD Active KEFLEX 500 MG ORAL CAPSULE 1 po qid CEPHALEXIN 32665425141 No Longer Active Nick Quiroz MD Active KEFLEX 500 MG ORAL CAPSULE 1 po TID x 10 days CEPHALEXIN 00430626369 No Longer Active Nick Quiroz MD Active KEFLEX 500 MG ORAL CAPSULE 1 po TID x 10 days CEPHALEXIN 67214494613 No Longer Active Nick Quiroz MD Active IBUPROFEN 600 MG ORAL TABLET 1 tablet by mouth every 8 hours prn IBUPROFEN 88760968132 No Longer Active Desmond Montgomery DO Active FLONASE 50 MCG/ACT NASAL SUSPENSION 2 puffs in each nostril daily FLUTICASONE PROPIONATE 83809712833 No Longer Active Desmond Montgomrey DO Active LORATADINE 10 MG ORAL TABLET 1 tablet by mouth daily PRN Congestion LORATADINE 47507183188 No Longer Active Desmond Montgomery DO Active LORATADINE 10 MG ORAL TABLET 1 tablet by mouth daily PRN Congestion LORATADINE 10 MG ORAL TABLET 532010 LORATADINE Inactive FLONASE 50 MCG/ACT NASAL SUSPENSION 2 puffs in each nostril daily FLONASE 50 MCG/ACT NASAL SUSPENSION 8778514 FLUTICASONE PROPIONATE Inactive IBUPROFEN 600 MG ORAL TABLET 1 tablet by mouth every 8 hours prn IBUPROFEN 600 MG ORAL TABLET 238294 IBUPROFEN Inactive KEFLEX 500 MG ORAL CAPSULE 1 po TID x 10 days KEFLEX 500 MG ORAL CAPSULE 975208 CEPHALEXIN Inactive KEFLEX 500 MG ORAL CAPSULE 1 po qid KEFLEX 500 MG ORAL CAPSULE 011399 CEPHALEXIN Inactive KEFLEX 500 MG ORAL CAPSULE 1 po qid KEFLEX 500 MG ORAL CAPSULE 310851 CEPHALEXIN Inactive KEFLEX 500 MG ORAL CAPSULE 1 po TID x 10 days KEFLEX 500 MG ORAL CAPSULE 458809 CEPHALEXIN Inactive DIVALPROEX SODIUM 250 MG ORAL TABLET DELAYED RELEASE 1 po TID DIVALPROEX SODIUM 250 MG ORAL TABLET DELAYED RELEASE 7420639 DIVALPROEX SODIUM Inactive TERBINAFINE HCL 250 MG ORAL TABLET 1 tab po qday for nail infection. TERBINAFINE HCL 250 MG ORAL TABLET 709810 TERBINAFINE HCL Inactive PREDNISONE 20 MG ORAL TABLET 2 tabs daily for 3 days, 1 tab daily for 3 days, 1/2 tab daily for 2 days PREDNISONE 20 MG ORAL TABLET 116993 PREDNISONE Inactive Vital Signs Date Name Value [...] Measured Encounters Code Encounter Date Provider Facility CPT-72092 27365-Biv Vst-Est Level III 15:15:09 CDT Luis Miguel Sapp MD [facility]-99937 Level 4 Est. Patient 11:00:57 CDT Yvon Harrison MD [facility]-25120 Level 4 Est. Patient 15:53:40 CDT Yvon Harrison MD [facility]-53589 Level 4 Est. Patient 15:42:18 CDT Yvon Harrison MD [facility]-82585 Level 3 Est. Patient 17:08:18 CDT Berta Sweeney ROSENDO [facility]-38085 Level 4 Est. 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 Patient 15:11:02 BOBBIN CLEANING MACHINE OPERATOR Yvon Harrison MD [facility]-81329 Level 4 Est. Patient 13:18:47 CDT Yvon Harrison MD [facility]-27630 Level 4 Est. Patient 09:51:29 CDT Yvon Harrison MD [facility]-98546 Level 3 Est. Patient 11:40:53 BOBBIN CLEANING MACHINE OPERATOR Nick Quiroz MD [facility]-81402 Level 3 Est. Patient 09:05:46 CDT Nick Quiroz MD [facility]-85721 Level 3 Est. Patient 10:56:05 CDT Nick Quiroz MD [facility]-39335 Level 3 Est. Patient 05:39:31 CDT Desmond Jimenes [facility] CPT-87085 Level 3 Est. Patient 16:18:28 BOBBIN CLEANING MACHINE OPERATOR Nick Quiroz MD [facility] CPT-18176 Level 3 Est. Patient 16:50:04 BOBBIN CLEANING MACHINE OPERATOR Nick Quiroz MD [facility] CPT-96422 Level 3 Est. Patient 22:12:55 BOBBIN CLEANING MACHINE OPERATOR Desmond Montgomery [facility] Procedures Code Procedure Name Date Entry Date Standard Description CPT-59953 Lipid - LAB USE ONLY 15:55:09 BOBBIN CLEANING MACHINE OPERATOR CPT-11697 CMP - LAB USE ONLY 15:55:09 BOBBIN CLEANING MACHINE OPERATOR CPT-04948 CBC - LAB USE ONLY 15:55:08 BOBBIN CLEANING MACHINE OPERATOR CPT-77595 Venipuncture Draw Fee 15:55:08 BOBBIN CLEANING MACHINE OPERATOR CPT-Cryo Cryotherapy 11:00:57 CDT CPT-64246 Hand comp min 3V 17:09:13 CDT CPT-32057 Hand comp min 3V 17:08:18 CDT CPT-32572 Fluzone Quadrivalent Intramuscular Suspension 0.5 ML 10: 17:16 CDT CPT-LR Lesion Removal 08:49:09 CDT CPT-04993 Nail Excision 08:49:52 CDT CPT-87144 Venipuncture Draw Fee 16:51:53 BOBBIN CLEANING MACHINE OPERATOR
--- OUTSIDE RECORDS SUMMARY | 2018-08-01 21:55 | XMS REPORT | Clinical Summary ---
Author Author Admin, COURTNEY Organization [employer] Address Unknown Phone Unavailable Allergies, Adverse Reactions, [...] 1 twice day for anxiety BUSPIRONE HCL 84760015767 Active Luis Miguel Sapp MD Active PANTOPRAZOLE SODIUM 40 MG ORAL TABLET DELAYED RELEASE one tab once daily 2017 PANTOPRAZOLE SODIUM 19899742085 Active Luis Miguel aSpp MD Active CARAFATE 1 GM ORAL TABLET 1 tab q4H SUCRALFATE 85850759278 Active Luis Miguel Sapp MD Active PREDNISONE 20 MG ORAL TABLET 2 tabs daily for 3 days, 1 tab daily for 3 days, 1/2 tab daily for 2 days PREDNISONE 20997639604 No Longer Active Yvon Harrison MD Active TERBINAFINE HCL 250 MG ORAL TABLET 1 tab po qday for nail infection. TERBINAFINE HCL 94905588748 No Longer Active Yvon Harrison MD Active SIMVASTATIN 20 MG ORAL TABLET 1 po at qhs SIMVASTATIN 83186315039 Active Yvon Harrison MD Active DEPAKOTE 500 MG ORAL TABLET DELAYED RELEASE take 1 tab po BID for seizures. DIVALPROEX SODIUM 87240277514 Active Yvon Harrison MD Active DIVALPROEX SODIUM 250 MG ORAL TABLET DELAYED RELEASE 1 po TID DIVALPROEX SODIUM 27434101815 No Longer Active Nick Quiroz MD Active KEFLEX 500 MG ORAL CAPSULE 1 po qid CEPHALEXIN 88079065610 No Longer Active Nick Quiroz MD Active KEFLEX 500 MG ORAL CAPSULE 1 po qid CEPHALEXIN 23649166526 No Longer Active Nick Quiroz MD Active KEFLEX 500 MG ORAL CAPSULE 1 po TID x 10 days CEPHALEXIN 47463072049 No Longer Active Nick Quiroz MD Active KEFLEX 500 MG ORAL CAPSULE 1 po TID x 10 days CEPHALEXIN 17623325224 No Longer Active Nick Quiroz MD Active IBUPROFEN 600 MG ORAL TABLET 1 tablet by mouth every 8 hours prn IBUPROFEN 26037879298 No Longer Active Desmond Montgomery DO Active FLONASE 50 MCG/ACT NASAL SUSPENSION 2 puffs in each nostril daily FLUTICASONE PROPIONATE 19773635541 No Longer Active Desmond Montgomery DO Active LORATADINE 10 MG ORAL TABLET 1 tablet by mouth daily PRN Congestion LORATADINE 39701102343 No Longer Active Desmond Montgomery DO Active LORATADINE 10 MG ORAL TABLET 1 tablet by mouth daily PRN Congestion LORATADINE 10 MG ORAL TABLET 069526 LORATADINE Inactive FLONASE 50 MCG/ACT NASAL SUSPENSION 2 puffs in each nostril daily FLONASE 50 MCG/ACT NASAL SUSPENSION 4480561 FLUTICASONE PROPIONATE Inactive IBUPROFEN 600 MG ORAL TABLET 1 tablet by mouth every 8 hours prn IBUPROFEN 600 MG ORAL TABLET 466895 IBUPROFEN Inactive KEFLEX 500 MG ORAL CAPSULE 1 po TID x 10 days KEFLEX 500 MG ORAL CAPSULE 247023 CEPHALEXIN Inactive KEFLEX 500 MG ORAL CAPSULE 1 po qid KEFLEX 500 MG ORAL CAPSULE 657502 CEPHALEXIN Inactive KEFLEX 500 MG ORAL CAPSULE 1 po qid KEFLEX 500 MG ORAL CAPSULE 361441 CEPHALEXIN Inactive KEFLEX 500 MG ORAL CAPSULE 1 po TID x 10 days KEFLEX 500 MG ORAL CAPSULE 524895 CEPHALEXIN Inactive DIVALPROEX SODIUM 250 MG ORAL TABLET DELAYED RELEASE 1 po TID DIVALPROEX SODIUM 250 MG ORAL TABLET DELAYED RELEASE 5602032 DIVALPROEX SODIUM Inactive TERBINAFINE HCL 250 MG ORAL TABLET 1 tab po qday for nail infection. TERBINAFINE HCL 250 MG ORAL TABLET 482819 TERBINAFINE HCL Inactive PREDNISONE 20 MG ORAL TABLET 2 tabs daily for 3 days, 1 tab daily for 3 days, 1/2 tab daily for 2 days PREDNISONE 20 MG ORAL TABLET 185195 PREDNISONE Inactive Vital Signs Date Name Value [...] Measured Encounters Code Encounter Date Provider Facility CPT-14867 97822-Zld Vst-Est Level III 15:15:09 CDT Luis Miguel Sapp MD [facility]-85396 Level 4 Est. Patient 11:00:57 CDT Yvon Harrison MD [facility]-27220 Level 4 Est. Patient 15:53:40 CDT Yvon Harrison MD [facility]-26392 Level 4 Est. Patient 15:42:18 CDT Yvon Harrison MD [facility]-13668 Level 3 Est. Patient 17:08:18 CDT Berta Sweeney ROSENDO [facility]-87033 Level 4 Est. Patient 16:35:02 CLIENT SERVICE EXECUTIVE Yvon Harrison MD [facility]-09289 Level 4 Est. Patient 15:11:02 CLIENT SERVICE EXECUTIVE Yvon Harrison MD [facility]-24942 Level 4 Est. Patient 13:18:47 CDT Yvon Harrison MD [facility]-20949 Level 4 Est. Patient 09:51:29 CDT Yvon Harrison MD [facility]-62727 Level 3 Est. Patient 11:40:53 CLIENT SERVICE EXECUTIVE Nick Quiroz MD [facility]-31278 Level 3 Est. Patient 09:05:46 CDT Nick Quiroz MD [facility]-76840 Level 3 Est. Patient 10:56:05 CDT Nick Quiroz MD [facility]-50314 Level 3 Est. Patient 05:39:31 CDT Desmond Jimenes [facility] CPT-02824 Level 3 Est. Patient 16:18:28 CLIENT SERVICE EXECUTIVE Nick Quiroz MD [facility] CPT-38005 Level 3 Est. Patient 16:50:04 CLIENT SERVICE EXECUTIVE Nick Quiroz MD [facility] CPT-56284 Level 3 Est. Patient 22:12:55 CLIENT SERVICE EXECUTIVE Desmond Montgomery [facility] Procedures Code Procedure Name Date Entry Date Standard Description CPT-85764 Lipid - LAB USE ONLY 15:55:09 CLIENT SERVICE EXECUTIVE CPT-54018 CMP - LAB USE ONLY 15:55:09 CLIENT SERVICE EXECUTIVE CPT-75387 CBC - LAB USE ONLY 15:55:08 CLIENT SERVICE EXECUTIVE CPT-06683 Venipuncture Draw Fee 15:55:08 CLIENT SERVICE EXECUTIVE CPT-Cryo Cryotherapy 11:00:57 CDT CPT-02264 Hand comp min 3V 17:09:13 CDT CPT-45995 Hand comp min 3V 17:08:18 CDT CPT-15459 Fluzone Quadrivalent Intramuscular Suspension 0.5 ML 10: 17:16 CDT CPT-LR Lesion Removal 08:49:09 CDT CPT-69243 Nail Excision 08:49:52 CDT CPT-48388 Venipuncture Draw Fee 16:51:53 CLIENT SERVICE EXECUTIVE
--- OUTSIDE RECORDS SUMMARY | 2018-08-01 21:55 | XMS REPORT | Clinical Summary ---
Author Author Admin, COURTNEY Organization [employer] Address Unknown Phone Unavailable Allergies, Adverse Reactions, [...] 1 twice day for anxiety BUSPIRONE HCL 84470668314 Active Luis Miguel Sapp MD Active PANTOPRAZOLE SODIUM 40 MG ORAL TABLET DELAYED RELEASE one tab once daily 2017 PANTOPRAZOLE SODIUM 71813422483 Active Luis Miguel Sapp MD Active CARAFATE 1 GM ORAL TABLET 1 tab q4H SUCRALFATE 39555924124 Active Luis Miguel Sapp MD Active PREDNISONE 20 MG ORAL TABLET 2 tabs daily for 3 days, 1 tab daily for 3 days, 1/2 tab daily for 2 days PREDNISONE 89732086463 No Longer Active Yvon Harrison MD Active TERBINAFINE HCL 250 MG ORAL TABLET 1 tab po qday for nail infection. TERBINAFINE HCL 10458278741 No Longer Active Yvon Harrison MD Active SIMVASTATIN 20 MG ORAL TABLET 1 po at qhs SIMVASTATIN 31047159383 Active Yvon Harrison MD Active DEPAKOTE 500 MG ORAL TABLET DELAYED RELEASE take 1 tab po BID for seizures. DIVALPROEX SODIUM 96807553864 Active Yvon Harrison MD Active DIVALPROEX SODIUM 250 MG ORAL TABLET DELAYED RELEASE 1 po TID DIVALPROEX SODIUM 44087723908 No Longer Active Nick Quiroz MD Active KEFLEX 500 MG ORAL CAPSULE 1 po qid CEPHALEXIN 99215066425 No Longer Active Nick Quiroz MD Active KEFLEX 500 MG ORAL CAPSULE 1 po qid CEPHALEXIN 18287843896 No Longer Active Nick Quiroz MD Active KEFLEX 500 MG ORAL CAPSULE 1 po TID x 10 days CEPHALEXIN 49045539045 No Longer Active Nick Quiroz MD Active KEFLEX 500 MG ORAL CAPSULE 1 po TID x 10 days CEPHALEXIN 72320297790 No Longer Active Nick Quiroz MD Active IBUPROFEN 600 MG ORAL TABLET 1 tablet by mouth every 8 hours prn IBUPROFEN 48462318296 No Longer Active Desmond Montgomery DO Active FLONASE 50 MCG/ACT NASAL SUSPENSION 2 puffs in each nostril daily FLUTICASONE PROPIONATE 12146828149 No Longer Active Desmond Montgomery DO Active LORATADINE 10 MG ORAL TABLET 1 tablet by mouth daily PRN Congestion LORATADINE 20354187258 No Longer Active Desmond Montgomery DO Active LORATADINE 10 MG ORAL TABLET 1 tablet by mouth daily PRN Congestion LORATADINE 10 MG ORAL TABLET 089948 LORATADINE Inactive FLONASE 50 MCG/ACT NASAL SUSPENSION 2 puffs in each nostril daily FLONASE 50 MCG/ACT NASAL SUSPENSION 4242442 FLUTICASONE PROPIONATE Inactive IBUPROFEN 600 MG ORAL TABLET 1 tablet by mouth every 8 hours prn IBUPROFEN 600 MG ORAL TABLET 140627 IBUPROFEN Inactive KEFLEX 500 MG ORAL CAPSULE 1 po TID x 10 days KEFLEX 500 MG ORAL CAPSULE 320430 CEPHALEXIN Inactive KEFLEX 500 MG ORAL CAPSULE 1 po qid KEFLEX 500 MG ORAL CAPSULE 441212 CEPHALEXIN Inactive KEFLEX 500 MG ORAL CAPSULE 1 po qid KEFLEX 500 MG ORAL CAPSULE 786331 CEPHALEXIN Inactive KEFLEX 500 MG ORAL CAPSULE 1 po TID x 10 days KEFLEX 500 MG ORAL CAPSULE 794190 CEPHALEXIN Inactive DIVALPROEX SODIUM 250 MG ORAL TABLET DELAYED RELEASE 1 po TID DIVALPROEX SODIUM 250 MG ORAL TABLET DELAYED RELEASE 9373819 DIVALPROEX SODIUM Inactive TERBINAFINE HCL 250 MG ORAL TABLET 1 tab po qday for nail infection. TERBINAFINE HCL 250 MG ORAL TABLET 754409 TERBINAFINE HCL Inactive PREDNISONE 20 MG ORAL TABLET 2 tabs daily for 3 days, 1 tab daily for 3 days, 1/2 tab daily for 2 days PREDNISONE 20 MG ORAL TABLET 095371 PREDNISONE Inactive Vital Signs Date Name Value [...] Measured Encounters Code Encounter Date Provider Facility CPT-80268 [id number] Vst-Est Level III 15:15:09 CDT Luis Miguel Sapp MD [facility]-14993 Level 4 Est. Patient 11:00:57 CDT Yvon Harrison MD [facility]-89144 Level 4 Est. Patient 15:53:40 CDT Yvon Harrison MD [facility]-93695 Level 4 Est. Patient 15:42:18 CDT Yvon Harrison MD [facility]-24063 Level 3 Est. Patient 17:08:18 CDT Berta Sweeney ROSENDO [facility]-82853 Level 4 Est. Patient 16:35:02 PERSONNEL RECRUITER Yvon Harrison MD [facility]-74227 Level 4 Est. Patient 15:11:02 PERSONNEL RECRUITER Yvon Harrison MD [facility]-45433 Level 4 Est. Patient 13:18:47 CDT Yvon Harrison MD [facility]-89894 Level 4 Est. Patient 09:51:29 CDT Yvon Harrison MD [facility]-61082 Level 3 Est. Patient 11:40:53 PERSONNEL RECRUITER Nick Quiroz MD [facility]-63192 Level 3 Est. Patient 09:05:46 CDT Nick Quiroz MD [facility]-61916 Level 3 Est. Patient 10:56:05 CDT Nick Quiroz MD [facility]-32149 Level 3 Est. Patient 05:39:31 CDT Desmond Jimenes [facility] CPT-02778 Level 3 Est. Patient 16:18:28 PERSONNEL RECRUITER Nick Quiroz MD [facility] CPT-04542 Level 3 Est. Patient 16:50:04 PERSONNEL RECRUITER Nick Quiroz MD [facility] CPT-16778 Level 3 Est. Patient 22:12:55 PERSONNEL RECRUITER Desmond Montgomery [facility] Procedures Code Procedure Name Date Entry Date Standard Description CPT-22565 Lipid - LAB USE ONLY 15:55:09 PERSONNEL RECRUITER CPT-29106 CMP - LAB USE ONLY 15:55:09 PERSONNEL RECRUITER CPT-17007 CBC - LAB USE ONLY 15:55:08 PERSONNEL RECRUITER CPT-05615 Venipuncture Draw Fee 15:55:08 PERSONNEL RECRUITER CPT-Cryo Cryotherapy 11:00:57 CDT CPT-96039 Hand comp min 3V 17:09:13 CDT CPT-61236 Hand comp min 3V 17:08:18 CDT CPT-98495 Fluzone Quadrivalent Intramuscular Suspension 0.5 ML 10: 17:16 CDT CPT-LR Lesion Removal 08:49:09 CDT CPT-99053 Nail Excision 08:49:52 CDT CPT-98202 Venipuncture Draw Fee 16:51:53 PERSONNEL RECRUITER
--- OUTSIDE RECORDS SUMMARY | 2018-08-01 21:56 | XMS REPORT | Clinical Summary ---
Author Author Admin, COURTNEY Organization [employer] Address Unknown Phone Unavailable Allergies, Adverse Reactions, [...] and sense organs FH SEIZURES V17.2 Resolved Ncik Quiroz MD Family history of other neurological [...] 1 twice day for anxiety BUSPIRONE HCL 22558243584 Active Luis Miguel Sapp MD Active PANTOPRAZOLE SODIUM 40 MG ORAL TABLET DELAYED RELEASE one tab once daily 2017 PANTOPRAZOLE SODIUM 46127948902 Active Luis Miguel Sapp MD Active CARAFATE 1 GM ORAL TABLET 1 tab q4H SUCRALFATE 53848256693 Active Luis Miguel Sapp MD Active PREDNISONE 20 MG ORAL TABLET 2 tabs daily for 3 days, 1 tab daily for 3 days, 1/2 tab daily for 2 days PREDNISONE 19109229984 No Longer Active Yvon Harrison MD Active TERBINAFINE HCL 250 MG ORAL TABLET 1 tab po qday for nail infection. TERBINAFINE HCL 92665561321 No Longer Active Yvon Harrison MD Active SIMVASTATIN 20 MG ORAL TABLET 1 po at qhs SIMVASTATIN 26600764998 Active Yvon Harrison MD Active DEPAKOTE 500 MG ORAL TABLET DELAYED RELEASE take 1 tab po BID for seizures. DIVALPROEX SODIUM 87895732944 Active Yvon Harrison MD Active DIVALPROEX SODIUM 250 MG ORAL TABLET DELAYED RELEASE 1 po TID DIVALPROEX SODIUM 59490694707 No Longer Active Nick Quiroz MD Active KEFLEX 500 MG ORAL CAPSULE 1 po qid CEPHALEXIN 22975763358 No Longer Active Nick Quiroz MD Active KEFLEX 500 MG ORAL CAPSULE 1 po qid CEPHALEXIN 67230876791 No Longer Active Nick Quiroz MD Active KEFLEX 500 MG ORAL CAPSULE 1 po TID x 10 days CEPHALEXIN 08840854715 No Longer Active Nick Quiroz MD Active KEFLEX 500 MG ORAL CAPSULE 1 po TID x 10 days CEPHALEXIN 38242258115 No Longer Active Nick Quiroz MD Active IBUPROFEN 600 MG ORAL TABLET 1 tablet by mouth every 8 hours prn IBUPROFEN 63450559903 No Longer Active Desmond Montgomery DO Active FLONASE 50 MCG/ACT NASAL SUSPENSION 2 puffs in each nostril daily FLUTICASONE PROPIONATE 80953111722 No Longer Active Desmond Montgomery DO Active LORATADINE 10 MG ORAL TABLET 1 tablet by mouth daily PRN Congestion LORATADINE 93124158004 No Longer Active Desmond Montgomery DO Active LORATADINE 10 MG ORAL TABLET 1 tablet by mouth daily PRN Congestion LORATADINE 10 MG ORAL TABLET 529745 LORATADINE Inactive FLONASE 50 MCG/ACT NASAL SUSPENSION 2 puffs in each nostril daily FLONASE 50 MCG/ACT NASAL SUSPENSION 8267021 FLUTICASONE PROPIONATE Inactive IBUPROFEN 600 MG ORAL TABLET 1 tablet by mouth every 8 hours prn IBUPROFEN 600 MG ORAL TABLET 524623 IBUPROFEN Inactive KEFLEX 500 MG ORAL CAPSULE 1 po TID x 10 days KEFLEX 500 MG ORAL CAPSULE 150533 CEPHALEXIN Inactive KEFLEX 500 MG ORAL CAPSULE 1 po qid KEFLEX 500 MG ORAL CAPSULE 847212 CEPHALEXIN Inactive KEFLEX 500 MG ORAL CAPSULE 1 po qid KEFLEX 500 MG ORAL CAPSULE 449793 CEPHALEXIN Inactive KEFLEX 500 MG ORAL CAPSULE 1 po TID x 10 days KEFLEX 500 MG ORAL CAPSULE 708117 CEPHALEXIN Inactive DIVALPROEX SODIUM 250 MG ORAL TABLET DELAYED RELEASE 1 po TID DIVALPROEX SODIUM 250 MG ORAL TABLET DELAYED RELEASE 8775393 DIVALPROEX SODIUM Inactive TERBINAFINE HCL 250 MG ORAL TABLET 1 tab po qday for nail infection. TERBINAFINE HCL 250 MG ORAL TABLET 781130 TERBINAFINE HCL Inactive PREDNISONE 20 MG ORAL TABLET 2 tabs daily for 3 days, 1 tab daily for 3 days, 1/2 tab daily for 2 days PREDNISONE 20 MG ORAL TABLET 100317 PREDNISONE Inactive Vital Signs Date Name Value [...] Measured Encounters Code Encounter Date Provider Facility CPT-24485 [id number] Vst-Est Level III 15:15:09 CDT Luis Miguel Sapp MD [facility]-41669 Level 4 Est. Patient 11:00:57 CDT Yvon Harrison MD [facility]-76304 Level 4 Est. Patient 15:53:40 CDT Yvon Harrison MD [facility]-99099 Level 4 Est. Patient 15:42:18 CDT Yvon Harrison MD [facility]-68883 Level 3 Est. Patient 17:08:18 CDT Berta Sweeney ROSENDO [facility]-03419 Level 4 Est. Patient 16:35:02 REQUIREMENTS MANAGER Yvon Harrison MD [facility]-85038 Level 4 Est. Patient 15:11:02 REQUIREMENTS MANAGER Yvon Harrison MD [facility]-84539 Level 4 Est. Patient 13:18:47 CDT Yvon Harrison MD [facility]-41298 Level 4 Est. Patient 09:51:29 CDT Yvon Harrison MD [facility]-87053 Level 3 Est. Patient 11:40:53 REQUIREMENTS MANAGER Nick Quiroz MD [facility]-02886 Level 3 Est. Patient 09:05:46 CDT Nick Quiroz MD [facility]-47955 Level 3 Est. Patient 10:56:05 CDT Nick Quiroz MD [facility]-27690 Level 3 Est. Patient 05:39:31 CDT Desmond Jimenes [facility] CPT-95359 Level 3 Est. Patient 16:18:28 REQUIREMENTS MANAGER Nick Quiroz MD [facility] CPT-96858 Level 3 Est. Patient 16:50:04 REQUIREMENTS MANAGER Nick Quiroz MD [facility] CPT-97287 Level 3 Est. Patient 22:12:55 REQUIREMENTS MANAGER Desmond Montgomery [facility] Procedures Code Procedure Name Date Entry Date Standard Description CPT-59257 Lipid - LAB USE ONLY 15:55:09 REQUIREMENTS MANAGER CPT-14712 CMP - LAB USE ONLY 15:55:09 REQUIREMENTS MANAGER CPT-67132 CBC - LAB USE ONLY 15:55:08 REQUIREMENTS MANAGER CPT-25036 Venipuncture Draw Fee 15:55:08 REQUIREMENTS MANAGER CPT-Cryo Cryotherapy 11:00:57 CDT CPT-57817 Hand comp min 3V 17:09:13 CDT CPT-48124 Hand comp min 3V 17:08:18 CDT CPT-73656 Fluzone Quadrivalent Intramuscular Suspension 0.5 ML 10: 17:16 CDT CPT-LR Lesion Removal 08:49:09 CDT CPT-84685 Nail Excision 08:49:52 CDT CPT-32678 Venipuncture Draw Fee 16:51:53 REQUIREMENTS MANAGER
--- OUTSIDE RECORDS SUMMARY | 2018-08-01 21:56 | XMS REPORT | Clinical Summary ---
Author Author Admin, COURTNEY Organization [employer] Address Unknown Phone Unavailable Allergies, Adverse Reactions, [...] 1 twice day for anxiety BUSPIRONE HCL 58867503101 Active Luis Miguel Sapp MD Active PANTOPRAZOLE SODIUM 40 MG ORAL TABLET DELAYED RELEASE one tab once daily 2017 PANTOPRAZOLE SODIUM 95998521318 Active Luis Miguel Sapp MD Active CARAFATE 1 GM ORAL TABLET 1 tab q4H SUCRALFATE 39440769215 Active Luis Miguel Sapp MD Active PREDNISONE 20 MG ORAL TABLET 2 tabs daily for 3 days, 1 tab daily for 3 days, 1/2 tab daily for 2 days PREDNISONE 76125823349 No Longer Active Yvon Harrison MD Active TERBINAFINE HCL 250 MG ORAL TABLET 1 tab po qday for nail infection. TERBINAFINE HCL 13601858632 No Longer Active Yvon Harrison MD Active SIMVASTATIN 20 MG ORAL TABLET 1 po at qhs SIMVASTATIN 33327720958 Active Yvon Harrison MD Active DEPAKOTE 500 MG ORAL TABLET DELAYED RELEASE take 1 tab po BID for seizures. DIVALPROEX SODIUM 94823011556 Active Yvon Harrison MD Active DIVALPROEX SODIUM 250 MG ORAL TABLET DELAYED RELEASE 1 po TID DIVALPROEX SODIUM 45254857464 No Longer Active Nick Quiroz MD Active KEFLEX 500 MG ORAL CAPSULE 1 po qid CEPHALEXIN 46133737737 No Longer Active Nick Quiroz MD Active KEFLEX 500 MG ORAL CAPSULE 1 po qid CEPHALEXIN 54341274707 No Longer Active Nick Quiroz MD Active KEFLEX 500 MG ORAL CAPSULE 1 po TID x 10 days CEPHALEXIN 72290361591 No Longer Active Nick Quiroz MD Active KEFLEX 500 MG ORAL CAPSULE 1 po TID x 10 days CEPHALEXIN 33133927955 No Longer Active Nick Quiroz MD Active IBUPROFEN 600 MG ORAL TABLET 1 tablet by mouth every 8 hours prn IBUPROFEN 23241946885 No Longer Active Desmond Montgomery DO Active FLONASE 50 MCG/ACT NASAL SUSPENSION 2 puffs in each nostril daily FLUTICASONE PROPIONATE 10087723802 No Longer Active Desmond Montgomery DO Active LORATADINE 10 MG ORAL TABLET 1 tablet by mouth daily PRN Congestion LORATADINE 53825816246 No Longer Active Desmond Montgomery DO Active LORATADINE 10 MG ORAL TABLET 1 tablet by mouth daily PRN Congestion LORATADINE 10 MG ORAL TABLET 490542 LORATADINE Inactive FLONASE 50 MCG/ACT NASAL SUSPENSION 2 puffs in each nostril daily FLONASE 50 MCG/ACT NASAL SUSPENSION 1172054 FLUTICASONE PROPIONATE Inactive IBUPROFEN 600 MG ORAL TABLET 1 tablet by mouth every 8 hours prn IBUPROFEN 600 MG ORAL TABLET 517717 IBUPROFEN Inactive KEFLEX 500 MG ORAL CAPSULE 1 po TID x 10 days KEFLEX 500 MG ORAL CAPSULE 320970 CEPHALEXIN Inactive KEFLEX 500 MG ORAL CAPSULE 1 po qid KEFLEX 500 MG ORAL CAPSULE 085670 CEPHALEXIN Inactive KEFLEX 500 MG ORAL CAPSULE 1 po qid KEFLEX 500 MG ORAL CAPSULE 665785 CEPHALEXIN Inactive KEFLEX 500 MG ORAL CAPSULE 1 po TID x 10 days KEFLEX 500 MG ORAL CAPSULE 535799 CEPHALEXIN Inactive DIVALPROEX SODIUM 250 MG ORAL TABLET DELAYED RELEASE 1 po TID DIVALPROEX SODIUM 250 MG ORAL TABLET DELAYED RELEASE 8965593 DIVALPROEX SODIUM Inactive TERBINAFINE HCL 250 MG ORAL TABLET 1 tab po qday for nail infection. TERBINAFINE HCL 250 MG ORAL TABLET 359244 TERBINAFINE HCL Inactive PREDNISONE 20 MG ORAL TABLET 2 tabs daily for 3 days, 1 tab daily for 3 days, 1/2 tab daily for 2 days PREDNISONE 20 MG ORAL TABLET 737055 PREDNISONE Inactive Vital Signs Date Name Value [...] Measured Encounters Code Encounter Date Provider Facility CPT-97950 [id number] Vst-Est Level III 15:15:09 CDT Luis Miguel Sapp MD [facility]-71081 Level 4 Est. Patient 11:00:57 CDT Yvon Harrison MD [facility]-57110 Level 4 Est. Patient 15:53:40 CDT Yvon Harrison MD [facility]-30555 Level 4 Est. Patient 15:42:18 CDT Yvon Harrison MD [facility]-65317 Level 3 Est. Patient 17:08:18 CDT Berta Sweeney ROSENDO [facility]-18997 Level 4 Est. Patient 16:35:02 ACID PUMPER Yvon Harrison MD [facility]-42013 Level 4 Est. Patient 15:11:02 ACID PUMPER Yvon Harrison MD [facility]-12414 Level 4 Est. Patient 13:18:47 CDT Yvon Harrison MD [facility]-03898 Level 4 Est. Patient 09:51:29 CDT Yvon Harrison MD [facility]-58301 Level 3 Est. Patient 11:40:53 ACID PUMPER Nick Quiroz MD [facility]-09182 Level 3 Est. Patient 09:05:46 CDT Nick Quiroz MD [facility]-70058 Level 3 Est. Patient 10:56:05 CDT Nick Quiroz MD [facility]-07227 Level 3 Est. Patient 05:39:31 CDT Desmond Jimenes [facility] CPT-80177 Level 3 Est. Patient 16:18:28 ACID PUMPER Nick Quiroz MD [facility] CPT-08366 Level 3 Est. Patient 16:50:04 ACID PUMPER Nick Quiroz MD [facility] CPT-52266 Level 3 Est. Patient 22:12:55 ACID PUMPER Desmond Montgomery [facility] Procedures Code Procedure Name Date Entry Date Standard Description CPT-80772 Lipid - LAB USE ONLY 15:55:09 ACID PUMPER CPT-82303 CMP - LAB USE ONLY 15:55:09 ACID PUMPER CPT-51876 CBC - LAB USE ONLY 15:55:08 ACID PUMPER CPT-60248 Venipuncture Draw Fee 15:55:08 ACID PUMPER CPT-Cryo Cryotherapy 11:00:57 CDT CPT-28493 Hand comp min 3V 17:09:13 CDT CPT-53629 Hand comp min 3V 17:08:18 CDT CPT-12884 Fluzone Quadrivalent Intramuscular Suspension 0.5 ML 10: 17:16 CDT CPT-LR Lesion Removal 08:49:09 CDT CPT-07383 Nail Excision 08:49:52 CDT CPT-12211 Venipuncture Draw Fee 16:51:53 ACID PUMPER
--- OUTSIDE RECORDS SUMMARY | 2018-08-01 21:57 | XMS REPORT | Clinical Summary ---
Author Author Admin, COURTNEY Organization [facility] Address Unknown Phone Unavailable Allergies, Adverse Reactions, Alerts Allergy Name Reaction Description Start Date Severity Status Provider TOPAMAX Critical Active Bertadaksha Sweeney ROSENDO Conditions [...] Active Yvon Harrison MD Dermatophytosis of nail SEIZURE DISORDER ICD-780.39 Inactive Nick Quiroz MD [...] Generic Name NDC Status Provider Patient Instruction TERBINAFINE HCL 250 MG TABS 1 tab po qday for nail infection. TERBINAFINE HCL 54158549552 No Longer Active Yvon Harrison MD Active SIMVASTATIN 20 MG TABS 1 po at [facility] SIMVASTATIN 92713599869 Active Yvon Harrison MD Active DEPAKOTE 500 MG EC TAB take 1 tab po BID for seizures. DIVALPROEX SODIUM 02053875171 Active Yvon Harrison MD Active DIVALPROEX SODIUM 250 MG TBEC 1 po TID DIVALPROEX SODIUM 53464859034 No Longer Active Nick Quiroz MD Active KEFLEX 500 MG CAP 1 po qid CEPHALEXIN 36674975381 No Longer Active Nick Quiroz MD Active KEFLEX 500 MG CAP 1 po qid CEPHALEXIN 88707352191 No Longer Active Nick Quiroz MD Active KEFLEX 500 MG CAP 1 po TID x 10 days CEPHALEXIN 75800254695 No Longer Active Nick Quiroz MD Active KEFLEX 500 MG CAP 1 po TID x 10 days CEPHALEXIN 31969617799 No Longer Active Nick Quiroz MD Active IBUPROFEN 600 MG TAB 1 tablet by mouth every 8 hours prn IBUPROFEN 65021366497 No Longer Active Desmond Montgomery DO Active FLONASE 50 MCG/ACT SUSP 2 puffs in each nostril daily FLUTICASONE PROPIONATE 79419172851 No Longer Active Desmond Montgomery DO Active LORATADINE 10 MG TABS 1 tablet by mouth daily PRN Congestion 2011 LORATADINE 30497563979 No Longer Active Desmond Montgomery DO Active LORATADINE 10 MG TABS 1 tablet by mouth daily PRN Congestion 2011 LORATADINE 10 MG TABS 149658 LORATADINE Inactive FLONASE 50 MCG/ACT SUSP 2 puffs in each nostril daily FLONASE 50 MCG/ACT SUSP 606252 FLUTICASONE PROPIONATE Inactive IBUPROFEN 600 MG TAB 1 tablet by mouth every 8 hours prn IBUPROFEN 600 MG TAB 696314 IBUPROFEN Inactive KEFLEX 500 MG CAP 1 po TID x 10 days KEFLEX 500 MG CAP 587276 CEPHALEXIN Inactive KEFLEX 500 MG CAP 1 po qid KEFLEX 500 MG CAP 445573 CEPHALEXIN Inactive KEFLEX 500 MG CAP 1 po qid KEFLEX 500 MG CAP 970080 CEPHALEXIN Inactive KEFLEX 500 MG CAP 1 po TID x 10 days KEFLEX 500 MG CAP 399645 CEPHALEXIN Inactive DIVALPROEX SODIUM 250 MG TBEC 1 po TID DIVALPROEX SODIUM 250 MG TBEC 9437670 DIVALPROEX SODIUM Inactive TERBINAFINE HCL 250 MG TABS 1 tab po qday for nail infection. TERBINAFINE HCL 250 MG TABS 299089 TERBINAFINE HCL Inactive Vital Signs Date Name Value Unit Range Description blood pressure, diastolic - 8462-4 82 mm[Hg] BP caro blood pressure, systolic - 8480-6 132 mm[Hg] BP sys pulse rate E&M - 8867-4 87 /min Heart rate temperature E&M 98.1 [degF] Body temperature weight E&M - 3141-9 265 [lb_av] Weight Measured blood pressure, diastolic - 8462-4 84 mm[Hg] BP caro blood pressure, systolic - 8480-6 145 mm[Hg] BP sys pulse rate E&M - 8867-4 82 /min Heart rate temperature E&M 99.0 [degF] Body temperature weight E&M - 3141-9 269.4 [lb_av] Weight Measured blood pressure, diastolic - 8462-4 83 mm[Hg] BP caro blood pressure, systolic - 8480-6 126 mm[Hg] BP sys pulse rate E&M - 8867-4 93 /min Heart rate temperature E&M 98.1 [degF] Body temperature weight E&M - 3141-9 263 [lb_av] Weight Measured blood pressure, diastolic - 8462-4 86 mm[Hg] BP caro blood pressure, systolic - 8480-6 123 mm[Hg] BP sys pulse rate E&M - 8867-4 82 /min Heart rate temperature E&M 98.2 [degF] Body temperature weight E&M - 3141-9 262 [lb_av] Weight Measured blood pressure, diastolic - 8462-4 89 mm[Hg] BP caro blood pressure, systolic - 8480-6 146 mm[Hg] BP sys pulse rate E&M - 8867-4 97 /min Heart rate temperature E&M 97.9 [degF] Body temperature weight E&M - 3141-9 257 [lb_av] Weight Measured Diagnostic Results Date Name Value Unit Range Description Lab Report: CBC, Comp. Metabolic Panel, Lipid Panel - Chemistry sodium, serum 136 mmol/L 958-954 4521/10/29 potassium, serum 4.0 mmol/L 3.5-5.2 chloride, serum 100 mmol/L 98-107 carbon dioxide, venous blood 27.9 mmol/L 21.0-32.0 blood glucose 87 mg/dL 65-110 urea nitrogen, blood 18 mg/dL 7-18 creatinine, serum 1.00 mg/dL 0.60-1.30 alanine aminotransferase (SGPT), serum 24 U/L 12-78 aspartate aminotransferase (SGOT), serum 14 U/L 15-37 alkaline phosphatase, serum 85 U/L 50-136 calcium, serum 9.1 mg/dL 8.5-10.1 bilirubin, serum, total 0.40 mg/dL 0.00-1.00 cholesterol, serum 232 mg/dL 926-598 5990/10/29 triglyceride, serum, fasting 230 mg/dL 30-200 HDL cholesterol, serum 33 mg/dL 32-96 LDL cholesterol, serum 153 mg/dL 0-130 Lab Report: CBC, Comp. Metabolic Panel, Lipid Panel - Hematology leukocyte count, blood 9.8 10^3/MM^3 10*3/mm3 4.6-10.2 erythrocyte (RBC) count 5.71 10^6/MM^3 10*6/mm3 4.69-6.13 hemoglobin, blood 16.8 g/dL 13.5-17.5 hematocrit, blood 48.9 % 41.0-53.0 mean corpuscular volume, RBC 86 fL 80-97 mean corpuscular hemoglobin, RBC 29.3 pg 27.0-31.2 mean corpuscular hemoglobin concentration, RBC 34.3 G/DL % 31.8- 35.4 red blood cell distribution width 13.8 % 11.6-14.8 platelet count 243 10^3/MM^3 10*3/mm3 142-424 Lab Report: Comp. Metabolic Panel - Chemistry sodium, serum 140 mmol/L 283-697 2129/07/06 potassium, serum 4.3 mmol/L 3.5-5.2 chloride, serum 102 mmol/L 98-107 carbon dioxide, venous blood 27.2 mmol/L 21.0-32.0 blood glucose 92 mg/dL 65-110 urea nitrogen, blood 16 mg/dL 7-18 creatinine, serum 1.00 mg/dL 0.60-1.30 alanine aminotransferase (SGPT), serum 34 U/L 12-78 aspartate aminotransferase (SGOT), serum 21 U/L 15-37 calcium, serum 8.9 mg/dL 8.5-10.1 bilirubin, serum, total 0.40 mg/dL 0.00-1.00 Lab Report: Comp. Metabolic Panel, Lipid Panel - Chemistry sodium, serum 141 mmol/L 155-840 5236/01/14 potassium, serum 4.5 mmol/L 3.5-5.2 chloride, serum 104 mmol/L 98-107 carbon dioxide, venous blood 32.7 mmol/L 21.0-32.0 blood glucose 83 mg/dL 65-110 urea nitrogen, blood 13 mg/dL 7-18 creatinine, serum 1.00 mg/dL 0.60-1.30 alanine aminotransferase (SGPT), serum 36 U/L 12-78 aspartate aminotransferase (SGOT), serum 17 U/L 15-37 calcium, serum 9.1 mg/dL 8.5-10.1 bilirubin, serum, total 0.40 mg/dL 0.00-1.00 cholesterol, serum 167 mg/dL 209-862 7097/01/14 triglyceride, serum, fasting 149 mg/dL 30-200 HDL cholesterol, serum 35 mg/dL 32-96 LDL cholesterol, serum 102 mg/dL 0-130 Lab Report: VALPROIC ACID - Toxicology valproic acid, serum 83.4 ug/mL 50.0-100.0 valproic acid, serum 116.9 ug/mL 50.0-100.0 valproic acid, serum 68.3 ug/mL 50.0-100.0 valproic acid, serum 35.2 ug/mL 50.0-100.0 Office Visit: F/U, FILL OUT PAPERWORK - Chemistry cholesterol, target level 200 mg/dL LDL target level 160 mg/dL HDL cholesterol, serum, target level 40 mg/dL triglyceride, target level 150 mg/dL Encounters Code Encounter Date Provider Facility CPT-50504 Level 4 Est. Patient 15:53:40 CDT Yvon Harrison MD [facility] CPT-25690 Level 4 Est. Patient 15:42:18 CDT Yvon Harrison MD [facility] CPT-74822 Level 3 Est. Patient 17:08:18 CDT Berta Sweeney APRN [facility] CPT-71067 Level 4 Est. Patient 16:35:02 MANAGED CARE SPECIALIST Yvon Harrison MD [facility] CPT-49007 Level 4 Est. Patient 15:11:02 MANAGED CARE SPECIALIST Yvon Harrison MD [facility] CPT-76345 Level 4 Est. Patient 13:18:47 CDT Yvon Harrison MD [facility] CPT-50634 Level 4 Est. Patient 09:51:29 CDT Yvon Harrison MD [facility] CPT-04118 Level 3 Est. Patient 11:40:53 MANAGED CARE SPECIALIST Nick Quiroz MD [facility] CPT-23704 Level 3 Est. Patient 09:05:46 CDT Nick Quiroz MD [facility] CPT-98915 Level 3 Est. Patient 10:56:05 CDT Nick Quiroz MD [facility] CPT-12665 Level 3 Est. Patient 05:39:31 CDT Desmond Montgomery [facility] CPT-63358 Level 3 Est. Patient 16:18:28 MANAGED CARE SPECIALIST Nick Quiroz MD [facility] CPT-69024 Level 3 Est. Patient 16:50:04 MANAGED CARE SPECIALIST Nick Quiroz MD [facility] CPT-45861 Level 3 Est. Patient 22:12:55 MANAGED CARE SPECIALIST Desmond Montgomery [facility] Procedures Code Procedure Name Date Entry Date Standard Description CPT-79015 Hand comp min 3V 17:09:13 CDT CPT-90310 Hand comp min 3V 17:08:18 CDT CPT-31214 Fluzone Quadrivalent Intramuscular Suspension 0.5 ML 10: 17:16 CDT CPT-LR Lesion Removal 08:49:09 CDT CPT-59842 Nail Excision 08:49:52 CDT CPT-99441 Venipuncture Draw Fee 16:51:53 MANAGED CARE SPECIALIST
--- OUTSIDE RECORDS SUMMARY | 2018-08-01 21:57 | XMS REPORT | Clinical Summary ---
Author Author Admin, COURTNEY Organization [employer] [facility] [employer] Address Unknown Phone Unavailable Allergies, Adverse Reactions, [...] Active Yvon Harrison MD Viral warts, unspecified SEIZURE DISORDER ICD-780.39 Inactive Nick Quiroz [...] Generic Name NDC Status Provider Patient Instruction PREDNISONE 20 MG ORAL TABLET 2 tabs daily for 3 days, 1 tab daily for 3 days, 1/2 tab daily for 2 days PREDNISONE 16851908284 No Longer Active Yvon Harrison MD Active TERBINAFINE HCL 250 MG ORAL TABLET 1 tab po qday for nail infection. TERBINAFINE HCL 34019714561 No Longer Active Yvon Harrison MD Active SIMVASTATIN 20 MG ORAL TABLET 1 po at qhs SIMVASTATIN 07378662349 Active Yvon Harrison MD Active DEPAKOTE 500 MG ORAL TABLET DELAYED RELEASE take 1 tab po BID for seizures. DIVALPROEX SODIUM 57577053971 Active Yvon Harrison MD Active DIVALPROEX SODIUM 250 MG ORAL TABLET DELAYED RELEASE 1 po TID DIVALPROEX SODIUM 93859634992 No Longer Active Nick Quiroz MD Active KEFLEX 500 MG ORAL CAPSULE 1 po qid CEPHALEXIN 95389093430 No Longer Active Nick Quiroz MD Active KEFLEX 500 MG ORAL CAPSULE 1 po qid CEPHALEXIN 52514679077 No Longer Active Nick Quiroz MD Active KEFLEX 500 MG ORAL CAPSULE 1 po TID x 10 days CEPHALEXIN 54600843574 No Longer Active Nick Quiroz MD Active KEFLEX 500 MG ORAL CAPSULE 1 po TID x 10 days CEPHALEXIN 22489751856 No Longer Active Nick Quiroz MD Active IBUPROFEN 600 MG ORAL TABLET 1 tablet by mouth every 8 hours prn IBUPROFEN 87735456064 No Longer Active Desmond Montgomery DO Active FLONASE 50 MCG/ACT NASAL SUSPENSION 2 puffs in each nostril daily FLUTICASONE PROPIONATE 16858567941 No Longer Active Desmond Montgomery DO Active LORATADINE 10 MG ORAL TABLET 1 tablet by mouth daily PRN Congestion LORATADINE 59664235702 No Longer Active Desmond Montgomery DO Active LORATADINE 10 MG ORAL TABLET 1 tablet by mouth daily PRN Congestion LORATADINE 10 MG ORAL TABLET 059760 LORATADINE Inactive FLONASE 50 MCG/ACT NASAL SUSPENSION 2 puffs in each nostril daily FLONASE 50 MCG/ACT NASAL SUSPENSION 1654779 FLUTICASONE PROPIONATE Inactive IBUPROFEN 600 MG ORAL TABLET 1 tablet by mouth every 8 hours prn IBUPROFEN 600 MG ORAL TABLET 327110 IBUPROFEN Inactive KEFLEX 500 MG ORAL CAPSULE 1 po TID x 10 days KEFLEX 500 MG ORAL CAPSULE 878681 CEPHALEXIN Inactive KEFLEX 500 MG ORAL CAPSULE 1 po qid KEFLEX 500 MG ORAL CAPSULE 523582 CEPHALEXIN Inactive KEFLEX 500 MG ORAL CAPSULE 1 po qid KEFLEX 500 MG ORAL CAPSULE 631317 CEPHALEXIN Inactive KEFLEX 500 MG ORAL CAPSULE 1 po TID x 10 days KEFLEX 500 MG ORAL CAPSULE 959975 CEPHALEXIN Inactive DIVALPROEX SODIUM 250 MG ORAL TABLET DELAYED RELEASE 1 po TID DIVALPROEX SODIUM 250 MG ORAL TABLET DELAYED RELEASE 6259739 DIVALPROEX SODIUM Inactive TERBINAFINE HCL 250 MG ORAL TABLET 1 tab po qday for nail infection. TERBINAFINE HCL 250 MG ORAL TABLET 167838 TERBINAFINE HCL Inactive PREDNISONE 20 MG ORAL TABLET 2 tabs daily for 3 days, 1 tab daily for 3 days, 1/2 tab daily for 2 days PREDNISONE 20 MG ORAL TABLET 526111 PREDNISONE Inactive Encounters Code Encounter Date Provider Facility CPT-24568 Level 4 Est. Patient 11:00:57 CDT Yvon Harrison MD [facility] CPT-23754 Level 4 Est. Patient 15:53:40 CDT Yvon Harrison MD [facility] CPT-74001 Level 4 Est. Patient 15:42:18 CDT Yvon Harrison MD [facility] CPT-96051 Level 3 Est. Patient 17:08:18 CDT Berta Sweeney APRN [facility] CPT-18451 Level 4 Est. Patient 16:35:02 CONTACT CENTRE SUPERVISOR Yvon Harrison MD [facility] CPT-48906 Level 4 Est. Patient 15:11:02 CONTACT CENTRE SUPERVISOR Yvon Harrison MD [facility] CPT-66349 Level 4 Est. Patient 13:18:47 CDT Yvon Harrison MD [facility] CPT-43044 Level 4 Est. Patient 09:51:29 CDT Yvon Harrison MD [facility] CPT-79072 Level 3 Est. Patient 11:40:53 CONTACT CENTRE SUPERVISOR Nick Quiroz MD [facility] CPT-64454 Level 3 Est. Patient 09:05:46 CDT Nick Quiroz MD [facility] CPT-91565 Level 3 Est. Patient 10:56:05 CDT Nick Quiroz MD [facility] CPT-29339 Level 3 Est. Patient 05:39:31 CDT Desmond Montgomery DO [facility] CPT-69681 Level 3 Est. Patient 16:18:28 CONTACT CENTRE SUPERVISOR Nick Quiroz MD [facility] CPT-50897 Level 3 Est. Patient 16:50:04 CONTACT CENTRE SUPERVISOR Nick Quiroz MD [facility] CPT-52909 Level 3 Est. Patient 22:12:55 CONTACT CENTRE SUPERVISOR Desmond Montgomery [facility] Procedures Code Procedure Name Date Entry Date Standard Description CPT-73260 Lipid - LAB USE ONLY 15:55:09 CONTACT CENTRE SUPERVISOR CPT-88244 CMP - LAB USE ONLY 15:55:09 CONTACT CENTRE SUPERVISOR CPT-15056 CBC - LAB USE ONLY 15:55:08 CONTACT CENTRE SUPERVISOR CPT-53594 Venipuncture Draw Fee 15:55:08 CONTACT CENTRE SUPERVISOR CPT-Cryo Cryotherapy 11:00:57 CDT CPT-37900 Hand comp min 3V 17:09:13 CDT CPT-28575 Hand comp min 3V 17:08:18 CDT CPT-75514 Fluzone Quadrivalent Intramuscular Suspension 0.5 ML 10: 17:16 CDT CPT-LR Lesion Removal 08:49:09 CDT CPT-06215 Nail Excision 08:49:52 CDT CPT-08290 Venipuncture Draw Fee 16:51:53 CONTACT CENTRE SUPERVISOR
--- OUTSIDE RECORDS SUMMARY | 2018-08-01 21:58 | XMS REPORT | Clinical Summary ---
Author Author Admin, COURTNEY Organization [facility] Address Unknown Phone Unavailable Allergies, Adverse Reactions, [...] po qday for nail infection. TERBINAFINE HCL 67450674802 No Longer Active Yvon Harrison MD Active SIMVASTATIN 20 MG TABS 1 po at [facility] SIMVASTATIN 35960613426 Active Yvon Harrison MD Active DEPAKOTE 500 MG EC TAB take 1 tab po BID for seizures. DIVALPROEX SODIUM 02688589466 Active Yvon Harrison MD Active DIVALPROEX SODIUM 250 MG TBEC 1 po TID DIVALPROEX SODIUM 10816074223 No Longer Active Nick Quiroz MD Active KEFLEX 500 MG CAP 1 po qid CEPHALEXIN 22919453924 No Longer Active Nick Quiroz MD Active KEFLEX 500 MG CAP 1 po qid CEPHALEXIN 35337671598 No Longer Active Nick Quiroz MD Active KEFLEX 500 MG CAP 1 po TID x 10 days CEPHALEXIN 71931632568 No Longer Active Nick Quiroz MD Active KEFLEX 500 MG CAP 1 po TID x 10 days CEPHALEXIN 22927874550 No Longer Active Nick Quiroz MD Active IBUPROFEN 600 MG TAB 1 tablet by mouth every 8 hours prn IBUPROFEN 35551986201 No Longer Active Desmond Montgomery DO Active FLONASE 50 MCG/ACT SUSP 2 puffs in each nostril daily FLUTICASONE PROPIONATE 08605422337 No Longer Active Desmond Montgomery DO Active LORATADINE 10 MG TABS 1 tablet by mouth daily PRN Congestion 2011 LORATADINE 68505871766 No Longer Active Desmond Montgomery DO Active LORATADINE 10 MG TABS 1 tablet by mouth daily PRN Congestion 2011 LORATADINE 10 MG TABS 161855 LORATADINE Inactive FLONASE 50 MCG/ACT SUSP 2 puffs in each nostril daily FLONASE 50 MCG/ACT SUSP 032943 FLUTICASONE PROPIONATE Inactive IBUPROFEN 600 MG TAB 1 tablet by mouth every 8 hours prn IBUPROFEN 600 MG TAB 944461 IBUPROFEN Inactive KEFLEX 500 MG CAP 1 po TID x 10 days KEFLEX 500 MG CAP 870905 CEPHALEXIN Inactive KEFLEX 500 MG CAP 1 po qid KEFLEX 500 MG CAP 167566 CEPHALEXIN Inactive KEFLEX 500 MG CAP 1 po qid KEFLEX 500 MG CAP 224851 CEPHALEXIN Inactive KEFLEX 500 MG CAP 1 po TID x 10 days KEFLEX 500 MG CAP 032335 CEPHALEXIN Inactive DIVALPROEX SODIUM 250 MG TBEC 1 po TID DIVALPROEX SODIUM 250 MG TBEC 0803203 DIVALPROEX SODIUM Inactive TERBINAFINE HCL 250 MG TABS 1 tab po qday for nail infection. TERBINAFINE HCL 250 MG TABS 213111 TERBINAFINE HCL Inactive Vital Signs Date Name [...] Panel - Chemistry sodium, serum 136 mmol/L 919-928 8699/10/29 potassium, serum 4.0 mmol/L 3.5-5.2 chloride, serum [...] 0.40 mg/dL 0.00-1.00 cholesterol, serum 232 mg/dL 110-706 4115/10/29 triglyceride, serum, fasting 230 mg/dL 30-200 HDL [...] Panel - Chemistry sodium, serum 140 mmol/L 905-348 4231/07/06 potassium, serum 4.3 mmol/L 3.5-5.2 chloride, serum [...] Comp. Metabolic Panel, Lipid Panel - Chemistry blood glucose 83 mg/dL 65-110 carbon dioxide, venous blood 32.7 mmol/L 21.0-32.0 chloride, serum 104 mmol/L 98-107 potassium, serum 4.5 mmol/L 3.5-5.2 sodium, serum 141 mmol/L 323-479 1035/01/14 urea nitrogen, blood 13 mg/dL 7-18 creatinine, serum 1.00 mg/dL 0.60-1.30 alanine aminotransferase (SGPT), serum 36 U/L 12-78 aspartate aminotransferase (SGOT), serum 17 U/L 15-37 calcium, serum 9.1 mg/dL 8.5-10.1 bilirubin, serum, total 0.40 mg/dL 0.00-1.00 cholesterol, serum 167 mg/dL 468-887 1717/01/14 triglyceride, serum, fasting 149 mg/dL 30-200 HDL [...] mg/dL Encounters Code Encounter Date Provider Facility CPT-82411 Level 4 Est. Patient 15:53:40 CDT Yvon Harrison MD [facility] CPT-55841 Level 4 Est. Patient 15:42:18 CDT Yvon Harrison MD [facility] CPT-27669 Level 3 Est. Patient 17:08:18 CDT Berta Sweeney APRN [facility] CPT-22931 Level 4 Est. Patient 16:35:02 UTILITY GELATIN MAKER Yvon Harrison MD [facility] CPT-60860 Level 4 Est. Patient 15:11:02 UTILITY GELATIN MAKER Yvon Harrison MD [facility] CPT-96328 Level 4 Est. Patient 13:18:47 CDT Yvon Harrison MD [facility] CPT-75450 Level 4 Est. Patient 09:51:29 CDT Yvon Harrison MD [facility] CPT-70961 Level 3 Est. Patient 11:40:53 UTILITY GELATIN MAKER Nick Quiroz MD [facility] CPT-62667 Level 3 Est. Patient 09:05:46 CDT Nick Quiroz MD [facility] CPT-59909 Level 3 Est. Patient 10:56:05 CDT Nick Quiroz MD [facility] CPT-79498 Level 3 Est. Patient 05:39:31 CDT Desmond Montgomery [facility] CPT-53580 Level 3 Est. Patient 16:18:28 UTILITY GELATIN MAKER Nick Quiroz MD [facility] CPT-19784 Level 3 Est. Patient 16:50:04 UTILITY GELATIN MAKER Nick Quiroz MD [facility] CPT-01967 Level 3 Est. Patient 22:12:55 UTILITY GELATIN MAKER Desmond Montgomery [facility] Procedures Code Procedure Name Date Entry Date Standard Description CPT-82473 Hand comp min 3V 17:09:13 CDT CPT-48808 Hand comp min 3V 17:08:18 CDT CPT-92599 Fluzone Quadrivalent Intramuscular Suspension 0.5 ML 10: 17:16 CDT CPT-LR Lesion Removal 08:49:09 CDT CPT-07663 Nail Excision 08:49:52 CDT CPT-59315 Venipuncture Draw Fee 16:51:53 UTILITY GELATIN MAKER
--- OUTSIDE RECORDS SUMMARY | 2018-08-01 21:58 | XMS REPORT | Clinical Summary ---
Author Author Admin, COURTNEY Organization [employer] Address Unknown Phone Unavailable Allergies, Adverse Reactions, [...] 1/2 tab daily for 2 days PREDNISONE 91080063084 No Longer Active Yvon Harrison MD Active TERBINAFINE HCL 250 MG ORAL TABLET 1 tab po qday for nail infection. TERBINAFINE HCL 09488101996 No Longer Active Yvon Harrison MD Active SIMVASTATIN 20 MG ORAL TABLET 1 po at qhs SIMVASTATIN 08452007299 Active Yvon Harrison MD Active DEPAKOTE 500 MG ORAL TABLET DELAYED RELEASE take 1 tab po BID for seizures. DIVALPROEX SODIUM 43818184911 Active Yvon Harrison MD Active DIVALPROEX SODIUM 250 MG ORAL TABLET DELAYED RELEASE 1 po TID DIVALPROEX SODIUM 68955347894 No Longer Active Nick Quiroz MD Active KEFLEX 500 MG ORAL CAPSULE 1 po qid CEPHALEXIN 97208128595 No Longer Active Nick Quiroz MD Active KEFLEX 500 MG ORAL CAPSULE 1 po qid CEPHALEXIN 56463768729 No Longer Active Nick Quiroz MD Active KEFLEX 500 MG ORAL CAPSULE 1 po TID x 10 days CEPHALEXIN 13139265499 No Longer Active Nick Quiroz MD Active KEFLEX 500 MG ORAL CAPSULE 1 po TID x 10 days CEPHALEXIN 66900546364 No Longer Active Nick Quiroz MD Active IBUPROFEN 600 MG ORAL TABLET 1 tablet by mouth every 8 hours prn IBUPROFEN 22153404819 No Longer Active Desmond Montgomery DO Active FLONASE 50 MCG/ACT NASAL SUSPENSION 2 puffs in each nostril daily FLUTICASONE PROPIONATE 86346278548 No Longer Active Desmond Montgomery DO Active LORATADINE 10 MG ORAL TABLET 1 tablet by mouth daily PRN Congestion LORATADINE 55667603115 No Longer Active Desmond Montgomery DO Active LORATADINE 10 MG ORAL TABLET 1 tablet by mouth daily PRN Congestion LORATADINE 10 MG ORAL TABLET 501638 LORATADINE Inactive FLONASE 50 MCG/ACT NASAL SUSPENSION 2 puffs in each nostril daily FLONASE 50 MCG/ACT NASAL SUSPENSION 8143656 FLUTICASONE PROPIONATE Inactive IBUPROFEN 600 MG ORAL TABLET 1 tablet by mouth every 8 hours prn IBUPROFEN 600 MG ORAL TABLET 909493 IBUPROFEN Inactive KEFLEX 500 MG ORAL CAPSULE 1 po TID x 10 days KEFLEX 500 MG ORAL CAPSULE 888851 CEPHALEXIN Inactive KEFLEX 500 MG ORAL CAPSULE 1 po qid KEFLEX 500 MG ORAL CAPSULE 042071 CEPHALEXIN Inactive KEFLEX 500 MG ORAL CAPSULE 1 po qid KEFLEX 500 MG ORAL CAPSULE 531018 CEPHALEXIN Inactive KEFLEX 500 MG ORAL CAPSULE 1 po TID x 10 days KEFLEX 500 MG ORAL CAPSULE 036010 CEPHALEXIN Inactive DIVALPROEX SODIUM 250 MG ORAL TABLET DELAYED RELEASE 1 po TID DIVALPROEX SODIUM 250 MG ORAL TABLET DELAYED RELEASE 0823593 DIVALPROEX SODIUM Inactive TERBINAFINE HCL 250 MG ORAL TABLET 1 tab po qday for nail infection. TERBINAFINE HCL 250 MG ORAL TABLET 436747 TERBINAFINE HCL Inactive PREDNISONE 20 MG ORAL TABLET 2 tabs daily for 3 days, 1 tab daily for 3 days, 1/2 tab daily for 2 days PREDNISONE 20 MG ORAL TABLET 335552 PREDNISONE Inactive Encounters Code Encounter Date Provider Facility CPT-55621 Level 4 Est. Patient 11:00:57 CDT Yvon Harrison MD [facility] CPT-56642 Level 4 Est. Patient 15:53:40 CDT Yvon Harrison MD [facility] CPT-60655 Level 4 Est. Patient 15:42:18 CDT Yvon Harrison MD [facility] CPT-96039 Level 3 Est. Patient 17:08:18 CDT Berta Sweeney APRN [facility] CPT-36074 Level 4 Est. Patient 16:35:02 FRONT END WEB DESIGNER Yvon Harrison MD [facility] CPT-97241 Level 4 Est. Patient 15:11:02 FRONT END WEB DESIGNER Yvon Harrison MD [facility] CPT-71436 Level 4 Est. Patient 13:18:47 CDT Yvon Harrison MD [facility] CPT-51626 Level 4 Est. Patient 09:51:29 CDT Yvon Harrison MD [facility] CPT-22732 Level 3 Est. Patient 11:40:53 FRONT END WEB DESIGNER Nick Quiroz MD [facility] CPT-23798 Level 3 Est. Patient 09:05:46 CDT Nick Quiroz MD [facility] CPT-03077 Level 3 Est. Patient 10:56:05 CDT Nick Quiroz MD [facility] CPT-89311 Level 3 Est. Patient 05:39:31 CDT Desmond Montgomery DO [facility] CPT-00502 Level 3 Est. Patient 16:18:28 FRONT END WEB DESIGNER Nick Quiroz MD [facility] CPT-39746 Level 3 Est. Patient 16:50:04 FRONT END WEB DESIGNER Nick Quiroz MD [facility] CPT-72081 Level 3 Est. Patient 22:12:55 FRONT END WEB DESIGNER Desmond Montgomery [facility] Procedures Code Procedure Name Date Entry Date Standard Description CPT-81216 Lipid - LAB USE ONLY 15:55:09 FRONT END WEB DESIGNER CPT-17304 CMP - LAB USE ONLY 15:55:09 FRONT END WEB DESIGNER CPT-14368 CBC - LAB USE ONLY 15:55:08 FRONT END WEB DESIGNER CPT-30868 Venipuncture Draw Fee 15:55:08 FRONT END WEB DESIGNER CPT-Cryo Cryotherapy 11:00:57 CDT CPT-43037 Hand comp min 3V 17:09:13 CDT CPT-10475 Hand comp min 3V 17:08:18 CDT CPT-43120 Fluzone Quadrivalent Intramuscular Suspension 0.5 ML 10: 17:16 CDT CPT-LR Lesion Removal 08:49:09 CDT CPT-78435 Nail Excision 08:49:52 CDT CPT-02501 Venipuncture Draw Fee 16:51:53 FRONT END WEB DESIGNER
--- OUTSIDE RECORDS SUMMARY | 2018-08-01 21:59 | XMS REPORT | Clinical Summary ---
Author Author Admin, COURTNEY Organization [facility] Address Unknown Phone Unavailable Allergies, Adverse Reactions, [...] po qday for nail infection. TERBINAFINE HCL 92474508485 No Longer Active Yvon Harrison MD Active SIMVASTATIN 20 MG TABS 1 po at [facility] SIMVASTATIN 89613678448 Active Magdalenakobe Braun Active DEPAKOTE 500 MG EC TAB take 1 tab po BID for seizures. DIVALPROEX SODIUM 90159783871 Active Yvon Harrison MD Active DIVALPROEX SODIUM 250 MG TBEC 1 po TID DIVALPROEX SODIUM 11275438898 No Longer Active Nick Quiroz MD Active KEFLEX 500 MG CAP 1 po qid CEPHALEXIN 67965474426 No Longer Active Nick Quiroz MD Active KEFLEX 500 MG CAP 1 po qid CEPHALEXIN 54292326882 No Longer Active Nick Quiroz MD Active KEFLEX 500 MG CAP 1 po TID x 10 days CEPHALEXIN 98922017280 No Longer Active Nick Quiroz MD Active KEFLEX 500 MG CAP 1 po TID x 10 days CEPHALEXIN 45361613212 No Longer Active Nick Quiroz MD Active IBUPROFEN 600 MG TAB 1 tablet by mouth every 8 hours prn IBUPROFEN 96015169754 No Longer Active Desmond Montgomery DO Active FLONASE 50 MCG/ACT SUSP 2 puffs in each nostril daily FLUTICASONE PROPIONATE 14595848742 No Longer Active Desmond Montgomery DO Active LORATADINE 10 MG TABS 1 tablet by mouth daily PRN Congestion 2011 LORATADINE 65731166285 No Longer Active Desmond Montgomery DO Active DIVALPROEX SODIUM 250 MG TBEC 1 po TID DIVALPROEX SODIUM 250 MG TBEC 2783217 DIVALPROEX SODIUM Inactive IBUPROFEN 600 MG TAB 1 tablet by mouth every 8 hours prn IBUPROFEN 600 MG TAB 063366 IBUPROFEN Inactive KEFLEX 500 MG CAP 1 po TID x 10 days KEFLEX 500 MG CAP 826358 CEPHALEXIN Inactive KEFLEX 500 MG CAP 1 po qid KEFLEX 500 MG CAP 610151 CEPHALEXIN Inactive KEFLEX 500 MG CAP 1 po qid KEFLEX 500 MG CAP 961304 CEPHALEXIN Inactive KEFLEX 500 MG CAP 1 po TID x 10 days KEFLEX 500 MG CAP 011473 CEPHALEXIN Inactive LORATADINE 10 MG TABS 1 tablet by mouth daily PRN Congestion 2011 LORATADINE 10 MG TABS 905947 LORATADINE Inactive TERBINAFINE HCL 250 MG TABS 1 tab po qday for nail infection. TERBINAFINE HCL 250 MG TABS 974649 TERBINAFINE HCL Inactive FLONASE 50 MCG/ACT SUSP 2 puffs in each nostril daily FLONASE 50 MCG/ACT SUSP 588564 FLUTICASONE PROPIONATE Inactive Vital Signs Date Name [...] Panel - Chemistry sodium, serum 136 mmol/L 969-963 4567/10/29 potassium, serum 4.0 mmol/L 3.5-5.2 chloride, serum [...] 0.40 mg/dL 0.00-1.00 cholesterol, serum 232 mg/dL 782-646 4872/10/29 triglyceride, serum, fasting 230 mg/dL 30-200 HDL cholesterol, serum 33 mg/dL 32-96 LDL cholesterol, serum 153 mg/dL 0-130 Lab Report: CBC, Comp. Metabolic Panel, Lipid Panel - Hematology mean corpuscular volume, RBC 86 fL 80-97 hematocrit, blood 48.9 % 41.0-53.0 hemoglobin, blood 16.8 g/dL 13.5-17.5 erythrocyte (RBC) count 5.71 10^6/MM^3 10*6/mm3 4.69-6.13 leukocyte count, blood 9.8 10^3/MM^3 10*3/mm3 4.6-10.2 mean corpuscular hemoglobin, RBC 29.3 pg 27.0-31.2 mean corpuscular hemoglobin concentration, RBC 34.3 G/DL % 31.8- 35.4 red blood cell distribution width 13.8 % 11.6-14.8 platelet count 243 10^3/MM^3 10*3/mm3 142-424 Lab Report: Comp. Metabolic Panel, Lipid Panel - Chemistry cholesterol, serum 167 mg/dL 624-227 8108/01/14 triglyceride, serum, fasting 149 mg/dL 30-200 HDL cholesterol, serum 35 mg/dL 32-96 LDL cholesterol, serum 102 mg/dL 0-130 sodium, serum 141 mmol/L 631-447 0439/01/14 potassium, serum 4.5 mmol/L 3.5-5.2 chloride, serum 104 mmol/L 98-107 carbon dioxide, venous blood 32.7 mmol/L 21.0-32.0 blood glucose 83 mg/dL 65-110 urea nitrogen, blood 13 mg/dL 7-18 creatinine, serum 1.00 mg/dL 0.60-1.30 alanine aminotransferase (SGPT), serum 36 U/L 12-78 aspartate aminotransferase (SGOT), serum 17 U/L 15-37 calcium, serum 9.1 mg/dL 8.5-10.1 bilirubin, serum, total 0.40 mg/dL 0.00-1.00 Lab Report: VALPROIC ACID - Toxicology valproic acid, serum 83.4 ug/mL 50.0-100.0 valproic acid, serum 116.9 ug/mL 50.0-100.0 valproic acid, serum 68.3 ug/mL 50.0-100.0 Office Visit: F/U, FILL OUT PAPERWORK - Chemistry cholesterol, target level 200 mg/dL LDL target level 160 mg/dL HDL cholesterol, serum, target level 40 mg/dL triglyceride, target level 150 mg/dL Encounters Code Encounter Date Provider Facility CPT-41710 Level 4 Est. Patient 15:42:18 CDT Yvon Harrison MD [facility] CPT-04766 Level 3 Est. Patient 17:08:18 CDT Berta Sweeney ROSENDO [facility] CPT-60999 Level 4 Est. Patient 16:35:02 RIM FIRE PRIMING TOOL SETTER Yvon Harrison MD [facility] CPT-09754 Level 4 Est. Patient 15:11:02 RIM FIRE PRIMING TOOL SETTER Yvon Harrison MD [facility] CPT-76692 Level 4 Est. Patient 13:18:47 CDT Yvon Harrison MD [facility] CPT-44586 Level 4 Est. Patient 09:51:29 CDT Yvon Harrison MD [facility] CPT-79224 Level 3 Est. Patient 11:40:53 RIM FIRE PRIMING TOOL SETTER Nick Quiroz MD [facility] CPT-14910 Level 3 Est. Patient 09:05:46 CDT Nick Quiroz MD [facility] CPT-28836 Level 3 Est. Patient 10:56:05 CDT Nick Quiroz MD [facility] CPT-80334 Level 3 Est. Patient 05:39:31 CDT Desmond Montgomery DO [facility] CPT-74992 Level 3 Est. Patient 16:18:28 RIM FIRE PRIMING TOOL SETTER Nick Quiroz MD [facility] CPT-59674 Level 3 Est. Patient 16:50:04 RIM FIRE PRIMING TOOL SETTER Nick Quiroz MD [facility] CPT-58637 Level 3 Est. Patient 22:12:55 RIM FIRE PRIMING TOOL SETTER Desmond Montgomery DO [facility] Procedures Code Procedure Name Date Entry Date Standard Description CPT-60124 Hand comp min 3V 17:09:13 CDT CPT-81253 Hand comp min 3V 17:08:18 CDT CPT-04332 Fluzone Quadrivalent Intramuscular Suspension 0.5 ML 10: 17:16 CDT CPT-LR Lesion Removal 08:49:09 CDT CPT-27965 Nail Excision 08:49:52 CDT CPT-18507 Venipuncture Draw Fee 16:51:53 RIM FIRE PRIMING TOOL SETTER
--- OUTSIDE RECORDS SUMMARY | 2018-08-01 21:59 | XMS REPORT | Clinical Summary ---
Author Author Admin, COURTNEY Organization [facility] Address Unknown Phone Unavailable Allergies, Adverse Reactions, Alerts Allergy Name Reaction Description Start Date Severity Status Provider No Known Allergies Anabela SPANGLERAMAX Critical Active Berta Sweeney ROSENDO Conditions or [...] Hand pain, left 729.5 Active Berta Sweeney INFORMATION SERVICES CONSULTANT Pain in limb SEIZURE DISORDER ICD-780.39 Inactive Nick Quiroz MD [...] Generic Name NDC Status Provider Patient Instruction SIMVASTATIN 20 MG TABS 1 po at qhs SIMVASTATIN 08891217375 Active Magdalena Braun Active DEPAKOTE 500 MG EC TAB take 1 tab po BID for seizures. DIVALPROEX SODIUM 53411442659 Active Yvon Harrison MD Active DIVALPROEX SODIUM 250 MG TBEC 1 po TID DIVALPROEX SODIUM 55154855231 No Longer Active Nick Quiroz MD Active KEFLEX 500 MG CAP 1 po qid CEPHALEXIN 63225794210 No Longer Active Nick Quiroz MD Active KEFLEX 500 MG CAP 1 po qid CEPHALEXIN 16779034839 No Longer Active Nick Quiroz MD Active KEFLEX 500 MG CAP 1 po TID x 10 days CEPHALEXIN 91728527480 No Longer Active Nick Quiroz MD Active KEFLEX 500 MG CAP 1 po TID x 10 days CEPHALEXIN 41534534934 No Longer Active Nick Quiroz MD Active IBUPROFEN 600 MG TAB 1 tablet by mouth every 8 hours prn IBUPROFEN 03883570388 No Longer Active Desmond Montgomery DO Active FLONASE 50 MCG/ACT SUSP 2 puffs in each nostril daily FLUTICASONE PROPIONATE 31487510052 No Longer Active Desmond Montgomery DO Active LORATADINE 10 MG TABS 1 tablet by mouth daily PRN Congestion 2011 LORATADINE 87907646574 No Longer Active Desmond Montgomery DO Active LORATADINE 10 MG TABS 1 tablet by mouth daily PRN Congestion 2011 LORATADINE 10 MG TABS 615939 LORATADINE Inactive FLONASE 50 MCG/ACT SUSP 2 puffs in each nostril daily FLONASE 50 MCG/ACT SUSP 921785 FLUTICASONE PROPIONATE Inactive IBUPROFEN 600 MG TAB 1 tablet by mouth every 8 hours prn IBUPROFEN 600 MG TAB 635001 IBUPROFEN Inactive KEFLEX 500 MG CAP 1 po TID x 10 days KEFLEX 500 MG CAP 528698 CEPHALEXIN Inactive KEFLEX 500 MG CAP 1 po qid KEFLEX 500 MG CAP 544810 CEPHALEXIN Inactive KEFLEX 500 MG CAP 1 po qid KEFLEX 500 MG CAP 591338 CEPHALEXIN Inactive KEFLEX 500 MG CAP 1 po TID x 10 days KEFLEX 500 MG CAP 812046 CEPHALEXIN Inactive DIVALPROEX SODIUM 250 MG TBEC 1 po TID DIVALPROEX SODIUM 250 MG TBEC 2676198 DIVALPROEX SODIUM Inactive Vital Signs Date Name Value Unit Range Description blood pressure, diastolic - 8462-4 83 mm[Hg] [...] Panel - Chemistry sodium, serum 136 mmol/L 472-921 8133/10/29 potassium, serum 4.0 mmol/L 3.5-5.2 chloride, serum [...] 0.40 mg/dL 0.00-1.00 cholesterol, serum 232 mg/dL 116-251 8924/10/29 triglyceride, serum, fasting 230 mg/dL 30-200 HDL [...] Panel - Chemistry sodium, serum 141 mmol/L 384-496 9953/01/14 potassium, serum 4.5 mmol/L 3.5-5.2 chloride, serum 104 mmol/L 98-107 carbon dioxide, venous blood 32.7 mmol/L 21.0-32.0 blood glucose 83 mg/dL 65-110 urea nitrogen, blood 13 mg/dL 7-18 creatinine, serum 1.00 mg/dL 0.60-1.30 alanine aminotransferase (SGPT), serum 36 U/L 12-78 aspartate aminotransferase (SGOT), serum 17 U/L 15-37 calcium, serum 9.1 mg/dL 8.5-10.1 bilirubin, serum, total 0.40 mg/dL 0.00-1.00 cholesterol, serum 167 mg/dL 065-041 1467/01/14 triglyceride, serum, fasting 149 mg/dL 30-200 HDL [...] mg/dL Encounters Code Encounter Date Provider Facility CPT-64512 Level 3 Est. Patient 17:08:18 CDT Berta Sweeney APRN [facility] CPT-58199 Level 4 Est. Patient 16:35:02 ARCHEOLOGY FACULTY MEMBER Yvon Harrison MD [facility] CPT-13270 Level 4 Est. Patient 15:11:02 ARCHEOLOGY FACULTY MEMBER Yvon Harrison MD [facility] CPT-69364 Level 4 Est. Patient 13:18:47 CDT Yvon Harrison MD [facility] CPT-64224 Level 4 Est. Patient 09:51:29 CDT Yvon Harrison MD [facility] CPT-52680 Level 3 Est. Patient 11:40:53 ARCHEOLOGY FACULTY MEMBER Nick Quiroz MD [facility] CPT-77418 Level 3 Est. Patient 09:05:46 CDT Nick Quiroz MD [facility] CPT-02794 Level 3 Est. Patient 10:56:05 CDT Nick Quiroz MD [facility] CPT-69802 Level 3 Est. Patient 05:39:31 CDT Desmond [facility] CPT-93272 Level 3 Est. Patient 16:18:28 ARCHEOLOGY FACULTY MEMBER Nick Quiroz MD [facility] CPT-32971 Level 3 Est. Patient 16:50:04 ARCHEOLOGY FACULTY MEMBER Nick Quiroz MD [facility] CPT-92989 Level 3 Est. Patient 22:12:55 ARCHEOLOGY FACULTY MEMBER Desmond Montgomery [facility] Procedures Code Procedure Name Date Entry Date Standard Description CPT-86395 Hand comp min 3V 17:09:13 CDT CPT-29656 Hand comp min 3V 17:08:18 CDT CPT-82410 Fluzone Quadrivalent Intramuscular Suspension 0.5 ML 10: 17:16 CDT CPT-LR Lesion Removal 08:49:09 CDT CPT-43348 Nail Excision 08:49:52 CDT CPT-30317 Venipuncture Draw Fee 16:51:53 ARCHEOLOGY FACULTY MEMBER
--- OUTSIDE RECORDS SUMMARY | 2018-08-01 21:59 | XMS REPORT | Clinical Summary ---
Author Author Admin, COURTNEY Organization [facility] Address Unknown Phone Unavailable Allergies, Adverse Reactions, Alerts Allergy Name Reaction Description Start Date Severity Status Provider No Known Allergies Anabela Nabeel Conditions or Problems Problem Name Problem Code [...] Yvon Harrison MD Other and unspecified hyperlipidemia SEIZURE DISORDER ICD-780.39 Inactive Nick Quiroz MD [...] MG TABS 1 po at qhs SIMVASTATIN 05993217527 Active Magdalena Braun Active DEPAKOTE 500 MG EC TAB take 1 tab po BID for seizures. DIVALPROEX SODIUM 85042200669 Active Yvon Harrison MD Active DIVALPROEX SODIUM 250 MG TBEC 1 po TID DIVALPROEX SODIUM 12077557266 No Longer Active Nick Quiroz MD Active KEFLEX 500 MG CAP 1 po qid CEPHALEXIN 39328776113 No Longer Active Nick Quiroz MD Active KEFLEX 500 MG CAP 1 po qid CEPHALEXIN 11460843196 No Longer Active Nick Quiroz MD Active KEFLEX 500 MG CAP 1 po TID x 10 days CEPHALEXIN 32332275917 No Longer Active Nick Quiroz MD Active KEFLEX 500 MG CAP 1 po TID x 10 days CEPHALEXIN 55232323403 No Longer Active Nick Quiroz MD Active IBUPROFEN 600 MG TAB 1 tablet by mouth every 8 hours prn IBUPROFEN 52788734909 No Longer Active Desmond Montgomery DO Active FLONASE 50 MCG/ACT SUSP 2 puffs in each nostril daily FLUTICASONE PROPIONATE 88561577648 No Longer Active Desmond Montgomery DO Active LORATADINE 10 MG TABS 1 tablet by mouth daily PRN Congestion 2011 LORATADINE 28799790263 No Longer Active Desmond Montgomery DO Active LORATADINE 10 MG TABS 1 tablet by mouth daily PRN Congestion 2011 LORATADINE 10 MG TABS 294489 LORATADINE Inactive FLONASE 50 MCG/ACT SUSP 2 puffs in each nostril daily FLONASE 50 MCG/ACT SUSP 521080 FLUTICASONE PROPIONATE Inactive IBUPROFEN 600 MG TAB 1 tablet by mouth every 8 hours prn IBUPROFEN 600 MG TAB 848523 IBUPROFEN Inactive KEFLEX 500 MG CAP 1 po TID x 10 days KEFLEX 500 MG CAP 988807 CEPHALEXIN Inactive KEFLEX 500 MG CAP 1 po qid KEFLEX 500 MG CAP 445663 CEPHALEXIN Inactive KEFLEX 500 MG CAP 1 po qid KEFLEX 500 MG CAP 725394 CEPHALEXIN Inactive KEFLEX 500 MG CAP 1 po TID x 10 days KEFLEX 500 MG CAP 514947 CEPHALEXIN Inactive DIVALPROEX SODIUM 250 MG TBEC 1 po TID DIVALPROEX SODIUM 250 MG TBEC 9095666 DIVALPROEX SODIUM Inactive Vital Signs Date Name [...] Panel - Chemistry sodium, serum 136 mmol/L 813-733 1902/10/29 potassium, serum 4.0 mmol/L 3.5-5.2 chloride, serum [...] 0.40 mg/dL 0.00-1.00 cholesterol, serum 232 mg/dL 804-771 7777/10/29 triglyceride, serum, fasting 230 mg/dL 30-200 HDL [...] Panel - Chemistry cholesterol, serum 167 mg/dL 089-726 9157/01/14 triglyceride, serum, fasting 149 mg/dL 30-200 HDL cholesterol, serum 35 mg/dL 32-96 LDL cholesterol, serum 102 mg/dL 0-130 sodium, serum 141 mmol/L 466-913 6550/01/14 potassium, serum 4.5 mmol/L 3.5-5.2 chloride, serum [...] mg/dL Encounters Code Encounter Date Provider Facility CPT-67145 Level 4 Est. Patient 16:35:02 SWING MANAGER Yvon Harrison MD [facility] CPT-63874 Level 4 Est. Patient 15:11:02 SWING MANAGER Yvon Harrison MD [facility] CPT-26328 Level 4 Est. Patient 13:18:47 CDT Yvon Harrison MD [facility] CPT-52493 Level 4 Est. Patient 09:51:29 CDT Yvon Harrison MD [facility] CPT-02631 Level 3 Est. Patient 11:40:53 SWING MANAGER Nick Quiroz MD [facility] CPT-89165 Level 3 Est. Patient 09:05:46 CDT Nick Quiroz MD [facility] CPT-73859 Level 3 Est. Patient 10:56:05 CDT Nick Quiroz MD [facility] CPT-23548 Level 3 Est. Patient 05:39:31 CDT Desmond Montgomery DO [facility] CPT-47753 Level 3 Est. Patient 16:18:28 SWING MANAGER Nick Quiroz MD [facility] CPT-84542 Level 3 Est. Patient 16:50:04 SWING MANAGER Nick Quiroz MD [facility] CPT-43806 Level 3 Est. Patient 22:12:55 SWING MANAGER Desmond Montgomery DO [facility] Procedures Code Procedure Name Date Entry Date Standard Description CPT-87750 Fluzone Quadrivalent Intramuscular Suspension 0.5 ML 10: 17:16 CDT CPT-LR Lesion Removal 08:49:09 CDT CPT-78669 Nail Excision 08:49:52 CDT CPT-74464 Venipuncture Draw Fee 16:51:53 SWING MANAGER
--- OUTSIDE RECORDS SUMMARY | 2018-08-01 22:00 | XMS REPORT | Clinical Summary ---
Author Author Admin, COURTNEY Organization [facility] Address Unknown Phone Unavailable Allergies, Adverse Reactions, Alerts Allergy Name Reaction Description Start Date Severity Status Provider TOPAMAX Critical Active Berta Sweeney ROSENDO Conditions or Problems Problem Name Problem Code Onset Date Status Entry Date Provider Comment Standard Description Annotate SEIZURE DISORDER 780.39 Resolved Nick Quiroz MD Other convulsions SEIZURES, HX OF V12.49 Resolved Nick Quiroz MD Personal history of other disorders of nervous system and sense organs FH SEIZURES V17.2 Resolved Nick Qurioz MD Family history of other neurological diseases [...] Active Berta Sweeney APRN Pain in limb SEIZURE DISORDER ICD-780.39 Inactive [...] MG TABS 1 po at qhs SIMVASTATIN 11505720721 Active Magdalena Braun Active DEPAKOTE 500 MG EC TAB take 1 tab po BID for seizures. DIVALPROEX SODIUM 10203392271 Active Yvon Harrison MD Active DIVALPROEX SODIUM 250 MG TBEC 1 po TID DIVALPROEX SODIUM 42653785185 No Longer Active Nick Quiroz MD Active KEFLEX 500 MG CAP 1 po qid CEPHALEXIN 57992970014 No Longer Active Nick Quiroz MD Active KEFLEX 500 MG CAP 1 po qid CEPHALEXIN 33996124028 No Longer Active Nick Quiroz MD Active KEFLEX 500 MG CAP 1 po TID x 10 days CEPHALEXIN 71202538931 No Longer Active Nick Quiroz MD Active KEFLEX 500 MG CAP 1 po TID x 10 days CEPHALEXIN 37704250907 No Longer Active Nick Quiroz MD Active IBUPROFEN 600 MG TAB 1 tablet by mouth every 8 hours prn IBUPROFEN 23924352845 No Longer Active Desmond Montgomery DO Active FLONASE 50 MCG/ACT SUSP 2 puffs in each nostril daily FLUTICASONE PROPIONATE 99954166739 No Longer Active Desmond Montgomery DO Active LORATADINE 10 MG TABS 1 tablet by mouth daily PRN Congestion 2011 LORATADINE 57821634491 No Longer Active Desmond Montgomery DO Active LORATADINE 10 MG TABS 1 tablet by mouth daily PRN Congestion 2011 LORATADINE 10 MG TABS 774926 LORATADINE Inactive FLONASE 50 MCG/ACT SUSP 2 puffs in each nostril daily FLONASE 50 MCG/ACT SUSP 567811 FLUTICASONE PROPIONATE Inactive IBUPROFEN 600 MG TAB 1 tablet by mouth every 8 hours prn IBUPROFEN 600 MG TAB 238188 IBUPROFEN Inactive KEFLEX 500 MG CAP 1 po TID x 10 days KEFLEX 500 MG CAP 875168 CEPHALEXIN Inactive KEFLEX 500 MG CAP 1 po qid KEFLEX 500 MG CAP 534462 CEPHALEXIN Inactive KEFLEX 500 MG CAP 1 po qid KEFLEX 500 MG CAP 163973 CEPHALEXIN Inactive KEFLEX 500 MG CAP 1 po TID x 10 days KEFLEX 500 MG CAP 127628 CEPHALEXIN Inactive DIVALPROEX SODIUM 250 MG TBEC 1 po TID DIVALPROEX SODIUM 250 MG TBEC 3762392 DIVALPROEX SODIUM Inactive Vital Signs Date Name Value Unit Range Description blood pressure, diastolic - 8462-4 84 mm[Hg] [...] Panel - Chemistry sodium, serum 136 mmol/L 310-847 5472/10/29 potassium, serum 4.0 mmol/L 3.5-5.2 chloride, serum [...] 0.40 mg/dL 0.00-1.00 cholesterol, serum 232 mg/dL 103-493 0063/10/29 triglyceride, serum, fasting 230 mg/dL 30-200 HDL [...] Panel - Chemistry sodium, serum 141 mmol/L 839-362 4972/01/14 potassium, serum 4.5 mmol/L 3.5-5.2 chloride, serum 104 mmol/L 98-107 carbon dioxide, venous blood 32.7 mmol/L 21.0-32.0 blood glucose 83 mg/dL 65-110 urea nitrogen, blood 13 mg/dL 7-18 creatinine, serum 1.00 mg/dL 0.60-1.30 alanine aminotransferase (SGPT), serum 36 U/L 12-78 aspartate aminotransferase (SGOT), serum 17 U/L 15-37 calcium, serum 9.1 mg/dL 8.5-10.1 bilirubin, serum, total 0.40 mg/dL 0.00-1.00 cholesterol, serum 167 mg/dL 837-907 6683/01/14 triglyceride, serum, fasting 149 mg/dL 30-200 HDL [...] mg/dL Encounters Code Encounter Date Provider Facility CPT-63619 Level 3 Est. Patient 17:08:18 CDT Berta Sweeney APRN [facility] CPT-51046 Level 4 Est. Patient 16:35:02 ENGINEER/CONDUCTOR Yvon Harrison MD [facility] CPT-99438 Level 4 Est. Patient 15:11:02 ENGINEER/CONDUCTOR Yvon Harrison MD [facility] CPT-66693 Level 4 Est. Patient 13:18:47 CDT Yvon Harrison MD [facility] CPT-85632 Level 4 Est. Patient 09:51:29 CDT Yvon Harrison MD [facility] CPT-44235 Level 3 Est. Patient 11:40:53 ENGINEER/CONDUCTOR Nick Quiroz MD [facility] CPT-87226 Level 3 Est. Patient 09:05:46 CDT Nick Quiroz MD [facility] CPT-13608 Level 3 Est. Patient 10:56:05 CDT Nick Quiroz MD [facility] CPT-51345 Level 3 Est. Patient 05:39:31 CDT Desmond Montgomery [facility] CPT-82271 Level 3 Est. Patient 16:18:28 ENGINEER/CONDUCTOR Nick Quiroz MD [facility] CPT-83903 Level 3 Est. Patient 16:50:04 ENGINEER/CONDUCTOR Nick Quiroz MD [facility] CPT-69558 Level 3 Est. Patient 22:12:55 ENGINEER/CONDUCTOR Desmond Montgomery [facility] Procedures Code Procedure Name Date Entry Date Standard Description CPT-99335 Hand comp min 3V 17:09:13 CDT CPT-73878 Hand comp min 3V 17:08:18 CDT CPT-12067 Fluzone Quadrivalent Intramuscular Suspension 0.5 ML 10: 17:16 CDT CPT-LR Lesion Removal 08:49:09 CDT CPT-77694 Nail Excision 08:49:52 CDT CPT-35651 Venipuncture Draw Fee 16:51:53 ENGINEER/CONDUCTOR
--- OUTSIDE RECORDS SUMMARY | 2018-08-01 22:00 | XMS REPORT | Clinical Summary ---
Author Author Admin, COURTNEY Organization [facility] Address Unknown Phone Unavailable Allergies, Adverse Reactions, Alerts Allergy Name Reaction Description Start Date Severity Status Provider TOPAMAX Critical Active Berta Sweeney APRN Conditions or Problems Problem Name Problem Code Onset Date Status Entry Date Provider Comment Standard Description Annotate SEIZURE DISORDER 780.39 Resolved Nick Quiroz MD Other convulsions SEIZURES, HX OF V12.49 Resolved Ncik Quiroz MD Personal history of other disorders [...] Status Provider Patient Instruction PREDNISONE 20 MG TAB 2 tabs daily for 3 days, 1 tab daily for 3 days, 1/2 tab daily for 2 days PREDNISONE 10659380860 No Longer Active Yvon Harrison MD Active TERBINAFINE HCL 250 MG TABS 1 tab po qday for nail infection. TERBINAFINE HCL 82903747971 No Longer Active Yvon Harrison MD Active SIMVASTATIN 20 MG TABS 1 po at qhs SIMVASTATIN 58354486814 Active Yvon Harrison MD Active DEPAKOTE 500 MG EC TAB take 1 tab po BID for seizures. DIVALPROEX SODIUM 86655614597 Active Yvon Harrison MD Active DIVALPROEX SODIUM 250 MG TBEC 1 po TID DIVALPROEX SODIUM 91446326706 No Longer Active Nick Quiroz MD Active KEFLEX 500 MG CAP 1 po qid CEPHALEXIN 28606396004 No Longer Active Nick Quiroz MD Active KEFLEX 500 MG CAP 1 po qid CEPHALEXIN 18605012823 No Longer Active Nick Quiroz MD Active KEFLEX 500 MG CAP 1 po TID x 10 days CEPHALEXIN 90776178157 No Longer Active Nick Quiroz MD Active KEFLEX 500 MG CAP 1 po TID x 10 days CEPHALEXIN 23916017764 No Longer Active Nick Quiroz MD Active IBUPROFEN 600 MG TAB 1 tablet by mouth every 8 hours prn IBUPROFEN 30863657976 No Longer Active Desmond Montgomery DO Active FLONASE 50 MCG/ACT SUSP 2 puffs in each nostril daily FLUTICASONE PROPIONATE 59722013160 No Longer Active Desmond Montgomery DO Active LORATADINE 10 MG TABS 1 tablet by mouth daily PRN Congestion 2011 LORATADINE 43623621377 No Longer Active Desmond Montgomery DO Active LORATADINE 10 MG TABS 1 tablet by mouth daily PRN Congestion 2011 LORATADINE 10 MG TABS 433650 LORATADINE Inactive FLONASE 50 MCG/ACT SUSP 2 puffs in each nostril daily FLONASE 50 MCG/ACT SUSP FLUTICASONE PROPIONATE Inactive IBUPROFEN 600 MG TAB 1 tablet by mouth every 8 hours prn IBUPROFEN 600 MG TAB 867607 IBUPROFEN Inactive KEFLEX 500 MG CAP 1 po TID x 10 days KEFLEX 500 MG CAP 438016 CEPHALEXIN Inactive KEFLEX 500 MG CAP 1 po qid KEFLEX 500 MG CAP 703851 CEPHALEXIN Inactive KEFLEX 500 MG CAP 1 po qid KEFLEX 500 MG CAP 048867 CEPHALEXIN Inactive KEFLEX 500 MG CAP 1 po TID x 10 days KEFLEX 500 MG CAP 749570 CEPHALEXIN Inactive DIVALPROEX SODIUM 250 MG TBEC 1 po TID DIVALPROEX SODIUM 250 MG TBEC 8040318 DIVALPROEX SODIUM Inactive TERBINAFINE HCL 250 MG TABS 1 tab po qday for nail infection. TERBINAFINE HCL 250 MG TABS 809932 TERBINAFINE HCL Inactive PREDNISONE 20 MG TAB 2 tabs daily for 3 days, 1 tab daily for 3 days, 1/2 tab daily for 2 days PREDNISONE 20 MG TAB 904421 PREDNISONE Inactive Vital Signs Date Name Value Unit Range Description blood pressure, diastolic - 8462-4 79 mm[Hg] BP caro blood pressure, systolic - 8480-6 97 mm[Hg] BP sys pulse rate E&M - 8867-4 64 /min Heart rate temperature E&M 97.7 [degF] Body temperature weight E&M - 3141-9 264.5 [lb_av] Weight Measured Diagnostic Results Date Name Value Unit Range Description Lab Report: CBC, Comp. Metabolic Panel, Lipid Panel - Chemistry sodium, serum 139 mmol/L 490-274 2148/10/28 carbon dioxide, venous blood 28.2 mmol/L 21.0-32.0 potassium, serum 4.2 mmol/L 3.5-5.2 chloride, serum 101 mmol/L 98-107 blood glucose 87 mg/dL 65-110 urea nitrogen, blood 18 mg/dL 7-18 creatinine, serum 0.98 mg/dL 0.55-1.30 alanine aminotransferase (SGPT), serum 28 U/L 12-78 aspartate aminotransferase (SGOT), serum 13 U/L 15-37 calcium, serum 8.9 mg/dL 8.5-10.1 bilirubin, serum, total 0.50 mg/dL 0.00-1.00 cholesterol, serum 244 mg/dL 569-385 7783/10/28 triglyceride, serum, fasting 192 mg/dL 30-200 HDL cholesterol, serum 34 mg/dL 32-96 LDL cholesterol, serum 172 mg/dL 0-130 Lab Report: CBC, Comp. Metabolic Panel, Lipid Panel - Hematology leukocyte count, blood 8.8 10^3/MM^3 10*3/mm3 4.6-10.2 erythrocyte (RBC) count 5.53 10^6/MM^3 10*6/mm3 4.69-6.13 hemoglobin, blood 16.1 g/dL 13.5-17.5 hematocrit, blood 46.7 % 41.0-53.0 mean corpuscular volume, RBC 84 fL 80-97 mean corpuscular hemoglobin, RBC 29.1 pg 27.0-31.2 mean corpuscular hemoglobin concentration, RBC 34.5 G/DL % 31.8- 35.4 red blood cell distribution width 13.9 % 11.6-14.8 platelet count 248 10^3/MM^3 10*3/mm3 142-424 Lab Report: VALPROIC ACID - Toxicology valproic acid, serum 94.4 ug/mL 50.0-100.0 Office Visit: Med Check - Chemistry cholesterol, target level 200 mg/dL LDL target level 160 mg/dL HDL cholesterol, serum, target level 40 mg/dL triglyceride, target level 150 mg/dL Encounters Code Encounter Date Provider Facility CPT-09069 Level 4 Est. Patient 11:00:57 CDT Yvon Harrison MD [facility] CPT-61016 Level 4 Est. Patient 15:53:40 CDT Yvon Harrison MD [facility] CPT-33591 Level 4 Est. Patient 15:42:18 CDT Yvon Harrison MD [facility] CPT-43980 Level 3 Est. Patient 17:08:18 CDT Berta Sweeney ROSENDO [facility] CPT-45722 Level 4 Est. Patient 16:35:02 FIELD MARKETING ASSOCIATE Yvon Harrison MD [facility] CPT-37373 Level 4 Est. Patient 15:11:02 FIELD MARKETING ASSOCIATE Yvon Harrison MD [facility] CPT-61570 Level 4 Est. Patient 13:18:47 CDT Yvon Harrison MD [facility] CPT-35678 Level 4 Est. Patient 09:51:29 CDT Yvon Harrison MD [facility] CPT-63716 Level 3 Est. Patient 11:40:53 FIELD MARKETING ASSOCIATE Nick Quiroz MD [facility] CPT-14179 Level 3 Est. Patient 09:05:46 CDT Nick Quiroz MD [facility] CPT-97858 Level 3 Est. Patient 10:56:05 CDT Nick Quiroz MD [facility] CPT-93875 Level 3 Est. Patient 05:39:31 CDT Desmond Montgomery DO [facility] CPT-73755 Level 3 Est. Patient 16:18:28 FIELD MARKETING ASSOCIATE Nick Quiroz MD [facility] CPT-23631 Level 3 Est. Patient 16:50:04 FIELD MARKETING ASSOCIATE Nick Quiroz MD [facility] CPT-91106 Level 3 Est. Patient 22:12:55 FIELD MARKETING ASSOCIATE Desmond Montgomery DO [facility] Procedures Code Procedure Name Date Entry Date Standard Description CPT-35980 Lipid - LAB USE ONLY 15:55:09 FIELD MARKETING ASSOCIATE CPT-94872 CMP - LAB USE ONLY 15:55:09 FIELD MARKETING ASSOCIATE CPT-88350 CBC - LAB USE ONLY 15:55:08 FIELD MARKETING ASSOCIATE CPT-16018 Venipuncture Draw Fee 15:55:08 FIELD MARKETING ASSOCIATE CPT-Cryo Cryotherapy 11:00:57 CDT CPT-18401 Hand comp min 3V 17:09:13 CDT CPT-98526 Hand comp min 3V 17:08:18 CDT CPT-40193 Fluzone Quadrivalent Intramuscular Suspension 0.5 ML 10: 17:16 CDT CPT-LR Lesion Removal 08:49:09 CDT CPT-08895 Nail Excision 08:49:52 CDT CPT-80463 Venipuncture Draw Fee 16:51:53 FIELD MARKETING ASSOCIATE
--- OUTSIDE RECORDS SUMMARY | 2018-08-01 22:01 | XMS REPORT | Clinical Summary ---
Author Author Admin, COURTNEY Organization [facility] Address Unknown Phone Unavailable Allergies, Adverse Reactions, [...] MG TABS 1 po at qhs SIMVASTATIN 87501968240 Active Magdalena Braun Active DEPAKOTE 500 MG EC TAB take 1 tab po BID for seizures. DIVALPROEX SODIUM 32908713448 Active Yvon Harrison MD Active DIVALPROEX SODIUM 250 MG TBEC 1 po TID DIVALPROEX SODIUM 35307346305 No Longer Active Nick Quiroz MD Active KEFLEX 500 MG CAP 1 po qid CEPHALEXIN 15643452384 No Longer Active Nick Quiroz MD Active KEFLEX 500 MG CAP 1 po qid CEPHALEXIN 98543414266 No Longer Active Nick Quiroz MD Active KEFLEX 500 MG CAP 1 po TID x 10 days CEPHALEXIN 05005934510 No Longer Active Nick Quiroz MD Active KEFLEX 500 MG CAP 1 po TID x 10 days CEPHALEXIN 57421184499 No Longer Active Nick Quiroz MD Active IBUPROFEN 600 MG TAB 1 tablet by mouth every 8 hours prn IBUPROFEN 28054002030 No Longer Active Desmond Montgomery DO Active FLONASE 50 MCG/ACT SUSP 2 puffs in each nostril daily FLUTICASONE PROPIONATE 82519352456 No Longer Active Desmond Montgomery DO Active LORATADINE 10 MG TABS 1 tablet by mouth daily PRN Congestion 2011 LORATADINE 43059908470 No Longer Active Desmond Montgomery DO Active LORATADINE 10 MG TABS 1 tablet by mouth daily PRN Congestion 2011 LORATADINE 10 MG TABS 702283 LORATADINE Inactive FLONASE 50 MCG/ACT SUSP 2 puffs in each nostril daily FLONASE 50 MCG/ACT SUSP 943608 FLUTICASONE PROPIONATE Inactive IBUPROFEN 600 MG TAB 1 tablet by mouth every 8 hours prn IBUPROFEN 600 MG TAB 746624 IBUPROFEN Inactive KEFLEX 500 MG CAP 1 po TID x 10 days KEFLEX 500 MG CAP 347774 CEPHALEXIN Inactive KEFLEX 500 MG CAP 1 po qid KEFLEX 500 MG CAP 681816 CEPHALEXIN Inactive KEFLEX 500 MG CAP 1 po qid KEFLEX 500 MG CAP 210253 CEPHALEXIN Inactive KEFLEX 500 MG CAP 1 po TID x 10 days KEFLEX 500 MG CAP 794106 CEPHALEXIN Inactive DIVALPROEX SODIUM 250 MG TBEC 1 po TID DIVALPROEX SODIUM 250 MG TBEC 6272288 DIVALPROEX SODIUM Inactive Vital Signs Date Name [...] Panel - Chemistry sodium, serum 136 mmol/L 636-821 4542/10/29 potassium, serum 4.0 mmol/L 3.5-5.2 chloride, serum [...] 0.40 mg/dL 0.00-1.00 cholesterol, serum 232 mg/dL 804-405 8409/10/29 triglyceride, serum, fasting 230 mg/dL 30-200 HDL [...] Panel - Chemistry sodium, serum 141 mmol/L 285-965 0536/01/14 potassium, serum 4.5 mmol/L 3.5-5.2 chloride, serum 104 mmol/L 98-107 carbon dioxide, venous blood 32.7 mmol/L 21.0-32.0 blood glucose 83 mg/dL 65-110 urea nitrogen, blood 13 mg/dL 7-18 creatinine, serum 1.00 mg/dL 0.60-1.30 alanine aminotransferase (SGPT), serum 36 U/L 12-78 aspartate aminotransferase (SGOT), serum 17 U/L 15-37 calcium, serum 9.1 mg/dL 8.5-10.1 bilirubin, serum, total 0.40 mg/dL 0.00-1.00 cholesterol, serum 167 mg/dL 804-887 0317/01/14 triglyceride, serum, fasting 149 mg/dL 30-200 HDL [...] mg/dL Encounters Code Encounter Date Provider Facility CPT-43903 Level 3 Est. Patient 17:08:18 CDT Berta Sweeney APRN [facility] CPT-25368 Level 4 Est. Patient 16:35:02 OFFICE MACHINES TEACHER Yvon Harrison MD [facility] CPT-54861 Level 4 Est. Patient 15:11:02 OFFICE MACHINES TEACHER Yvon Harrison MD [facility] CPT-48295 Level 4 Est. Patient 13:18:47 CDT Yvon Harrison MD [facility] CPT-84630 Level 4 Est. Patient 09:51:29 CDT Yvon Harrison MD [facility] CPT-04198 Level 3 Est. Patient 11:40:53 OFFICE MACHINES TEACHER Nick Quiroz MD [facility] CPT-08790 Level 3 Est. Patient 09:05:46 CDT Nick Quiroz MD [facility] CPT-89729 Level 3 Est. Patient 10:56:05 CDT Nick Quiroz MD [facility] CPT-47111 Level 3 Est. Patient 05:39:31 CDT Desmond Montgomery [facility] CPT-17084 Level 3 Est. Patient 16:18:28 OFFICE MACHINES TEACHER Nick Quiroz MD [facility] CPT-36875 Level 3 Est. Patient 16:50:04 OFFICE MACHINES TEACHER Nick Quiroz MD [facility] CPT-23518 Level 3 Est. Patient 22:12:55 OFFICE MACHINES TEACHER Desmond Montgomery [facility] Procedures Code Procedure Name Date Entry Date Standard Description CPT-76078 Hand comp min 3V 17:09:13 CDT CPT-06190 Hand comp min 3V 17:08:18 CDT CPT-49570 Fluzone Quadrivalent Intramuscular Suspension 0.5 ML 10: 17:16 CDT CPT-LR Lesion Removal 08:49:09 CDT CPT-97592 Nail Excision 08:49:52 CDT CPT-30721 Venipuncture Draw Fee 16:51:53 OFFICE MACHINES TEACHER
--- OUTSIDE RECORDS SUMMARY | 2018-08-01 22:01 | XMS REPORT | Clinical Summary ---
Author Author Admin, COURTNEY Organization [facility] Address Unknown Phone Unavailable Allergies, Adverse [...] 1/2 tab daily for 2 days PREDNISONE 62207350948 No Longer Active Yvon Harrison MD Active TERBINAFINE HCL 250 MG TABS 1 tab po qday for nail infection. TERBINAFINE HCL 84189126913 No Longer Active Yvon Harrison MD Active SIMVASTATIN 20 MG TABS 1 po at qhs SIMVASTATIN 16503675513 Active Yvon Harrison MD Active DEPAKOTE 500 MG EC TAB take 1 tab po BID for seizures. DIVALPROEX SODIUM 66714249737 Active Yvon Harrison MD Active DIVALPROEX SODIUM 250 MG TBEC 1 po TID DIVALPROEX SODIUM 86897325542 No Longer Active Nick Quiroz MD Active KEFLEX 500 MG CAP 1 po qid CEPHALEXIN 92769732703 No Longer Active Nick Quiroz MD Active KEFLEX 500 MG CAP 1 po qid CEPHALEXIN 09660116191 No Longer Active Nick Quiroz MD Active KEFLEX 500 MG CAP 1 po TID x 10 days CEPHALEXIN 51245884034 No Longer Active Nick Quiroz MD Active KEFLEX 500 MG CAP 1 po TID x 10 days CEPHALEXIN 03223000732 No Longer Active Nick Quiroz MD Active IBUPROFEN 600 MG TAB 1 tablet by mouth every 8 hours prn IBUPROFEN 17200487646 No Longer Active Desmond Montgomery DO Active FLONASE 50 MCG/ACT SUSP 2 puffs in each nostril daily FLUTICASONE PROPIONATE 30604030184 No Longer Active Desmond Montgomery DO Active LORATADINE 10 MG TABS 1 tablet by mouth daily PRN Congestion 2011 LORATADINE 74531396255 No Longer Active Desmond Montgomery DO Active LORATADINE 10 MG TABS 1 tablet by mouth daily PRN Congestion 2011 LORATADINE 10 MG TABS 215962 LORATADINE Inactive FLONASE 50 MCG/ACT SUSP 2 puffs in each nostril daily FLONASE 50 MCG/ACT SUSP FLUTICASONE PROPIONATE Inactive IBUPROFEN 600 MG TAB 1 tablet by mouth every 8 hours prn IBUPROFEN 600 MG TAB 920926 IBUPROFEN Inactive KEFLEX 500 MG CAP 1 po TID x 10 days KEFLEX 500 MG CAP 506254 CEPHALEXIN Inactive KEFLEX 500 MG CAP 1 po qid KEFLEX 500 MG CAP 673146 CEPHALEXIN Inactive KEFLEX 500 MG CAP 1 po qid KEFLEX 500 MG CAP 687531 CEPHALEXIN Inactive KEFLEX 500 MG CAP 1 po TID x 10 days KEFLEX 500 MG CAP 992687 CEPHALEXIN Inactive DIVALPROEX SODIUM 250 MG TBEC 1 po TID DIVALPROEX SODIUM 250 MG TBEC 1237037 DIVALPROEX SODIUM Inactive TERBINAFINE HCL 250 MG TABS 1 tab po qday for nail infection. TERBINAFINE HCL 250 MG TABS 683364 TERBINAFINE HCL Inactive PREDNISONE 20 MG TAB 2 tabs daily for 3 days, 1 tab daily for 3 days, 1/2 tab daily for 2 days PREDNISONE 20 MG TAB 527410 PREDNISONE Inactive Encounters Code Encounter Date Provider Facility CPT-73527 Level 4 Est. Patient 15:53:40 CDT Yvon Harrison MD [facility] CPT-18705 Level 4 Est. Patient 15:42:18 CDT Yvon Harrison MD [facility] CPT-64613 Level 3 Est. Patient 17:08:18 CDT Berta Sweeney APRN [facility] CPT-62454 Level 4 Est. Patient 16:35:02 ABRASIVE WORKER Yvon Harrison MD [facility] CPT-53778 Level 4 Est. Patient 15:11:02 ABRASIVE WORKER Yvon Harrison MD [facility] CPT-92292 Level 4 Est. Patient 13:18:47 CDT Yvon Harrison MD [facility] CPT-18899 Level 4 Est. Patient 09:51:29 CDT Yvon Harrison MD [facility] CPT-00337 Level 3 Est. Patient 11:40:53 ABRASIVE WORKER Nick Quiroz MD [facility] CPT-24544 Level 3 Est. Patient 09:05:46 CDT Nick Quiroz MD [facility] CPT-42517 Level 3 Est. Patient 10:56:05 CDT Nick Quiroz MD [facility] CPT-97222 Level 3 Est. Patient 05:39:31 CDT Desmond Montgomery [facility] CPT-08863 Level 3 Est. Patient 16:18:28 ABRASIVE WORKER Nick Quiroz MD [facility] CPT-59737 Level 3 Est. Patient 16:50:04 ABRASIVE WORKER Nick Quiroz MD [facility] CPT-01295 Level 3 Est. Patient 22:12:55 ABRASIVE WORKER Desmond Montgomery [facility] Procedures Code Procedure Name Date Entry Date Standard Description CPT-90030 Hand comp min 3V 17:09:13 CDT CPT-92892 Hand comp min 3V 17:08:18 CDT CPT-95694 Fluzone Quadrivalent Intramuscular Suspension 0.5 ML 10: 17:16 CDT CPT-LR Lesion Removal 08:49:09 CDT CPT-55338 Nail Excision 08:49:52 CDT CPT-94750 Venipuncture Draw Fee 16:51:53 ABRASIVE WORKER
--- OUTSIDE RECORDS SUMMARY | 2018-08-01 22:02 | XMS REPORT | Clinical Summary ---
Author Author Admin, COURTNEY Organization [facility] Address Unknown Phone Unavailable Allergies, [...] 1/2 tab daily for 2 days PREDNISONE 50221933212 No Longer Active Yvon Harrison MD Active TERBINAFINE HCL 250 MG TABS 1 tab po qday for nail infection. TERBINAFINE HCL 48256088243 No Longer Active Yvon Harrison MD Active SIMVASTATIN 20 MG TABS 1 po at qhs SIMVASTATIN 82421375552 Active Yvon Harrison MD Active DEPAKOTE 500 MG EC TAB take 1 tab po BID for seizures. DIVALPROEX SODIUM 08693617192 Active Yvon Harrison MD Active DIVALPROEX SODIUM 250 MG TBEC 1 po TID DIVALPROEX SODIUM 41944935745 No Longer Active Nick Quiroz MD Active KEFLEX 500 MG CAP 1 po qid CEPHALEXIN 32477008921 No Longer Active Nick Quiroz MD Active KEFLEX 500 MG CAP 1 po qid CEPHALEXIN 10953153829 No Longer Active Nick Quiroz MD Active KEFLEX 500 MG CAP 1 po TID x 10 days CEPHALEXIN 16757996718 No Longer Active Nick Quiroz MD Active KEFLEX 500 MG CAP 1 po TID x 10 days CEPHALEXIN 53211912455 No Longer Active Nick Quiroz MD Active IBUPROFEN 600 MG TAB 1 tablet by mouth every 8 hours prn IBUPROFEN 14563549696 No Longer Active Desmond Montgomery DO Active FLONASE 50 MCG/ACT SUSP 2 puffs in each nostril daily FLUTICASONE PROPIONATE 93869129248 No Longer Active Desmond Montgomery DO Active LORATADINE 10 MG TABS 1 tablet by mouth daily PRN Congestion 2011 LORATADINE 54915182346 No Longer Active Desmond Montgomery DO Active LORATADINE 10 MG TABS 1 tablet by mouth daily PRN Congestion 2011 LORATADINE 10 MG TABS 174837 LORATADINE Inactive FLONASE 50 MCG/ACT SUSP 2 puffs in each nostril daily FLONASE 50 MCG/ACT SUSP FLUTICASONE PROPIONATE Inactive IBUPROFEN 600 MG TAB 1 tablet by mouth every 8 hours prn IBUPROFEN 600 MG TAB 210096 IBUPROFEN Inactive KEFLEX 500 MG CAP 1 po TID x 10 days KEFLEX 500 MG CAP 335801 CEPHALEXIN Inactive KEFLEX 500 MG CAP 1 po qid KEFLEX 500 MG CAP 615965 CEPHALEXIN Inactive KEFLEX 500 MG CAP 1 po qid KEFLEX 500 MG CAP 011171 CEPHALEXIN Inactive KEFLEX 500 MG CAP 1 po TID x 10 days KEFLEX 500 MG CAP 748762 CEPHALEXIN Inactive DIVALPROEX SODIUM 250 MG TBEC 1 po TID DIVALPROEX SODIUM 250 MG TBEC 1015257 DIVALPROEX SODIUM Inactive TERBINAFINE HCL 250 MG TABS 1 tab po qday for nail infection. TERBINAFINE HCL 250 MG TABS 509874 TERBINAFINE HCL Inactive PREDNISONE 20 MG TAB 2 tabs daily for 3 days, 1 tab daily for 3 days, 1/2 tab daily for 2 days PREDNISONE 20 MG TAB 106616 PREDNISONE Inactive Encounters Code Encounter Date Provider Facility CPT-93082 Level 4 Est. Patient 15:53:40 CDT Yvon Harrison MD [facility] CPT-10099 Level 4 Est. Patient 15:42:18 CDT Yvon Harrison MD [facility] CPT-17888 Level 3 Est. Patient 17:08:18 CDT Berta Sweeney APRN [facility] CPT-18341 Level 4 Est. Patient 16:35:02 [employer] Yvon Harrison MD [facility] CPT-51681 Level 4 Est. Patient 15:11:02 [employer] Yvon Harrison MD [facility] CPT-33527 Level 4 Est. Patient 13:18:47 CDT Yvon Harrison MD [facility] CPT-71173 Level 4 Est. Patient 09:51:29 CDT Yvon Harrison MD [facility] CPT-39947 Level 3 Est. Patient 11:40:53 [employer] Nick Quiroz MD [facility] CPT-29791 Level 3 Est. Patient 09:05:46 CDT Nick Quiroz MD [facility] CPT-51043 Level 3 Est. Patient 10:56:05 CDT Nick Quiroz MD [facility] CPT-93419 Level 3 Est. Patient 05:39:31 CDT Desmond Montgomery [facility] CPT-83002 Level 3 Est. Patient 16:18:28 [employer] Nick Quiroz MD [facility] CPT-23927 Level 3 Est. Patient 16:50:04 [employer] Nick Quiroz MD [facility] CPT-98493 Level 3 Est. Patient 22:12:55 [employer] Desmond Montgomery [facility] Procedures Code Procedure Name Date Entry Date Standard Description CPT-64766 Hand comp min 3V 17:09:13 CDT CPT-11705 Hand comp min 3V 17:08:18 CDT CPT-06631 Fluzone Quadrivalent Intramuscular Suspension 0.5 ML 10: 17:16 CDT CPT-LR Lesion Removal 08:49:09 CDT CPT-29248 Nail Excision 08:49:52 CDT CPT-11469 Venipuncture Draw Fee 16:51:53 [employer]
--- OUTSIDE RECORDS SUMMARY | 2018-08-01 22:02 | XMS REPORT | Clinical Summary ---
Author Author Admin, COURTNEY Organization [facility] Address Unknown Phone Unavailable Allergies, Adverse Reactions, [...] 1/2 tab daily for 2 days PREDNISONE 78600477849 No Longer Active Yvon Harrison MD Active TERBINAFINE HCL 250 MG TABS 1 tab po qday for nail infection. TERBINAFINE HCL 77139040239 No Longer Active Yvon Harrison MD Active SIMVASTATIN 20 MG TABS 1 po at qhs SIMVASTATIN 94455331870 Active Yvon Harrison MD Active DEPAKOTE 500 MG EC TAB take 1 tab po BID for seizures. DIVALPROEX SODIUM 31313853355 Active Yvon Harrison MD Active DIVALPROEX SODIUM 250 MG TBEC 1 po TID DIVALPROEX SODIUM 88777376831 No Longer Active Nick Quiroz MD Active KEFLEX 500 MG CAP 1 po qid CEPHALEXIN 43843041076 No Longer Active Nick Quiroz MD Active KEFLEX 500 MG CAP 1 po qid CEPHALEXIN 66223673962 No Longer Active Nick Quiroz MD Active KEFLEX 500 MG CAP 1 po TID x 10 days CEPHALEXIN 08894793594 No Longer Active Nick Quiroz MD Active KEFLEX 500 MG CAP 1 po TID x 10 days CEPHALEXIN 11498894758 No Longer Active Nick Quiroz MD Active IBUPROFEN 600 MG TAB 1 tablet by mouth every 8 hours prn IBUPROFEN 54483905729 No Longer Active Desmond Montgomery DO Active FLONASE 50 MCG/ACT SUSP 2 puffs in each nostril daily FLUTICASONE PROPIONATE 03658469666 No Longer Active Desmond Montgomery DO Active LORATADINE 10 MG TABS 1 tablet by mouth daily PRN Congestion 2011 LORATADINE 28071656086 No Longer Active Desmond Montgomery DO Active LORATADINE 10 MG TABS 1 tablet by mouth daily PRN Congestion 2011 LORATADINE 10 MG TABS 058054 LORATADINE Inactive FLONASE 50 MCG/ACT SUSP 2 puffs in each nostril daily FLONASE 50 MCG/ACT SUSP FLUTICASONE PROPIONATE Inactive IBUPROFEN 600 MG TAB 1 tablet by mouth every 8 hours prn IBUPROFEN 600 MG TAB 492793 IBUPROFEN Inactive KEFLEX 500 MG CAP 1 po TID x 10 days KEFLEX 500 MG CAP 160226 CEPHALEXIN Inactive KEFLEX 500 MG CAP 1 po qid KEFLEX 500 MG CAP 251876 CEPHALEXIN Inactive KEFLEX 500 MG CAP 1 po qid KEFLEX 500 MG CAP 801328 CEPHALEXIN Inactive KEFLEX 500 MG CAP 1 po TID x 10 days KEFLEX 500 MG CAP 943900 CEPHALEXIN Inactive DIVALPROEX SODIUM 250 MG TBEC 1 po TID DIVALPROEX SODIUM 250 MG TBEC 7767438 DIVALPROEX SODIUM Inactive TERBINAFINE HCL 250 MG TABS 1 tab po qday for nail infection. TERBINAFINE HCL 250 MG TABS 637239 TERBINAFINE HCL Inactive PREDNISONE 20 MG TAB 2 tabs daily for 3 days, 1 tab daily for 3 days, 1/2 tab daily for 2 days PREDNISONE 20 MG TAB 168682 PREDNISONE Inactive Vital Signs Date Name Value [...] Panel - Chemistry sodium, serum 139 mmol/L 748-102 9766/10/28 carbon dioxide, venous blood 28.2 mmol/L 21.0-32.0 potassium, serum 4.2 mmol/L 3.5-5.2 chloride, serum 101 mmol/L 98-107 blood glucose 87 mg/dL 65-110 urea nitrogen, blood 18 mg/dL 7-18 creatinine, serum 0.98 mg/dL 0.55-1.30 alanine aminotransferase (SGPT), serum 28 U/L 12-78 aspartate aminotransferase (SGOT), serum 13 U/L 15-37 calcium, serum 8.9 mg/dL 8.5-10.1 bilirubin, serum, total 0.50 mg/dL 0.00-1.00 cholesterol, serum 244 mg/dL 873-612 0270/10/28 triglyceride, serum, fasting 192 mg/dL 30-200 HDL [...] mg/dL Encounters Code Encounter Date Provider Facility CPT-68297 Level 4 Est. Patient 11:00:57 CDT Yvon Harrison MD [facility] CPT-28329 Level 4 Est. Patient 15:53:40 CDT Yvon Harrison MD [facility] CPT-11987 Level 4 Est. Patient 15:42:18 CDT Yvon Harrison MD [facility] CPT-99933 Level 3 Est. Patient 17:08:18 CDT Berta Sweeney ROSENDO [facility] CPT-93241 Level 4 Est. Patient 16:35:02 EXTRACTOR LOADER [employer] UNLOADER Yvon Harrison MD [facility] CPT-54617 Level 4 Est. Patient 15:11:02 EXTRACTOR LOADER AND UNLOADER Yvon Harrison MD [facility] CPT-67408 Level 4 Est. Patient 13:18:47 CDT Yvon Harrison MD [facility] CPT-01295 Level 4 Est. Patient 09:51:29 CDT Yvon Harrison MD [facility] CPT-86730 Level 3 Est. Patient 11:40:53 EX[employer] LOADER [employer] UNLOADER Nick Quiroz MD [facility] CPT-92922 Level 3 Est. Patient 09:05:46 CDT Nick Quiroz MD [facility] CPT-87554 Level 3 Est. Patient 10:56:05 CDT Nick Quiroz MD [facility] CPT-29101 Level 3 Est. Patient 05:39:31 CDT Desmond Montgomery DO [facility] CPT-44187 Level 3 Est. Patient 16:18:28 EXTR[employer]OR LOADER [employer] UNLOADER Nick Quiroz MD [facility] CPT-80631 Level 3 Est. Patient 16:50:04 EXTRACTOR LOADER [employer] UNLOADER Nick Quiroz MD [facility] CPT-53214 Level 3 Est. Patient 22:12:55 EX[employer] LOADER [employer]LOADER Desmond Montgomery DO [facility] Procedures Code Procedure Name Date Entry Date Standard Description CPT-42892 Lipid - LAB USE ONLY 15:55:09 [employer] LO[employer]LOAD[employer] CPT-44611 CMP - LAB USE ONLY 15:55:09 EXTRACTOR LOAD[employer]LOADER CPT-56443 CBC - LAB USE ONLY 15:55:08 EX[employer]OR LO[employer]ER [employer]LOADER CPT-11665 Venipuncture Draw Fee 15:55:08 [employer]TRACTOR LOADER [employer]LOADER CPT-Cryo Cryotherapy 11:00:57 CDT CPT-75293 Hand comp min 3V 17:09:13 CDT CPT-10225 Hand comp min 3V 17:08:18 CDT CPT-64464 Fluzone Quadrivalent Intramuscular Suspension 0.5 ML 10: 17:16 CDT CPT-LR Lesion Removal 08:49:09 CDT CPT-90348 Nail Excision 08:49:52 CDT CPT-66821 Venipuncture Draw Fee 16:51:53 EXTR[employer]OR LOADER [employer] UNLOADER
--- OUTSIDE RECORDS SUMMARY | 2018-08-01 22:02 | XMS REPORT | Clinical Summary ---
Author Author Admin, COURTNEY Organization [facility] Address Unknown Phone Unavailable Allergies, Adverse Reactions, [...] and sense organs FH SEIZURES V17.2 Resolved Nikc Quiroz MD Family history of other neurological diseases SEIZURE DISORDER 780.39 Resolved Ncik Quiroz MD Other convulsions GASTROENTERITIS, ACUTE 558.9 Resolved Nick uQiroz MD Other and unspecified noninfectious gastroenteritis and [...] 1/2 tab daily for 2 days PREDNISONE 10278797858 No Longer Active Yvon Harrison MD Active TERBINAFINE HCL 250 MG TABS 1 tab po qday for nail infection. TERBINAFINE HCL 11265739928 No Longer Active Yvon Harrison MD Active SIMVASTATIN 20 MG TABS 1 po at qhs SIMVASTATIN 47210946622 Active Yvon Harrison MD Active DEPAKOTE 500 MG EC TAB take 1 tab po BID for seizures. DIVALPROEX SODIUM 52672755259 Active Yvon Harrison MD Active DIVALPROEX SODIUM 250 MG TBEC 1 po TID DIVALPROEX SODIUM 65886135962 No Longer Active Nick Quiroz MD Active KEFLEX 500 MG CAP 1 po qid CEPHALEXIN 66343840991 No Longer Active Nick Quiroz MD Active KEFLEX 500 MG CAP 1 po qid CEPHALEXIN 13375368783 No Longer Active Nick Quiroz MD Active KEFLEX 500 MG CAP 1 po TID x 10 days CEPHALEXIN 65638438058 No Longer Active Nick Quiroz MD Active KEFLEX 500 MG CAP 1 po TID x 10 days CEPHALEXIN 18665206531 No Longer Active Nick Quiroz MD Active IBUPROFEN 600 MG TAB 1 tablet by mouth every 8 hours prn IBUPROFEN 10283909288 No Longer Active Desmond Montgomery DO Active FLONASE 50 MCG/ACT SUSP 2 puffs in each nostril daily FLUTICASONE PROPIONATE 55287811521 No Longer Active Desmond Montgomery DO Active LORATADINE 10 MG TABS 1 tablet by mouth daily PRN Congestion 2011 LORATADINE 91658980253 No Longer Active Desmond Montgomery DO Active LORATADINE 10 MG TABS 1 tablet by mouth daily PRN Congestion 2011 LORATADINE 10 MG TABS 110200 LORATADINE Inactive FLONASE 50 MCG/ACT SUSP 2 puffs in each nostril daily FLONASE 50 MCG/ACT SUSP FLUTICASONE PROPIONATE Inactive IBUPROFEN 600 MG TAB 1 tablet by mouth every 8 hours prn IBUPROFEN 600 MG TAB 038698 IBUPROFEN Inactive KEFLEX 500 MG CAP 1 po TID x 10 days KEFLEX 500 MG CAP 832616 CEPHALEXIN Inactive KEFLEX 500 MG CAP 1 po qid KEFLEX 500 MG CAP 369436 CEPHALEXIN Inactive KEFLEX 500 MG CAP 1 po qid KEFLEX 500 MG CAP 393575 CEPHALEXIN Inactive KEFLEX 500 MG CAP 1 po TID x 10 days KEFLEX 500 MG CAP 264339 CEPHALEXIN Inactive DIVALPROEX SODIUM 250 MG TBEC 1 po TID DIVALPROEX SODIUM 250 MG TBEC 8776573 DIVALPROEX SODIUM Inactive TERBINAFINE HCL 250 MG TABS 1 tab po qday for nail infection. TERBINAFINE HCL 250 MG TABS 248008 TERBINAFINE HCL Inactive PREDNISONE 20 MG TAB 2 tabs daily for 3 days, 1 tab daily for 3 days, 1/2 tab daily for 2 days PREDNISONE 20 MG TAB 350534 PREDNISONE Inactive Vital Signs Date Name Value [...] Panel - Chemistry sodium, serum 139 mmol/L 380-607 3664/10/28 carbon dioxide, venous blood 28.2 mmol/L 21.0-32.0 potassium, serum 4.2 mmol/L 3.5-5.2 chloride, serum 101 mmol/L 98-107 blood glucose 87 mg/dL 65-110 urea nitrogen, blood 18 mg/dL 7-18 creatinine, serum 0.98 mg/dL 0.55-1.30 alanine aminotransferase (SGPT), serum 28 U/L 12-78 aspartate aminotransferase (SGOT), serum 13 U/L 15-37 calcium, serum 8.9 mg/dL 8.5-10.1 bilirubin, serum, total 0.50 mg/dL 0.00-1.00 cholesterol, serum 244 mg/dL 185-113 3479/10/28 triglyceride, serum, fasting 192 mg/dL 30-200 HDL [...] 11.6-14.8 platelet count 248 10^3/MM^3 10*3/mm3 142-424 Office Visit: Med Check - Chemistry cholesterol, target level 200 mg/dL LDL target level 160 mg/dL HDL cholesterol, serum, target level 40 mg/dL triglyceride, target level 150 mg/dL Encounters Code Encounter Date Provider Facility CPT-56582 Level 4 Est. Patient 11:00:57 CDT Yvon Harrison MD [facility] CPT-41157 Level 4 Est. Patient 15:53:40 CDT Yvon Harrison MD [facility] CPT-29161 Level 4 Est. Patient 15:42:18 CDT Yvon Harrison MD [facility] CPT-53505 Level 3 Est. Patient 17:08:18 CDT Berta Sweeney ROSENDO [facility] CPT-24817 Level 4 Est. Patient 16:35:02 SKIN FORMER Yvon Harrison MD [facility] CPT-38455 Level 4 Est. Patient 15:11:02 SKIN FORMER Yvon Harrison MD [facility] CPT-03130 Level 4 Est. Patient 13:18:47 CDT Yvon Harrison MD [facility] CPT-29350 Level 4 Est. Patient 09:51:29 CDT Yvon Harrison MD [facility] CPT-72487 Level 3 Est. Patient 11:40:53 SKIN FORMER Nick Quiroz MD [facility] CPT-43688 Level 3 Est. Patient 09:05:46 CDT Nick Quiroz MD [facility] CPT-66787 Level 3 Est. Patient 10:56:05 CDT Nick Quiroz MD [facility] CPT-07805 Level 3 Est. Patient 05:39:31 CDT Desmond Montgomery DO [facility] CPT-60215 Level 3 Est. Patient 16:18:28 SKIN FORMER Nick Quiroz MD [facility] CPT-08894 Level 3 Est. Patient 16:50:04 SKIN FORMER Nick Quiroz MD [facility] CPT-40703 Level 3 Est. Patient 22:12:55 SKIN FORMER Desmond Montgomery DO [facility] Procedures Code Procedure Name Date Entry Date Standard Description CPT-Cryo Cryotherapy 11:00:57 CDT CPT-10218 Hand comp min 3V 17:09:13 CDT CPT-18629 Hand comp min 3V 17:08:18 CDT CPT-84588 Fluzone Quadrivalent Intramuscular Suspension 0.5 ML 10: 17:16 CDT CPT-LR Lesion Removal 08:49:09 CDT CPT-79103 Nail Excision 08:49:52 CDT CPT-78257 Venipuncture Draw Fee 16:51:53 SKIN FORMER
--- NOTE | 2018-08-01 22:03 | ED General ---
General Stated Complaint: FEVER,VOMITING,POSS SEIZURE Source of Information: Patient, Other (FEMALE S.O.) History of Present Illness Date Seen by Provider: Aug 01, 2018 Time Seen by Provider: 21:43 Initial Comments PT ARRIVES VIA POV FROM HOME PT WITH MULTIPLE COMPLAINTS STATES HE STARTED FEELING SICK YESTERDAY WITH BODY ACHES TODAY BEGAN RUNNING FEVER OF 99.9 AT 1530 TODAY STATES HE HAS HAD NASAL CONGESTION AND SINUS DRAINAGE ALSO HAS HAD A SCRATCHY THROAT NO SIGNIFICANT COUGH NO HEADACHE PT STATES HE TOOK AN OTC ALLERGY PILL THIS AM FOR NASAL CONGESTION, BUT HAS NOT TAKEN ANYTHING ELSE FOR SYMPTOMS PT ALSO STATES HE HAS A HISTORY OF SEIZURES AND IS SUPPOSED TO BE ON DEPAKOTE, BUT HAS NOT TAKEN ANY FOR AT LEAST A MONTH, STATES HE CAN'T AFFORD MEDICATIONS THINKS HE HAD 2 SEIZURES TODAY STATES SINCE HIS SEIZURES, HIS SPEECH ISN'T QUITE BACK TO NORMAL AND STATES HE "CAN'T SEE STRAIGHT" --STATES NONE OF THESE SYMPTOMS ARE NEW, AND HAS THEM WHEN HE HAS SEIZURES OR WHEN HE RUNS A FEVER, PT HAS ALSO HAD NAUSEA OFF AND ON AND HAS VOMITED X 1-2 TIMES, JUST PRIOR TO ARRIVAL NO DIARRHEA C/O MILD LOWER ABDOMINAL AND LOWER BACK DISCOMFORT NO URINARY SYMPTOMS AND IS VOIDING A NORMAL AMOUNT PT STATES HE HAS NOT ATE OR DRANK MUCH TODAY--HAD 2 PEANUT BUTTER AND JELLY SANDWICHES AT NOON, ONLY FOOD INTAKE TODAY. HAS ONLY HAD A LITTLE BIT OF WATER TO DRINK TODAY. PT HAS HISTORY OF GERD AND HIATAL HERNIA AND IS SUPPOSED TO BE TAKING PROTONIX, BUT HAS NOT TAKEN ANY FOR SOME TIME NO KNOWN SICK CONTACTS WITH SIMILAR PCP: DR. ESCALONA IN [place]--USED TO SEE DR. AQUINO Allergies and Home Medications Allergies Coded Allergies: amoxicillin (Verified Allergy, Unknown, 08/01/18) clavulanic acid (Verified Allergy, Unknown, 08/01/18) phenobarbital (Verified Allergy, Unknown, 08/01/18) phenytoin (Verified Allergy, Unknown, 08/01/18) Home Medications Cefdinir 300 Mg Capsule, 300 MG PO BID FOR INFECTION Prescribed by: KAT THOMAS on 08/01/182322 Fluticasone Propionate 9.9 Ml [place].susp, 2 SPRAYS NS BID Prescribed by: KAT THOMAS on 08/01/182322 Ondansetron 4 Mg Tab.rapdis, 4 MG PO Q4H Prescribed by: KAT THOMAS on 08/01/18 0188 Patient Home Medication List Home Medication List Reviewed: Yes Review of Systems Review of Systems Constitutional: see HPI, fever EENTM: see HPI, blurred vision, nose congestion, throat pain; No hoarseness Respiratory: no symptoms reported; No cough, No short of breath Cardiovascular: no symptoms reported Gastrointestinal: see HPI, abdominal pain; No constipation, No diarrhea; loss of appetite, nausea, vomiting Genitourinary: no symptoms reported; No decreased output, No dysuria Musculoskeletal: see HPI, back pain Skin: no symptoms reported Psychiatric/Neurological: See HPI; Denies Headache, Denies Numbness, Denies Paresthesia; Seizure; Denies Tingling, Denies Tremors, Denies Weakness Hematologic/Lymphatic: No Symptoms Reported Immunological/Allergic: no symptoms reported Past Aulhnmw-Flinll-Oabmjq Hx Patient Social History Alcohol Use: Denies Use Recreational Drug Use: Yes (THC IN PAST) Drug of Choice: THC IN PAST Smoking Status: Former Smoker (SMOKED "A LITTLE BIT" IN THE PAST) Recent Foreign Travel: No Contact w/Someone Who Travel: No Past Medical History Surgeries: Yes (EGD/COLONOSCOPY) Respiratory: No Cardiac: No Neurological: Yes Seizure Disorder Genitourinary: No Gastrointestinal: Yes Gastroesophageal Reflux, Hiatal Hernia Musculoskeletal: No Physical Exam Vital Signs Vital Signs - First Documented 08/01/18 21:41 Temp 98.4 Pulse 102 Resp 21 B/P (MAP) 145/101 (116) Pulse Ox 98 O2 Delivery Room Air Capillary Refill : Height, Weight, BMI Height: '" Weight: lbs. oz. kg; BMI Method: General Appearance: No Apparent Distress, WD/WN HEENT: PERRL/EOMI, Other ( NASAL CONGESTION AND CLEAR POST NASAL DRAINAGE; MILD FRONTAL SINUS TENDERNESS. LEFT TM INFLAMED) Neck: Full Range of Motion, Normal Inspection, Non Tender, Supple Respiratory: Normal Breath Sounds, No Accessory Muscle Use, No Respiratory Distress Cardiovascular: Regular Rate, Rhythm, No Edema, No JVD, No Murmur, Normal Peripheral Pulses Gastrointestinal: Normal Bowel Sounds, No Organomegaly, No Pulsatile Mass, Soft Back: Normal Inspection, No CVA Tenderness, No Vertebral Tenderness Extremity: Normal Range of Motion, No Pedal Edema Neurologic/Psychiatric: Alert, Oriented x3, No Motor/Sensory Deficits, Normal Mood/Affect, lead assembler II-XII Norm as Tested, Other (SPEECH CLEAR, GAIT STEADY. AMBULATES WITHOUT DIFFICULTY) Skin: Normal Color, Warm/Dry Focused Exam Lactate Level 08/01/18 22:03: Lactic Acid Level 0.94 Lactic Acid Level Progress/Results/Core Measures Suspected Sepsis SIRS Temperature: Pulse: Respiratory Rate: Laboratory Tests 08/01/18 22:03: White Blood Count 8.7 Blood Pressure / Mean: 08/01/18 22:03: Lactic Acid Level 0.94 Laboratory Tests 08/01/18 22:03: Creatinine 0.92, INR Comment 0.9, Platelet Count 240, Total Bilirubin 0.5 Results/Orders Lab Results Laboratory Tests Test 08/01/18 22:03 08/01/18 22:57 Range/Units White Blood Count 8.7 4.3-11.0 10^3/uL Red Blood Count 5.63 4.35-5.85 10^6/uL Hemoglobin 16.0 13.3-17.7 G/DL Hematocrit 45 40-54 % Mean Corpuscular Volume 80 80-99 FL Mean Corpuscular Hemoglobin 28 25-34 PG Mean Corpuscular Hemoglobin Concent 36 32-36 G/DL Red Cell Distribution Width 12.9 10.0-14.5 % Platelet Count 240 130-400 10^3/uL Mean Platelet Volume 9.4 7.4-10.4 FL Neutrophils (%) (Auto) 76 H 42-75 % Lymphocytes (%) (Auto) 10 L 12-44 % Monocytes (%) (Auto) 11 0-12 % Eosinophils (%) (Auto) 2 0-10 % Basophils (%) (Auto) 1 0-10 % Neutrophils # (Auto) 6.7 1.8-7.8 X 10^3 Lymphocytes # (Auto) 0.9 L 1.0-4.0 X 10^3 Monocytes # (Auto) 1.0 0.0-1.0 X 10^3 Eosinophils # (Auto) 0.2 0.0-0.3 10^3/uL Basophils # (Auto) 0.1 0.0-0.1 10^3/uL Prothrombin Time 12.9 12.2-14.7 SEC INR Comment 0.9 0.8-1.4 Activated Partial Thromboplast Time 30 24-35 SEC Sodium Level 139 135-145 MMOL/L Potassium Level 3.9 3.6-5.0 MMOL/L Chloride Level 104 98-107 MMOL/L Carbon Dioxide Level 22 21-32 MMOL/L Anion Gap 13 5-14 MMOL/L Blood Urea Nitrogen 13 7-18 MG/DL Creatinine 0.92 0.60-1.30 MG/DL Estimat Glomerular Filtration Rate > 60 BUN/Creatinine Ratio 14 Glucose Level 100 70-105 MG/DL Lactic Acid Level 0.94 0.50-2.00 MMOL/L Calcium Level 9.9 8.5-10.1 MG/DL Corrected Calcium 8.5-10.1 MG/DL Magnesium Level 2.2 1.8-2.4 MG/DL Total Bilirubin 0.5 0.1-1.0 MG/DL Aspartate Amino Transf (AST/SGOT) 24 5-34 U/L Alanine Aminotransferase (ALT/SGPT) 40 0-55 U/L Alkaline Phosphatase 59 40-136 U/L Total Creatine Kinase 105 30-200 U/L Creatine Kinase MB 1.1 <6.6 NG/ML Total Protein 7.4 6.4-8.2 GM/DL Albumin 4.6 H 3.2-4.5 GM/DL Amylase Level 33 25-125 U/L Lipase 12 8-78 U/L TSH [place] Testing 1.85 0.35-4.94 UIU/ML Acetaminophen Level < 10 L 10-30 UG/ML Valproic Acid (Depakene) Level < 2.0 L 50.0-100.0 UG/ML Serum Alcohol < 10 <10 MG/DL Monoscreen NEGATIVE NEGATIVE Group A Streptococcus Screen NEGATIVE NEGATIVE Urine Color YELLOW Urine Clarity CLEAR Urine pH 7 5-9 Urine Specific [place] 1.010 L 1.016-1.022 Urine Protein NEGATIVE NEGATIVE Urine Glucose (UA) NEGATIVE NEGATIVE Urine Ketones NEGATIVE NEGATIVE Urine Nitrite NEGATIVE NEGATIVE Urine Bilirubin NEGATIVE NEGATIVE Urine Urobilinogen NORMAL NORMAL MG/DL Urine Leukocyte Esterase NEGATIVE NEGATIVE Urine RBC (Auto) NEGATIVE NEGATIVE Urine RBC NONE /HPF Urine WBC NONE /HPF Urine Squamous Epithelial Cells RARE /HPF Urine Crystals NONE /LPF Urine Bacteria TRACE /HPF Urine Casts NONE /LPF Urine Mucus NEGATIVE /LPF Urine Culture Indicated NO Urine Opiates Screen NEGATIVE NEGATIVE Urine Oxycodone Screen NEGATIVE NEGATIVE Urine Methadone Screen NEGATIVE NEGATIVE Urine Propoxyphene Screen NEGATIVE NEGATIVE Urine Barbiturates Screen NEGATIVE NEGATIVE Ur Tricyclic Antidepressants Screen NEGATIVE NEGATIVE Urine Phencyclidine Screen NEGATIVE NEGATIVE Urine Amphetamines Screen NEGATIVE NEGATIVE Urine Methamphetamines Screen NEGATIVE NEGATIVE Urine Benzodiazepines Screen NEGATIVE NEGATIVE Urine Cocaine Screen NEGATIVE NEGATIVE Urine Cannabinoids Screen NEGATIVE NEGATIVE Micro Results Microbiology 08/01/18 Influenza Types A,B Antigen (CARLOS) - Final, Complete My Orders Orders - KAT THOMAS DO Ed Iv/Invasive Line Start (08/01/18 21:52) Monitor-Rhythm Ecg Trace Only (08/01/18 21:52) Acetaminophen (08/01/18 21:52) Alcohol (08/01/18 21:52) Amylase (08/01/18 21:52) Cbc With Automated Diff (08/01/18 21:52) Comprehensive Metabolic Panel (08/01/18 21:52) Creatine Kinase (08/01/18 21:52) Creatine Kinase Mb (08/01/18 21:52) Drug Screen Stat (Urine) (08/01/18 21:52) Lactic Acid Analyzer (08/01/18 21:52) Lipase (08/01/18 21:52) Magnesium (08/01/18 21:52) Monotest (08/01/18 21:52) Protime With Inr (08/01/18 21:52) Partial Thromboplastin Time (08/01/18 21:52) Rapid Strep A Screen (08/01/18 21:52) Thyroid Analyzer (08/01/18 21:52) Ua Culture If Indicated (08/01/18 21:52) Valproic Acid (08/01/18 21:52) Blood Culture (08/01/18 21:52) Influenza A And B Antigens (08/01/18 21:52) Ondansetron Injection (Zofran Injectio (08/01/18 22:00) Ed Iv/Invasive Line Start (08/01/18 21:52) Lactated Ringers (Lr 1000 Ml Iv Solution (08/01/18 21:52) Ceftriaxone For Iv Use (Rocephin For I (08/01/18 23:15) Medications Given in ED Current Medications Medications Dose Ordered Sig/Annette Route Start Time Stop Time Status Last Admin Dose Admin Ceftriaxone Sodium 1000 mg/ Sterile Water 10 ml @ 200 mls/hr ONCE ONCE IV 08/01/18 23:15 08/01/18 23:17 DC 08/01/18 23:24 200 MLS/HR Lactated Ringer's 1,000 ml @ 0 mls/hr Q0M ONCE IV 08/01/18 21:52 08/01/18 21:56 DC 08/01/18 22:11 1,000 MLS/HR Ondansetron HCl 4 mg ONCE ONCE IVP 08/01/18 22:00 08/01/18 22:01 DC 08/01/18 22:11 4 MG Vital Signs/I&O 08/01/18 08/01/18 21:41 23:49 Temp 98.4 98.4 Pulse 102 84 Resp 21 18 B/P (MAP) 145/101 (116) 108/60 (76) Pulse Ox 98 97 O2 Delivery Room Air Room Air Capillary Refill : Progress Note : Progress Note FEELS MUCH BETTER AT DISMISSAL Departure Impression Primary Impression: Sinusitis Additional Impressions: Left otitis media Seizure disorder Disposition: HOME, SELF-CARE Condition: Improved Departure-Patient Inst. Referrals: NO,LOCAL PHYSICIAN (PCP/Family) Primary Care Physician Patient Instructions: Ear Infections (Otitis Media) (DC), Seizures, Adult (DC) , Sinusitis, Adult (DC) Add. Discharge Instructions: LOTS OF CLEAR LIQUIDS--WATER, BROTH, JELLO, GATORADE TYLENOL 1 GRAM / MOTRIN 800 MG 4 TIMES A DAY NEEDED FOR PAIN OR FEVER FOLLOW UP WITH YOUR DR IN 3-4 DAYS IF NO BETTER, OTHERWISE FOLLOW UP SOON POSSIBLE REGARDING SEIZURE MEDICATIONS RETURN TO ER IF WORSE Scripts Ondansetron (Ondansetron Odt) 4 Mg Tab.rapdis 4 MG PO Q4H for Nausea/Vomiting, #10 TAB Prov: KAT THOMAS DO 08/01/18 Fluticasone Propionate (Flonase Allergy Relief) 9.9 Ml [place].susp 2 SPRAYS NS BID, #1 SPRAY Prov: KAT THOMAS DO 08/01/18 Cefdinir (Cefdinir) 300 Mg Capsule 300 MG PO BID, #20 CAP FOR INFECTION Prov: KAT THOMAS DO 08/01/18 KAT THOMAS DO Aug 01, 2018 22:03
--- OUTSIDE RECORDS SUMMARY | 2018-08-01 22:03 | XMS REPORT | Clinical Summary ---
Author Author Admin, COURTNEY Organization [facility] Address Unknown Phone Unavailable Allergies, Adverse Reactions, Alerts Allergy Name Reaction Description Start Date Severity Status Provider TOPAMAX Critical Active Berta Sweeney APRN Conditions or Problems Problem Name Problem Code Onset Date Status Entry Date Provider Comment Standard Description Annotate SEIZURE DISORDER 780.39 Resolved Nick Quiroz MD Other convulsions SEIZURES, HX OF V12.49 Resolved Nick uQiroz MD Personal history of other disorders of [...] Active Yvon Harrison MD Viral warts, unspecified SEIZURES, HX OF ICD-V12.49 Inactive Nick Quiroz MD FH SEIZURES ICD-V17.2 Inactive Nick Quiroz MD SEIZURE DISORDER ICD-780.39 Inactive Nick Quiroz MD 2011 GASTROENTERITIS, ACUTE ICD-558.9 Inactive Nick Quiroz MD DEHYDRATION ICD-276.51 Quincy Quiroz MD U [facility] I ICD-465.9 Inactive Nick Quiroz MD SPASM, MUSCLE ICD-728.85 Inactive Nick Quiroz MD LYMPHADENITIS-ACUTE ICD-683 Inactive Nick Quiroz MD SEIZURE DISORDER ICD-780.39 Quincy Quiroz MD Medication List Medication Instructions Start Date Stop Date Generic Name NDC Status Provider Patient Instruction PREDNISONE 20 MG TAB 2 tabs daily for 3 days, 1 tab daily for 3 days, 1/2 tab daily for 2 days PREDNISONE 03071814644 No Longer Active Yvon Harrison MD Active TERBINAFINE HCL 250 MG TABS 1 tab po qday for nail infection. TERBINAFINE HCL 92993183147 No Longer Active Yvon Harrison MD Active SIMVASTATIN 20 MG TABS 1 po at qhs SIMVASTATIN 31415742638 Active Yvon Harrison MD Active DEPAKOTE 500 MG EC TAB take 1 tab po BID for seizures. DIVALPROEX SODIUM 28114810956 Active Yvon Harrison MD Active DIVALPROEX SODIUM 250 MG TBEC 1 po TID DIVALPROEX SODIUM 42144862935 No Longer Active Nick Quiroz MD Active KEFLEX 500 MG CAP 1 po qid CEPHALEXIN 65277844998 No Longer Active Nick Quiroz MD Active KEFLEX 500 MG CAP 1 po qid CEPHALEXIN 80303800895 No Longer Active Nick Quiroz MD Active KEFLEX 500 MG CAP 1 po TID x 10 days CEPHALEXIN 51340519555 No Longer Active Nick Quiroz MD Active KEFLEX 500 MG CAP 1 po TID x 10 days CEPHALEXIN 86028767854 No Longer Active Nick Quiroz MD Active IBUPROFEN 600 MG TAB 1 tablet by mouth every 8 hours prn IBUPROFEN 97080315135 No Longer Active Desmond Montgomery DO Active FLONASE 50 MCG/ACT SUSP 2 puffs in each nostril daily FLUTICASONE PROPIONATE 21846938667 No Longer Active Desmond Montgomery DO Active LORATADINE 10 MG TABS 1 tablet by mouth daily PRN Congestion 2011 LORATADINE 28185483084 No Longer Active Desmond Montgomery DO Active LORATADINE 10 MG TABS 1 tablet by mouth daily PRN Congestion 2011 LORATADINE 10 MG TABS 082779 LORATADINE Inactive FLONASE 50 MCG/ACT SUSP 2 puffs in each nostril daily FLONASE 50 MCG/ACT SUSP FLUTICASONE PROPIONATE Inactive IBUPROFEN 600 MG TAB 1 tablet by mouth every 8 hours prn IBUPROFEN 600 MG TAB 426694 IBUPROFEN Inactive KEFLEX 500 MG CAP 1 po TID x 10 days KEFLEX 500 MG CAP 611896 CEPHALEXIN Inactive KEFLEX 500 MG CAP 1 po qid KEFLEX 500 MG CAP 253142 CEPHALEXIN Inactive KEFLEX 500 MG CAP 1 po qid KEFLEX 500 MG CAP 025604 CEPHALEXIN Inactive KEFLEX 500 MG CAP 1 po TID x 10 days KEFLEX 500 MG CAP 099408 CEPHALEXIN Inactive DIVALPROEX SODIUM 250 MG TBEC 1 po TID DIVALPROEX SODIUM 250 MG TBEC 3448258 DIVALPROEX SODIUM Inactive TERBINAFINE HCL 250 MG TABS 1 tab po qday for nail infection. TERBINAFINE HCL 250 MG TABS 295201 TERBINAFINE HCL Inactive PREDNISONE 20 MG TAB 2 tabs daily for 3 days, 1 tab daily for 3 days, 1/2 tab daily for 2 days PREDNISONE 20 MG TAB 624623 PREDNISONE Inactive Vital Signs Date Name Value [...] Panel - Chemistry sodium, serum 139 mmol/L 292-167 7019/10/28 carbon dioxide, venous blood 28.2 mmol/L 21.0-32.0 potassium, serum 4.2 mmol/L 3.5-5.2 chloride, serum 101 mmol/L 98-107 blood glucose 87 mg/dL 65-110 urea nitrogen, blood 18 mg/dL 7-18 creatinine, serum 0.98 mg/dL 0.55-1.30 alanine aminotransferase (SGPT), serum 28 U/L 12-78 aspartate aminotransferase (SGOT), serum 13 U/L 15-37 calcium, serum 8.9 mg/dL 8.5-10.1 bilirubin, serum, total 0.50 mg/dL 0.00-1.00 cholesterol, serum 244 mg/dL 396-529 5001/10/28 triglyceride, serum, fasting 192 mg/dL 30-200 HDL [...] mg/dL Encounters Code Encounter Date Provider Facility CPT-24939 Level 4 Est. Patient 11:00:57 CDT Yvon Harrison MD [facility] CPT-56448 Level 4 Est. Patient 15:53:40 CDT Yvon Harrison MD [facility] CPT-50165 Level 4 Est. Patient 15:42:18 CDT Yvon Harrison MD [facility] CPT-65438 Level 3 Est. Patient 17:08:18 CDT Berta Sweeney ROSENDO [facility] CPT-03591 Level 4 Est. Patient 16:35:02 RESIDENT MEDICAL OFFICER Yvon Harrison MD [facility] CPT-35187 Level 4 Est. Patient 15:11:02 RESIDENT MEDICAL OFFICER Yvon Harrison MD [facility] CPT-53878 Level 4 Est. Patient 13:18:47 CDT Yvon Harrison MD [facility] CPT-63247 Level 4 Est. Patient 09:51:29 CDT Yvon Harrison MD [facility] CPT-55582 Level 3 Est. Patient 11:40:53 RESIDENT MEDICAL OFFICER Nick Quiroz MD [facility] CPT-78608 Level 3 Est. Patient 09:05:46 CDT Nick Quiroz MD [facility] CPT-86177 Level 3 Est. Patient 10:56:05 CDT Nick Quiroz MD [facility] CPT-70867 Level 3 Est. Patient 05:39:31 CDT Desmond Montgomery DO [facility] CPT-79287 Level 3 Est. Patient 16:18:28 RESIDENT MEDICAL OFFICER Nick Quiroz MD [facility] CPT-06534 Level 3 Est. Patient 16:50:04 RESIDENT MEDICAL OFFICER Nick Quiroz MD [facility] CPT-50445 Level 3 Est. Patient 22:12:55 RESIDENT MEDICAL OFFICER Desmond Montgomery DO [facility] Procedures Code Procedure Name Date Entry Date Standard Description CPT-Cryo Cryotherapy 11:00:57 CDT CPT-17429 Hand comp min 3V 17:09:13 CDT CPT-01933 Hand comp min 3V 17:08:18 CDT CPT-21226 Fluzone Quadrivalent Intramuscular Suspension 0.5 ML 10: 17:16 CDT CPT-LR Lesion Removal 08:49:09 CDT CPT-51473 Nail Excision 08:49:52 CDT CPT-36987 Venipuncture Draw Fee 16:51:53 RESIDENT MEDICAL OFFICER
--- OUTSIDE RECORDS SUMMARY | 2018-08-01 22:03 | XMS REPORT | Clinical Summary ---
Author Author Admin, COURTNEY Organization [employer] Address Unknown Phone Unavailable Allergies, Adverse Reactions, [...] 1/2 tab daily for 2 days PREDNISONE [id number] No Longer Active Yvon Harrison MD Active TERBINAFINE HCL 250 MG ORAL TABLET 1 tab po qday for nail infection. TERBINAFINE HCL 55687275137 No Longer Active Yvon Harrison MD Active SIMVASTATIN 20 MG ORAL TABLET 1 po at qhs SIMVASTATIN 67025037545 Active Yvon Harrison MD Active DEPAKOTE 500 MG ORAL TABLET DELAYED RELEASE take 1 tab po BID for seizures. DIVALPROEX SODIUM 34344583001 Active Yvon Harrison MD Active DIVALPROEX SODIUM 250 MG ORAL TABLET DELAYED RELEASE 1 po TID DIVALPROEX SODIUM 46768887924 No Longer Active Nick Quiroz MD Active KEFLEX 500 MG ORAL CAPSULE 1 po qid CEPHALEXIN 68669367057 No Longer Active Nick Quiroz MD Active KEFLEX 500 MG ORAL CAPSULE 1 po qid CEPHALEXIN 46335096386 No Longer Active Nick Quiroz MD Active KEFLEX 500 MG ORAL CAPSULE 1 po TID x 10 days CEPHALEXIN 81062565078 No Longer Active Nick Quiroz MD Active KEFLEX 500 MG ORAL CAPSULE 1 po TID x 10 days CEPHALEXIN 39243473259 No Longer Active Nick Quiroz MD Active IBUPROFEN 600 MG ORAL TABLET 1 tablet by mouth every 8 hours prn IBUPROFEN 85101338733 No Longer Active Desmond Montgomery DO Active FLONASE 50 MCG/ACT NASAL SUSPENSION 2 puffs in each nostril daily FLUTICASONE PROPIONATE 00756203222 No Longer Active Desmond Montgomery DO Active LORATADINE 10 MG ORAL TABLET 1 tablet by mouth daily PRN Congestion LORATADINE 83550690763 No Longer Active Desmond Montgomery DO Active LORATADINE 10 MG ORAL TABLET 1 tablet by mouth daily PRN Congestion LORATADINE 10 MG ORAL TABLET 148262 LORATADINE Inactive FLONASE 50 MCG/ACT NASAL SUSPENSION 2 puffs in each nostril daily FLONASE 50 MCG/ACT NASAL SUSPENSION 0985929 FLUTICASONE PROPIONATE Inactive IBUPROFEN 600 MG ORAL TABLET 1 tablet by mouth every 8 hours prn IBUPROFEN 600 MG ORAL TABLET 568032 IBUPROFEN Inactive KEFLEX 500 MG ORAL CAPSULE 1 po TID x 10 days KEFLEX 500 MG ORAL CAPSULE 496739 CEPHALEXIN Inactive KEFLEX 500 MG ORAL CAPSULE 1 po qid KEFLEX 500 MG ORAL CAPSULE 235548 CEPHALEXIN Inactive KEFLEX 500 MG ORAL CAPSULE 1 po qid KEFLEX 500 MG ORAL CAPSULE 653752 CEPHALEXIN Inactive KEFLEX 500 MG ORAL CAPSULE 1 po TID x 10 days KEFLEX 500 MG ORAL CAPSULE 538484 CEPHALEXIN Inactive DIVALPROEX SODIUM 250 MG ORAL TABLET DELAYED RELEASE 1 po TID DIVALPROEX SODIUM 250 MG ORAL TABLET DELAYED RELEASE 1899620 DIVALPROEX SODIUM Inactive TERBINAFINE HCL 250 MG ORAL TABLET 1 tab po qday for nail infection. TERBINAFINE HCL 250 MG ORAL TABLET 352643 TERBINAFINE HCL Inactive PREDNISONE 20 MG ORAL TABLET 2 tabs daily for 3 days, 1 tab daily for 3 days, 1/2 tab daily for 2 days PREDNISONE 20 MG ORAL TABLET 364732 PREDNISONE Inactive Encounters Code Encounter Date Provider Facility CPT-41320 Level 4 Est. Patient 11:00:57 CDT Yvon Harrison MD [facility] CPT-84311 Level 4 Est. Patient 15:53:40 CDT Yvon Harrison MD [facility] CPT-95891 Level 4 Est. Patient 15:42:18 CDT Yvon Harrison MD [facility] CPT-89309 Level 3 Est. Patient 17:08:18 CDT Berta Sweeney APRN [facility] CPT-82441 Level 4 Est. Patient 16:35:02 MARKET RESEARCH EXECUTIVE Yvon Harrison MD [facility] CPT-12302 Level 4 Est. Patient 15:11:02 MARKET RESEARCH EXECUTIVE Yvon Harrison MD [facility] CPT-05881 Level 4 Est. Patient 13:18:47 CDT Yvon Harrison MD [facility] CPT-15318 Level 4 Est. Patient 09:51:29 CDT Yvon Harrison MD [facility] CPT-57579 Level 3 Est. Patient 11:40:53 MARKET RESEARCH EXECUTIVE Nick Quiroz MD [facility] CPT-91225 Level 3 Est. Patient 09:05:46 CDT Nick Quiroz MD [facility] CPT-46843 Level 3 Est. Patient 10:56:05 CDT Nick Quiroz MD [facility] CPT-80056 Level 3 Est. Patient 05:39:31 CDT Desmond Montgomery DO [facility] CPT-14019 Level 3 Est. Patient 16:18:28 MARKET RESEARCH EXECUTIVE Nick Quiroz MD [facility] CPT-74728 Level 3 Est. Patient 16:50:04 MARKET RESEARCH EXECUTIVE Nick Quiroz MD [facility] CPT-95014 Level 3 Est. Patient 22:12:55 MARKET RESEARCH EXECUTIVE Desmond Montgomery [facility] Procedures Code Procedure Name Date Entry Date Standard Description CPT-94302 Lipid - LAB USE ONLY 15:55:09 MARKET RESEARCH EXECUTIVE CPT-95669 CMP - LAB USE ONLY 15:55:09 MARKET RESEARCH EXECUTIVE CPT-04658 CBC - LAB USE ONLY 15:55:08 MARKET RESEARCH EXECUTIVE CPT-27440 Venipuncture Draw Fee 15:55:08 MARKET RESEARCH EXECUTIVE CPT-Cryo Cryotherapy 11:00:57 CDT CPT-53876 Hand comp min 3V 17:09:13 CDT CPT-77809 Hand comp min 3V 17:08:18 CDT CPT-87462 Fluzone Quadrivalent Intramuscular Suspension 0.5 ML 10: 17:16 CDT CPT-LR Lesion Removal 08:49:09 CDT CPT-43555 Nail Excision 08:49:52 CDT CPT-43487 Venipuncture Draw Fee 16:51:53 MARKET RESEARCH EXECUTIVE
--- OUTSIDE RECORDS SUMMARY | 2018-08-01 22:04 | XMS REPORT | Clinical Summary ---
Author Author Admin, COURTNEY Organization [facility] Address Unknown Phone Unavailable Allergies, Adverse Reactions, [...] lymphadenitis Preventive health care V70.0 Active Yvon Harirson MD Routine general medical examination at a health care facility Hyperlipidemia 272.4 Active Yvon Harrison MD Other and unspecified hyperlipidemia Hand pain, left 729.5 Active Breta Sweeney CONCRETE FINISHER Pain in limb SEIZURE DISORDER ICD-780.39 Inactive [...] MG TABS 1 po at qhs SIMVASTATIN 41368269832 Active Magdalena Braun Active DEPAKOTE 500 MG EC TAB take 1 tab po BID for seizures. DIVALPROEX SODIUM 99966596953 Active Yvon Harrison MD Active DIVALPROEX SODIUM 250 MG TBEC 1 po TID DIVALPROEX SODIUM 80823346739 No Longer Active Nick Quiroz MD Active KEFLEX 500 MG CAP 1 po qid CEPHALEXIN 66364545677 No Longer Active Nick Quiroz MD Active KEFLEX 500 MG CAP 1 po qid CEPHALEXIN 29455734721 No Longer Active Nick Quiroz MD Active KEFLEX 500 MG CAP 1 po TID x 10 days CEPHALEXIN 38033655098 No Longer Active Nick Quiroz MD Active KEFLEX 500 MG CAP 1 po TID x 10 days CEPHALEXIN 27153651341 No Longer Active Nick Quiroz MD Active IBUPROFEN 600 MG TAB 1 tablet by mouth every 8 hours prn IBUPROFEN 06936220177 No Longer Active Desmond Montgomery DO Active FLONASE 50 MCG/ACT SUSP 2 puffs in each nostril daily FLUTICASONE PROPIONATE 83434555295 No Longer Active Desmond Montgomery DO Active LORATADINE 10 MG TABS 1 tablet by mouth daily PRN Congestion 2011 LORATADINE 80895035540 No Longer Active Desmond Montgomery DO Active LORATADINE 10 MG TABS 1 tablet by mouth daily PRN Congestion 2011 LORATADINE 10 MG TABS 582052 LORATADINE Inactive FLONASE 50 MCG/ACT SUSP 2 puffs in each nostril daily FLONASE 50 MCG/ACT SUSP 771577 FLUTICASONE PROPIONATE Inactive IBUPROFEN 600 MG TAB 1 tablet by mouth every 8 hours prn IBUPROFEN 600 MG TAB 026332 IBUPROFEN Inactive KEFLEX 500 MG CAP 1 po TID x 10 days KEFLEX 500 MG CAP 257952 CEPHALEXIN Inactive KEFLEX 500 MG CAP 1 po qid KEFLEX 500 MG CAP 764403 CEPHALEXIN Inactive KEFLEX 500 MG CAP 1 po qid KEFLEX 500 MG CAP 226577 CEPHALEXIN Inactive KEFLEX 500 MG CAP 1 po TID x 10 days KEFLEX 500 MG CAP 345399 CEPHALEXIN Inactive DIVALPROEX SODIUM 250 MG TBEC 1 po TID DIVALPROEX SODIUM 250 MG TBEC 4151654 DIVALPROEX SODIUM Inactive Vital Signs Date Name [...] Panel - Chemistry sodium, serum 136 mmol/L 498-712 8694/10/29 potassium, serum 4.0 mmol/L 3.5-5.2 chloride, serum [...] 0.40 mg/dL 0.00-1.00 cholesterol, serum 232 mg/dL 010-343 7763/10/29 triglyceride, serum, fasting 230 mg/dL 30-200 HDL [...] Panel - Chemistry sodium, serum 141 mmol/L 561-952 9514/01/14 potassium, serum 4.5 mmol/L 3.5-5.2 chloride, serum 104 mmol/L 98-107 carbon dioxide, venous blood 32.7 mmol/L 21.0-32.0 blood glucose 83 mg/dL 65-110 urea nitrogen, blood 13 mg/dL 7-18 creatinine, serum 1.00 mg/dL 0.60-1.30 alanine aminotransferase (SGPT), serum 36 U/L 12-78 aspartate aminotransferase (SGOT), serum 17 U/L 15-37 calcium, serum 9.1 mg/dL 8.5-10.1 bilirubin, serum, total 0.40 mg/dL 0.00-1.00 cholesterol, serum 167 mg/dL 999-191 6337/01/14 triglyceride, serum, fasting 149 mg/dL 30-200 HDL [...] mg/dL Encounters Code Encounter Date Provider Facility CPT-64137 Level 3 Est. Patient 17:08:18 CDT Berta Sweeney APRN [facility] CPT-01668 Level 4 Est. Patient 16:35:02 PER DIEM PHYSICAL THERAPIST ASSISTANT Yvon Harrison MD [facility] CPT-54762 Level 4 Est. Patient 15:11:02 PER DIEM PHYSICAL THERAPIST ASSISTANT Yvon Harrison MD [facility] CPT-52076 Level 4 Est. Patient 13:18:47 CDT Yvon Harrison MD [facility] CPT-99790 Level 4 Est. Patient 09:51:29 CDT Yvon Harrison MD [facility] CPT-61573 Level 3 Est. Patient 11:40:53 PER DIEM PHYSICAL THERAPIST ASSISTANT Nick Quiroz MD [facility] CPT-40598 Level 3 Est. Patient 09:05:46 CDT Nick Quiroz MD [facility] CPT-71003 Level 3 Est. Patient 10:56:05 CDT Nick Quiroz MD [facility] CPT-56141 Level 3 Est. Patient 05:39:31 CDT Desmond Montgomery [facility] CPT-34592 Level 3 Est. Patient 16:18:28 PER DIEM PHYSICAL THERAPIST ASSISTANT Nick Quiroz MD [facility] CPT-52211 Level 3 Est. Patient 16:50:04 PER DIEM PHYSICAL THERAPIST ASSISTANT Nick Quiroz MD [facility] CPT-56601 Level 3 Est. Patient 22:12:55 PER DIEM PHYSICAL THERAPIST ASSISTANT Desmond Montgomery [facility] Procedures Code Procedure Name Date Entry Date Standard Description CPT-39831 Hand comp min 3V 17:09:13 CDT CPT-56381 Hand comp min 3V 17:08:18 CDT CPT-49050 Fluzone Quadrivalent Intramuscular Suspension 0.5 ML 10: 17:16 CDT CPT-LR Lesion Removal 08:49:09 CDT CPT-54163 Nail Excision 08:49:52 CDT CPT-88114 Venipuncture Draw Fee 16:51:53 PER DIEM PHYSICAL THERAPIST ASSISTANT
--- OUTSIDE RECORDS SUMMARY | 2018-08-01 22:04 | XMS REPORT | Clinical Summary ---
Author Author Admin, COURTNEY Organization [employer] Address Unknown Phone Unavailable Allergies, Adverse Reactions, [...] 1/2 tab daily for 2 days PREDNISONE 20489787272 No Longer Active Yvon Harrison MD Active TERBINAFINE HCL 250 MG TABS 1 tab po qday for nail infection. TERBINAFINE HCL 66612299456 No Longer Active Yvon Harrison MD Active SIMVASTATIN 20 MG TABS 1 po at qhs SIMVASTATIN 01652566387 Active Yvon Harrison MD Active DEPAKOTE 500 MG EC TAB take 1 tab po BID for seizures. DIVALPROEX SODIUM 11352604532 Active Yvon Harrison MD Active DIVALPROEX SODIUM 250 MG TBEC 1 po TID DIVALPROEX SODIUM 62193420104 No Longer Active Nick Quiroz MD Active KEFLEX 500 MG CAP 1 po qid CEPHALEXIN 80019889812 No Longer Active Nick Quiroz MD Active KEFLEX 500 MG CAP 1 po qid CEPHALEXIN 30381873498 No Longer Active Nick Quiroz MD Active KEFLEX 500 MG CAP 1 po TID x 10 days CEPHALEXIN 33560026195 No Longer Active Nick Quiroz MD Active KEFLEX 500 MG CAP 1 po TID x 10 days CEPHALEXIN 14394174544 No Longer Active Nick Quiroz MD Active IBUPROFEN 600 MG TAB 1 tablet by mouth every 8 hours prn IBUPROFEN 98929706363 No Longer Active Desmond Montgomery DO Active FLONASE 50 MCG/ACT SUSP 2 puffs in each nostril daily FLUTICASONE PROPIONATE 32811589502 No Longer Active Desmond Montgomery DO Active LORATADINE 10 MG TABS 1 tablet by mouth daily PRN Congestion 2011 LORATADINE 08054140130 No Longer Active Desmond Montgomery DO Active LORATADINE 10 MG TABS 1 tablet by mouth daily PRN Congestion 2011 LORATADINE 10 MG TABS 209041 LORATADINE Inactive FLONASE 50 MCG/ACT SUSP 2 puffs in each nostril daily FLONASE 50 MCG/ACT SUSP FLUTICASONE PROPIONATE Inactive IBUPROFEN 600 MG TAB 1 tablet by mouth every 8 hours prn IBUPROFEN 600 MG TAB 544244 IBUPROFEN Inactive KEFLEX 500 MG CAP 1 po TID x 10 days KEFLEX 500 MG CAP 384282 CEPHALEXIN Inactive KEFLEX 500 MG CAP 1 po qid KEFLEX 500 MG CAP 101077 CEPHALEXIN Inactive KEFLEX 500 MG CAP 1 po qid KEFLEX 500 MG CAP 796386 CEPHALEXIN Inactive KEFLEX 500 MG CAP 1 po TID x 10 days KEFLEX 500 MG CAP 967144 CEPHALEXIN Inactive DIVALPROEX SODIUM 250 MG TBEC 1 po TID DIVALPROEX SODIUM 250 MG TBEC 5715491 DIVALPROEX SODIUM Inactive TERBINAFINE HCL 250 MG TABS 1 tab po qday for nail infection. TERBINAFINE HCL 250 MG TABS 081148 TERBINAFINE HCL Inactive PREDNISONE 20 MG TAB 2 tabs daily for 3 days, 1 tab daily for 3 days, 1/2 tab daily for 2 days PREDNISONE 20 MG TAB 139216 PREDNISONE Inactive Vital Signs Date Name Value [...] Panel - Chemistry sodium, serum 139 mmol/L 032-524 0083/10/28 carbon dioxide, venous blood 28.2 mmol/L 21.0-32.0 potassium, serum 4.2 mmol/L 3.5-5.2 chloride, serum 101 mmol/L 98-107 blood glucose 87 mg/dL 65-110 urea nitrogen, blood 18 mg/dL 7-18 creatinine, serum 0.98 mg/dL 0.55-1.30 alanine aminotransferase (SGPT), serum 28 U/L 12-78 aspartate aminotransferase (SGOT), serum 13 U/L 15-37 calcium, serum 8.9 mg/dL 8.5-10.1 bilirubin, serum, total 0.50 mg/dL 0.00-1.00 cholesterol, serum 244 mg/dL 654-853 4719/10/28 triglyceride, serum, fasting 192 mg/dL 30-200 HDL [...] mg/dL Encounters Code Encounter Date Provider Facility CPT-87865 Level 4 Est. Patient 11:00:57 CDT Yvon Harrison MD [facility] CPT-50378 Level 4 Est. Patient 15:53:40 CDT [facility] CPT-30101 Level 4 Est. Patient 15:42:18 CDT Yvon [facility] MD [facility] CPT-19144 Level 3 Est. Patient 17:08:18 CDT Berta Sweeney [facility] CPT-26682 Level 4 Est. Patient 16:35:02 SLUBBER FRAME CHANGER Yvon Harrison MD [facility] CPT-07208 Level 4 Est. Patient 15:11:02 SLUBBER FRAME CHANGER Yvon Harrison MD [facility] CPT-80566 Level 4 Est. Patient 13:18:47 CDT Yvon Harrison MD [facility] CPT-28206 Level 4 Est. Patient 09:51:29 CDT Yvon Harrison MD [facility] CPT-78731 Level 3 Est. Patient 11:40:53 SLUBBER FRAME CHANGER Nick Quiroz MD [facility] CPT-28771 Level 3 Est. Patient 09:05:46 CDT Nick Quiroz MD [facility] CPT-75555 Level 3 Est. Patient 10:56:05 CDT Nick Quiroz MD [facility] CPT-02688 Level 3 Est. Patient 05:39:31 CDT Desmond Montgomery DO [facility] CPT-82758 Level 3 Est. Patient 16:18:28 SLUBBER FRAME CHANGER Nick Quiroz MD [facility] CPT-40369 Level 3 Est. Patient 16:50:04 SLUBBER FRAME CHANGER Nick Quiroz MD [facility] CPT-99979 Level 3 Est. Patient 22:12:55 SLUBBER FRAME CHANGER Desmond Montgomery DO [facility] Procedures Code Procedure Name Date Entry Date Standard Description CPT-Cryo Cryotherapy 11:00:57 CDT CPT-24696 Hand comp min 3V 17:09:13 CDT CPT-11416 Hand comp min 3V 17:08:18 CDT CPT-86688 Fluzone Quadrivalent Intramuscular Suspension 0.5 ML 10: 17:16 CDT CPT-LR Lesion Removal 08:49:09 CDT CPT-03404 Nail Excision 08:49:52 CDT CPT-65557 Venipuncture Draw Fee 16:51:53 SLUBBER FRAME CHANGER
--- OUTSIDE RECORDS SUMMARY | 2018-08-01 22:05 | XMS REPORT | Clinical Summary ---
Author Author Admin, COURTNEY Organization [employer] Address Unknown Phone Unavailable Allergies, Adverse Reactions, [...] a health care facility Hyperlipidemia 272.4 Active Yvno Harrison MD Other and unspecified hyperlipidemia Hand [...] 1/2 tab daily for 2 days PREDNISONE 65534828844 No Longer Active Yvon Harrison MD Active TERBINAFINE HCL 250 MG TABS 1 tab po qday for nail infection. TERBINAFINE HCL 41714702252 No Longer Active Yvon Harrison MD Active SIMVASTATIN 20 MG TABS 1 po at qhs SIMVASTATIN 85383544788 Active Yvon Harrison MD Active DEPAKOTE 500 MG EC TAB take 1 tab po BID for seizures. DIVALPROEX SODIUM 75661223340 Active Yvon Harrison MD Active DIVALPROEX SODIUM 250 MG TBEC 1 po TID DIVALPROEX SODIUM 83793504245 No Longer Active Nick Quiroz MD Active KEFLEX 500 MG CAP 1 po qid CEPHALEXIN 68144218107 No Longer Active Nick Quiroz MD Active KEFLEX 500 MG CAP 1 po qid CEPHALEXIN 15739872386 No Longer Active Nick Quiroz MD Active KEFLEX 500 MG CAP 1 po TID x 10 days CEPHALEXIN 07170465356 No Longer Active Nick Quiroz MD Active KEFLEX 500 MG CAP 1 po TID x 10 days CEPHALEXIN 28684687476 No Longer Active Nick Quiroz MD Active IBUPROFEN 600 MG TAB 1 tablet by mouth every 8 hours prn IBUPROFEN 10676508943 No Longer Active Desmond Montgomery DO Active FLONASE 50 MCG/ACT SUSP 2 puffs in each nostril daily FLUTICASONE PROPIONATE 83307726549 No Longer Active Desmond Montgomery DO Active LORATADINE 10 MG TABS 1 tablet by mouth daily PRN Congestion 2011 LORATADINE 64270240444 No Longer Active Desmond Montgomery DO Active LORATADINE 10 MG TABS 1 tablet by mouth daily PRN Congestion 2011 LORATADINE 10 MG TABS 004881 LORATADINE Inactive FLONASE 50 MCG/ACT SUSP 2 puffs in each nostril daily FLONASE 50 MCG/ACT SUSP FLUTICASONE PROPIONATE Inactive IBUPROFEN 600 MG TAB 1 tablet by mouth every 8 hours prn IBUPROFEN 600 MG TAB 127519 IBUPROFEN Inactive KEFLEX 500 MG CAP 1 po TID x 10 days KEFLEX 500 MG CAP 003614 CEPHALEXIN Inactive KEFLEX 500 MG CAP 1 po qid KEFLEX 500 MG CAP 427266 CEPHALEXIN Inactive KEFLEX 500 MG CAP 1 po qid KEFLEX 500 MG CAP 677534 CEPHALEXIN Inactive KEFLEX 500 MG CAP 1 po TID x 10 days KEFLEX 500 MG CAP 437110 CEPHALEXIN Inactive DIVALPROEX SODIUM 250 MG TBEC 1 po TID DIVALPROEX SODIUM 250 MG TBEC 8760932 DIVALPROEX SODIUM Inactive TERBINAFINE HCL 250 MG TABS 1 tab po qday for nail infection. TERBINAFINE HCL 250 MG TABS 707951 TERBINAFINE HCL Inactive PREDNISONE 20 MG TAB 2 tabs daily for 3 days, 1 tab daily for 3 days, 1/2 tab daily for 2 days PREDNISONE 20 MG TAB 494306 PREDNISONE Inactive Vital Signs Date Name Value Unit Range Description blood pressure, diastolic - 8462-4 79 mm[Hg] BP caro blood pressure, systolic - 8480-6 97 mm[Hg] BP sys pulse rate E&M - 8867-4 64 /min Heart rate temperature E&M 97.7 [degF] Body temperature weight E&M - 3141-9 264.5 [lb_av] Weight Measured Diagnostic Results Date Name Value Unit Range Description Office Visit: Med Check - Chemistry cholesterol, target level 200 mg/dL LDL target level 160 mg/dL HDL cholesterol, serum, target level 40 mg/dL triglyceride, target level 150 mg/dL Encounters Code Encounter Date Provider Facility CPT-03717 Level 4 Est. Patient 11:00:57 CDT Yvon Harrison MD [facility] CPT-21361 Level 4 Est. Patient 15:53:40 CDT Yvon Harrison MD [facility] CPT-84726 Level 4 Est. Patient 15:42:18 CDT Yvon Harrison MD [facility] CPT-97980 Level 3 Est. Patient 17:08:18 CDT Berta Sweeney APRN [facility] CPT-96089 Level 4 Est. Patient 16:35:02 [employer]OKER INSTALLATION MECHANIC Yvon Harrison MD [facility] CPT-00262 Level 4 Est. Patient 15:11:02 STOKER INSTALLATION MECHANIC Yvon Harrison MD [facility] CPT-10830 Level 4 Est. Patient 13:18:47 CDT Yvon Harrison MD [facility] CPT-15890 Level 4 Est. Patient 09:51:29 CDT Yvon Harrison MD [facility] CPT-27722 Level 3 Est. Patient 11:40:53 [employer]ER INSTALLATION MECHANIC Nick Quiroz MD [facility] CPT-16000 Level 3 Est. Patient 09:05:46 CDT Nick Quiroz MD [facility] CPT-08485 Level 3 Est. Patient 10:56:05 CDT Nick Quiroz MD [facility] CPT-44151 Level 3 Est. Patient 05:39:31 CDT Desmond Montgomery DO [facility] CPT-30299 Level 3 Est. Patient 16:18:28 [employer] INSTALLATION MECHANIC Nick Quiroz MD [facility] CPT-61018 Level 3 Est. Patient 16:50:04 [employer]OKER INSTALLATION MECHANIC Nick Quiroz MD [facility] CPT-32479 Level 3 Est. Patient 22:12:55 [employer]OKER INSTALLATION MECHANIC Desmond Montgomery DO [facility] Procedures Code Procedure Name Date Entry Date Standard Description CPT-Cryo Cryotherapy 11:00:57 CDT CPT-64777 Hand comp min 3V 17:09:13 CDT CPT-58410 Hand comp min 3V 17:08:18 CDT CPT-84509 Fluzone Quadrivalent Intramuscular Suspension 0.5 ML 10: 17:16 CDT CPT-LR Lesion Removal 08:49:09 CDT CPT-76690 Nail Excision 08:49:52 CDT CPT-56222 Venipuncture Draw Fee 16:51:53 [employer]OKER INSTALLATION MECHANIC
--- OUTSIDE RECORDS SUMMARY | 2018-08-01 22:05 | XMS REPORT | Clinical Summary ---
Author Author Admin, COURTNEY Organization [facility] Address Unknown Phone Unavailable Allergies, Adverse Reactions, [...] MG TABS 1 po at qhs SIMVASTATIN 85062583868 Active Magdalena Braun Active DEPAKOTE 500 MG EC TAB take 1 tab po BID for seizures. DIVALPROEX SODIUM 38512618297 Active Yvon Harrison MD Active DIVALPROEX SODIUM 250 MG TBEC 1 po TID DIVALPROEX SODIUM 47406900130 No Longer Active Nick Quiroz MD Active KEFLEX 500 MG CAP 1 po qid CEPHALEXIN 44777212590 No Longer Active Nick Quiroz MD Active KEFLEX 500 MG CAP 1 po qid CEPHALEXIN 73032687589 No Longer Active Nick Quiroz MD Active KEFLEX 500 MG CAP 1 po TID x 10 days CEPHALEXIN 06356587753 No Longer Active Nick Quiroz MD Active KEFLEX 500 MG CAP 1 po TID x 10 days CEPHALEXIN 27914483660 No Longer Active Nick Quiroz MD Active IBUPROFEN 600 MG TAB 1 tablet by mouth every 8 hours prn IBUPROFEN 74129734838 No Longer Active Desmond Montgomery DO Active FLONASE 50 MCG/ACT SUSP 2 puffs in each nostril daily FLUTICASONE PROPIONATE 58953195287 No Longer Active Desmond Montgomery DO Active LORATADINE 10 MG TABS 1 tablet by mouth daily PRN Congestion 2011 LORATADINE 98342982292 No Longer Active Desmond Montgomery DO Active LORATADINE 10 MG TABS 1 tablet by mouth daily PRN Congestion 2011 LORATADINE 10 MG TABS 942325 LORATADINE Inactive FLONASE 50 MCG/ACT SUSP 2 puffs in each nostril daily FLONASE 50 MCG/ACT SUSP 945642 FLUTICASONE PROPIONATE Inactive IBUPROFEN 600 MG TAB 1 tablet by mouth every 8 hours prn IBUPROFEN 600 MG TAB 329177 IBUPROFEN Inactive KEFLEX 500 MG CAP 1 po TID x 10 days KEFLEX 500 MG CAP 462939 CEPHALEXIN Inactive KEFLEX 500 MG CAP 1 po qid KEFLEX 500 MG CAP 247382 CEPHALEXIN Inactive KEFLEX 500 MG CAP 1 po qid KEFLEX 500 MG CAP 426490 CEPHALEXIN Inactive KEFLEX 500 MG CAP 1 po TID x 10 days KEFLEX 500 MG CAP 917640 CEPHALEXIN Inactive DIVALPROEX SODIUM 250 MG TBEC 1 po TID DIVALPROEX SODIUM 250 MG TBEC 7981698 DIVALPROEX SODIUM Inactive Vital Signs Date Name [...] Panel - Chemistry sodium, serum 136 mmol/L 282-465 1689/10/29 potassium, serum 4.0 mmol/L 3.5-5.2 chloride, serum [...] 0.40 mg/dL 0.00-1.00 cholesterol, serum 232 mg/dL 274-225 1105/10/29 triglyceride, serum, fasting 230 mg/dL 30-200 HDL [...] Panel - Chemistry sodium, serum 141 mmol/L 406-978 1647/01/14 potassium, serum 4.5 mmol/L 3.5-5.2 chloride, serum 104 mmol/L 98-107 carbon dioxide, venous blood 32.7 mmol/L 21.0-32.0 blood glucose 83 mg/dL 65-110 urea nitrogen, blood 13 mg/dL 7-18 creatinine, serum 1.00 mg/dL 0.60-1.30 alanine aminotransferase (SGPT), serum 36 U/L 12-78 aspartate aminotransferase (SGOT), serum 17 U/L 15-37 calcium, serum 9.1 mg/dL 8.5-10.1 bilirubin, serum, total 0.40 mg/dL 0.00-1.00 cholesterol, serum 167 mg/dL 902-458 7235/01/14 triglyceride, serum, fasting 149 mg/dL 30-200 HDL [...] mg/dL Encounters Code Encounter Date Provider Facility CPT-90083 Level 3 Est. Patient 17:08:18 CDT Berta Sweeney APRN [facility] CPT-91438 Level 4 Est. Patient 16:35:02 POLITICAL REPORTER Yvon Harrison MD [facility] CPT-96438 Level 4 Est. Patient 15:11:02 POLITICAL REPORTER Yvon Harrison MD [facility] CPT-25888 Level 4 Est. Patient 13:18:47 CDT Yvon Harrison MD [facility] CPT-05124 Level 4 Est. Patient 09:51:29 CDT Yvon Harrison MD [facility] CPT-04793 Level 3 Est. Patient 11:40:53 POLITICAL REPORTER Nick Quiroz MD [facility] CPT-15585 Level 3 Est. Patient 09:05:46 CDT Nick Quiroz MD [facility] CPT-84493 Level 3 Est. Patient 10:56:05 CDT Nick Quiroz MD [facility] CPT-83232 Level 3 Est. Patient 05:39:31 CDT Desmond Montgomery [facility] CPT-74980 Level 3 Est. Patient 16:18:28 POLITICAL REPORTER Nick Quiroz MD [facility] CPT-58726 Level 3 Est. Patient 16:50:04 POLITICAL REPORTER Nick Quiroz MD [facility] CPT-81730 Level 3 Est. Patient 22:12:55 POLITICAL REPORTER Desmond Montgomery [facility] Procedures Code Procedure Name Date Entry Date Standard Description CPT-01411 Hand comp min 3V 17:09:13 CDT CPT-66549 Hand comp min 3V 17:08:18 CDT CPT-49981 Fluzone Quadrivalent Intramuscular Suspension 0.5 ML 10: 17:16 CDT CPT-LR Lesion Removal 08:49:09 CDT CPT-60578 Nail Excision 08:49:52 CDT CPT-79507 Venipuncture Draw Fee 16:51:53 POLITICAL REPORTER
--- OUTSIDE RECORDS SUMMARY | 2018-08-01 22:05 | XMS REPORT | Clinical Summary ---
Author Author Admin, COURTNEY Organization [employer] Address Unknown Phone Unavailable Allergies, Adverse Reactions, [...] ICD-780.39 Inactive Nick Quiroz MD LYMPHADENITIS-ACUTE ICD-683 Quincy Quiroz MD Medication List Medication Instructions Start Date Stop Date Generic Name NDC Status Provider Patient Instruction PREDNISONE 20 MG TAB 2 tabs daily for 3 days, 1 tab daily for 3 days, 1/2 tab daily for 2 days PREDNISONE 61782818939 No Longer Active Yvon Harrison MD Active TERBINAFINE HCL 250 MG TABS 1 tab po qday for nail infection. TERBINAFINE HCL 88543981952 No Longer Active Yvon Harrison MD Active SIMVASTATIN 20 MG TABS 1 po at qhs SIMVASTATIN 78504374107 Active Yvon Harrison MD Active DEPAKOTE 500 MG EC TAB take 1 tab po BID for seizures. DIVALPROEX SODIUM 29612469104 Active Yvon Harrison MD Active DIVALPROEX SODIUM 250 MG TBEC 1 po TID DIVALPROEX SODIUM 50701379179 No Longer Active Nick Quiroz MD Active KEFLEX 500 MG CAP 1 po qid CEPHALEXIN 87075957374 No Longer Active Nick Quiroz MD Active KEFLEX 500 MG CAP 1 po qid CEPHALEXIN 77151330243 No Longer Active Nick Quiroz MD Active KEFLEX 500 MG CAP 1 po TID x 10 days CEPHALEXIN 70482314988 No Longer Active Nick Quiroz MD Active KEFLEX 500 MG CAP 1 po TID x 10 days CEPHALEXIN 94537376700 No Longer Active Nick Quiroz MD Active IBUPROFEN 600 MG TAB 1 tablet by mouth every 8 hours prn IBUPROFEN 48133558607 No Longer Active Desmond Montgomery DO Active FLONASE 50 MCG/ACT SUSP 2 puffs in each nostril daily FLUTICASONE PROPIONATE 89657710717 No Longer Active Desmond Montgomery DO Active LORATADINE 10 MG TABS 1 tablet by mouth daily PRN Congestion 2011 LORATADINE 48406700556 No Longer Active Desmond Montgomrey DO Active LORATADINE 10 MG TABS 1 tablet by mouth daily PRN Congestion 2011 LORATADINE 10 MG TABS 480001 LORATADINE Inactive FLONASE 50 MCG/ACT SUSP 2 puffs in each nostril daily FLONASE 50 MCG/ACT SUSP FLUTICASONE PROPIONATE Inactive IBUPROFEN 600 MG TAB 1 tablet by mouth every 8 hours prn IBUPROFEN 600 MG TAB 943576 IBUPROFEN Inactive KEFLEX 500 MG CAP 1 po TID x 10 days KEFLEX 500 MG CAP 818146 CEPHALEXIN Inactive KEFLEX 500 MG CAP 1 po qid KEFLEX 500 MG CAP 489004 CEPHALEXIN Inactive KEFLEX 500 MG CAP 1 po qid KEFLEX 500 MG CAP 531667 CEPHALEXIN Inactive KEFLEX 500 MG CAP 1 po TID x 10 days KEFLEX 500 MG CAP 496605 CEPHALEXIN Inactive DIVALPROEX SODIUM 250 MG TBEC 1 po TID DIVALPROEX SODIUM 250 MG TBEC 7582731 DIVALPROEX SODIUM Inactive TERBINAFINE HCL 250 MG TABS 1 tab po qday for nail infection. TERBINAFINE HCL 250 MG TABS 364293 TERBINAFINE HCL Inactive PREDNISONE 20 MG TAB 2 tabs daily for 3 days, 1 tab daily for 3 days, 1/2 tab daily for 2 days PREDNISONE 20 MG TAB 926976 PREDNISONE Inactive Vital Signs Date Name Value [...] Panel - Chemistry sodium, serum 139 mmol/L 928-552 3160/10/28 carbon dioxide, venous blood 28.2 mmol/L 21.0-32.0 potassium, serum 4.2 mmol/L 3.5-5.2 chloride, serum 101 mmol/L 98-107 blood glucose 87 mg/dL 65-110 urea nitrogen, blood 18 mg/dL 7-18 creatinine, serum 0.98 mg/dL 0.55-1.30 alanine aminotransferase (SGPT), serum 28 U/L 12-78 aspartate aminotransferase (SGOT), serum 13 U/L 15-37 calcium, serum 8.9 mg/dL 8.5-10.1 bilirubin, serum, total 0.50 mg/dL 0.00-1.00 cholesterol, serum 244 mg/dL 971-526 8440/10/28 triglyceride, serum, fasting 192 mg/dL 30-200 HDL [...] mg/dL Encounters Code Encounter Date Provider Facility CPT-79264 Level 4 Est. Patient 11:00:57 CDT Yvon Harrison MD [facility] CPT-93853 Level 4 Est. Patient 15:53:40 CDT Yvon Harrison MD [facility] CPT-81131 Level 4 Est. Patient 15:42:18 CDT Yvon Harrison MD [facility] CPT-64425 Level 3 Est. Patient 17:08:18 CDT Berta Sweeney ROSENDO [facility] CPT-63862 Level 4 Est. Patient 16:35:02 OPHTHALMIC PHOTOGRAPHER Yvon Harrison MD [facility] CPT-76210 Level 4 Est. Patient 15:11:02 OPHTHALMIC PHOTOGRAPHER Yvon Harrison MD [facility] CPT-76267 Level 4 Est. Patient 13:18:47 CDT Yovn Harrison MD [facility] CPT-28544 Level 4 Est. Patient 09:51:29 CDT Yvon Harrison MD [facility] CPT-95536 Level 3 Est. Patient 11:40:53 OPHTHALMIC PHOTOGRAPHER Nick Quiroz MD [facility] CPT-49212 Level 3 Est. Patient 09:05:46 CDT Nick Quiroz MD [facility] CPT-22541 Level 3 Est. Patient 10:56:05 CDT Nick Quiroz MD [facility] CPT-51075 Level 3 Est. Patient 05:39:31 CDT Desmond Montgomery DO [facility] CPT-79579 Level 3 Est. Patient 16:18:28 OPHTHALMIC PHOTOGRAPHER Nick Quiroz MD [facility] CPT-73505 Level 3 Est. Patient 16:50:04 OPHTHALMIC PHOTOGRAPHER Nick Quiroz MD [facility] CPT-38217 Level 3 Est. Patient 22:12:55 OPHTHALMIC PHOTOGRAPHER Desmond Montgomery DO [facility] Procedures Code Procedure Name Date Entry Date Standard Description CPT-03402 Lipid - LAB USE ONLY 15:55:09 OPHTHALMIC PHOTOGRAPHER CPT-98291 CMP - LAB USE ONLY 15:55:09 OPHTHALMIC PHOTOGRAPHER CPT-07787 CBC - LAB USE ONLY 15:55:08 OPHTHALMIC PHOTOGRAPHER CPT-43724 Venipuncture Draw Fee 15:55:08 OPHTHALMIC PHOTOGRAPHER CPT-Cryo Cryotherapy 11:00:57 CDT CPT-01669 Hand comp min 3V 17:09:13 CDT CPT-49010 Hand comp min 3V 17:08:18 CDT CPT-85511 Fluzone Quadrivalent Intramuscular Suspension 0.5 ML 10: 17:16 CDT CPT-LR Lesion Removal 08:49:09 CDT CPT-85130 Nail Excision 08:49:52 CDT CPT-63500 Venipuncture Draw Fee 16:51:53 OPHTHALMIC PHOTOGRAPHER
--- OUTSIDE RECORDS SUMMARY | 2018-08-01 22:06 | XMS REPORT | Clinical Summary ---
Author Author Admin, COURTNEY Organization [email or web address] Address Unknown Phone Unavailable Allergies, Adverse Reactions, [...] 1/2 tab daily for 2 days PREDNISONE 81049491787 No Longer Active Yvon Harrison MD Active TERBINAFINE HCL 250 MG TABS 1 tab po qday for nail infection. TERBINAFINE HCL 48318031843 No Longer Active Yvon Harrison MD Active SIMVASTATIN 20 MG TABS 1 po at qhs SIMVASTATIN 79060529586 Active Yvon Harrison MD Active DEPAKOTE 500 MG EC TAB take 1 tab po BID for seizures. DIVALPROEX SODIUM 68219221943 Active Yvon Harrison MD Active DIVALPROEX SODIUM 250 MG TBEC 1 po TID DIVALPROEX SODIUM 93089155685 No Longer Active Nick Quiroz MD Active KEFLEX 500 MG CAP 1 po qid CEPHALEXIN 80174131626 No Longer Active Nick Quiroz MD Active KEFLEX 500 MG CAP 1 po qid CEPHALEXIN 52541875722 No Longer Active Nick Quiroz MD Active KEFLEX 500 MG CAP 1 po TID x 10 days CEPHALEXIN 89790284361 No Longer Active Nick Quiroz MD Active KEFLEX 500 MG CAP 1 po TID x 10 days CEPHALEXIN 26827599297 No Longer Active Nick Quiroz MD Active IBUPROFEN 600 MG TAB 1 tablet by mouth every 8 hours prn IBUPROFEN 12768878397 No Longer Active Desmond Montgomery DO Active FLONASE 50 MCG/ACT SUSP 2 puffs in each nostril daily FLUTICASONE PROPIONATE 31948309977 No Longer Active Desmond Montgomery DO Active LORATADINE 10 MG TABS 1 tablet by mouth daily PRN Congestion 2011 LORATADINE 81896213694 No Longer Active Desmond Montgomery DO Active LORATADINE 10 MG TABS 1 tablet by mouth daily PRN Congestion 2011 LORATADINE 10 MG TABS 522559 LORATADINE Inactive FLONASE 50 MCG/ACT SUSP 2 puffs in each nostril daily FLONASE 50 MCG/ACT SUSP FLUTICASONE PROPIONATE Inactive IBUPROFEN 600 MG TAB 1 tablet by mouth every 8 hours prn IBUPROFEN 600 MG TAB 305671 IBUPROFEN Inactive KEFLEX 500 MG CAP 1 po TID x 10 days KEFLEX 500 MG CAP 672912 CEPHALEXIN Inactive KEFLEX 500 MG CAP 1 po qid KEFLEX 500 MG CAP 859027 CEPHALEXIN Inactive KEFLEX 500 MG CAP 1 po qid KEFLEX 500 MG CAP 999766 CEPHALEXIN Inactive KEFLEX 500 MG CAP 1 po TID x 10 days KEFLEX 500 MG CAP 452784 CEPHALEXIN Inactive DIVALPROEX SODIUM 250 MG TBEC 1 po TID DIVALPROEX SODIUM 250 MG TBEC 0473161 DIVALPROEX SODIUM Inactive TERBINAFINE HCL 250 MG TABS 1 tab po qday for nail infection. TERBINAFINE HCL 250 MG TABS 340343 TERBINAFINE HCL Inactive PREDNISONE 20 MG TAB 2 tabs daily for 3 days, 1 tab daily for 3 days, 1/2 tab daily for 2 days PREDNISONE 20 MG TAB 315066 PREDNISONE Inactive Vital Signs Date Name Value [...] Panel - Chemistry sodium, serum 139 mmol/L 493-348 0861/10/28 carbon dioxide, venous blood 28.2 mmol/L 21.0-32.0 potassium, serum 4.2 mmol/L 3.5-5.2 chloride, serum 101 mmol/L 98-107 blood glucose 87 mg/dL 65-110 urea nitrogen, blood 18 mg/dL 7-18 creatinine, serum 0.98 mg/dL 0.55-1.30 alanine aminotransferase (SGPT), serum 28 U/L 12-78 aspartate aminotransferase (SGOT), serum 13 U/L 15-37 calcium, serum 8.9 mg/dL 8.5-10.1 bilirubin, serum, total 0.50 mg/dL 0.00-1.00 cholesterol, serum 244 mg/dL 608-280 6130/10/28 triglyceride, serum, fasting 192 mg/dL 30-200 HDL [...] mg/dL Encounters Code Encounter Date Provider Facility CPT-70868 Level 4 Est. Patient 11:00:57 CDT Yvon Harrison MD [facility] CPT-53001 Level 4 Est. Patient 15:53:40 CDT Yvon Harrison MD [facility] CPT-70848 Level 4 Est. Patient 15:42:18 CDT Yvon Harrison MD [facility] CPT-24681 Level 3 Est. Patient 17:08:18 CDT Berta Sweeney ROSENDO [facility] CPT-48177 Level 4 Est. Patient 16:35:02 OB TECH Yvon Harrison MD [facility] CPT-83893 Level 4 Est. Patient 15:11:02 OB TECH Yvon Harrison MD [facility] CPT-81263 Level 4 Est. Patient 13:18:47 CDT Yvon Harrison MD [facility] CPT-95537 Level 4 Est. Patient 09:51:29 CDT Yvon Harrison MD [facility] CPT-07592 Level 3 Est. Patient 11:40:53 OB TECH Nick Quiroz MD [facility] CPT-77923 Level 3 Est. Patient 09:05:46 CDT Nick Quiroz MD [facility] CPT-08506 Level 3 Est. Patient 10:56:05 CDT Nikc Quiroz MD [facility] CPT-33024 Level 3 Est. Patient 05:39:31 CDT Desmond Montgomery DO [facility] CPT-42319 Level 3 Est. Patient 16:18:28 OB TECH Nick Quiroz MD [facility] CPT-59290 Level 3 Est. Patient 16:50:04 OB TECH Nick Quiroz MD [facility] CPT-64795 Level 3 Est. Patient 22:12:55 OB TECH Desmond Montgomery DO [facility] Procedures Code Procedure Name Date Entry Date Standard Description CPT-69218 Lipid - LAB USE ONLY 15:55:09 OB TECH CPT-34987 CMP - LAB USE ONLY 15:55:09 OB TECH CPT-05491 CBC - LAB USE ONLY 15:55:08 OB TECH CPT-56019 Venipuncture Draw Fee 15:55:08 OB TECH CPT-Cryo Cryotherapy 11:00:57 CDT CPT-46200 Hand comp min 3V 17:09:13 CDT CPT-68774 Hand comp min 3V 17:08:18 CDT CPT-29907 Fluzone Quadrivalent Intramuscular Suspension 0.5 ML 10: 17:16 CDT CPT-LR Lesion Removal 08:49:09 CDT CPT-06498 Nail Excision 08:49:52 CDT CPT-12277 Venipuncture Draw Fee 16:51:53 OB TECH
--- OUTSIDE RECORDS SUMMARY | 2018-08-01 22:06 | XMS REPORT | Clinical Summary ---
Author Author Admin, COURTNEY Organization [employer] Address Unknown Phone Unavailable Allergies, Adverse Reactions, [...] 1/2 tab daily for 2 days PREDNISONE 73086682164 No Longer Active Yvon Harrison MD Active TERBINAFINE HCL 250 MG TABS 1 tab po qday for nail infection. TERBINAFINE HCL 56754436015 No Longer Active Yvon Harrison MD Active SIMVASTATIN 20 MG TABS 1 po at qhs SIMVASTATIN 91030228411 Active Yvon Harrison MD Active DEPAKOTE 500 MG EC TAB take 1 tab po BID for seizures. DIVALPROEX SODIUM 26698201097 Active Yvon Harrison MD Active DIVALPROEX SODIUM 250 MG TBEC 1 po TID DIVALPROEX SODIUM 67134841282 No Longer Active Nick Quiroz MD Active KEFLEX 500 MG CAP 1 po qid CEPHALEXIN 39264021703 No Longer Active Nick Quiroz MD Active KEFLEX 500 MG CAP 1 po qid CEPHALEXIN 62024112567 No Longer Active Nick Quiroz MD Active KEFLEX 500 MG CAP 1 po TID x 10 days CEPHALEXIN 45411312997 No Longer Active Nick Quiroz MD Active KEFLEX 500 MG CAP 1 po TID x 10 days CEPHALEXIN 62958294384 No Longer Active Nick Quiroz MD Active IBUPROFEN 600 MG TAB 1 tablet by mouth every 8 hours prn IBUPROFEN 92788762111 No Longer Active Desmond Montgomery DO Active FLONASE 50 MCG/ACT SUSP 2 puffs in each nostril daily FLUTICASONE PROPIONATE 27467816596 No Longer Active Desmond Montgomery DO Active LORATADINE 10 MG TABS 1 tablet by mouth daily PRN Congestion 2011 LORATADINE 74592551184 No Longer Active Desmond Montgomery DO Active LORATADINE 10 MG TABS 1 tablet by mouth daily PRN Congestion 2011 LORATADINE 10 MG TABS 607571 LORATADINE Inactive FLONASE 50 MCG/ACT SUSP 2 puffs in each nostril daily FLONASE 50 MCG/ACT SUSP FLUTICASONE PROPIONATE Inactive IBUPROFEN 600 MG TAB 1 tablet by mouth every 8 hours prn IBUPROFEN 600 MG TAB 643101 IBUPROFEN Inactive KEFLEX 500 MG CAP 1 po TID x 10 days KEFLEX 500 MG CAP 753105 CEPHALEXIN Inactive KEFLEX 500 MG CAP 1 po qid KEFLEX 500 MG CAP 520170 CEPHALEXIN Inactive KEFLEX 500 MG CAP 1 po qid KEFLEX 500 MG CAP 955936 CEPHALEXIN Inactive KEFLEX 500 MG CAP 1 po TID x 10 days KEFLEX 500 MG CAP 889536 CEPHALEXIN Inactive DIVALPROEX SODIUM 250 MG TBEC 1 po TID DIVALPROEX SODIUM 250 MG TBEC 3778132 DIVALPROEX SODIUM Inactive TERBINAFINE HCL 250 MG TABS 1 tab po qday for nail infection. TERBINAFINE HCL 250 MG TABS 420831 TERBINAFINE HCL Inactive PREDNISONE 20 MG TAB 2 tabs daily for 3 days, 1 tab daily for 3 days, 1/2 tab daily for 2 days PREDNISONE 20 MG TAB 856125 PREDNISONE Inactive Vital Signs Date Name Value [...] Panel - Chemistry sodium, serum 139 mmol/L 364-760 7521/10/28 carbon dioxide, venous blood 28.2 mmol/L 21.0-32.0 potassium, serum 4.2 mmol/L 3.5-5.2 chloride, serum 101 mmol/L 98-107 blood glucose 87 mg/dL 65-110 urea nitrogen, blood 18 mg/dL 7-18 creatinine, serum 0.98 mg/dL 0.55-1.30 alanine aminotransferase (SGPT), serum 28 U/L 12-78 aspartate aminotransferase (SGOT), serum 13 U/L 15-37 calcium, serum 8.9 mg/dL 8.5-10.1 bilirubin, serum, total 0.50 mg/dL 0.00-1.00 cholesterol, serum 244 mg/dL 095-785 8235/10/28 triglyceride, serum, fasting 192 mg/dL 30-200 HDL [...] mg/dL Encounters Code Encounter Date Provider Facility CPT-57826 Level 4 Est. Patient 11:00:57 CDT Yvon Harrison MD [facility] CPT-14048 Level 4 Est. Patient 15:53:40 CDT Yvon Harrison MD [facility] CPT-79451 Level 4 Est. Patient 15:42:18 CDT Yvon Harrison MD [facility] CPT-29787 Level 3 Est. Patient 17:08:18 CDT Berta Sweeney ROSENDO [facility] CPT-54418 Level 4 Est. Patient 16:35:02 HOTEL CASINO FLOORPERSON Yvon Harrison MD [facility] CPT-94715 Level 4 Est. Patient 15:11:02 HOTEL CASINO FLOORPERSON Yvon Harrison MD [facility] CPT-12815 Level 4 Est. Patient 13:18:47 CDT Yvon Harrison MD [facility] CPT-80575 Level 4 Est. Patient 09:51:29 CDT Yvon Harrison MD [facility] CPT-41159 Level 3 Est. Patient 11:40:53 H[employer]EL CASINO FLOORPERSON Nick Quiroz MD [facility] CPT-75221 Level 3 Est. Patient 09:05:46 CDT Nick Quiroz MD [facility] CPT-81496 Level 3 Est. Patient 10:56:05 CDT Nick Quiroz MD [facility] CPT-78575 Level 3 Est. Patient 05:39:31 CDT Desmond Montgomery DO [facility] CPT-01272 Level 3 Est. Patient 16:18:28 HOTEL CASINO FLOORPERSON Nick Quiroz MD [facility] CPT-31629 Level 3 Est. Patient 16:50:04 HOTEL CASINO FLOORPERSON Nick Quiroz MD [facility] CPT-58626 Level 3 Est. Patient 22:12:55 HOTEL CASINO FLOORPERSON Desmond Montgomery DO [facility] Procedures Code Procedure Name Date Entry Date Standard Description CPT-Cryo Cryotherapy 11:00:57 CDT CPT-67967 Hand comp min 3V 17:09:13 CDT CPT-59762 Hand comp min 3V 17:08:18 CDT CPT-13244 Fluzone Quadrivalent Intramuscular Suspension 0.5 ML 10: 17:16 CDT CPT-LR Lesion Removal 08:49:09 CDT CPT-15339 Nail Excision 08:49:52 CDT CPT-08843 Venipuncture Draw Fee 16:51:53 H[employer]EL CASINO FLOORPERSON
--- OUTSIDE RECORDS SUMMARY | 2018-08-01 22:07 | XMS REPORT | Clinical Summary ---
Author Author Admin, COURTNEY Organization [facility] Address Unknown Phone Unavailable Allergies, Adverse Reactions, [...] Hand pain, left 729.5 Active Berta Sweeney [employer]OB [employer]ITLES Pain in limb SEIZURE DISORDER ICD-780.39 Inactive [...] MG TABS 1 po at qhs SIMVASTATIN 17467530478 Active Magdalena Braun Active DEPAKOTE 500 MG EC TAB take 1 tab po BID for seizures. DIVALPROEX SODIUM 83471615333 Active Yvon Harrison MD Active DIVALPROEX SODIUM 250 MG TBEC 1 po TID DIVALPROEX SODIUM 17470857351 No Longer Active Nick Quiroz MD Active KEFLEX 500 MG CAP 1 po qid CEPHALEXIN 13721565688 No Longer Active Nick Quiroz MD Active KEFLEX 500 MG CAP 1 po qid CEPHALEXIN 88843314800 No Longer Active Nick Quiroz MD Active KEFLEX 500 MG CAP 1 po TID x 10 days CEPHALEXIN 44756491812 No Longer Active Nick Quiroz MD Active KEFLEX 500 MG CAP 1 po TID x 10 days CEPHALEXIN 31233375449 No Longer Active Nick Quiroz MD Active IBUPROFEN 600 MG TAB 1 tablet by mouth every 8 hours prn IBUPROFEN 10266146090 No Longer Active Desmond Montgomery DO Active FLONASE 50 MCG/ACT SUSP 2 puffs in each nostril daily FLUTICASONE PROPIONATE 31006026923 No Longer Active Desmond Montgomery DO Active LORATADINE 10 MG TABS 1 tablet by mouth daily PRN Congestion 2011 LORATADINE 82117812483 No Longer Active Desmond Montgomery DO Active LORATADINE 10 MG TABS 1 tablet by mouth daily PRN Congestion 2011 LORATADINE 10 MG TABS 631554 LORATADINE Inactive FLONASE 50 MCG/ACT SUSP 2 puffs in each nostril daily FLONASE 50 MCG/ACT SUSP 879277 FLUTICASONE PROPIONATE Inactive IBUPROFEN 600 MG TAB 1 tablet by mouth every 8 hours prn IBUPROFEN 600 MG TAB 858863 IBUPROFEN Inactive KEFLEX 500 MG CAP 1 po TID x 10 days KEFLEX 500 MG CAP 854199 CEPHALEXIN Inactive KEFLEX 500 MG CAP 1 po qid KEFLEX 500 MG CAP 254048 CEPHALEXIN Inactive KEFLEX 500 MG CAP 1 po qid KEFLEX 500 MG CAP 745382 CEPHALEXIN Inactive KEFLEX 500 MG CAP 1 po TID x 10 days KEFLEX 500 MG CAP 731162 CEPHALEXIN Inactive DIVALPROEX SODIUM 250 MG TBEC 1 po TID DIVALPROEX SODIUM 250 MG TBEC 9984917 DIVALPROEX SODIUM Inactive Vital Signs Date Name [...] Panel - Chemistry sodium, serum 136 mmol/L 288-713 6547/10/29 potassium, serum 4.0 mmol/L 3.5-5.2 chloride, serum [...] 0.40 mg/dL 0.00-1.00 cholesterol, serum 232 mg/dL 912-396 8910/10/29 triglyceride, serum, fasting 230 mg/dL 30-200 HDL [...] Panel - Chemistry sodium, serum 141 mmol/L 862-480 5502/01/14 potassium, serum 4.5 mmol/L 3.5-5.2 chloride, serum 104 mmol/L 98-107 carbon dioxide, venous blood 32.7 mmol/L 21.0-32.0 blood glucose 83 mg/dL 65-110 urea nitrogen, blood 13 mg/dL 7-18 creatinine, serum 1.00 mg/dL 0.60-1.30 alanine aminotransferase (SGPT), serum 36 U/L 12-78 aspartate aminotransferase (SGOT), serum 17 U/L 15-37 calcium, serum 9.1 mg/dL 8.5-10.1 bilirubin, serum, total 0.40 mg/dL 0.00-1.00 cholesterol, serum 167 mg/dL 460-671 8152/01/14 triglyceride, serum, fasting 149 mg/dL 30-200 HDL [...] mg/dL Encounters Code Encounter Date Provider Facility CPT-09089 Level 3 Est. Patient 17:08:18 CDT Berta Sweeney APRN [facility] CPT-39402 Level 4 Est. Patient 16:35:02 SOFTWARE DESIGN ANALYST Yvon Harrison MD [facility] CPT-01943 Level 4 Est. Patient 15:11:02 SOFTWARE DESIGN ANALYST Yvon Harrison MD [facility] CPT-89994 Level 4 Est. Patient 13:18:47 CDT Yvon Harirson MD [facility] CPT-66137 Level 4 Est. Patient 09:51:29 CDT Yvon Harrison MD [facility] CPT-61284 Level 3 Est. Patient 11:40:53 SOFTWARE DESIGN ANALYST Nick Quiroz MD [facility] CPT-45571 Level 3 Est. Patient 09:05:46 CDT Nick Quiroz MD [facility] CPT-70227 Level 3 Est. Patient 10:56:05 CDT Nick Quiroz MD [facility] CPT-61814 Level 3 Est. Patient 05:39:31 CDT Desmond Montgomery [facility] CPT-92667 Level 3 Est. Patient 16:18:28 SOFTWARE DESIGN ANALYST Nick Quiroz MD [facility] CPT-20894 Level 3 Est. Patient 16:50:04 SOFTWARE DESIGN ANALYST Nick Quiroz MD [facility] CPT-28955 Level 3 Est. Patient 22:12:55 SOFTWARE DESIGN ANALYST Desmond Montgomery [facility] Procedures Code Procedure Name Date Entry Date Standard Description CPT-63703 Hand comp min 3V 17:09:13 CDT CPT-45192 Hand comp min 3V 17:08:18 CDT CPT-60307 Fluzone Quadrivalent Intramuscular Suspension 0.5 ML 10: 17:16 CDT CPT-LR Lesion Removal 08:49:09 CDT CPT-61866 Nail Excision 08:49:52 CDT CPT-55909 Venipuncture Draw Fee 16:51:53 SOFTWARE DESIGN ANALYST
--- OUTSIDE RECORDS SUMMARY | 2018-08-01 22:07 | XMS REPORT | Clinical Summary ---
Author Author Admin, COURTNEY Organization [employer] Address Unknown Phone Unavailable Allergies, Adverse Reactions, [...] 1/2 tab daily for 2 days PREDNISONE 60000451468 No Longer Active Yvon Harrison MD Active TERBINAFINE HCL 250 MG TABS 1 tab po qday for nail infection. TERBINAFINE HCL 82083225031 No Longer Active Yvon Harrison MD Active SIMVASTATIN 20 MG TABS 1 po at qhs SIMVASTATIN 91639548680 Active Yvon Harrison MD Active DEPAKOTE 500 MG EC TAB take 1 tab po BID for seizures. DIVALPROEX SODIUM 87606296451 Active Yvon Harrison MD Active DIVALPROEX SODIUM 250 MG TBEC 1 po TID DIVALPROEX SODIUM 28448020839 No Longer Active Nick Quiroz MD Active KEFLEX 500 MG CAP 1 po qid CEPHALEXIN 55611010420 No Longer Active Nick Quiroz MD Active KEFLEX 500 MG CAP 1 po qid CEPHALEXIN 56566918355 No Longer Active Nick Quiroz MD Active KEFLEX 500 MG CAP 1 po TID x 10 days CEPHALEXIN 60261232057 No Longer Active Nick Quiroz MD Active KEFLEX 500 MG CAP 1 po TID x 10 days CEPHALEXIN 21253733736 No Longer Active Nick Quiroz MD Active IBUPROFEN 600 MG TAB 1 tablet by mouth every 8 hours prn IBUPROFEN 77417451933 No Longer Active Desmond Montgomery DO Active FLONASE 50 MCG/ACT SUSP 2 puffs in each nostril daily FLUTICASONE PROPIONATE 00126365468 No Longer Active Desmond Montgomery DO Active LORATADINE 10 MG TABS 1 tablet by mouth daily PRN Congestion 2011 LORATADINE 30407943936 No Longer Active Desmond Montgomery DO Active LORATADINE 10 MG TABS 1 tablet by mouth daily PRN Congestion 2011 LORATADINE 10 MG TABS 428202 LORATADINE Inactive FLONASE 50 MCG/ACT SUSP 2 puffs in each nostril daily FLONASE 50 MCG/ACT SUSP FLUTICASONE PROPIONATE Inactive IBUPROFEN 600 MG TAB 1 tablet by mouth every 8 hours prn IBUPROFEN 600 MG TAB 662626 IBUPROFEN Inactive KEFLEX 500 MG CAP 1 po TID x 10 days KEFLEX 500 MG CAP 784669 CEPHALEXIN Inactive KEFLEX 500 MG CAP 1 po qid KEFLEX 500 MG CAP 508164 CEPHALEXIN Inactive KEFLEX 500 MG CAP 1 po qid KEFLEX 500 MG CAP 675820 CEPHALEXIN Inactive KEFLEX 500 MG CAP 1 po TID x 10 days KEFLEX 500 MG CAP 062672 CEPHALEXIN Inactive DIVALPROEX SODIUM 250 MG TBEC 1 po TID DIVALPROEX SODIUM 250 MG TBEC 9599509 DIVALPROEX SODIUM Inactive TERBINAFINE HCL 250 MG TABS 1 tab po qday for nail infection. TERBINAFINE HCL 250 MG TABS 961756 TERBINAFINE HCL Inactive PREDNISONE 20 MG TAB 2 tabs daily for 3 days, 1 tab daily for 3 days, 1/2 tab daily for 2 days PREDNISONE 20 MG TAB 867885 PREDNISONE Inactive Vital Signs Date Name Value [...] Panel - Chemistry sodium, serum 139 mmol/L 969-484 6710/10/28 carbon dioxide, venous blood 28.2 mmol/L 21.0-32.0 potassium, serum 4.2 mmol/L 3.5-5.2 chloride, serum 101 mmol/L 98-107 blood glucose 87 mg/dL 65-110 urea nitrogen, blood 18 mg/dL 7-18 creatinine, serum 0.98 mg/dL 0.55-1.30 alanine aminotransferase (SGPT), serum 28 U/L 12-78 aspartate aminotransferase (SGOT), serum 13 U/L 15-37 calcium, serum 8.9 mg/dL 8.5-10.1 bilirubin, serum, total 0.50 mg/dL 0.00-1.00 cholesterol, serum 244 mg/dL 452-066 9910/10/28 triglyceride, serum, fasting 192 mg/dL 30-200 HDL [...] mg/dL Encounters Code Encounter Date Provider Facility CPT-26654 Level 4 Est. Patient 11:00:57 CDT Yvon Harrison MD [facility] CPT-94063 Level 4 Est. Patient 15:53:40 CDT Yvon Harrison MD [facility] CPT-12220 Level 4 Est. Patient 15:42:18 CDT Yvon aHrrison MD [facility] CPT-08442 Level 3 Est. Patient 17:08:18 CDT Berta Sweeney ROSENDO [facility] CPT-03218 Level 4 Est. Patient 16:35:02 CIRCUIT BOARD INSPECTOR Yvon Harrison MD [facility] CPT-46421 Level 4 Est. Patient 15:11:02 CIRCUIT BOARD INSPECTOR Yvon Harrison MD [facility] CPT-62157 Level 4 Est. Patient 13:18:47 CDT Yvon Harrison MD [facility] CPT-27867 Level 4 Est. Patient 09:51:29 CDT Yvon Harrison MD [facility] CPT-52181 Level 3 Est. Patient 11:40:53 CIRCUIT BOARD INSPECTOR Nick Quiroz MD [facility] CPT-88310 Level 3 Est. Patient 09:05:46 CDT Nick Quiroz MD [facility] CPT-94200 Level 3 Est. Patient 10:56:05 CDT Nick Quiroz MD [facility] CPT-98002 Level 3 Est. Patient 05:39:31 CDT Desmond Montgomery DO [facility] CPT-24400 Level 3 Est. Patient 16:18:28 CIRCUIT BOARD INSPECTOR Nick Quiroz MD [facility] CPT-45355 Level 3 Est. Patient 16:50:04 CIRCUIT BOARD INSPECTOR Nick Quiroz MD [facility] CPT-12977 Level 3 Est. Patient 22:12:55 CIRCUIT BOARD INSPECTOR Desmond Montgomery DO [facility] Procedures Code Procedure Name Date Entry Date Standard Description CPT-Cryo Cryotherapy 11:00:57 CDT CPT-68356 Hand comp min 3V 17:09:13 CDT CPT-49116 Hand comp min 3V 17:08:18 CDT CPT-89177 Fluzone Quadrivalent Intramuscular Suspension 0.5 ML 10: 17:16 CDT CPT-LR Lesion Removal 08:49:09 CDT CPT-88292 Nail Excision 08:49:52 CDT CPT-72962 Venipuncture Draw Fee 16:51:53 CIRCUIT BOARD INSPECTOR
--- OUTSIDE RECORDS SUMMARY | 2018-08-01 22:07 | XMS REPORT | Clinical Summary ---
Author Author Admin, COURTNEY Organization [facility] Address Unknown Phone Unavailable Allergies, Adverse [...] po qday for nail infection. TERBINAFINE HCL 01984434073 No Longer Active Yvon Harrison MD Active SIMVASTATIN 20 MG TABS 1 po at [facility] SIMVASTATIN 15715057242 Active Yvon Harrison MD Active DEPAKOTE 500 MG EC TAB take 1 tab po BID for seizures. DIVALPROEX SODIUM 09009815719 Active Yvon Harrison MD Active DIVALPROEX SODIUM 250 MG TBEC 1 po TID DIVALPROEX SODIUM 68297579802 No Longer Active Nick Quiroz MD Active KEFLEX 500 MG CAP 1 po qid CEPHALEXIN 95448639940 No Longer Active Nick Quiroz MD Active KEFLEX 500 MG CAP 1 po qid CEPHALEXIN 47015056062 No Longer Active Nick Quiroz MD Active KEFLEX 500 MG CAP 1 po TID x 10 days CEPHALEXIN 01140278088 No Longer Active Nick Quiroz MD Active KEFLEX 500 MG CAP 1 po TID x 10 days CEPHALEXIN 00364002990 No Longer Active Nick Quiroz MD Active IBUPROFEN 600 MG TAB 1 tablet by mouth every 8 hours prn IBUPROFEN 36627275898 No Longer Active Desmond Montgomery DO Active FLONASE 50 MCG/ACT SUSP 2 puffs in each nostril daily FLUTICASONE PROPIONATE 24563270203 No Longer Active Desmond Montgomery DO Active LORATADINE 10 MG TABS 1 tablet by mouth daily PRN Congestion 2011 LORATADINE 59241382461 No Longer Active Desmond Montgomery DO Active LORATADINE 10 MG TABS 1 tablet by mouth daily PRN Congestion 2011 LORATADINE 10 MG TABS 557487 LORATADINE Inactive FLONASE 50 MCG/ACT SUSP 2 puffs in each nostril daily FLONASE 50 MCG/ACT SUSP 855886 FLUTICASONE PROPIONATE Inactive IBUPROFEN 600 MG TAB 1 tablet by mouth every 8 hours prn IBUPROFEN 600 MG TAB 661511 IBUPROFEN Inactive KEFLEX 500 MG CAP 1 po TID x 10 days KEFLEX 500 MG CAP 423265 CEPHALEXIN Inactive KEFLEX 500 MG CAP 1 po qid KEFLEX 500 MG CAP 752672 CEPHALEXIN Inactive KEFLEX 500 MG CAP 1 po qid KEFLEX 500 MG CAP 382625 CEPHALEXIN Inactive KEFLEX 500 MG CAP 1 po TID x 10 days KEFLEX 500 MG CAP 935992 CEPHALEXIN Inactive DIVALPROEX SODIUM 250 MG TBEC 1 po TID DIVALPROEX SODIUM 250 MG TBEC 2619234 DIVALPROEX SODIUM Inactive TERBINAFINE HCL 250 MG TABS 1 tab po qday for nail infection. TERBINAFINE HCL 250 MG TABS 041419 TERBINAFINE HCL Inactive Vital Signs Date Name [...] Panel - Chemistry sodium, serum 136 mmol/L 391-334 9809/10/29 potassium, serum 4.0 mmol/L 3.5-5.2 chloride, serum [...] 0.40 mg/dL 0.00-1.00 cholesterol, serum 232 mg/dL 818-140 6832/10/29 triglyceride, serum, fasting 230 mg/dL 30-200 HDL [...] Panel - Chemistry sodium, serum 141 mmol/L 698-502 0576/01/14 potassium, serum 4.5 mmol/L 3.5-5.2 chloride, serum 104 mmol/L 98-107 carbon dioxide, venous blood 32.7 mmol/L 21.0-32.0 blood glucose 83 mg/dL 65-110 urea nitrogen, blood 13 mg/dL 7-18 creatinine, serum 1.00 mg/dL 0.60-1.30 alanine aminotransferase (SGPT), serum 36 U/L 12-78 aspartate aminotransferase (SGOT), serum 17 U/L 15-37 calcium, serum 9.1 mg/dL 8.5-10.1 bilirubin, serum, total 0.40 mg/dL 0.00-1.00 cholesterol, serum 167 mg/dL 118-199 9145/01/14 triglyceride, serum, fasting 149 mg/dL 30-200 HDL [...] mg/dL Encounters Code Encounter Date Provider Facility CPT-29831 Level 4 Est. Patient 15:53:40 CDT Yvon Harrison MD [facility] CPT-92533 Level 4 Est. Patient 15:42:18 CDT Yvon Harrison MD [facility] CPT-05910 Level 3 Est. Patient 17:08:18 CDT Berta Sweeney APRN [facility] CPT-03149 Level 4 Est. Patient 16:35:02 APPRAISER TIMBER Yvon Harrison MD [facility] CPT-29673 Level 4 Est. Patient 15:11:02 APPRAISER TIMBER Yvon Harrison MD [facility] CPT-51986 Level 4 Est. Patient 13:18:47 CDT Yvon Harrison MD [facility] CPT-37280 Level 4 Est. Patient 09:51:29 CDT Yvon Harrison MD [facility] CPT-16214 Level 3 Est. Patient 11:40:53 APPRAISER TIMBER Nick Quiroz MD [facility] CPT-57814 Level 3 Est. Patient 09:05:46 CDT Nick Quiroz MD [facility] CPT-03826 Level 3 Est. Patient 10:56:05 CDT Nick Quiroz MD [facility] CPT-86747 Level 3 Est. Patient 05:39:31 CDT Desmond Montgomery DO [facility] CPT-27127 Level 3 Est. Patient 16:18:28 APPRAISER TIMBER Nick Quiroz MD [facility] CPT-02773 Level 3 Est. Patient 16:50:04 APPRAISER TIMBER Nick Quiroz MD [facility] CPT-61997 Level 3 Est. Patient 22:12:55 APPRAISER TIMBER Desmond Montgomery DO [facility] Procedures Code Procedure Name Date Entry Date Standard Description CPT-93473 Hand comp min 3V 17:09:13 CDT CPT-73055 Hand comp min 3V 17:08:18 CDT CPT-34332 Fluzone Quadrivalent Intramuscular Suspension 0.5 ML 10: 17:16 CDT CPT-LR Lesion Removal 08:49:09 CDT CPT-23100 Nail Excision 08:49:52 CDT CPT-16990 Venipuncture Draw Fee 16:51:53 APPRAISER TIMBER
--- OUTSIDE RECORDS SUMMARY | 2018-08-01 22:08 | XMS REPORT | Clinical Summary ---
Author Author Admin, COURTNEY Organization [facility] Address Unknown Phone Unavailable Allergies, Adverse [...] MD Dehydration SEIZURE DISORDER 780.39 Active Desmond Montgomrey DO Other convulsions U R I 465.9 [...] MG TABS 1 po at qhs SIMVASTATIN 94006681652 Active Magdalena Braun Active DEPAKOTE 500 MG EC TAB take 1 tab po BID for seizures. DIVALPROEX SODIUM 70095846279 Active Yvon Harrison MD Active DIVALPROEX SODIUM 250 MG TBEC 1 po TID DIVALPROEX SODIUM 67496592365 No Longer Active Nick Quiroz MD Active KEFLEX 500 MG CAP 1 po qid CEPHALEXIN 14197371498 No Longer Active Nick Quiroz MD Active KEFLEX 500 MG CAP 1 po qid CEPHALEXIN 99576117073 No Longer Active Nick Quiroz MD Active KEFLEX 500 MG CAP 1 po TID x 10 days CEPHALEXIN 67054938809 No Longer Active Nick Quiroz MD Active KEFLEX 500 MG CAP 1 po TID x 10 days CEPHALEXIN 09358807057 No Longer Active Nick Quiroz MD Active IBUPROFEN 600 MG TAB 1 tablet by mouth every 8 hours prn IBUPROFEN 64688100202 No Longer Active Desmond Montgomery DO Active FLONASE 50 MCG/ACT SUSP 2 puffs in each nostril daily FLUTICASONE PROPIONATE 18806022894 No Longer Active Desmond Montgomery DO Active LORATADINE 10 MG TABS 1 tablet by mouth daily PRN Congestion 2011 LORATADINE 20257787383 No Longer Active Desmond Montgomery DO Active LORATADINE 10 MG TABS 1 tablet by mouth daily PRN Congestion 2011 LORATADINE 10 MG TABS 493419 LORATADINE Inactive FLONASE 50 MCG/ACT SUSP 2 puffs in each nostril daily FLONASE 50 MCG/ACT SUSP 638785 FLUTICASONE PROPIONATE Inactive IBUPROFEN 600 MG TAB 1 tablet by mouth every 8 hours prn IBUPROFEN 600 MG TAB 383417 IBUPROFEN Inactive KEFLEX 500 MG CAP 1 po TID x 10 days KEFLEX 500 MG CAP 964469 CEPHALEXIN Inactive KEFLEX 500 MG CAP 1 po qid KEFLEX 500 MG CAP 780554 CEPHALEXIN Inactive KEFLEX 500 MG CAP 1 po qid KEFLEX 500 MG CAP 542936 CEPHALEXIN Inactive KEFLEX 500 MG CAP 1 po TID x 10 days KEFLEX 500 MG CAP 458278 CEPHALEXIN Inactive DIVALPROEX SODIUM 250 MG TBEC 1 po TID DIVALPROEX SODIUM 250 MG TBEC 1172425 DIVALPROEX SODIUM Inactive Vital Signs Date Name Value Unit Range Description blood pressure, diastolic - 8462-4 86 mm[Hg] [...] Panel - Chemistry sodium, serum 136 mmol/L 435-307 6634/10/29 potassium, serum 4.0 mmol/L 3.5-5.2 chloride, serum [...] 0.40 mg/dL 0.00-1.00 cholesterol, serum 232 mg/dL 637-283 2338/10/29 triglyceride, serum, fasting 230 mg/dL 30-200 HDL [...] Panel - Chemistry sodium, serum 141 mmol/L 039-658 3783/01/14 potassium, serum 4.5 mmol/L 3.5-5.2 chloride, serum 104 mmol/L 98-107 carbon dioxide, venous blood 32.7 mmol/L 21.0-32.0 blood glucose 83 mg/dL 65-110 urea nitrogen, blood 13 mg/dL 7-18 creatinine, serum 1.00 mg/dL 0.60-1.30 alanine aminotransferase (SGPT), serum 36 U/L 12-78 aspartate aminotransferase (SGOT), serum 17 U/L 15-37 calcium, serum 9.1 mg/dL 8.5-10.1 bilirubin, serum, total 0.40 mg/dL 0.00-1.00 cholesterol, serum 167 mg/dL 957-328 8481/01/14 triglyceride, serum, fasting 149 mg/dL 30-200 HDL cholesterol, serum 35 mg/dL 32-96 LDL cholesterol, serum 102 mg/dL 0-130 Lab Report: VALPROIC ACID - Toxicology valproic acid, serum 116.9 ug/mL 50.0-100.0 valproic acid, serum 68.3 ug/mL 50.0-100.0 Encounters Code Encounter Date Provider Facility CPT-93552 Level 4 Est. Patient 16:35:02 ENVIRONMENTAL REMEDIATION ENGINEER Yvon Harrison MD [facility] CPT-18598 Level 4 Est. Patient 15:11:02 ENVIRONMENTAL REMEDIATION ENGINEER Yvon Harrison MD [facility] CPT-04701 Level 4 Est. Patient 13:18:47 CDT Yvon Harrison MD [facility] CPT-96958 Level 4 Est. Patient 09:51:29 CDT Yvon Harrison MD [facility] CPT-80304 Level 3 Est. Patient 11:40:53 ENVIRONMENTAL REMEDIATION ENGINEER Nick Quiroz MD [facility] CPT-56574 Level 3 Est. Patient 09:05:46 CDT Nick Quiroz MD [facility] CPT-64134 Level 3 Est. Patient 10:56:05 CDT Nick Quiroz MD [facility] CPT-95737 Level 3 Est. Patient 05:39:31 CDT Desmond Montgomery DO [facility] CPT-94339 Level 3 Est. Patient 16:18:28 ENVIRONMENTAL REMEDIATION ENGINEER Nick Quiroz MD [facility] CPT-25733 Level 3 Est. Patient 16:50:04 ENVIRONMENTAL REMEDIATION ENGINEER Nick Qurioz MD [facility] CPT-07311 Level 3 Est. Patient 22:12:55 ENVIRONMENTAL REMEDIATION ENGINEER Desmond Montgomery DO [facility] Procedures Code Procedure Name Date Entry Date Standard Description CPT-98770 Fluzone Quadrivalent Intramuscular Suspension 0.5 ML 10: 17:16 CDT CPT-LR Lesion Removal 08:49:09 CDT CPT-61893 Nail Excision 08:49:52 CDT CPT-84195 Venipuncture Draw Fee 16:51:53 ENVIRONMENTAL REMEDIATION ENGINEER
--- OUTSIDE RECORDS SUMMARY | 2018-08-01 22:08 | XMS REPORT | Clinical Summary ---
Author Author Admin, COURTNEY Organization [facility] Address Unknown Phone Unavailable Allergies, Adverse Reactions, Alerts Allergy Name Reaction Description Start Date Severity Status Provider No Known Allergies VIRAJ Raymond Conditions or Problems Problem Name Problem Code [...] medical examination at a health care facility SEIZURE DISORDER ICD-780.39 Inactive Nick Quiroz MD SEIZURES, HX OF ICD-V12.49 Inactive Nick Quiroz MD FH SEIZURES ICD-V17.2 Inactive Nick Quiroz MD SEIZURE DISORDER ICD-780.39 Inactive Nick Qurioz MD 2011 GASTROENTERITIS, ACUTE ICD-558.9 Inactive Nick Quiroz MD DEHYDRATION ICD-276.51 Inactive Nick Quiroz MD U R I ICD-465.9 Inactive Nick Quiroz MD SPASM, MUSCLE ICD-728.85 Inactive Nick Quiroz MD LYMPHADENITIS-ACUTE ICD-683 Inactive Nick Quiroz MD Medication List Medication Instructions Start Date Stop Date Generic Name NDC Status Provider Patient Instruction DEPAKOTE 500 MG EC TAB take 1 tab po BID for seizures. DIVALPROEX SODIUM 12976088660 Active Yvon Harrison MD Active DIVALPROEX SODIUM 250 MG TBEC 1 po TID DIVALPROEX SODIUM 20954198232 No Longer Active Nick Quiroz MD Active KEFLEX 500 MG CAP 1 po qid CEPHALEXIN 66155153643 No Longer Active Nick Quiroz MD Active KEFLEX 500 MG CAP 1 po qid CEPHALEXIN 76513308532 No Longer Active Nick Quiroz MD Active KEFLEX 500 MG CAP 1 po TID x 10 days CEPHALEXIN 64276279529 No Longer Active Nick Quiroz MD Active KEFLEX 500 MG CAP 1 po TID x 10 days CEPHALEXIN 33458301026 No Longer Active Nick Quiroz MD Active IBUPROFEN 600 MG TAB 1 tablet by mouth every 8 hours prn IBUPROFEN 25330670142 No Longer Active Desmond Montgomery DO Active FLONASE 50 MCG/ACT SUSP 2 puffs in each nostril daily FLUTICASONE PROPIONATE 78505821501 No Longer Active Desmond Montgomery DO Active LORATADINE 10 MG TABS 1 tablet by mouth daily PRN Congestion 2011 LORATADINE 90688792638 No Longer Active Desmond Montgomery DO Active LORATADINE 10 MG TABS 1 tablet by mouth daily PRN Congestion 2011 LORATADINE 10 MG TABS 362552 LORATADINE Inactive FLONASE 50 MCG/ACT SUSP 2 puffs in each nostril daily FLONASE 50 MCG/ACT SUSP 215536 FLUTICASONE PROPIONATE Inactive IBUPROFEN 600 MG TAB 1 tablet by mouth every 8 hours prn IBUPROFEN 600 MG TAB 449598 IBUPROFEN Inactive KEFLEX 500 MG CAP 1 po TID x 10 days KEFLEX 500 MG CAP 749336 CEPHALEXIN Inactive KEFLEX 500 MG CAP 1 po qid KEFLEX 500 MG CAP 106420 CEPHALEXIN Inactive KEFLEX 500 MG CAP 1 po qid KEFLEX 500 MG CAP 550481 CEPHALEXIN Inactive KEFLEX 500 MG CAP 1 po TID x 10 days KEFLEX 500 MG CAP 263720 CEPHALEXIN Inactive DIVALPROEX SODIUM 250 MG TBEC 1 po TID DIVALPROEX SODIUM 250 MG TBEC 0261152 DIVALPROEX SODIUM Inactive Encounters Code Encounter Date Provider Facility CPT-67605 Level 4 Est. Patient 09:51:29 CDT Yvon Harrison MD [facility] CPT-13904 Level 3 Est. Patient 11:40:53 GREIGE MENDER Nick Quiroz MD [facility] CPT-18153 Level 3 Est. Patient 09:05:46 CDT Nick Quiroz MD [facility] CPT-50727 Level 3 Est. Patient 10:56:05 CDT Nick Quiroz MD [facility] CPT-20012 Level 3 Est. Patient 05:39:31 CDT Desmond Montgomery [facility] CPT-93458 Level 3 Est. Patient 16:18:28 GREIGE MENDER Nick Quiroz MD [facility] CPT-25913 Level 3 Est. Patient 16:50:04 GREIGE MENDER Nick Quiroz MD [facility] CPT-39183 Level 3 Est. Patient 22:12:55 GREIGE MENDER Desmond Montgomery [facility] Procedures Code Procedure Name Date Entry Date Standard Description CPT-07879 Fluzone Quadrivalent Intramuscular Suspension 0.5 ML 10: 17:16 CDT CPT-LR Lesion Removal 08:49:09 CDT CPT-22461 Nail Excision 08:49:52 CDT CPT-26466 Venipuncture Draw Fee 16:51:53 GREIGE MENDER
--- OUTSIDE RECORDS SUMMARY | 2018-08-01 22:08 | XMS REPORT | Clinical Summary ---
Author Author Admin, COURTNEY Organization [facility] Address Unknown Phone Unavailable Allergies, Adverse [...] MG TABS 1 po at qhs SIMVASTATIN 36620718755 Active Magdalenakobe Thorntonida Active DEPAKOTE 500 MG EC TAB take 1 tab po BID for seizures. DIVALPROEX SODIUM 77869724491 Active Yvon Harrison MD Active DIVALPROEX SODIUM 250 MG TBEC 1 po TID DIVALPROEX SODIUM 62063325508 No Longer Active Nick Quiroz MD Active KEFLEX 500 MG CAP 1 po qid CEPHALEXIN 33814477919 No Longer Active Nick Quiroz MD Active KEFLEX 500 MG CAP 1 po qid CEPHALEXIN 20183622728 No Longer Active Nick Quiroz MD Active KEFLEX 500 MG CAP 1 po TID x 10 days CEPHALEXIN 27202392860 No Longer Active Nick Quiroz MD Active KEFLEX 500 MG CAP 1 po TID x 10 days CEPHALEXIN 75725804576 No Longer Active Nick Quiroz MD Active IBUPROFEN 600 MG TAB 1 tablet by mouth every 8 hours prn IBUPROFEN 61021239431 No Longer Active Desmond Montgomery DO Active FLONASE 50 MCG/ACT SUSP 2 puffs in each nostril daily FLUTICASONE PROPIONATE 16770154718 No Longer Active Desmond Montgomery DO Active LORATADINE 10 MG TABS 1 tablet by mouth daily PRN Congestion 2011 LORATADINE 67602774986 No Longer Active Desmond Montgomery DO Active LORATADINE 10 MG TABS 1 tablet by mouth daily PRN Congestion 2011 LORATADINE 10 MG TABS 443452 LORATADINE Inactive FLONASE 50 MCG/ACT SUSP 2 puffs in each nostril daily FLONASE 50 MCG/ACT SUSP 692710 FLUTICASONE PROPIONATE Inactive IBUPROFEN 600 MG TAB 1 tablet by mouth every 8 hours prn IBUPROFEN 600 MG TAB 423494 IBUPROFEN Inactive KEFLEX 500 MG CAP 1 po TID x 10 days KEFLEX 500 MG CAP 731318 CEPHALEXIN Inactive KEFLEX 500 MG CAP 1 po qid KEFLEX 500 MG CAP 264969 CEPHALEXIN Inactive KEFLEX 500 MG CAP 1 po qid KEFLEX 500 MG CAP 878666 CEPHALEXIN Inactive KEFLEX 500 MG CAP 1 po TID x 10 days KEFLEX 500 MG CAP 673082 CEPHALEXIN Inactive DIVALPROEX SODIUM 250 MG TBEC 1 po TID DIVALPROEX SODIUM 250 MG TBEC 9612523 DIVALPROEX SODIUM Inactive Vital Signs Date Name Value Unit Range Description blood pressure, diastolic 86 mm[Hg] BP caro blood pressure, systolic 123 mm[Hg] BP sys pulse rate E&M 82 /min Heart rate temperature E&M 98.2 [degF] Body temperature weight E&M 262 [lb_av] Weight Measured blood pressure, diastolic 89 mm[Hg] BP caro blood pressure, systolic 146 mm[Hg] BP sys pulse rate E&M 97 /min Heart rate temperature E&M 97.9 [degF] Body temperature weight E&M 257 [lb_av] Weight Measured Diagnostic Results Date Name Value Unit Range Description Lab Report: CBC, Comp. Metabolic Panel, Lipid Panel - Chemistry sodium, serum 136 mmol/L 195-120 3578/10/29 potassium, serum 4.0 mmol/L 3.5-5.2 chloride, serum [...] 0.40 mg/dL 0.00-1.00 cholesterol, serum 232 mg/dL 384-688 6909/10/29 triglyceride, serum, fasting 230 mg/dL 30-200 HDL [...] count 243 10^3/MM^3 10*3/mm3 142-424 Lab Report: VALPROIC ACID - Toxicology valproic acid, serum 116.9 ug/mL 50.0-100.0 valproic acid, serum 68.3 ug/mL 50.0-100.0 Encounters Code Encounter Date Provider Facility CPT-86451 Level 4 Est. Patient 15:11:02 RACK PULLER Yvon Harrison MD [facility] CPT-41195 Level 4 Est. Patient 13:18:47 CDT Yvon Harrison MD [facility] CPT-98066 Level 4 Est. Patient 09:51:29 CDT Yvon Harrison MD [facility] CPT-11416 Level 3 Est. Patient 11:40:53 RACK PULLER Nick Quiroz MD [facility] CPT-16600 Level 3 Est. Patient 09:05:46 CDT Nick Quiroz MD [facility] CPT-29373 Level 3 Est. Patient 10:56:05 CDT Nick Quiroz MD [facility] CPT-35899 Level 3 Est. Patient 05:39:31 CDT Desmond Montgomery DO [facility] CPT-88069 Level 3 Est. Patient 16:18:28 RACK PULLER Nick Quiroz MD [facility] CPT-20904 Level 3 Est. Patient 16:50:04 RACK PULLER Nick Quiroz MD [facility] CPT-87556 Level 3 Est. Patient 22:12:55 RACK PULLER Desmond Montgomery [facility] Procedures Code Procedure Name Date Entry Date Standard Description CPT-06973 Fluzone Quadrivalent Intramuscular Suspension 0.5 ML 10: 17:16 CDT CPT-LR Lesion Removal 08:49:09 CDT CPT-20249 Nail Excision 08:49:52 CDT CPT-30702 Venipuncture Draw Fee 16:51:53 RACK PULLER
--- OUTSIDE RECORDS SUMMARY | 2018-08-01 22:09 | XMS REPORT | Clinical Summary ---
Author Author Admin, COURTNEY Organization [facility] Address Unknown Phone Unavailable Allergies, Adverse Reactions, Alerts Allergy Name Reaction Description Start Date Severity Status Provider No Known Allergies Magdalena Braun Conditions or Problems Problem Name Problem Code [...] MD SEIZURES, HX OF ICD-V12.49 Inactive Nick Quirzo MD FH SEIZURES ICD-V17.2 Inactive Nick Quiroz [...] MG TABS 1 po at qhs SIMVASTATIN 38337880532 Active Magdalenakobe Thorntonida Active DEPAKOTE 500 MG EC TAB take 1 tab po BID for seizures. DIVALPROEX SODIUM 52627313996 Active Yvon Harrison MD Active DIVALPROEX SODIUM 250 MG TBEC 1 po TID DIVALPROEX SODIUM 05613572579 No Longer Active Nick Quiroz MD Active KEFLEX 500 MG CAP 1 po qid CEPHALEXIN 05194873041 No Longer Active Nick Quiroz MD Active KEFLEX 500 MG CAP 1 po qid CEPHALEXIN 10809876489 No Longer Active Nick Quiroz MD Active KEFLEX 500 MG CAP 1 po TID x 10 days CEPHALEXIN 06283310711 No Longer Active Nick Quiroz MD Active KEFLEX 500 MG CAP 1 po TID x 10 days CEPHALEXIN 31713661934 No Longer Active Nick Quiroz MD Active IBUPROFEN 600 MG TAB 1 tablet by mouth every 8 hours prn IBUPROFEN 36201345409 No Longer Active Desmond Montgomery DO Active FLONASE 50 MCG/ACT SUSP 2 puffs in each nostril daily FLUTICASONE PROPIONATE 48405389453 No Longer Active Desmond Montgomery DO Active LORATADINE 10 MG TABS 1 tablet by mouth daily PRN Congestion 2011 LORATADINE 50946090016 No Longer Active Desmond Montgomery DO Active LORATADINE 10 MG TABS 1 tablet by mouth daily PRN Congestion 2011 LORATADINE 10 MG TABS 597981 LORATADINE Inactive FLONASE 50 MCG/ACT SUSP 2 puffs in each nostril daily FLONASE 50 MCG/ACT SUSP 936214 FLUTICASONE PROPIONATE Inactive IBUPROFEN 600 MG TAB 1 tablet by mouth every 8 hours prn IBUPROFEN 600 MG TAB 904955 IBUPROFEN Inactive KEFLEX 500 MG CAP 1 po TID x 10 days KEFLEX 500 MG CAP 018054 CEPHALEXIN Inactive KEFLEX 500 MG CAP 1 po qid KEFLEX 500 MG CAP 254775 CEPHALEXIN Inactive KEFLEX 500 MG CAP 1 po qid KEFLEX 500 MG CAP 862616 CEPHALEXIN Inactive KEFLEX 500 MG CAP 1 po TID x 10 days KEFLEX 500 MG CAP 838929 CEPHALEXIN Inactive DIVALPROEX SODIUM 250 MG TBEC 1 po TID DIVALPROEX SODIUM 250 MG TBEC 4867452 DIVALPROEX SODIUM Inactive Vital Signs Date Name Value Unit Range Description blood pressure, diastolic 89 mm[Hg] BP caro blood pressure, systolic 146 mm[Hg] BP sys pulse rate E&M 97 /min Heart rate temperature E&M 97.9 [degF] Body temperature weight E&M 257 [lb_av] Weight Measured Diagnostic Results Date Name Value Unit Range Description Lab Report: CBC, Comp. Metabolic Panel, Lipid Panel - Chemistry sodium, serum 136 mmol/L 064-151 9234/10/29 potassium, serum 4.0 mmol/L 3.5-5.2 chloride, serum [...] 0.40 mg/dL 0.00-1.00 cholesterol, serum 232 mg/dL 240-562 1740/10/29 triglyceride, serum, fasting 230 mg/dL 30-200 HDL [...] 50.0-100.0 Encounters Code Encounter Date Provider Facility CPT-22329 Level 4 Est. Patient 15:11:02 COUNTY DEMONSTRATOR Yvon Harrison MD [facility] CPT-89182 Level 4 Est. Patient 13:18:47 CDT Yvon Harrison MD [facility] CPT-25727 Level 4 Est. Patient 09:51:29 CDT Yvon Harrison MD [facility] CPT-88978 Level 3 Est. Patient 11:40:53 COUNTY DEMONSTRATOR Nick Quiroz MD [facility] CPT-74171 Level 3 Est. Patient 09:05:46 CDT Nick Quiroz MD [facility] CPT-79153 Level 3 Est. Patient 10:56:05 CDT Nick Quiroz MD [facility] CPT-61743 Level 3 Est. Patient 05:39:31 CDT Desmond Montgomery [facility] CPT-07911 Level 3 Est. Patient 16:18:28 COUNTY DEMONSTRATOR Nick Quiroz MD [facility] CPT-29281 Level 3 Est. Patient 16:50:04 COUNTY DEMONSTRATOR Nick Quiroz MD [facility] CPT-63400 Level 3 Est. Patient 22:12:55 COUNTY DEMONSTRATOR Desmond Montgomery DO [facility] Procedures Code Procedure Name Date Entry Date Standard Description CPT-03876 Fluzone Quadrivalent Intramuscular Suspension 0.5 ML 10: 17:16 CDT CPT-LR Lesion Removal 08:49:09 CDT CPT-60527 Nail Excision 08:49:52 CDT CPT-17904 Venipuncture Draw Fee 16:51:53 COUNTY DEMONSTRATOR
--- OUTSIDE RECORDS SUMMARY | 2018-08-01 22:09 | XMS REPORT | Clinical Summary ---
Author Author Admin, COURTNEY Organization [facility] Address Unknown Phone Unavailable Allergies, Adverse Reactions, [...] MG TABS 1 po at qhs SIMVASTATIN 01559180049 Active Magdalena Braun Active DEPAKOTE 500 MG EC TAB take 1 tab po BID for seizures. DIVALPROEX SODIUM 32280392887 Active Yvon Harrison MD Active DIVALPROEX SODIUM 250 MG TBEC 1 po TID DIVALPROEX SODIUM 24850346430 No Longer Active Nick Quiroz MD Active KEFLEX 500 MG CAP 1 po qid CEPHALEXIN 35335321966 No Longer Active Nick Quiroz MD Active KEFLEX 500 MG CAP 1 po qid CEPHALEXIN 58816653360 No Longer Active Nick Quiroz MD Active KEFLEX 500 MG CAP 1 po TID x 10 days CEPHALEXIN 70938525016 No Longer Active Nick Quiroz MD Active KEFLEX 500 MG CAP 1 po TID x 10 days CEPHALEXIN 67855522282 No Longer Active Nick Quiroz MD Active IBUPROFEN 600 MG TAB 1 tablet by mouth every 8 hours prn IBUPROFEN 67699041527 No Longer Active Desmond Montgomery DO Active FLONASE 50 MCG/ACT SUSP 2 puffs in each nostril daily FLUTICASONE PROPIONATE 02090722760 No Longer Active Desmond Montgomery DO Active LORATADINE 10 MG TABS 1 tablet by mouth daily PRN Congestion 2011 LORATADINE 02905582372 No Longer Active Desmond Montgomery DO Active LORATADINE 10 MG TABS 1 tablet by mouth daily PRN Congestion 2011 LORATADINE 10 MG TABS 893556 LORATADINE Inactive FLONASE 50 MCG/ACT SUSP 2 puffs in each nostril daily FLONASE 50 MCG/ACT SUSP 291859 FLUTICASONE PROPIONATE Inactive IBUPROFEN 600 MG TAB 1 tablet by mouth every 8 hours prn IBUPROFEN 600 MG TAB 600725 IBUPROFEN Inactive KEFLEX 500 MG CAP 1 po TID x 10 days KEFLEX 500 MG CAP 422027 CEPHALEXIN Inactive KEFLEX 500 MG CAP 1 po qid KEFLEX 500 MG CAP 200524 CEPHALEXIN Inactive KEFLEX 500 MG CAP 1 po qid KEFLEX 500 MG CAP 659480 CEPHALEXIN Inactive KEFLEX 500 MG CAP 1 po TID x 10 days KEFLEX 500 MG CAP 269025 CEPHALEXIN Inactive DIVALPROEX SODIUM 250 MG TBEC 1 po TID DIVALPROEX SODIUM 250 MG TBEC 5077000 DIVALPROEX SODIUM Inactive Vital Signs Date Name [...] Panel - Chemistry sodium, serum 136 mmol/L 550-837 2329/10/29 potassium, serum 4.0 mmol/L 3.5-5.2 chloride, serum [...] 0.40 mg/dL 0.00-1.00 cholesterol, serum 232 mg/dL 018-502 9384/10/29 triglyceride, serum, fasting 230 mg/dL 30-200 HDL [...] Panel - Chemistry sodium, serum 141 mmol/L 979-209 7133/01/14 potassium, serum 4.5 mmol/L 3.5-5.2 chloride, serum 104 mmol/L 98-107 carbon dioxide, venous blood 32.7 mmol/L 21.0-32.0 blood glucose 83 mg/dL 65-110 urea nitrogen, blood 13 mg/dL 7-18 creatinine, serum 1.00 mg/dL 0.60-1.30 alanine aminotransferase (SGPT), serum 36 U/L 12-78 aspartate aminotransferase (SGOT), serum 17 U/L 15-37 calcium, serum 9.1 mg/dL 8.5-10.1 bilirubin, serum, total 0.40 mg/dL 0.00-1.00 cholesterol, serum 167 mg/dL 123-133 5752/01/14 triglyceride, serum, fasting 149 mg/dL 30-200 HDL cholesterol, serum 35 mg/dL 32-96 LDL cholesterol, serum 102 mg/dL 0-130 Lab Report: VALPROIC ACID - Toxicology valproic acid, serum 83.4 ug/mL 50.0-100.0 valproic acid, serum 116.9 ug/mL 50.0-100.0 valproic acid, serum 68.3 ug/mL 50.0-100.0 Encounters Code Encounter Date Provider Facility CPT-15592 Level 4 Est. Patient 16:35:02 WELD INSPECTOR Yvon Harrison MD [facility] CPT-84667 Level 4 Est. Patient 15:11:02 WELD INSPECTOR Yvon Harrison MD [facility] CPT-00051 Level 4 Est. Patient 13:18:47 CDT Yvon Harrison MD [facility] CPT-69119 Level 4 Est. Patient 09:51:29 CDT Yvon Harrison MD [facility] CPT-51816 Level 3 Est. Patient 11:40:53 WELD INSPECTOR Nick Quiroz MD [facility] CPT-39667 Level 3 Est. Patient 09:05:46 CDT Nick Quiroz MD [facility] CPT-82952 Level 3 Est. Patient 10:56:05 CDT Nick Quiroz MD [facility] CPT-96065 Level 3 Est. Patient 05:39:31 CDT Desmond Montgomery [facility] CPT-99394 Level 3 Est. Patient 16:18:28 WELD INSPECTOR Nick Quiroz MD [facility] CPT-61682 Level 3 Est. Patient 16:50:04 WELD INSPECTOR Nick Quiroz MD [facility] CPT-34015 Level 3 Est. Patient 22:12:55 WELD INSPECTOR Desmond Montgomery DO [facility] Procedures Code Procedure Name Date Entry Date Standard Description CPT-26170 Fluzone Quadrivalent Intramuscular Suspension 0.5 ML 10: 17:16 CDT CPT-LR Lesion Removal 08:49:09 CDT CPT-79684 Nail Excision 08:49:52 CDT CPT-16767 Venipuncture Draw Fee 16:51:53 WELD INSPECTOR
--- OUTSIDE RECORDS SUMMARY | 2018-08-01 22:10 | XMS REPORT | Clinical Summary ---
[...] tab po BID for seizures. DIVALPROEX SODIUM 31491292613 Active Yvon Harrison MD Active DIVALPROEX SODIUM 250 MG TBEC 1 po TID DIVALPROEX SODIUM 02419512906 No Longer Active Nick Quiroz MD Active KEFLEX 500 MG CAP 1 po qid CEPHALEXIN 62831879863 No Longer Active Nick Quiroz MD Active KEFLEX 500 MG CAP 1 po qid CEPHALEXIN 50745461143 No Longer Active Nick Quiroz MD Active KEFLEX 500 MG CAP 1 po TID x 10 days CEPHALEXIN 00920420977 No Longer Active Nick Quiroz MD Active KEFLEX 500 MG CAP 1 po TID x 10 days CEPHALEXIN 11792861360 No Longer Active Nick Quiroz MD Active IBUPROFEN 600 MG TAB 1 tablet by mouth every 8 hours prn IBUPROFEN 33721688076 No Longer Active Desmond Montgomery DO Active FLONASE 50 MCG/ACT SUSP 2 puffs in each nostril daily FLUTICASONE PROPIONATE 04240893111 No Longer Active Desmond Montgomery DO Active LORATADINE 10 MG TABS 1 tablet by mouth daily PRN Congestion 2011 LORATADINE 09899122815 No Longer Active Desmond Montgomery DO Active LORATADINE 10 MG TABS 1 tablet by mouth daily PRN Congestion 2011 LORATADINE 10 MG TABS 797293 LORATADINE Inactive FLONASE 50 MCG/ACT SUSP 2 puffs in each nostril daily FLONASE 50 MCG/ACT SUSP 660702 FLUTICASONE PROPIONATE Inactive IBUPROFEN 600 MG TAB 1 tablet by mouth every 8 hours prn IBUPROFEN 600 MG TAB 732540 IBUPROFEN Inactive KEFLEX 500 MG CAP 1 po TID x 10 days KEFLEX 500 MG CAP 905721 CEPHALEXIN Inactive KEFLEX 500 MG CAP 1 po qid KEFLEX 500 MG CAP 645705 CEPHALEXIN Inactive KEFLEX 500 MG CAP 1 po qid KEFLEX 500 MG CAP 338591 CEPHALEXIN Inactive KEFLEX 500 MG CAP 1 po TID x 10 days KEFLEX 500 MG CAP 297642 CEPHALEXIN Inactive DIVALPROEX SODIUM 250 MG TBEC 1 po TID DIVALPROEX SODIUM 250 MG TBEC 3551486 DIVALPROEX SODIUM Inactive Diagnostic Results Date Name Value Unit Range Description Lab Report: CBC, Comp. Metabolic Panel, Lipid Panel - Chemistry sodium, serum 136 mmol/L 026-652 3197/10/29 potassium, serum 4.0 mmol/L 3.5-5.2 chloride, serum [...] 0.40 mg/dL 0.00-1.00 cholesterol, serum 232 mg/dL 096-338 5762/10/29 triglyceride, serum, fasting 230 mg/dL 30-200 HDL [...] 11.6-14.8 platelet count 243 10^3/MM^3 10*3/mm3 142-424 Encounters Code Encounter Date Provider Facility CPT-15379 Level 4 Est. Patient 13:18:47 CDT Yvon Harrison MD [facility] CPT-49545 Level 4 Est. Patient 09:51:29 CDT Yvon Harrison MD [facility] CPT-29731 Level 3 Est. Patient 11:40:53 RN OBGYN Nick Quiroz MD [facility] CPT-81900 Level 3 Est. Patient 09:05:46 CDT Nick Quiroz MD [facility] CPT-39212 Level 3 Est. Patient 10:56:05 CDT Nick Quiroz MD [facility] CPT-74430 Level 3 Est. Patient 05:39:31 CDT Desmond Montgomery [facility] CPT-89874 Level 3 Est. Patient 16:18:28 RN OBGYN Nick Quiroz MD [facility] CPT-37756 Level 3 Est. Patient 16:50:04 RN OBGYN Nick Quiroz MD [facility] CPT-03658 Level 3 Est. Patient 22:12:55 RN OBGYN Desmond Montgomery [facility] Procedures Code Procedure Name Date Entry Date Standard Description CPT-98718 Fluzone Quadrivalent Intramuscular Suspension 0.5 ML 10: 17:16 CDT CPT-LR Lesion Removal 08:49:09 CDT CPT-52658 Nail Excision 08:49:52 CDT CPT-18188 Venipuncture Draw Fee 16:51:53 RN OBGYN
--- OUTSIDE RECORDS SUMMARY | 2018-08-01 22:10 | XMS REPORT ---
Author Author [facility] Medical Staff Organization [facility] [employer] [facility] Address [address] [place] [id number] Phone [phone] Care Team Providers Care Vice President Regulatory Name Role Phone ISAI RODRIGUEZ MD PP [phone] ISAI RODRIGUEZ MD, PP [phone] Summary purpose TRANSITION OF CARE AUTO GENERATION Chief Complaint and Reason for Visit Admit Diagnosis 1 UNSPEC EPIL/NOT INTRCTBL Problem list No authorized problems tracked for continuity of care are available for this visit. Encounters The following conditions tracked for encounter diagnoses were recorded for this visit: Finding or Diagnosis Status Certainty Chronicity Onset *SEIZURE DISORDER Active *FEVER Active Medications Home Medications Medication Directions Started Status Source Depakote ER 500 mg tablet,extended release 1 tablet oral 2 Times Daily Current Medication bottle label simvastatin 20 mg tablet 1 tablet oral At Bed Time Current Family recall from memory Allergies, adverse reactions, alerts Allergen Category Ingredient Status Reaction Severity Onset Augmentin Drug Allergy Augmentin Confirmed or Verified Rash Augmentin Drug Allergy potassium clavulanate Confirmed or Verified Rash Augmentin Drug Allergy Amoxicillin Confirmed or Verified Rash Dilantin Drug Allergy Dilantin Confirmed or Verified Dilantin Drug Allergy Phenytoin Confirmed or Verified phenobarbital Drug Allergy phenobarbital Confirmed or Verified Immunizations No immunizations recorded for this patient visit Relevant diagnostic tests and/or laboratory data RESULTS Blood Cultures 77-47-970263:30:00 Blood Culture Plate Date and Time 05/26/2014 08:41 SourceBLOOD CULTURE REPORT NoGrowth at 1 day. Unless otherwise notified. Final report in 5 Days. Release Date/Time: 05/27/2014 08:42 CULTURE REPORT No growth in 5 days. Release Date/Time: 06/01/2014 07:36 [id number]:20:00 Blood Culture Plate Date and Time 05/26/2014 08:21 SourceBLOOD CULTURE REPORT NoGrowth at 1 day. Unless otherwise notified. Final report in 5 Days. Release Date/Time: 05/27/2014 08:41 CULTURE REPORT No growth in 5 days. Release Date/Time: 06/01/2014 07:35 Therapeutic Drug Monitoring :20:00 Result Normal Range Units Valproic Acid (Depakote) L 29.9 50-100 ug/ml Chemistry 50-28-322126:30:00 Result Normal Range Units Lactic Acid 1.4 0.4-2.0 mmol/L 67-56-214319:20:00 Result Normal Range Units Sodium 138 134-145 mEq/l Potassium 4.2 3.5-5.1 mEq/l Chloride 100 98-107 mEq/l CO2 25.7 22-28 mEq/l Glucose H 115 70-105 mg/dl BUN 17 7-18 mg/dl Creatinine 1.12 0.6-1.3 mg/dl Calcium 9.6 8.4-10.2 mg/dl TP - Total Protein 7.9 6.0-8.3 g/dl Albumin 4.0 3.5-5 g/dl Bilirubin - Total 0.7 0.1-1.0 mg/dl AST 14 10-42 IU/L ALT 32 12-65 IU/L ALP 65 39-107 IU/L Osmolality L 278.1 280-300 mOsm/L Albumin/Globulin Ratio 1.0 0-8 Anion GAP 12.3 8-16 BUN/Creatinine Ratio 15.2 10-20 Estimated GFR 83 >=60 mL/min/1.7 Hematology 21-27-610677:55:00 Result Normal Range Units WBC H 11.4 4.8-10.8 103/uL RBC 4.7 4.7-6.1 106/uL HGB 13.5 13.0-18.0 g/dl HCT L 38.2 41.9-52.0 % MCV 81.8 80-94 FL MCH 28.9 27-31 pg MCHC 35.3 33-37 g/dl RDW 12.8 11.5-15.5 % PLT 197 130-400 103/uL MPV 9.1 7.3-10.4 FL Neutro % 63.4 40-70 % Lymph % 22.3 20-40 % [place] % H 12.2 0-10.0 % Eos % 1.7 0-7.0 % Baso % 0.4 0-2 % Neutro # 7.2 1.5-7.5 103/uL Lymph # 2.5 0.9-4.0 103/uL [place] # H 1.4 0-0.8 103/uL Eos # 0.2 0-0.6 103/uL Baso # 0.0 0-0.1 103/uL 60-79-497798:20:00 Result Normal Range Units WBC H 15.4 4.8-10.8 103/uL RBC 5.5 4.7-6.1 106/uL HGB 15.7 13.0-18.0 g/dl HCT 44.6 41.9-52.0 % MCV 81.1 80-94 FL MCH 28.5 27-31 pg MCHC 35.2 33-37 g/dl RDW 12.8 11.5-15.5 % PLT 251 130-400 103/uL MPV 9.1 7.3-10.4 FL Neutro % H 84.5 40-70 % Lymph % L 6.2 20-40 % [place] % 8.7 0-10.0 % Eos % 0.3 0-7.0 % Baso % 0.3 0-2 % Neutro # H 13.0 1.5-7.5 103/uL Lymph # 1.0 0.9-4.0 103/uL [place] # H 1.3 0-0.8 103/uL Eos # 0.1 0-0.6 103/uL Baso # 0.0 0-0.1 103/uL Radiology Results 54-80-777825:55:00 Result Normal Range Units MPV 9.1 7.3-10.4 FL 11-98-873446:20:00 Result Normal Range Units MPV 9.1 7.3-10.4 FL History of procedures Procedure Code Code Type Description Date Performed Performing Physician 55486 CPT-4 ASSAY, DIPROPYLACETIC ACID 05-26-2014 ISAI RODRIGUEZ 39271 CPT-4 COMPLETE CBC W/AUTO DIFF WBC 05-26-2014 ISAI RODRIGUEZ 32826 CPT-4 COMPREHEN METABOLIC PANEL 05-26-2014 ISAI RODRIGUEZ 84142 CPT-4 STREP A ASSAY W/OPTIC 05-26-2014 ISAI RODRIGUEZ 10048 CPT-4 MYCOPLASMA ANTIBODY 05-26-2014 ISAI RODRIGUEZ 88424 CPT-4 BLOOD CULTURE FOR BACTERIA 05-26-2014 ISAI RODRIGUEZ 62974 CPT-4 BLOOD CULTURE FOR BACTERIA 05-26-2014 ISAI RODRIGUEZ 82629 CPT-4 ASSAY OF LACTIC ACID 05-26-2014 ISAI RODRIGUEZ J1885 CPT-4 TORADOL SYR 30MG/ML 05-26-2014 ISAI RODRIGUEZ J2060 CPT-4 LORAZEPAM INJECTION 05-26-2014 ISAI RODRIGUEZ J7030 CPT-4 NORMAL SALINE SOLUTION INFUS 05-26-2014 ISAI RODRIGUEZ J7030 CPT-4 NORMAL SALINE SOLUTION INFUS 05-26-2014 ISAI RODRIGUEZ J0696 CPT-4 CEFTRIAXONE SODM 250MG INJ 05-26-2014 ISAI RODRIGUEZ 90343 CPT-4 ROUTINE VENIPUNCTURE 05-26-2014 BRITTANY HAIDER 23158 CPT-4 ROUTINE VENIPUNCTURE 05-26-2014 BRITTANY HAIDER 51012 CPT-4 COMPLETE CBC W/AUTO DIFF WBC 05-27-2014 ISAI RODRIGUEZ J0696 CPT-4 CEFTRIAXONE SODM 250MG INJ 05-27-2014 BRITTANY HAIDER 32249 CPT-4 ROUTINE VENIPUNCTURE 05-27-2014 BRITTANY HAIDER 48697 CPT-4 EMERGENCY DEPT VISIT 05-26-2014 BRITTANY HAIDER 91480 CPT-4 EMERGENCY DEPT VISIT 05-26-2014 BRITTANY HAIDER 47102 CPT-4 THER/PROPH/DIAG IV INF, INIT 05-26-2014 ISAI RODRIGUEZ 83948 CPT-4 TX/PRO/DX INJ 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 05-26-2014 ISAI RODRIGUEZ 23316 CPT-4 OBSERVATION CARE 05-26-2014 ISAI RODRIGUEZ 79168 CPT-4 OBSERVATION CARE 05-26-2014 ISAI RODRIGUEZ 14698 CPT-4 OBSERVATION CARE 05-27-2014 ISAI RODRIGUEZ 83920 CPT-4 THER/PROPH/DIAG IV INF ADDON 05-27-2014 ISAI RODRIGUEZ 37013 CPT-4 HYDRATE IV INFUSION, ADD-ON 05-26-2014 ISAI RODRIGUEZ 07048 CPT-4 HYDRATE IV INFUSION, ADD-ON 05-27-2014 ISAI RODRIGUEZ Functional status Functional Status Finding Observation Time Hearing Prob Loc none 97-07-233262:59 Vision Problems yes 14-10-912612:59 Vision Correct Dev glasses 21-70-830835:59 Ambulation Asst Dev none 18-47-590748:59 Range of Motion full 05-74-320507:00 Muscle Strength RUE 5 ROM full resist :00 Muscle Strength RLE 5 ROM full resist :00 Muscle Strength LUE 5 ROM full resist :00 Muscle Strength LLE 5 ROM full resist :00 Transfers independent 20-80-536509: Ambulation in room :00 Balance steady :00 Bathing Assistance none 11-40-732652:59 Eating Assistance none :59 Dressing Assistance none 67-47-548103:59 Toileting Assistance none :59 Transfer Assistance none :59 Decline Slf Care/Mob no :59 Phys Cond Stable yes :59 Nutrition normal :00 Diet regular : Oral Cavity moist and intact : Teeth intact :00 Dental Hygiene good : Abdomen Appearance flat :00 Abdomen soft :00 Bowel Sounds present :00 NG Tube no :00 Feeding Tube none :00 Rubio no :00 Cont Bladder Irr no 07-71-802016:00 Ostomy no :00 Stool normal 58-04-013991:00 Urination normal 05-92-977621:00 Quality sym/unlabored : Cough absent :00 Secretions no 17-19-189798:00 Breath Sounds RUL clear :00 Breath Sounds RML clear :00 Breath Sounds RLL clear :00 Breath Sounds KAIA clear :00 Breath Sounds LLL clear :00 Airway natural 81-99-049151:00 Chest Tube no 42-09-546193:00 Oxygen no 53-88-818294:36 C-PAP no 05-59-240360:00 BI-PAP no 54-84-870475:00 Temp >100.4 no :00 Temp <96.8 no :00 Chills with rigors no : HR > 90bpm no : Respirations > 20 no : Systolic <90 no :00 headache stiff neck no : WBC > 09598 no : WBC < 4000 no :00 Rapid Resp no :00 IV Site Location L hand : IV Type peripheral : IV Site Information new : IV Site Start Attmpt 1 times : IV Site Ricky 20 :31 IV Site Appearance WNL : IV Site Color clear : IV Site Patent yes :31 Dressing Changed yes :31 Dressing Type occlusive :31 Nursing Note Patient states no fever today and sore throat is much better. :55 Cognitive Status Finding Observation Time Oriented To Date 5 Yes :[address] 5 Yes :59 Name 3 Objects 3 Yes :59 Name Object in Rm 2 Yes :59 Recall 3 Objects 3 Yes :59 Repeats a Phrase 1 Yes :59 Follows Verbal Direc 3 Yes :59 Follows Written Dire 1 Yes :59 Write a Sentance 1 Yes :59 Draw an Object 1 Yes :59 Mini Mental Total 25 points :59 Learning Ability comprehends well :15 Neurological no :15 Psychological no :15 Physical no :15 Hearing no :15 E Business Project Manager Needed no :15 Sign Language no :15 Emotional no 96-34-154790:15 Vision no 08-64-947757:15 Laguage no 89-42-233501:15 Financial no :15 Vital signs Type Value Date Respiration Rate 20breaths per minute :36 Pulse 86beats per minute :36 Oxygen Saturation 95% :36 BP Systolic 126mmHg :36 BP Diastolic 73mmHg :36 Temperature 98.3F 57-36-237074:36 Social history Type Value Smoking Status NEVER SMOKER Treatment Plan No treatment plan text is available for this visit. Hospital discharge instructions Discharge Date/Time 05/27/2014 09;20 Accompanied By Relationship spouse/signif other Dismissal Condition good Disposition on DC home Valuables yes Valuable Type cell phone Valuables Returned T patient DC Inst/Educ Give yes Exit Care Educ Given yes DC Med Rec Rev yes PNE Vac none Flu Vac 2013 Tetanus Vac unknown Diet Explained yes Follow up appt already scheduled
--- OUTSIDE RECORDS SUMMARY | 2018-08-01 22:10 | XMS REPORT ---
Author Author [facility] Medical Staff Organization [facility] [employer] [facility] Address [address] [address] Phone [phone] Care Team Providers Care Lacer And Tier Name Role Phone ISAI RODRIGUEZ MD PP [phone] ISAI RODRIGUEZ MD, PP [phone] Summary purpose TRANSITION OF CARE AUTO GENERATION Chief Complaint and Reason for Visit Admit Diagnosis 1 SIEZURE FEVER TACHY CARDIA SORE THROAT Problem list No authorized problems tracked for [...] tests and/or laboratory data RESULTS Blood Cultures 17-20-054365:30:00 Blood Culture Plate Date and Time 05/26/2014 08:41 SourceBLOOD CULTURE REPORT NoGrowth at 1 day. Unless otherwise notified. Final report in 5 Days. Release Date/Time: 05/27/2014 08:42 [id number]:20:00 Blood Culture Plate Date and Time 05/26/2014 08:21 SourceBLOOD CULTURE REPORT NoGrowth at 1 day. Unless otherwise notified. Final report in 5 Days. Release Date/Time: 05/27/2014 08:41 Therapeutic Drug Monitoring 49-88-218791:20:00 Result Normal Range Units Valproic Acid (Depakote) L 29.9 50-100 ug/ml Chemistry 48-16-788627:30:00 Result Normal Range Units Lactic Acid 1.4 0.4-2.0 mmol/L :20:00 Result Normal Range Units Sodium 138 134-145 [...] 10-20 Estimated GFR 83 >=60 mL/min/1.7 Hematology 67-19-709786:55:00 Result Normal Range Units WBC H 11.4 4.8-10.8 103/uL RBC 4.7 4.7-6.1 106/uL HGB 13.5 13.0-18.0 g/dl HCT L 38.2 41.9-52.0 % MCV 81.8 80-94 FL MCH 28.9 27-31 pg MCHC 35.3 33-37 g/dl RDW 12.8 11.5-15.5 % PLT 197 130-400 103/uL MPV 9.1 7.3-10.4 FL Neutro % 63.4 40-70 % Lymph % 22.3 20-40 % [place] % H 12.2 0-10.0 % Eos % 1.7 0-7.0 % Baso % 0.4 0-2 % Neutro # 7.2 1.5-7.5 103/uL Lymph # 2.5 0.9-4.0 103/uL [place] # H 1.4 0-0.8 103/uL Eos # 0.2 0-0.6 103/uL Baso # 0.0 0-0.1 103/uL 20-79-399640:20:00 Result Normal Range Units WBC H 15.4 4.8-10.8 103/uL RBC 5.5 4.7-6.1 106/uL HGB 15.7 13.0-18.0 g/dl HCT 44.6 41.9-52.0 % MCV 81.1 80-94 FL MCH 28.5 27-31 pg MCHC 35.2 33-37 g/dl RDW 12.8 11.5-15.5 % PLT 251 130-400 103/uL MPV 9.1 7.3-10.4 FL Neutro % H 84.5 40-70 % Lymph % L 6.2 20-40 % [place] % 8.7 0-10.0 % Eos % 0.3 0-7.0 % Baso % 0.3 0-2 % Neutro # H 13.0 1.5-7.5 103/uL Lymph # 1.0 0.9-4.0 103/uL [place] # H 1.3 0-0.8 103/uL Eos # 0.1 0-0.6 103/uL Baso # 0.0 0-0.1 103/uL Radiology Results 68-30-523588:55:00 Result Normal Range Units MPV 9.1 7.3-10.4 FL :20:00 Result Normal Range Units MPV 9.1 7.3-10.4 FL History of procedures No procedures recorded for this patient visit. Functional status Functional Status Finding Observation Time Hearing Prob Loc none 20-59-040788:59 Vision Problems yes 04-71-580750:59 Vision Correct Dev glasses 34-57-831531:59 Ambulation Asst Dev none 96-33-828120:59 Range of Motion full :00 Muscle Strength RUE 5 ROM full resist :00 Muscle Strength RLE 5 ROM full resist :00 Muscle Strength LUE 5 ROM full resist :00 Muscle Strength LLE 5 ROM full resist 32-73-876373:00 Transfers independent 27-11-816773:00 Ambulation in room :00 Balance steady :00 Bathing Assistance none 21-29-060553:59 Eating Assistance none 51-36-901924:59 Dressing Assistance none :59 Toileting Assistance none :59 Transfer Assistance none 60-31-718800:59 Decline Slf Care/Mob no 11-27-152132:59 Phys Cond Stable yes 73-32-064321:59 Nutrition normal :00 Diet regular : Oral Cavity moist and intact :00 Teeth intact :00 Dental Hygiene good :00 Abdomen Appearance flat : Abdomen soft : Bowel Sounds present :00 NG Tube no :00 Feeding Tube none :00 Rubio no :00 Cont Bladder Irr no :00 Ostomy no :00 Stool normal :00 Urination normal 07-13-224875:00 Quality sym/unlabored 86-57-595067:00 Cough absent : Secretions no 92-25-121382:00 Breath Sounds RUL clear 64-56-216212:00 Breath Sounds RML clear 25-88-338062:00 Breath Sounds RLL clear 02-74-074904:00 Breath Sounds KAIA clear 10-66-431723:00 Breath Sounds LLL clear 39-16-765261:00 Airway natural 05-65-341733:00 Chest Tube no 41-37-959817:00 Oxygen no 21-60-714845:36 C-PAP no 04-02-824618:00 BI-PAP no 73-20-616377:00 Temp >100.4 no 55-33-195152:00 Temp <96.8 no 43-11-808333:00 Chills with rigors no 29-46-173425:00 HR > 90bpm no 66-96-146561:00 Respirations > 20 no 95-90-495112:00 Systolic <90 no 10-32-234083:00 headache stiff neck no 22-78-406556:00 WBC > 01813 no :00 WBC < 4000 no :00 Rapid Resp no :00 IV Site Location L hand : IV Type peripheral :31 IV Site Information new : IV Site Start Attmpt 1 times : IV Site Ricky 20 : IV Site Appearance WNL : IV Site Color clear : IV Site Patent yes : Dressing Changed yes : Dressing Type occlusive : Nursing Note Pt escorted off unit per w/c in good condition. All belongings sent with pt. 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
--- OUTSIDE RECORDS SUMMARY | 2018-08-01 22:10 | XMS REPORT | Clinical Summary ---
Author Author Admin, COURTNEY Organization [facility] Address Unknown Phone Unavailable Allergies, [...] MG TABS 1 po at qhs SIMVASTATIN 25280982546 Active Magdalenakobe Thorntonida Active DEPAKOTE 500 MG EC TAB take 1 tab po BID for seizures. DIVALPROEX SODIUM 11321499850 Active Yvon Harrison MD Active DIVALPROEX SODIUM 250 MG TBEC 1 po TID DIVALPROEX SODIUM 39123326044 No Longer Active Nick Quiroz MD Active KEFLEX 500 MG CAP 1 po qid CEPHALEXIN 24046674246 No Longer Active Nick Quiroz MD Active KEFLEX 500 MG CAP 1 po qid CEPHALEXIN 21291727661 No Longer Active Nick Quiroz MD Active KEFLEX 500 MG CAP 1 po TID x 10 days CEPHALEXIN 18942039309 No Longer Active Nick Quiroz MD Active KEFLEX 500 MG CAP 1 po TID x 10 days CEPHALEXIN 13984769486 No Longer Active Nick Quiroz MD Active IBUPROFEN 600 MG TAB 1 tablet by mouth every 8 hours prn IBUPROFEN 71512060432 No Longer Active Desmond Montgomery DO Active FLONASE 50 MCG/ACT SUSP 2 puffs in each nostril daily FLUTICASONE PROPIONATE 46436998938 No Longer Active Desmond Montgomery DO Active LORATADINE 10 MG TABS 1 tablet by mouth daily PRN Congestion 2011 LORATADINE 01617130127 No Longer Active Desmond Montgomery DO Active LORATADINE 10 MG TABS 1 tablet by mouth daily PRN Congestion 2011 LORATADINE 10 MG TABS 502280 LORATADINE Inactive FLONASE 50 MCG/ACT SUSP 2 puffs in each nostril daily FLONASE 50 MCG/ACT SUSP 164590 FLUTICASONE PROPIONATE Inactive IBUPROFEN 600 MG TAB 1 tablet by mouth every 8 hours prn IBUPROFEN 600 MG TAB 947109 IBUPROFEN Inactive KEFLEX 500 MG CAP 1 po TID x 10 days KEFLEX 500 MG CAP 633797 CEPHALEXIN Inactive KEFLEX 500 MG CAP 1 po qid KEFLEX 500 MG CAP 505853 CEPHALEXIN Inactive KEFLEX 500 MG CAP 1 po qid KEFLEX 500 MG CAP 942119 CEPHALEXIN Inactive KEFLEX 500 MG CAP 1 po TID x 10 days KEFLEX 500 MG CAP 388620 CEPHALEXIN Inactive DIVALPROEX SODIUM 250 MG TBEC 1 po TID DIVALPROEX SODIUM 250 MG TBEC 5478339 DIVALPROEX SODIUM Inactive Vital Signs Date Name [...] Panel - Chemistry sodium, serum 136 mmol/L 110-735 2890/10/29 potassium, serum 4.0 mmol/L 3.5-5.2 chloride, serum [...] 0.40 mg/dL 0.00-1.00 cholesterol, serum 232 mg/dL 050-573 1815/10/29 triglyceride, serum, fasting 230 mg/dL 30-200 HDL [...] 50.0-100.0 Encounters Code Encounter Date Provider Facility CPT-94030 Level 4 Est. Patient 15:11:02 PRODUCTION CORRUGATOR Yvon Harrison MD [facility] CPT-92466 Level 4 Est. Patient 13:18:47 CDT Yvon Harrison MD [facility] CPT-49950 Level 4 Est. Patient 09:51:29 CDT Yvon Harrison MD [facility] CPT-25218 Level 3 Est. Patient 11:40:53 PRODUCTION CORRUGATOR Nick Quiroz MD [facility] CPT-11475 Level 3 Est. Patient 09:05:46 CDT Nick Quiroz MD [facility] CPT-89123 Level 3 Est. Patient 10:56:05 CDT Nick Quiroz MD [facility] CPT-10503 Level 3 Est. Patient 05:39:31 CDT Desmond Montgomery [facility] CPT-10070 Level 3 Est. Patient 16:18:28 PRODUCTION CORRUGATOR Nick Quiroz MD [facility] CPT-34685 Level 3 Est. Patient 16:50:04 PRODUCTION CORRUGATOR Nick Quiroz MD [facility] CPT-00282 Level 3 Est. Patient 22:12:55 PRODUCTION CORRUGATOR Desmond Montgomery DO [facility] Procedures Code Procedure Name Date Entry Date Standard Description CPT-40059 Fluzone Quadrivalent Intramuscular Suspension 0.5 ML 10: 17:16 CDT CPT-LR Lesion Removal 08:49:09 CDT CPT-59597 Nail Excision 08:49:52 CDT CPT-37187 Venipuncture Draw Fee 16:51:53 PRODUCTION CORRUGATOR
[2018-08-01] MEDS: LACTATED RINGERS 1,000 ML IV ONE (22:11)
[2018-08-01] MEDS: ONDANSETRON 4 MG/2 ML (SDV) Z0FRAN IVP ONE (22:11)
--- OUTSIDE RECORDS SUMMARY | 2018-08-01 22:11 | XMS REPORT | Clinical Summary ---
Author Author Admin, COURTNEY Organization [facility] Address Unknown Phone Unavailable Allergies, Adverse [...] SIMVASTATIN 20 MG TABS 1 po at hs SIMVASTATIN 72055152532 Active Magdalena Raida Active DEPAKOTE 500 MG EC TAB take 1 tab po BID for seizures. DIVALPROEX SODIUM 70763924943 Active Yvon Harrison MD Active DIVALPROEX SODIUM 250 MG TBEC 1 po TID DIVALPROEX SODIUM 09173921125 No Longer Active Nick Quiroz MD Active KEFLEX 500 MG CAP 1 po qid CEPHALEXIN 10982093650 No Longer Active Nick Quiroz MD Active KEFLEX 500 MG CAP 1 po qid CEPHALEXIN 76004959714 No Longer Active Nick Quiroz MD Active KEFLEX 500 MG CAP 1 po TID x 10 days CEPHALEXIN 35462162259 No Longer Active Nick Quiroz MD Active KEFLEX 500 MG CAP 1 po TID x 10 days CEPHALEXIN 29243474001 No Longer Active Nick Quiroz MD Active IBUPROFEN 600 MG TAB 1 tablet by mouth every 8 hours prn IBUPROFEN 69995255058 No Longer Active Desmond Montgomery DO Active FLONASE 50 MCG/ACT SUSP 2 puffs in each nostril daily FLUTICASONE PROPIONATE 96213025009 No Longer Active Desmond Montgomery DO Active LORATADINE 10 MG TABS 1 tablet by mouth daily PRN Congestion 2011 LORATADINE 17265942175 No Longer Active Desmond Montgomery DO Active LORATADINE 10 MG TABS 1 tablet by mouth daily PRN Congestion 2011 LORATADINE 10 MG TABS 817619 LORATADINE Inactive FLONASE 50 MCG/ACT SUSP 2 puffs in each nostril daily FLONASE 50 MCG/ACT SUSP 064695 FLUTICASONE PROPIONATE Inactive IBUPROFEN 600 MG TAB 1 tablet by mouth every 8 hours prn IBUPROFEN 600 MG TAB 528443 IBUPROFEN Inactive KEFLEX 500 MG CAP 1 po TID x 10 days KEFLEX 500 MG CAP 685095 CEPHALEXIN Inactive KEFLEX 500 MG CAP 1 po qid KEFLEX 500 MG CAP 578014 CEPHALEXIN Inactive KEFLEX 500 MG CAP 1 po qid KEFLEX 500 MG CAP 329301 CEPHALEXIN Inactive KEFLEX 500 MG CAP 1 po TID x 10 days KEFLEX 500 MG CAP 044212 CEPHALEXIN Inactive DIVALPROEX SODIUM 250 MG TBEC 1 po TID DIVALPROEX SODIUM 250 MG TBEC 4356126 DIVALPROEX SODIUM Inactive Diagnostic Results Date Name Value Unit Range Description Lab Report: CBC, Comp. Metabolic Panel, Lipid Panel - Chemistry sodium, serum 136 mmol/L 396-911 9334/10/29 potassium, serum 4.0 mmol/L 3.5-5.2 chloride, serum [...] 0.40 mg/dL 0.00-1.00 cholesterol, serum 232 mg/dL 226-954 4022/10/29 triglyceride, serum, fasting 230 mg/dL 30-200 HDL [...] 142-424 Encounters Code Encounter Date Provider Facility CPT-30936 Level 4 Est. Patient 13:18:47 CDT Yvon Harrison MD [facility] CPT-47664 Level 4 Est. Patient 09:51:29 CDT Yvon Harrison MD [facility] CPT-10415 Level 3 Est. Patient 11:40:53 MS SQL DBA Nick Quiroz MD [facility] CPT-82526 Level 3 Est. Patient 09:05:46 CDT Nick Quiroz MD [facility] CPT-16770 Level 3 Est. Patient 10:56:05 CDT Nick Quiroz MD [facility] CPT-70577 Level 3 Est. Patient 05:39:31 CDT Desmond Montgomery DO [facility] CPT-13217 Level 3 Est. Patient 16:18:28 MS SQL DBA Nick Quiroz MD [facility] CPT-67666 Level 3 Est. Patient 16:50:04 MS SQL DBA Nick Quiroz MD [facility] CPT-75361 Level 3 Est. Patient 22:12:55 MS SQL DBA Desmond Montgomery [facility] Procedures Code Procedure Name Date Entry Date Standard Description CPT-63524 Fluzone Quadrivalent Intramuscular Suspension 0.5 ML 10: 17:16 CDT CPT-LR Lesion Removal 08:49:09 CDT CPT-68888 Nail Excision 08:49:52 CDT CPT-26131 Venipuncture Draw Fee 16:51:53 MS SQL DBA
--- OUTSIDE RECORDS SUMMARY | 2018-08-01 22:11 | XMS REPORT | Clinical Summary ---
Author Author Admin, COURTNEY Organization [facility] Address Unknown Phone Unavailable Allergies, [...] MG TABS 1 po at qhs SIMVASTATIN 37626976157 Active Magdalenakobe Thorntonida Active DEPAKOTE 500 MG EC TAB take 1 tab po BID for seizures. DIVALPROEX SODIUM 93764085093 Active Yvon Harrison MD Active DIVALPROEX SODIUM 250 MG TBEC 1 po TID DIVALPROEX SODIUM 44066824130 No Longer Active Nick Quiroz MD Active KEFLEX 500 MG CAP 1 po qid CEPHALEXIN 13015694566 No Longer Active Nick Quiroz MD Active KEFLEX 500 MG CAP 1 po qid CEPHALEXIN 67650692607 No Longer Active Nick Quiroz MD Active KEFLEX 500 MG CAP 1 po TID x 10 days CEPHALEXIN 75556198842 No Longer Active Nick Quiroz MD Active KEFLEX 500 MG CAP 1 po TID x 10 days CEPHALEXIN 88201865266 No Longer Active Nick Quiroz MD Active IBUPROFEN 600 MG TAB 1 tablet by mouth every 8 hours prn IBUPROFEN 73967216872 No Longer Active Desmond Montgomery DO Active FLONASE 50 MCG/ACT SUSP 2 puffs in each nostril daily FLUTICASONE PROPIONATE 86475798862 No Longer Active Desmond Montgomery DO Active LORATADINE 10 MG TABS 1 tablet by mouth daily PRN Congestion 2011 LORATADINE 16993043556 No Longer Active Desmond Montgomery DO Active LORATADINE 10 MG TABS 1 tablet by mouth daily PRN Congestion 2011 LORATADINE 10 MG TABS 812856 LORATADINE Inactive FLONASE 50 MCG/ACT SUSP 2 puffs in each nostril daily FLONASE 50 MCG/ACT SUSP 175896 FLUTICASONE PROPIONATE Inactive IBUPROFEN 600 MG TAB 1 tablet by mouth every 8 hours prn IBUPROFEN 600 MG TAB 929448 IBUPROFEN Inactive KEFLEX 500 MG CAP 1 po TID x 10 days KEFLEX 500 MG CAP 594281 CEPHALEXIN Inactive KEFLEX 500 MG CAP 1 po qid KEFLEX 500 MG CAP 298323 CEPHALEXIN Inactive KEFLEX 500 MG CAP 1 po qid KEFLEX 500 MG CAP 211265 CEPHALEXIN Inactive KEFLEX 500 MG CAP 1 po TID x 10 days KEFLEX 500 MG CAP 010391 CEPHALEXIN Inactive DIVALPROEX SODIUM 250 MG TBEC 1 po TID DIVALPROEX SODIUM 250 MG TBEC 0550016 DIVALPROEX SODIUM Inactive Vital Signs Date Name [...] Panel - Chemistry sodium, serum 136 mmol/L 457-950 9541/10/29 potassium, serum 4.0 mmol/L 3.5-5.2 chloride, serum [...] 0.40 mg/dL 0.00-1.00 cholesterol, serum 232 mg/dL 359-046 5014/10/29 triglyceride, serum, fasting 230 mg/dL 30-200 HDL [...] Toxicology valproic acid, serum 116.9 ug/mL 50.0-100.0 Encounters Code Encounter Date Provider Facility CPT-11709 Level 4 Est. Patient 13:18:47 CDT Yvon Harrison MD [facility] CPT-46026 Level 4 Est. Patient 09:51:29 CDT Yvon Harrison MD [facility] CPT-80260 Level 3 Est. Patient 11:40:53 LOCKSTITCH ZIPPER SETTER Nick Quiroz MD [facility] CPT-03380 Level 3 Est. Patient 09:05:46 CDT Nick Quiroz MD [facility] CPT-35501 Level 3 Est. Patient 10:56:05 CDT Nick Quiroz MD [facility] CPT-78037 Level 3 Est. Patient 05:39:31 CDT Desmond Montgomery [facility] CPT-66384 Level 3 Est. Patient 16:18:28 LOCKSTITCH ZIPPER SETTER Nick Quiroz MD [facility] CPT-88413 Level 3 Est. Patient 16:50:04 LOCKSTITCH ZIPPER SETTER Nick Quiroz MD [facility] CPT-41882 Level 3 Est. Patient 22:12:55 LOCKSTITCH ZIPPER SETTER Desmond Montgomery [facility] Procedures Code Procedure Name Date Entry Date Standard Description CPT-45465 Fluzone Quadrivalent Intramuscular Suspension 0.5 ML 10: 17:16 CDT CPT-LR Lesion Removal 08:49:09 CDT CPT-36150 Nail Excision 08:49:52 CDT CPT-65719 Venipuncture Draw Fee 16:51:53 LOCKSTITCH ZIPPER SETTER
--- OUTSIDE RECORDS SUMMARY | 2018-08-01 22:11 | XMS REPORT | Clinical Summary ---
Author Author Admin, COURTNEY Organization [facility] Address Unknown Phone Unavailable Allergies, Adverse [...] MD 2011 GASTROENTERITIS, ACUTE ICD-558.9 Inactive Nick Quirzo MD DEHYDRATION ICD-276.51 Inactive Nick Quiroz MD U R I ICD-465.9 Inactive Nick Quiroz MD SPASM, MUSCLE ICD-728.85 Inactive Nick Quiroz MD LYMPHADENITIS-ACUTE ICD-683 Inactive Nick Quiroz MD Medication List Medication Instructions Start Date Stop Date Generic Name NDC Status Provider Patient Instruction SIMVASTATIN 20 MG TABS 1 po at qhs SIMVASTATIN 79001545509 Active Magdalena Braun Active DEPAKOTE 500 MG EC TAB take 1 tab po BID for seizures. DIVALPROEX SODIUM 57805848100 Active Yvon Harrison MD Active DIVALPROEX SODIUM 250 MG TBEC 1 po TID DIVALPROEX SODIUM 37163956598 No Longer Active Nick Quiroz MD Active KEFLEX 500 MG CAP 1 po qid CEPHALEXIN 17648865610 No Longer Active Nick Quiroz MD Active KEFLEX 500 MG CAP 1 po qid CEPHALEXIN 51792822389 No Longer Active Nick Quiroz MD Active KEFLEX 500 MG CAP 1 po TID x 10 days CEPHALEXIN 63091172772 No Longer Active Nick Quiroz MD Active KEFLEX 500 MG CAP 1 po TID x 10 days CEPHALEXIN 41149530034 No Longer Active Nick Quiroz MD Active IBUPROFEN 600 MG TAB 1 tablet by mouth every 8 hours prn IBUPROFEN 68945356809 No Longer Active Desmond Montgomery DO Active FLONASE 50 MCG/ACT SUSP 2 puffs in each nostril daily FLUTICASONE PROPIONATE 19764273098 No Longer Active Desmond Montgomery DO Active LORATADINE 10 MG TABS 1 tablet by mouth daily PRN Congestion 2011 LORATADINE 12252406606 No Longer Active Desmond Montgomery DO Active LORATADINE 10 MG TABS 1 tablet by mouth daily PRN Congestion 2011 LORATADINE 10 MG TABS 161786 LORATADINE Inactive FLONASE 50 MCG/ACT SUSP 2 puffs in each nostril daily FLONASE 50 MCG/ACT SUSP 073226 FLUTICASONE PROPIONATE Inactive IBUPROFEN 600 MG TAB 1 tablet by mouth every 8 hours prn IBUPROFEN 600 MG TAB 292808 IBUPROFEN Inactive KEFLEX 500 MG CAP 1 po TID x 10 days KEFLEX 500 MG CAP 855751 CEPHALEXIN Inactive KEFLEX 500 MG CAP 1 po qid KEFLEX 500 MG CAP 217501 CEPHALEXIN Inactive KEFLEX 500 MG CAP 1 po qid KEFLEX 500 MG CAP 856141 CEPHALEXIN Inactive KEFLEX 500 MG CAP 1 po TID x 10 days KEFLEX 500 MG CAP 352207 CEPHALEXIN Inactive DIVALPROEX SODIUM 250 MG TBEC 1 po TID DIVALPROEX SODIUM 250 MG TBEC 8105596 DIVALPROEX SODIUM Inactive Vital Signs Date Name [...] Panel - Chemistry sodium, serum 136 mmol/L 947-554 8083/10/29 potassium, serum 4.0 mmol/L 3.5-5.2 chloride, serum [...] 0.40 mg/dL 0.00-1.00 cholesterol, serum 232 mg/dL 966-371 4511/10/29 triglyceride, serum, fasting 230 mg/dL 30-200 HDL [...] Panel - Chemistry sodium, serum 141 mmol/L 979-112 2792/01/14 potassium, serum 4.5 mmol/L 3.5-5.2 chloride, serum 104 mmol/L 98-107 carbon dioxide, venous blood 32.7 mmol/L 21.0-32.0 blood glucose 83 mg/dL 65-110 urea nitrogen, blood 13 mg/dL 7-18 creatinine, serum 1.00 mg/dL 0.60-1.30 alanine aminotransferase (SGPT), serum 36 U/L 12-78 aspartate aminotransferase (SGOT), serum 17 U/L 15-37 calcium, serum 9.1 mg/dL 8.5-10.1 bilirubin, serum, total 0.40 mg/dL 0.00-1.00 cholesterol, serum 167 mg/dL 641-220 9088/01/14 triglyceride, serum, fasting 149 mg/dL 30-200 HDL cholesterol, serum 35 mg/dL 32-96 LDL cholesterol, serum 102 mg/dL 0-130 Lab Report: VALPROIC ACID - Toxicology valproic acid, serum 83.4 ug/mL 50.0-100.0 valproic acid, serum 116.9 ug/mL 50.0-100.0 valproic acid, serum 68.3 ug/mL 50.0-100.0 Encounters Code Encounter Date Provider Facility CPT-11129 Level 4 Est. Patient 16:35:02 EXECUTIVE CANDIDATE DEVELOPER Yvon Harrison MD [facility] CPT-22559 Level 4 Est. Patient 15:11:02 EXECUTIVE CANDIDATE DEVELOPER Yvon Harrison MD [facility] CPT-26341 Level 4 Est. Patient 13:18:47 CDT Yvon Harrison MD [facility] CPT-84549 Level 4 Est. Patient 09:51:29 CDT Yvon Harrison MD [facility] CPT-81010 Level 3 Est. Patient 11:40:53 EXECUTIVE CANDIDATE DEVELOPER Nick Quiroz MD [facility] CPT-62983 Level 3 Est. Patient 09:05:46 CDT Nick Quiroz MD [facility] CPT-11786 Level 3 Est. Patient 10:56:05 CDT Nick Quiroz MD [facility] CPT-84523 Level 3 Est. Patient 05:39:31 CDT Desmond Montgomery [facility] CPT-07665 Level 3 Est. Patient 16:18:28 EXECUTIVE CANDIDATE DEVELOPER Nick Quiroz MD [facility] CPT-24200 Level 3 Est. Patient 16:50:04 EXECUTIVE CANDIDATE DEVELOPER Nick Quiroz MD [facility] CPT-65694 Level 3 Est. Patient 22:12:55 EXECUTIVE CANDIDATE DEVELOPER Desmond Montgomery DO [facility] Procedures Code Procedure Name Date Entry Date Standard Description CPT-68280 Fluzone Quadrivalent Intramuscular Suspension 0.5 ML 10: 17:16 CDT CPT-LR Lesion Removal 08:49:09 CDT CPT-87242 Nail Excision 08:49:52 CDT CPT-17350 Venipuncture Draw Fee 16:51:53 EXECUTIVE CANDIDATE DEVELOPER
--- OUTSIDE RECORDS SUMMARY | 2018-08-01 22:12 | XMS REPORT | Continuity of Care Document ---
Demographics x Preferred Language Unknown Marital Status Unknown Holiness Affiliation Unknown Race Unknown Ethnic Group Unknown Author Organization Unknown Address Unknown Allergies Active Description Code Type Severity Reaction Onset Reported/Identified Relationship to Patient Clinical Status Yes Augmentin 4242 Drug Allergy N/ A Rash Yes Dilantin 4081 Drug Allergy N/A N/A Yes No Known Drug Allergies 58989880 Drug Allergy N/A N/A Confirmed but inactive Yes phenobarbital 1406 Drug Allergy N/A N/A Yes No Known Medication Allergies Drug N/A N/A Medications There is no data. Problems Date Dx Coded Attending Type Code Diagnosis Diagnosed By 10/23/2017 Yvon Harrison MD F41.1 Generalized anxiety disorder 10/23/2017 Yvon Harrison MD K52.9 Diarrhea, chronic 10/23/2017 Yvon Harrison MD E66.09 Other obesity due to excess calories 10/23/2017 Yvon Harrison MD Z68.34 Body Mass Index 34.0-34.9 Adult 11/02/2017 Yvon Harrison MD B83.9 Worm in stool 11/02/2017 Yvon Harrison MD R19.7 Diarrhea 11/19/2017 Yvon Harrison MD N45.1 Epididymitis, left 11/19/2017 Yvon Harrison MD R30.0 Dysuria 11/19/2017 Yvon Harrison MD Z68.33 Body Mass Index 33.0-33.9 Adult 03/12/2018 Yvon Harrison MD E66.9 Obesity Class I (BMI 30-34.9) 03/12/2018 Yvon Harrison MD N43.2 Hydrocele, Other 04/22/2018 Yvon Harrison MD M54.5 Low back pain, acute 04/22/2018 Yvon Harrison MD Z23 Influenza Vaccination for Prophylaxis Procedures There is no data. Results Test Result Range CBC WITH DIFF - 12/17/13 00:00 BASO% 0.4 % 0-2 EOS% 2.4 % 0-7.0 HCT 45.6 % 41.9-52.0 HGB 16.0 G/DL 13.0-18.0 LYMPH% 10.0 % 20-40 MCH 28.5 PG 27-31 MCHC 35.1 G/DL 33-37 MCV 81.1 FL 80-94 MONO% 7.8 % 0-10.0 MPV 9.2 FL 7.3-10.4 NEUTRO% 79.4 % 40-70 PLT 272 10^3u 130-400 RBC 5.6 10^6u 4.7-6.1 RDW 12.7 % 11.5-15.5 WBC 13.7 10^3u 4.8-10.8 NEUTRO# 10.8 10^3u 1.5-7.5 LYMPH# 1.4 10^3u 0.9-4.0 MONO# 1.1 10^3u 0-0.8 EOS# 0.3 10^3u 0-0.6 BASO# 0.1 10^3u 0-0.1 CMP - 12/17/13 00:00 ALB 4.1 G/DL 3.5-5 ALP 73 IU/L 39-107 ALT 46 IU/L 12-65 AST 21 IU/L 10-42 BCR 10.9 10-20 BUN 12 MG/DL 7-18 CA 9.1 MG/DL 8.4-10.2 CL 101 MEQ/L 98-107 CO2 28.5 MEQ/L 22-28 CREA 1.10 MG/DL 0.6-1.3 EGFR 85 eGFR >=60 GLU 113 MG/DL 70-105 K 4.1 MEQ/L 3.5-5.1 NA 139 MEQ/L 134-145 OSMSC 278.1 MOSML 280-300 TBIL 0.5 MG/DL 0.1-1.0 TP 7.6 G/DL 6.0-8.3 Albumin/Globulin Ratio 1.2 0-8 Anion Gap 9.5 8-16 RAPID MYCOPLASMA - 12/17/13 00:00 RAPMYCO N Negative RSTREP - 05/26/14 00:00 RSTREP N Negative CBC WITH DIFF - 05/26/14 00:00 BASO% 0.3 % 0-2 EOS% 0.3 % 0-7.0 HCT 44.6 % 41.9-52.0 HGB 15.7 G/DL 13.0-18.0 LYMPH% 6.2 % 20-40 MCH 28.5 PG 27-31 MCHC 35.2 G/DL 33-37 MCV 81.1 FL 80-94 MONO% 8.7 % 0-10.0 MPV 9.1 FL 7.3-10.4 NEUTRO% 84.5 % 40-70 PLT 251 10^3u 130-400 RBC 5.5 10^6u 4.7-6.1 RDW 12.8 % 11.5-15.5 WBC 15.4 10^3u 4.8-10.8 NEUTRO# 13.0 10^3u 1.5-7.5 LYMPH# 1.0 10^3u 0.9-4.0 MONO# 1.3 10^3u 0-0.8 EOS# 0.1 10^3u 0-0.6 BASO# 0.0 10^3u 0-0.1 VALP - 05/26/14 00:00 VALP 29.9 UG/ML 50-100 CMP - 05/26/14 00:00 ALB 4.0 G/DL 3.5-5 ALP 65 IU/L 39-107 ALT 32 IU/L 12-65 AST 14 IU/L 10-42 BCR 15.2 10-20 BUN 17 MG/DL 7-18 CA 9.6 MG/DL 8.4-10.2 CL 100 MEQ/L 98-107 CO2 25.7 MEQ/L 22-28 CREA 1.12 MG/DL 0.6-1.3 EGFR 83 eGFR >=60 GLU 115 MG/DL 70-105 K 4.2 MEQ/L 3.5-5.1 NA 138 MEQ/L 134-145 OSMSC 278.1 MOSML 280-300 TBIL 0.7 MG/DL 0.1-1.0 TP 7.9 G/DL 6.0-8.3 Albumin/Globulin Ratio 1.0 0-8 Anion Gap 12.3 8-16 RAPID MYCOPLASMA - 05/26/14 00:00 RAPMYCO N Negative LACTIC ACID - 05/26/14 00:00 LA 1.4 MMOLL 0.4-2.0 CBC WITH DIFF - 05/27/14 00:00 BASO% 0.4 % 0-2 EOS% 1.7 % 0-7.0 HCT 38.2 % 41.9-52.0 HGB 13.5 G/DL 13.0-18.0 LYMPH% 22.3 % 20-40 MCH 28.9 PG 27-31 MCHC 35.3 G/DL 33-37 MCV 81.8 FL 80-94 MONO% 12.2 % 0-10.0 MPV 9.1 FL 7.3-10.4 NEUTRO% 63.4 % 40-70 PLT 197 10^3u 130-400 RBC 4.7 10^6u 4.7-6.1 RDW 12.8 % 11.5-15.5 WBC 11.4 10^3u 4.8-10.8 NEUTRO# 7.2 10^3u 1.5-7.5 LYMPH# 2.5 10^3u 0.9-4.0 MONO# 1.4 10^3u 0-0.8 EOS# 0.2 10^3u 0-0.6 BASO# 0.0 10^3u 0-0.1 Encounters ACCT No. Visit Date/Time Discharge Status Pt. Type Provider Facility Loc./Unit Complaint [id number] 12/17/2013 10:11:00 12/17/2013 11:43:00 DIS Emergency BRITTANY HAIDER [facility] EMR [id number] 07/26/2013 00:00:00 07/26/2013 00:00:00 DIS Outpatient ISAI RODRIGUEZ [facility] EMR [id number] 03/08/2014 00:00:00 Document Registration [id number] 03/08/2013 00:00:00 Document Registration [id number] 07/12/2018 20:05:10 ACT Unknown Christy MAZARIEGOS, Yvon [id number] 10/12/2017 18:38:00 10/12/2017 20:15:00 DIS Emergency BRITTANY HAIDER [facility] ED ed visit
--- OUTSIDE RECORDS SUMMARY | 2018-08-01 22:12 | XMS REPORT | Clinical Summary ---
[...] health care facility SEIZURE DISORDER ICD-780.39 Inactive Ncik Quiroz MD SEIZURES, HX OF ICD-V12.49 Inactive [...] tab po BID for seizures. DIVALPROEX SODIUM 45232729618 Active Yvon Harrison MD Active DIVALPROEX SODIUM 250 MG TBEC 1 po TID DIVALPROEX SODIUM 22308119653 No Longer Active Nick Quiroz MD Active KEFLEX 500 MG CAP 1 po qid CEPHALEXIN 69227500778 No Longer Active Nick Quiroz MD Active KEFLEX 500 MG CAP 1 po qid CEPHALEXIN 55965230547 No Longer Active Nick Quiroz MD Active KEFLEX 500 MG CAP 1 po TID x 10 days CEPHALEXIN 02584714390 No Longer Active Nick Quiroz MD Active KEFLEX 500 MG CAP 1 po TID x 10 days CEPHALEXIN 48997915417 No Longer Active Nick Quiroz MD Active IBUPROFEN 600 MG TAB 1 tablet by mouth every 8 hours prn IBUPROFEN 90287901715 No Longer Active Desmond Montgomery DO Active FLONASE 50 MCG/ACT SUSP 2 puffs in each nostril daily FLUTICASONE PROPIONATE 80861237520 No Longer Active Desmond Montgomery DO Active LORATADINE 10 MG TABS 1 tablet by mouth daily PRN Congestion 2011 LORATADINE 14952602689 No Longer Active Desmond Montgomery DO Active LORATADINE 10 MG TABS 1 tablet by mouth daily PRN Congestion 2011 LORATADINE 10 MG TABS 218528 LORATADINE Inactive FLONASE 50 MCG/ACT SUSP 2 puffs in each nostril daily FLONASE 50 MCG/ACT SUSP 788108 FLUTICASONE PROPIONATE Inactive IBUPROFEN 600 MG TAB 1 tablet by mouth every 8 hours prn IBUPROFEN 600 MG TAB 388545 IBUPROFEN Inactive KEFLEX 500 MG CAP 1 po TID x 10 days KEFLEX 500 MG CAP 447811 CEPHALEXIN Inactive KEFLEX 500 MG CAP 1 po qid KEFLEX 500 MG CAP 626237 CEPHALEXIN Inactive KEFLEX 500 MG CAP 1 po qid KEFLEX 500 MG CAP 501504 CEPHALEXIN Inactive KEFLEX 500 MG CAP 1 po TID x 10 days KEFLEX 500 MG CAP 656922 CEPHALEXIN Inactive DIVALPROEX SODIUM 250 MG TBEC 1 po TID DIVALPROEX SODIUM 250 MG TBEC 5533255 DIVALPROEX SODIUM Inactive Encounters Code Encounter Date Provider Facility CPT-44736 Level 4 Est. Patient 09:51:29 CDT Yvon Harrison MD [facility] CPT-40456 Level 3 Est. Patient 11:40:53 NATURAL SCIENCE MANAGER Nick Quiroz MD [facility] CPT-76915 Level 3 Est. Patient 09:05:46 CDT Nick Quiroz MD [facility] CPT-25505 Level 3 Est. Patient 10:56:05 CDT Nick Quiroz MD [facility] CPT-93835 Level 3 Est. Patient 05:39:31 CDT Desmond Montgomery [facility] CPT-53963 Level 3 Est. Patient 16:18:28 NATURAL SCIENCE MANAGER Nick Quiroz MD [facility] CPT-36329 Level 3 Est. Patient 16:50:04 NATURAL SCIENCE MANAGER Nick Quiroz MD [facility] CPT-88254 Level 3 Est. Patient 22:12:55 NATURAL SCIENCE MANAGER Desmond Montgomery [facility] Procedures Code Procedure Name Date Entry Date Standard Description CPT-70614 Fluzone Quadrivalent Intramuscular Suspension 0.5 ML 10: 17:16 CDT CPT-LR Lesion Removal 08:49:09 CDT CPT-06758 Nail Excision 08:49:52 CDT CPT-33406 Venipuncture Draw Fee 16:51:53 NATURAL SCIENCE MANAGER
--- OUTSIDE RECORDS SUMMARY | 2018-08-01 22:12 | XMS REPORT | Clinical Summary ---
Author Author Admin, COURTNEY Organization [facility] Address Unknown Phone Unavailable Allergies, Adverse [...] MG TABS 1 po at qhs SIMVASTATIN [id number] Active Magdalenakobe Thorntonida Active DEPAKOTE 500 MG EC TAB take 1 tab po BID for seizures. DIVALPROEX SODIUM 83061670601 Active Yvon Harrison MD Active DIVALPROEX SODIUM 250 MG TBEC 1 po TID DIVALPROEX SODIUM 96767981815 No Longer Active Nick Quiroz MD Active KEFLEX 500 MG CAP 1 po qid CEPHALEXIN 54085381164 No Longer Active Nick Quiroz MD Active KEFLEX 500 MG CAP 1 po qid CEPHALEXIN 94573119690 No Longer Active Nick Quiroz MD Active KEFLEX 500 MG CAP 1 po TID x 10 days CEPHALEXIN 56304121063 No Longer Active Nick Quiroz MD Active KEFLEX 500 MG CAP 1 po TID x 10 days CEPHALEXIN 41693243970 No Longer Active Nick Quiroz MD Active IBUPROFEN 600 MG TAB 1 tablet by mouth every 8 hours prn IBUPROFEN 64593487800 No Longer Active Desmond Montgomery DO Active FLONASE 50 MCG/ACT SUSP 2 puffs in each nostril daily FLUTICASONE PROPIONATE 25707286148 No Longer Active Desmond Montgomery DO Active LORATADINE 10 MG TABS 1 tablet by mouth daily PRN Congestion 2011 LORATADINE 78136031657 No Longer Active Desmond Montgomery DO Active LORATADINE 10 MG TABS 1 tablet by mouth daily PRN Congestion 2011 LORATADINE 10 MG TABS 836265 LORATADINE Inactive FLONASE 50 MCG/ACT SUSP 2 puffs in each nostril daily FLONASE 50 MCG/ACT SUSP 879632 FLUTICASONE PROPIONATE Inactive IBUPROFEN 600 MG TAB 1 tablet by mouth every 8 hours prn IBUPROFEN 600 MG TAB 524658 IBUPROFEN Inactive KEFLEX 500 MG CAP 1 po TID x 10 days KEFLEX 500 MG CAP 195297 CEPHALEXIN Inactive KEFLEX 500 MG CAP 1 po qid KEFLEX 500 MG CAP 778238 CEPHALEXIN Inactive KEFLEX 500 MG CAP 1 po qid KEFLEX 500 MG CAP 426188 CEPHALEXIN Inactive KEFLEX 500 MG CAP 1 po TID x 10 days KEFLEX 500 MG CAP 494297 CEPHALEXIN Inactive DIVALPROEX SODIUM 250 MG TBEC 1 po TID DIVALPROEX SODIUM 250 MG TBEC 2374317 DIVALPROEX SODIUM Inactive Vital Signs Date Name [...] Panel - Chemistry sodium, serum 136 mmol/L 326-367 7370/10/29 potassium, serum 4.0 mmol/L 3.5-5.2 chloride, serum [...] 0.40 mg/dL 0.00-1.00 cholesterol, serum 232 mg/dL 017-611 1373/10/29 triglyceride, serum, fasting 230 mg/dL 30-200 HDL [...] 142-424 Encounters Code Encounter Date Provider Facility CPT-[id number] Level 4 Est. Patient 13:18:47 CDT Yvon Harrison MD [facility] CPT-89947 Level 4 Est. Patient 09:51:29 CDT Yvon Harrison MD [facility] CPT-01382 Level 3 Est. Patient 11:40:53 ELECTROCARDIOGRAPHIC TECHNICIAN Nick Quiroz MD [facility] CPT-32882 Level 3 Est. Patient 09:05:46 CDT Nick Quiroz MD [facility] CPT-64132 Level 3 Est. Patient 10:56:05 CDT Nick Quiroz MD [facility] CPT-98214 Level 3 Est. Patient 05:39:31 CDT Desmond Montgomery [facility] CPT-15325 Level 3 Est. Patient 16:18:28 ELECTROCARDIOGRAPHIC TECHNICIAN Nick Quiroz MD [facility] CPT-44779 Level 3 Est. Patient 16:50:04 ELECTROCARDIOGRAPHIC TECHNICIAN Nick Quiroz MD [facility] CPT-18366 Level 3 Est. Patient 22:12:55 ELECTROCARDIOGRAPHIC TECHNICIAN Desmond Montgomery [facility] Procedures Code Procedure Name Date Entry Date Standard Description CPT-20540 Fluzone Quadrivalent Intramuscular Suspension 0.5 ML 10: 17:16 CDT CPT-LR Lesion Removal 08:49:09 CDT CPT-09698 Nail Excision 08:49:52 CDT CPT-80918 Venipuncture Draw Fee 16:51:53 ELECTROCARDIOGRAPHIC TECHNICIAN
[2018-08-01 22:15] LABS: BASOPHILS # (AUTO) 0.1 10^3/uL (0.0-0.1); BASOPHILS % (AUTO) 1 % (0-10); EOSINOPHILS # (AUTO) 0.2 10^3/uL (0.0-0.3); EOSINOPHILS % (AUTO) 2 % (0-10); HEMATOCRIT 45 % (40-54); LYMPHOCYTES # (AUTO) 0.9 X 10^3 (1.0-4.0); LYMPHOCYTES % (AUTO) 10 % (12-44); MEAN CORPUSCULAR HEMOGLOBIN 28 PG (25-34); MEAN CORPUSCULAR HGB CONC 36 G/DL (32-36); MEAN CORPUSCULAR VOLUME 80 FL (80-99); MEAN PLATELET VOLUME 9.4 FL (7.4-10.4); MONOCYTES % (AUTO) 11 % (0-12); NEUTROPHILS # (AUTO) 6.7 X 10^3 (1.8-7.8); NEUTROPHILS % (AUTO) 76 % (42-75); PLATELET COUNT 240 10^3/uL (130-400); RED CELL DISTRIBUTION WIDTH 12.9 % (10.0-14.5); WHITE BLOOD COUNT 8.7 10^3/uL (4.3-11.0)
[2018-08-01 22:36] LABS: INR 0.9 (0.8-1.4); PROTHROMBIN TIME PATIENT 12.9 SEC (12.2-14.7)
[2018-08-01 22:45] LABS: ALANINE AMINOTRANSFERASE 40 U/L (0-55); ALBUMIN 4.6 GM/DL (3.2-4.5); ALKALINE PHOSPHATASE 59 U/L (40-136); AMYLASE 33 U/L (25-125); BILIRUBIN,TOTAL 0.5 MG/DL (0.1-1.0); BUN/CREATININE RATIO 14; CALCIUM 9.9 MG/DL (8.5-10.1); CARBON DIOXIDE 22 MMOL/L (21-32); CHLORIDE 104 MMOL/L (98-107); CREATINE KINASE 105 U/L (30-200); CREATININE SERUM 0.92 MG/DL (0.60-1.30); GFR ESTIMATED > 60; GLUCOSE 100 MG/DL (70-105); LIPASE 12 U/L (8-78); MAGNESIUM 2.2 MG/DL (1.8-2.4); POTASSIUM 3.9 MMOL/L (3.6-5.0); SODIUM 139 MMOL/L (135-145); TOTAL PROTEIN 7.4 GM/DL (6.4-8.2)
[2018-08-01 22:48] LABS: ACETAMINOPHEN < 10 UG/ML (10-30)
[2018-08-01 23:02] LABS: BILIRUBIN,URINE NEGATIVE (NEGATIVE); CLARITY,URINE CLEAR; COLOR,URINE YELLOW; GLUCOSE, URINE (UA) NEGATIVE (NEGATIVE); KETONES,URINE NEGATIVE (NEGATIVE); LEUKOCYTE ESTERASE ,URINE NEGATIVE (NEGATIVE); NITRITE,URINE NEGATIVE (NEGATIVE); PH,URINE 7 (5-9); PROTEIN,URINE NEGATIVE (NEGATIVE); UROBILINOGEN,URINE NORMAL (NORMAL)
[2018-08-01 23:04] LABS: CREATINE KINASE MB 1.1 NG/ML (<6.6); TSH (THYROID ANALYZER) 1.85 UIU/ML (0.35-4.94)
[2018-08-01 23:10] LABS: VALPROIC ACID < 2.0 UG/ML (50.0-100.0)
[2018-08-01 23:15] LABS: AMPHETAMINE SCREEN, URINE NEGATIVE (NEGATIVE); BARBITURATE SCREEN URINE NEGATIVE (NEGATIVE); BENZODIAZEPINES SCREEN URINE NEGATIVE (NEGATIVE); CANNABINOID SCREEN, URINE NEGATIVE (NEGATIVE); COCAINE SCREEN URINE NEGATIVE (NEGATIVE); METHADONE STAT NEGATIVE (NEGATIVE); METHAMPHETAMINE SCREEN URINE S NEGATIVE (NEGATIVE); OPIATE SCREEN URINE NEGATIVE (NEGATIVE); OXYCODONE STAT NEGATIVE (NEGATIVE); PROPOXYPHENE STAT NEGATIVE (NEGATIVE); TRICYCLIC ANTIDEPRESSANTS SCRE NEGATIVE (NEGATIVE)
[2018-08-01 23:21] LABS: BACTERIA,URINE TRACE /HPF; SQUAMOUS EPITHELIAL CELL,UR RARE /HPF
[2018-08-01] MEDS: cefTRIAXone FOR IV USE 1,000 MG in WATER (STERILE) FOR INJECTION 10 ML IV ONE (23:24)
[2018-08-01 23:49] VITALS: BP 108/60
== END | disposition home or self-care (01) ==
LOC: ER 21:30
DX: J32.9 Chronic sinusitis, unspecified (principal); H66.92 Otitis media, unspecified, left ear; G40.909 Epilepsy, unspecified, not intractable, without status epilepticus; K21.9 Gastro-esophageal reflux disease without esophagitis; Z87.19 Personal history of other diseases of the digestive system; Z88.1 Allergy status to other antibiotic agents; Z88.8 Allergy status to other drugs, medicaments and biological substances; Z79.51 Long term (current) use of inhaled steroids; Z87.891 Personal history of nicotine dependence
CPT/HCPCS: 36415; 80053; 80164; 80306; 80320; 80329; 81000; 82150; 82550; 82553; 83605; 83690; 83735; 84443; 85025; 85610; 85730; 86308; 87040; 87430; 87804; 93041